=== PATIENT | female | born 1935 | race Caucasian/White ===

== ENCOUNTER → 2018-04-14 12:34 | Outpatient (CLI) | payer MEDICARE, OTHER, SELFPAY | PROVIDERS: PCP Internal Medicine; Visit Provider Internal Medicine | DX: M89.9 Disorder of bone, unspecified (principal); K21.9 Gastro-esophageal reflux disease without esophagitis | CPT/HCPCS: 77080 ==

== ENCOUNTER → 2018-09-11 11:00 | Outpatient (CLI) | payer MEDICARE, OTHER, SELFPAY ==
[2018-09-11 13:16] LABS: Free T3, Triiodothyronine Free 2.88 pg/mL (2.77-5.27); Free T4, Direct Thyroxine 0.94 ng/dL (0.78-2.19)
[2018-09-11 13:30] LABS: Thyroid Stimulating Hormone 0.31 uIU/mL (0.47-4.68)
[2018-09-11 15:57] LABS: Vitamin D 25 Hydroxy (D3) 49.3 ng/mL (30.0-100.0)
== END ==
PROVIDERS: PCP Internal Medicine; Visit Provider Internal Medicine Endocrinology, Diabetes & Metabolism
DX: E03.8 Other specified hypothyroidism (principal); E55.9 Vitamin D deficiency, unspecified
CPT/HCPCS: 36415; 82306; 84439; 84443; 84481

== ENCOUNTER → 2019-03-13 15:16 | Outpatient (CLI) | payer MEDICARE, OTHER, SELFPAY ==
[2019-03-13 19:23] LABS: Free T3, Triiodothyronine Free 3.75 pg/mL (2.77-5.27); Free T4, Direct Thyroxine 1.08 ng/dL (0.78-2.19)
[2019-03-13 19:37] LABS: Thyroid Stimulating Hormone 1.13 uIU/mL (0.47-4.68)
== END ==
PROVIDERS: Family Provider Internal Medicine; PCP Internal Medicine; Visit Provider Internal Medicine Endocrinology, Diabetes & Metabolism
DX: E03.8 Other specified hypothyroidism (principal)
CPT/HCPCS: 36415; 84439; 84443; 84481

== ENCOUNTER → 2019-03-15 08:24 | Outpatient (CLI) | payer MEDICARE, OTHER, SELFPAY ==
--- NOTE | 2019-03-15 | DI.MG.S_ITS ---
BILATERAL DIGITAL SCREENING MAMMOGRAM 3D/2D WITH CAD: 03/15/2019 CLINICAL: Routine screening. Family history of breast cancer. Comparison is made to exams dated: 01/30/2018 mammogram - [facility], 12/06/2013 mammogram - [facility], 12/06/2012 mammogram, and 12/02/2011 mammogram - [facility]. The tissue of both breasts is heterogeneously dense. This may lower the sensitivity of mammography. Current study was also evaluated with a Computer Aided Detection (CAD) system. No significant masses, calcifications, or other findings are seen in either breast. There has been no significant interval change. IMPRESSION: NEGATIVE There is no mammographic evidence of malignancy. A 1 year screening mammogram is recommended. This exam was interpreted at Station ID: [id number]. NOTE: For mammograms, a report in lay terms will be sent to the patient. Approximately 15% of breast malignancies will not be visualized mammographically. In the management of a palpable breast mass, a negative mammogram must not discourage biopsy of a clinically suspicious lesion. Electronically Signed By: Gerardo whitney/poncho:03/15/2019 12:42:54 letter sent: Normal Exam ACR BI-RADS Category 1: Negative [id number]
== END ==
PROVIDERS: PCP Internal Medicine; Visit Provider Internal Medicine
DX: Z12.31 Encounter for screening mammogram for malignant neoplasm of breast (principal); Z80.3 Family history of malignant neoplasm of breast
CPT/HCPCS: 77063; 77067

== ENCOUNTER → 2019-05-03 12:30 | Outpatient (CLI) | payer MEDICARE, OTHER, SELFPAY ==
[2019-05-03 13:52] LABS: Free T3, Triiodothyronine Free 2.36 pg/mL (2.77-5.27); Free T4, Direct Thyroxine 0.76 ng/dL (0.78-2.19)
[2019-05-03 14:05] LABS: Thyroid Stimulating Hormone 2.44 uIU/mL (0.47-4.68)
== END ==
PROVIDERS: Family Provider Internal Medicine; PCP Internal Medicine; Visit Provider Internal Medicine Endocrinology, Diabetes & Metabolism
DX: E03.8 Other specified hypothyroidism (principal)
CPT/HCPCS: 36415; 84439; 84443; 84481

== ENCOUNTER → 2019-08-02 16:04 | Outpatient (CLI) | payer MEDICARE, OTHER, SELFPAY ==
--- NOTE | 2019-08-02 | DI.US.S_ITS ---
PROCEDURE: US PERIPH VENOUS LOW EXTREM RT INDICATIONS: LEG PAIN TECHNIQUE: Real-time imaging, as well as color and pulse Doppler interrogation, were performed of the lower extremity deep veins from the inguinal ligament to the popliteal fossa. COMPARISON: None. FINDINGS: The common femoral, femoral and popliteal veins are normally compressible, and free of intraluminal thrombus. Color and pulse Doppler demonstrate normal phasic intraluminal flow. There is normal augmentation response to distal compression maneuver. Edema within the ankle. IMPRESSION: No deep venous thrombosis identified within the right lower extremity. Dictated by: Mendel PARRISH Interpreted: Magaly Raphael MD on 08/02/2019 at 17:27 Approved by: Brett Naqvi M.D. on 08/07/2019 at 10:00
== END ==
PROVIDERS: PCP Internal Medicine; Visit Provider Internal Medicine
DX: M79.604 Pain in right leg (principal); M79.89 Other specified soft tissue disorders
CPT/HCPCS: 93971

== ENCOUNTER → 2019-09-13 14:28 | Outpatient (CLI) | payer MEDICARE, OTHER, SELFPAY ==
[2019-09-13 16:01] LABS: Free T3, Triiodothyronine Free 4.41 pg/mL (2.77-5.27); Free T4, Direct Thyroxine 1.01 ng/dL (0.78-2.19)
[2019-09-13 16:15] LABS: Thyroid Stimulating Hormone 1.55 uIU/mL (0.47-4.68)
== END ==
PROVIDERS: PCP Internal Medicine; Visit Provider Internal Medicine Endocrinology, Diabetes & Metabolism
DX: E03.8 Other specified hypothyroidism (principal)
CPT/HCPCS: 36415; 84439; 84443; 84481

== ENCOUNTER → 2019-12-21 13:48 | Outpatient (CLI) | payer MEDICARE, OTHER, SELFPAY ==
--- NOTE | 2019-12-21 | DI.RAD.S_ITS ---
PROCEDURE: XR HIP W PEL IF DONE LT 2V INDICATIONS: left hip pain TECHNIQUE: AP pelvis with lateral view(s) of the left hip(s). COMPARISON: [facility] [place], KRISTYN, XR PELVIS WITH BILATERAL LATERAL HIPS, 05/26/2018, 14:58. [facility], KRISTYN, XR LUMBAR SPINE 2-3V, 12/21/2019, 14:07. [facility], CR, HIP 2V RIGHT, 08/21/2008, 9:43. [facility], CR, HIP 2V RIGHT, 08/01/2008, 17:14. FINDINGS: Bones: No fractures or dislocations. Prior plate fixation of a fracture involving the left hip, lower intertrochanteric area, appears present and stable over time. 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 No new trauma is found. There is a moderate degree of degenerative hip joint osteoarthritis on the left, and the adjacent sacroiliac joints and sacrum appear free of trauma or significant degeneration. Pelvic ring appears intact. No suspicious bony lesions. Soft tissues: The visualized bowel gas pattern is normal. No suspicious soft tissue calcifications. IMPRESSION: Postsurgical changes in each hip, normal alignment. 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 Dictated by: Brett Naqvi M.D. on 12/21/2019 at 16:55 Approved by: Brett Naqvi M.D. on 12/21/2019 at 16:57
--- NOTE | 2019-12-21 | DI.RAD.S_ITS ---
PROCEDURE: XR LUMBAR SPINE 2-3V INDICATIONS: low back pain TECHNIQUE: 3 views of the lumbar spine were acquired. COMPARISON: None. FINDINGS: Bones: 5 [id number] vertebrae are present. There is normal bony alignment. No vertebral body compression fractures. No suspicious bony lesions. There is a moderate degree of degenerative disc disease over the upper and middle thirds of the lumbosacral spine but the degree of degenerative disc height reduction has not extended as severely into the L4-5 and L5 S1 levels. However, facet osteoarthritis is near severe from L3 inferiorly and most pronounced at L5-S1, right greater than left, to the degree that significant spinal and foraminal stenosis over those levels would be expected. Soft tissues: Overlying bowel gas pattern is normal. No suspicious soft tissue calcifications. IMPRESSION: The degenerative disc disease is relatively mild compared to the facet osteoarthritis over the lower half of the LS spine were significant spinal and foraminal stenosis and nerve root impingement would be expected. Dictated by: Brett Naqvi M.D. on 12/21/2019 at 16:53 Approved by: Brett Naqvi M.D. on 12/21/2019 at 16:55
== END ==
PROVIDERS: PCP Internal Medicine; Visit Provider Internal Medicine
DX: M54.5 Low back pain (principal); M25.552 Pain in left hip; M16.12 Unilateral primary osteoarthritis, left hip; M47.816 Spondylosis without myelopathy or radiculopathy, lumbar region; M47.817 Spondylosis without myelopathy or radiculopathy, lumbosacral region; M51.36 Other intervertebral disc degeneration, lumbar region; Z96.641 Presence of right artificial hip joint
CPT/HCPCS: 72100; 73502

== ENCOUNTER → 2020-05-01 15:05 | Outpatient (CLI) | payer MEDICARE, OTHER, SELFPAY ==
[2020-05-01 15:56] LABS: Aspartate Aminotransferase 33 IU/L (14-36); BUN Creatinine Ratio 34.1 (6-22); Blood Urea Nitrogen 31 mg/dL (7-17); Calcium 9.7 mg/dL (8.4-10.2); Carbon Dioxide 24 mmol/L (22-32); Chloride 108 mmol/L (98-107); Cholesterol 236 mg/dL (140-199); Glucose 96 mg/dL (80-110); HDL Cholesterol 74 mg/dL (40-60); HEMOLYSIS < 15 (0-50); LDL Cholesterol Calculated 133 mg/dL (<100); Potassium 4.6 mmol/L (3.4-5.1); Sodium 139 mmol/L (137-145); Triglycerides 145 mg/dL (35-150)
[2020-05-01 16:17] LABS: Free T3, Triiodothyronine Free 4.15 pg/mL (2.77-5.27); Free T4, Direct Thyroxine 0.76 ng/dL (0.78-2.19)
[2020-05-01 16:30] LABS: Thyroid Stimulating Hormone 0.53 uIU/mL (0.47-4.68)
[2020-05-02 09:36] LABS: SARS CoV19 IgG Negative (Negative)
== END ==
PROVIDERS: PCP Internal Medicine; Referring Provider Internal Medicine; Visit Provider Internal Medicine
DX: Z03.818 Encounter for observation for suspected exposure to other biological agents ruled out (principal); E03.8 Other specified hypothyroidism; E78.2 Mixed hyperlipidemia
CPT/HCPCS: 36415; 80048; 80061; 84439; 84443; 84450; 84481; 86769

== ENCOUNTER → 2020-06-04 10:49 | Outpatient (CLI) | payer MEDICARE, OTHER, SELFPAY ==
--- NOTE | 2020-06-04 | DI.MG.S_ITS ---
BILATERAL DIGITAL SCREENING MAMMOGRAM 3D/2D WITH CAD: 06/04/2020 CLINICAL: Routine screening. Family history of breast cancer. Comparison is made to exams dated: 03/15/2019 mammogram, 01/30/2018 mammogram - [facility], and 12/06/2013 mammogram - [facility]. The tissue of both breasts is heterogeneously dense. This may lower the sensitivity of mammography. Current study was also evaluated with a Computer Aided Detection (CAD) system. No significant masses, calcifications, or other findings are seen in either breast. There has been no significant interval change. IMPRESSION: NEGATIVE There is no mammographic evidence of malignancy. A 1 year screening mammogram is recommended. This exam was interpreted at Station ID: [id number]. NOTE: For mammograms, a report in lay terms will be sent to the patient. Approximately 15% of breast malignancies will not be visualized mammographically. In the management of a palpable breast mass, a negative mammogram must not discourage biopsy of a clinically suspicious lesion. Electronically Signed By: Valerie armendariz/poncho:06/04/2020 16:16:38 letter sent: Normal Exam ACR BI-RADS Category 1: Negative [id number]
== END ==
PROVIDERS: PCP Internal Medicine; Referring Provider Internal Medicine; Visit Provider Internal Medicine
DX: Z12.31 Encounter for screening mammogram for malignant neoplasm of breast (principal); Z80.3 Family history of malignant neoplasm of breast
CPT/HCPCS: 77063; 77067

== ENCOUNTER → 2020-06-19 18:36 | Outpatient (ROUT) | payer MEDICARE, OTHER, SELFPAY ==
[2020-06-19 19:02] LABS: BUN Creatinine Ratio 22.7 (6-22); Blood Urea Nitrogen 20 mg/dL (7-17); Calcium 9.6 mg/dL (8.4-10.2); Carbon Dioxide 28 mmol/L (22-32); Chloride 102 mmol/L (98-107); Estimated Glomerular Filt Rate > 60.0 mL/min (>60); Glucose 90 mg/dL (80-110); HEMOLYSIS < 15 (0-50); Potassium 4.4 mmol/L (3.4-5.1); Sodium 135 mmol/L (137-145)
== END ==
PROVIDERS: PCP Internal Medicine; Visit Provider Internal Medicine
DX: K59.00 Constipation, unspecified (principal)
CPT/HCPCS: 80048

== ENCOUNTER → 2020-08-19 18:47 | Outpatient (ROUT) | payer MEDICARE, OTHER, SELFPAY ==
[2020-08-19 19:25] LABS: BUN Creatinine Ratio 21.4 (6-22); Blood Urea Nitrogen 18 mg/dL (7-17); Calcium 9.3 mg/dL (8.4-10.2); Carbon Dioxide 30 mmol/L (22-32); Chloride 105 mmol/L (98-107); Estimated Glomerular Filt Rate > 60.0 mL/min (>60); Glucose 124 mg/dL (80-110); HEMOLYSIS < 15 (0-50); Potassium 4.1 mmol/L (3.4-5.1); Sodium 139 mmol/L (137-145)
[2020-08-19 19:26] LABS: Hematocrit 41.2 % (36-46); Hemoglobin 13.9 g/dL (12.0-16.0); Mean Corpuscular HGB Conc 33.7 % (30-36); Mean Corpuscular Hemoglobin 30.3 PG (26-34); Mean Corpuscular Volume 89.9 fL (80-100); Platelet Count 288 X10^3/uL (150-400); Red Blood Cell Count 4.59 X10^6/uL (4.0-5.2); Red Cell Distribution Width 15.6 % (11.6-14.8); White Blood Cell Count 6.3 X10^3/uL (4.5-11.0)
[2020-08-19 19:40] LABS: Neutrophils Absolute Manual 4221 /uL (3000-5900); Total Cells Counted 100
[2020-08-19 19:41] LABS: Anisocytosis 1+
== END ==
PROVIDERS: PCP Internal Medicine; Visit Provider Internal Medicine
DX: E78.2 Mixed hyperlipidemia (principal); E03.9 Hypothyroidism, unspecified
CPT/HCPCS: 80048; 85025

== ENCOUNTER → 2020-09-02 09:14 | Outpatient (CLI) | payer MEDICARE, OTHER, SELFPAY ==
--- NOTE | 2020-09-02 | DI.US.S_ITS ---
PROCEDURE: US CAROTID DOPPLER BI INDICATIONS: Occlusion and stenosis of bilateral carotid arteri TECHNIQUE: Color and pulse Doppler interrogation was performed of both carotid systems, with image documentation and velocity measurements. COMPARISON: [facility], , CAROTID ARTERY DOPPLER BIL, 10/03/2017, 12:48. FINDINGS: Stenosis calculations are based on SRU (Society of Radiologists in Ultrasound) criteria. The flow velocities and the arterial waveforms are normal within both carotid arterial systems. Atherosclerotic plaque is seen on both sides. The estimated degree of internal carotid artery stenosis is less than 50%. Antegrade flow is confirmed within both vertebral arteries. IMPRESSION: No hemodynamically significant stenosis is seen. Atherosclerotic plaque is noted bilaterally. Dictated by: Tigre Shaikh M.D. on 09/02/2020 at 10:30 Approved by: Tigre Shaikh M.D. on 09/02/2020 at 10:33
== END ==
PROVIDERS: PCP Internal Medicine; Referring Provider Internal Medicine; Visit Provider Internal Medicine
DX: I65.23 Occlusion and stenosis of bilateral carotid arteries (principal)
CPT/HCPCS: 93880

== ENCOUNTER → 2020-09-22 14:03 | Outpatient (CLI) | payer MEDICARE, OTHER, SELFPAY ==
[2020-09-22 16:03] LABS: Thyroid Stimulating Hormone 2.14 uIU/mL (0.47-4.68)
== END ==
PROVIDERS: PCP Internal Medicine; Referring Provider Internal Medicine Endocrinology, Diabetes & Metabolism; Visit Provider Internal Medicine Endocrinology, Diabetes & Metabolism
DX: E03.8 Other specified hypothyroidism (principal)
CPT/HCPCS: 36415; 84439; 84443; 84481

== ENCOUNTER → 2020-11-22 14:00 | Outpatient (CLI) | payer MEDICARE, OTHER, SELFPAY ==
[2020-11-22 16:01] LABS: COVID19 -Nasal RAPID Negative (Negative)
== END ==
PROVIDERS: PCP Internal Medicine; Visit Provider Physician Assistant
DX: R05 Cough (principal); R06.02 Shortness of breath; Z20.822 Contact with and (suspected) exposure to COVID-19
CPT/HCPCS: 87635

== ENCOUNTER → 2020-11-27 13:51 | Outpatient (CLI) | payer MEDICARE, OTHER, SELFPAY ==
[2020-11-27 15:15] LABS: Free T3, Triiodothyronine Free 3.11 pg/mL (2.77-5.27)
[2020-11-27 15:28] LABS: Thyroid Stimulating Hormone 1.35 uIU/mL (0.47-4.68)
== END ==
PROVIDERS: PCP Internal Medicine; Referring Provider Internal Medicine Endocrinology, Diabetes & Metabolism; Visit Provider Internal Medicine Endocrinology, Diabetes & Metabolism
DX: E03.8 Other specified hypothyroidism (principal)
CPT/HCPCS: 36415; 84439; 84443; 84481

== ENCOUNTER → 2020-12-16 11:33 | Outpatient (CLI) | payer MEDICARE, OTHER, SELFPAY ==
--- NOTE | 2020-12-16 | DI.RAD.S_ITS ---
PROCEDURE: XR CHEST 2V INDICATIONS: SIMPLE CHRONIC BRONCHITIS TECHNIQUE: 2 views of the chest were acquired. COMPARISON: [facility], CHEST 2 VIEW, 12/11/2015, 16:49. [facility], CHEST 1 VIEW, 10/03/2017, 11:10. FINDINGS: Surgical changes and devices: None. Lungs and pleura: Lungs are clear. No pleural effusions or pneumothorax. Mediastinum: Mediastinal contours are normal. Heart size is normal. Bones and chest wall: No suspicious bony abnormalities. Soft tissues appear unremarkable. IMPRESSION: No acute cardiopulmonary disease. Dictated by: Eddie Cleary M.D. on 12/16/2020 at 12:12 Approved by: Eddie Cleary M.D. on 12/16/2020 at 12:13
== END ==
PROVIDERS: PCP Internal Medicine; Referring Provider Internal Medicine; Visit Provider Internal Medicine
DX: J41.0 Simple chronic bronchitis (principal)
CPT/HCPCS: 71046

== ENCOUNTER → 2021-01-22 13:29 | Outpatient (CLI) | payer MEDICARE, OTHER, SELFPAY ==
[2021-01-22 14:02] LABS: Add Manual Diff / Slide Review NO; Basophils Absolute Auto 0 /uL (0-100); Basophils Percent Auto 0.4 % (0-2); Eosinophils Absolute Auto 0 /uL (0-450); Eosinophils Percent Auto 0.1 % (2-4); Hemoglobin 13.4 g/dL (12.0-16.0); Lymphocytes Absolute Auto 2400 /uL (1100-4500); Lymphocytes Percent Auto 29.6 % (25-40); Mean Corpuscular HGB Conc 32.6 % (30-36); Mean Corpuscular Hemoglobin 29.6 PG (26-34); Mean Corpuscular Volume 90.9 fL (80-100); Monocytes Absolute Auto 400 /uL (0-900); Monocytes Percent Auto 5.6 % (3-14); Neutrophils Absolute Auto 5100 /uL (1500-7000); Neutrophils Percent Auto 64.3 % (50-75); Platelet Count 254 X10^3/uL (150-400); Red Blood Cell Count 4.51 X10^6/uL (4.0-5.2); Red Cell Distribution Width 14.3 % (11.6-14.8)
[2021-01-22 14:36] LABS: Alanine Aminotransferase 48 IU/L (<35); Albumin 4.4 g/dL (3.5-5.0); Albumin Globulin Ratio 1.8 (1.0-2.8); Alkaline Phosphatase 50 U/L (38-126); Aspartate Aminotransferase 46 IU/L (14-36); BUN Creatinine Ratio 21.7 (6-22); Bilirubin Total 0.4 mg/dL (0.2-1.3); Blood Urea Nitrogen 23 mg/dL (7-17); Calcium 9.2 mg/dL (8.4-10.2); Carbon Dioxide 26 mmol/L (22-32); Chloride 101 mmol/L (98-107); Estimated Glomerular Filt Rate 49.5 mL/min (>60); Globulin 2.4 g/dL (1.7-4.1); Glucose 111 mg/dL (80-110); HEMOLYSIS < 15 (0-50); Magnesium 2.1 mg/dL (1.6-2.3); Potassium 4.5 mmol/L (3.4-5.1); Sodium 135 mmol/L (137-145); Total Protein 6.8 g/dL (6.3-8.2)
[2021-01-22 14:49] LABS: Free T4, Direct Thyroxine 1.15 ng/dL (0.78-2.19)
[2021-01-22 15:03] LABS: Thyroid Stimulating Hormone 2.39 uIU/mL (0.47-4.68)
[2021-01-22 15:46] LABS: Vitamin D 25 Hydroxy (D3) 48.7 ng/mL (30.0-100.0)
== END ==
PROVIDERS: PCP Internal Medicine; Referring Provider Internal Medicine Endocrinology, Diabetes & Metabolism; Visit Provider Internal Medicine Endocrinology, Diabetes & Metabolism
DX: R53.83 Other fatigue (principal); E03.8 Other specified hypothyroidism; E83.42 Hypomagnesemia
CPT/HCPCS: 36415; 80053; 82306; 83735; 84439; 84443; 84481; 85025

== ENCOUNTER 2021-02-04 15:43 | Observation (INO) | payer MEDICARE, OTHER, SELFPAY ==
[2021-02-04] VITALS (12 sets, daily range): BP systolic 105–158; BP diastolic 66–106; PULSE 56–112; RESP 18–31; TEMP 35.9–36.8; O2SAT 95–100; BMI 25.8
--- NOTE | 2021-02-04 15:52 | DI.RAD.S_ITS ---
PROCEDURE: XR CHEST 1V INDICATIONS: Chest pain TECHNIQUE: One view of the chest was acquired. COMPARISON: [facility], CR, XR CHEST 2V, 12/16/2020, 11:44. FINDINGS: Surgical changes and devices: None. Scattered subsegmental atelectasis and/or scarring. No focal consolidation. No pleural effusions or pneumothorax. Mediastinum: Mediastinal contours appear normal. Heart size is normal. Bones and chest wall: Discogenic changes and lateral curvature of the spine. IMPRESSION: No acute disease. Dictated by: Theo Joyce M.D. on 02/04/2021 at 16:43 Approved by: Theo Joyce M.D. on 02/04/2021 at 16:44
[2021-02-04 16:07] LABS: Add Manual Diff / Slide Review NO; Basophils Absolute Auto 100 /uL (0-100); Basophils Percent Auto 1.1 % (0-2); Eosinophils Absolute Auto 0 /uL (0-450); Hematocrit 41.3 % (36-46); Hemoglobin 13.7 g/dL (12.0-16.0); Lymphocytes Absolute Auto 2900 /uL (1100-4500); Lymphocytes Percent Auto 32.3 % (25-40); Mean Corpuscular HGB Conc 33.2 % (30-36); Mean Corpuscular Hemoglobin 29.9 PG (26-34); Monocytes Absolute Auto 600 /uL (0-900); Monocytes Percent Auto 6.3 % (3-14); Neutrophils Absolute Auto 5300 /uL (1500-7000); Neutrophils Percent Auto 60.3 % (50-75); Platelet Count 280 X10^3/uL (150-400); Red Blood Cell Count 4.59 X10^6/uL (4.0-5.2); Red Cell Distribution Width 14.7 % (11.6-14.8); White Blood Cell Count 8.9 X10^3/uL (4.5-11.0)
[2021-02-04 16:14] LABS: INR 1.3 (0.9-1.3); Prothrombin Time 14.1 SECONDS (10.1-12.7)
[2021-02-04 16:17] LABS: PTT Partial Thromboplastin Tim 35 SECONDS (26.4-36.2)
--- NOTE | 2021-02-04 16:19 | ED_ITS ---
HPI - General Adult General Chief complaint: Shortness of Breath/Dyspnea Stated complaint: AFIB,Tachy,SOB Time Seen by Provider: 02/04/21 15:49 Source: patient Mode of arrival: Ambulatory Limitations: no limitations History of Present Illness HPI narrative: 85-year-old female with a history of hypothyroidism and chronic constipation and reflux disease here for evaluation of shortness of breath on exertion and some chest discomfort. She states that over the past couple months she has progressively worsening shortness of breath especially with exertion. Also having lower extremity swelling. She states that at night she can even get up out of bed to go use the restroom without having shortness of breath. Ap proximately 5 days ago she was seen in her primary doctor's office for evaluation of this. States she had a chest x-ray which she told is unremarkable. She had an EKG performed which she states she was told she was in atrial fibrillation. She was discharged home on anticoagulation and diltiazem. She has been on this medication since Tuesday. States that since that time she feels like she has been worsening specifically with chest discomfort and also shortness of breath. She generally does not feel very well. Related Data Home Medications Medication Instructions Recorded Confirmed levothyroxine [Synthroid] 75 mcg PO #0 04/02/10 09/08/19 liothyronine [Cytomel] 10 mcg PO QDAY #0 05/27/11 09/08/19 estradiol [Estrace] 0.01 % VAGINAL #0 04/08/13 09/08/19 levothyroxine [Synthroid] 0.5 tab PO QWEEKSU #0 10/03/17 09/08/19 magnesium hydroxide [Milk Of 30 ml PO QDAY #0 10/03/17 09/08/19 Magnesia Concentrated] omeprazole 20 mg PO QDAYP PRN #0 10/03/17 09/08/19 tramadol 50 mg PO Q8HP PRN #60 10/03/17 09/08/19 Previous Rx's Medication Instructions Recorded meclizine 25 mg PO TIDP PRN #20 tab 10/03/17 benzonatate 100 mg capsule 100 mg PO BID PRN #30 cap 06/14/20 Allergies Allergy/AdvReac Type Severity Reaction Status Date / Time ciprofloxacin [CIPROFLOXACIN] Allergy Severe Rash Verified 02/04/21 17:00 sulfamethoxazole Allergy Unknown RASH Verified 02/04/21 17:00 [From SEPTRA] trimethoprim [From SEPTRA] Allergy Unknown RASH Verified 02/04/21 17:00 metronidazole [From FLAGYL] AdvReac Unknown REALLY Verified 02/04/21 17:00 HARSH ON STOMACH Review of Systems Constitutional Constitutional: Denies fever(s) Cardiovascular Cardiovascular: Reports chest pain, Denies irregular heart rhythm and Reports dyspnea on exertion Respiratory Respiratory: Reports cough and Reports dyspnea on exertion Gastrointestinal Gastrointestinal: Denies abdominal pain, Denies change in bowel habits, Reports constipation, Denies nausea and Denies vomiting Musculoskeletal Musculoskeletal: Denies arthralgias and Denies myalgias Integumentary/Breasts Skin/Breast: Denies rash Neurologic Neurologic: Denies behavioral changes Psychiatric Psychiatric: Denies behavioral changes Hematologic/Lymphatic Hematologic/Lymphatic: Denies easy bleeding and Denies easy bruising On Anticoagulants: Yes Allergic/Immunologic Allergic/Immunologic: Denies urticaria Patient History Medical History Pneumonia Social History household members: spouse and children Smoking Status: Former smoker alcohol intake: never Smoking Status: Former smoker alcohol intake frequency: 0-2 drinks per day Substance Use Type: does not use Exam Initial Vital Signs Initial Vital Signs: Vital Signs Pulse Rate 95 H 02/04/21 15:57 Respiratory Rate 27 H 02/04/21 15:57 Pulse Oximetry 99 02/04/21 15:57 Const General: cooperative and comfortable Limitations: mental status not altered HENMT Head: normal to inspection and normocephalic Resp Effort & Inspection: not labored and tachypneic Auscultation: clear to auscultation bilaterally Cardio Rate: regular rate Rhythm: abnormal rhythm GI Inspection: non-distended Palpation: soft, No firm and No tender Skin Lesions: no lesions Rashes: no rashes Neuro General: patient alert and patient awake Cognition: normal cognition Speech: speech normal Extrem General: normal to inspection and capillary refill normal Psych Appearance: grossly normal and well kempt Course Orders Ordered: ED Orders 02/04/21 15:52 XR chest 1V Stat 02/04/21 15:53 EKG-12 Lead Stat 02/04/21 15:55 Complete Blood Count AUTO DIFF Stat Comprehensive Metabolic Panel Stat Lipase Stat NT-proBNP (BNP-Adult 18+) Stat Partial Thromboplastin Time Stat Prothrombin Time INR Stat Thyroid Stimulating Hormone Stat Troponin & CK Cardiac Panel Stat 02/04/21 16:30 COVID19 -Nasal swab/Pre-Proc Stat Discontinued Medications Metoprolol Succinate (Metoprolol Er 25 Mg Tablet) 25 mg PO NOW ONE Stop: 02/04/21 16:48 Last Admin: 02/04/21 17:06 Dose: 25 mg Documented by: CHELSEY Vital Signs Vital signs: Vital Signs - 8 hr 02/04/21 15:57 02/04/21 15:59 02/04/21 16:00 Temperature 98.3 F Pulse Rate 95 H 112 H 103 H Respiratory Rate 27 H 18 27 H Blood Pressure 142/77 H 142/77 H Pulse Oximetry 99 98 98 02/04/21 16:35 02/04/21 17:00 Temperature Pulse Rate 96 H 89 Respiratory Rate 28 H 31 H Blood Pressure 158/75 H Pulse Oximetry 99 100 Medical Decision Making Lab Data Lab results reviewed: Yes I reviewed the patient's lab results. Result diagrams: 02/04/21 15:55 02/04/21 15:55 Labs: Lab Results 02/04/21 02/04/21 02/04/21 Range/Units 15:55 15:55 15:55 WBC 8.9 (4.5-11.0) X10^3/uL RBC 4.59 (4.0-5.2) X10^6/uL Hgb 13.7 (12.0-16.0) g/dL Hct 41.3 (36-46) % MCV 90.0 (80-100) fL MCH 29.9 (26-34) PG MCHC 33.2 (30-36) % RDW 14.7 (11.6-14.8) % Plt Count 280 (150-400) X10^3/uL Neut % (Auto) 60.3 (50-75) % Lymph % (Auto) 32.3 (25-40) % [place] % (Auto) 6.3 (3-14) % Eos % (Auto) 0.0 L (2-4) % Baso % (Auto) 1.1 (0-2) % Neut # (Auto) 5300 (1037-9781) /uL Lymph # (Auto) 2900 (6260-4557) /uL [place] # (Auto) 600 (0-900) /uL Eos # (Auto) 0 (0-450) /uL Baso # (Auto) 100 (0-100) /uL PT 14.1 H (10.1-12.7) SECONDS INR 1.3 (0.9-1.3) APTT 35 (26.4-36.2) SECONDS Sodium 136 L (137-145) mmol/L Potassium 4.2 (3.4-5.1) mmol/L Chloride 101 (98-107) mmol/L Carbon Dioxide 25 (22-32) mmol/L BUN 17 (7-17) mg/dL Creatinine 0.86 (0.52-1.04) mg/dL Estimated GFR > 60.0 (>60) mL/min BUN/Creatinine Ratio 19.8 (6-22) Glucose 149 H (80-110) mg/dL Calcium 9.3 (8.4-10.2) mg/dL Total Bilirubin 0.3 (0.2-1.3) mg/dL AST 37 H (14-36) IU/L ALT 36 H (<35) IU/L Alkaline Phosphatase 48 (38-126) U/L Total Creatine Kinase 32 (30-135) U/L CK-MB (CK-2) TNP CK-MB (CK-2) Rel Index TNP Troponin I < 0.012 (0.01-0.034) ng/mL NT-Pro-B Natriuret Pep 1410 H (<450) pg/mL Total Protein 7.2 (6.3-8.2) g/dL Albumin 4.5 (3.5-5.0) g/dL Globulin 2.7 (1.7-4.1) g/dL Albumin/Globulin Ratio 1.7 (1.0-2.8) Lipase 181 (23-300) U/L SARS-CoV-2 (PCR) (Negative) 02/04/21 Range/Units 16:30 WBC (4.5-11.0) X10^3/uL RBC (4.0-5.2) X10^6/uL Hgb (12.0-16.0) g/dL Hct (36-46) % MCV (80-100) fL MCH (26-34) PG MCHC (30-36) % RDW (11.6-14.8) % Plt Count (150-400) X10^3/uL Neut % (Auto) (50-75) % Lymph % (Auto) (25-40) % [place] % (Auto) (3-14) % Eos % (Auto) (2-4) % Baso % (Auto) (0-2) % Neut # (Auto) (3576-1010) /uL Lymph # (Auto) (3104-0086) /uL [place] # (Auto) (0-900) /uL Eos # (Auto) (0-450) /uL Baso # (Auto) (0-100) /uL PT (10.1-12.7) SECONDS INR (0.9-1.3) APTT (26.4-36.2) SECONDS Sodium (137-145) mmol/L Potassium (3.4-5.1) mmol/L Chloride (98-107) mmol/L Carbon Dioxide (22-32) mmol/L BUN (7-17) mg/dL Creatinine (0.52-1.04) mg/dL Estimated GFR (>60) mL/min BUN/Creatinine Ratio (6-22) Glucose (80-110) mg/dL Calcium (8.4-10.2) mg/dL Total Bilirubin (0.2-1.3) mg/dL AST (14-36) IU/L ALT (<35) IU/L Alkaline Phosphatase (38-126) U/L Total Creatine Kinase (30-135) U/L CK-MB (CK-2) CK-MB (CK-2) Rel Index Troponin I (0.01-0.034) ng/mL NT-Pro-B Natriuret Pep (<450) pg/mL Total Protein (6.3-8.2) g/dL Albumin (3.5-5.0) g/dL Globulin (1.7-4.1) g/dL Albumin/Globulin Ratio (1.0-2.8) Lipase (23-300) U/L SARS-CoV-2 (PCR) Negative (Negative) Imaging Data Chest x-ray: Radiologist's Impression: [address] [id number] ReportSigned Patient: Joceline Ace CMR#: [id number]: 7Acct:[id number]/Sex: 85 / FDate of Service: 02/04/21Loc: EDAccession Number: [id number] Procedure: XR chest 1V Ordering Provider: Raul Orellana D.O. PROCEDURE: XR CHEST 1V INDICATIONS: Chest pain TECHNIQUE: One view of the chest was acquired. COMPARISON: [facility], , XR CHEST 2V, 12/16/2020, 11:44. FINDINGS: Surgical changes and devices: None. Scattered subsegmental atelectasis and/or scarring. No focal consolidation. No pleural effusions or pneumothorax. Mediastinum: Mediastinal contours appear normal. Heart size is normal. Bones and chest wall: Discogenic changes and lateral curvature of the spine. IMPRESSION: No acute disease. Dictated by: Theo Joyce M.D. on 02/04/2021 at 16:43 Approved by: Theo Joyce M.D. on 02/04/2021 at 16:44 ECG Data Attestation: I personally reviewed and interpreted this ECG as follows: Prior ECG tracings: not available for review Interpretation: Atrial flutter Ventricular rate 86 One PVC Normal axis Nonspecific ST T wave changes MDM Narrative Medical decision making narrative: Patient was significantly dyspneic on exertion however this did improve with resting in the bed. She was not hypotensive. Heart rate ranged anywhere from the 70s to 120s however she was mostly in the 100-110 range. Her troponin was negative and this was greater than 6 hours after the onset of her symptoms this morning. Her BNP was slightly elevated however I do have a higher suspicion that her symptoms related to the AFib. She has only been on anticoagulation for the past couple days. Considered cardioverting her here in the emergency department for the dyspnea on exertion however did not feel that she was in extremis and I felt that the risks of potential stroke or higher than the benefits for emergent cardioversion. I did discuss the case with Dr. Cueva on-call for Cardiology. We did discuss whether the patient not be transferred for a MARTITA and cardioversion verses admitting at this facility. He recommended switching her from diltiazem to metoprolol. He recommended a echocardiogram prior to any MARTITA and cardioversion. I then discussed the case with Dr. Bryson with Internal Medicine who recommended the extended-release metoprolol. She was given that here in the emergency department. Will admit for further evaluation and treatment. Discussed this with the patient and she expressed understanding and agreement. Discharge Plan Departure Patient Disposition: Home Clinical Impression: Atrial flutter, Dyspnea on exertion
[2021-02-04 16:20] LABS: Alanine Aminotransferase 36 IU/L (<35); Albumin 4.5 g/dL (3.5-5.0); Albumin Globulin Ratio 1.7 (1.0-2.8); Alkaline Phosphatase 48 U/L (38-126); Aspartate Aminotransferase 37 IU/L (14-36); BUN Creatinine Ratio 19.8 (6-22); Bilirubin Total 0.3 mg/dL (0.2-1.3); Blood Urea Nitrogen 17 mg/dL (7-17); Calcium 9.3 mg/dL (8.4-10.2); Carbon Dioxide 25 mmol/L (22-32); Chloride 101 mmol/L (98-107); Creatine Kinase 32 U/L (30-135); Estimated Glomerular Filt Rate > 60.0 mL/min (>60); Globulin 2.7 g/dL (1.7-4.1); Glucose 149 mg/dL (80-110); HEMOLYSIS 33 (0-50); Lipase 181 U/L (23-300); Potassium 4.2 mmol/L (3.4-5.1); Sodium 136 mmol/L (137-145); Total Protein 7.2 g/dL (6.3-8.2)
[2021-02-04 16:32] LABS: NT-proBNP (BNP-Adult 18+) 1410 pg/mL (<450); Troponin I < 0.012 ng/mL (0.01-0.034)
[2021-02-04] MEDS: METOPROLOL ER 25 MG TABLET PO (17:06)
[2021-02-04 17:30] LABS: COVID19 -Nasal RAPID Negative (Negative)
--- NOTE | 2021-02-04 17:39 | DI.ECHO.S_ITS ---
[facility] +---------+ : : [address] : : : : [id number] : : : : Phone: [phone]+ Echocardiogram Report + + :Name: PRETTY VILLARREAL Study Date: 02/05/2021 Height: 67 in : :[facility] ReadingLocation: Weight: 165 lb: : Gender: Female BSA: 1.9 m2 : :: 1935 Age: 85 yrs BP: 93/52 mmHg: :Reason For Study: ATRIAL FIBRILLATION : :Ordering Physician: NIKI, : :AKILA PELLETIER Performed By: Emilee Padilla : :Referring: AKILA PRINCE : + + Interpretation Summary The ejection fraction is estimated to be 30-35%. Severe inferior and inferolateral hypokinesis in the setting of moderate global hypokinesis. There is mild to moderate mitral regurgitation. There is mild tricuspid regurgitation. The right ventricular systolic pressure is estimated to be at least 30 mmHg based on an estimated right atrial pressure of 8 mm Hg. Left ventricular function has significantly worsened compared to the previous exam. Procedure: A two-dimensional transthoracic echocardiogram with color flow and Doppler was performed. The study quality was technically adequate. Comparison is made with the echocardiogram of 06/29/2013. The patient was in atrial fibrillation with heart rates between 60-85 bpm during the exam. Left Ventricle: The left ventricle is normal in size. Left ventricular wall thickness is mildly increased. The ejection fraction is estimated to be 30- 35%. Left ventricular function has significantly worsened compared to the previous exam. Severe inferior and inferolateral hypokinesis in the setting of moderate global hypokinesis. Diastolic function could not be accurately assessed due to atrial fibrillation. Right Ventricle: The right ventricle is normal size. Right ventricular systolic function is at the lower limits of normal. Atria: The left atrium is severely dilated. The right atrium is moderate to severely dilated. There is no Doppler evidence for an interatrial shunt. Mitral Valve: The mitral valve is normal in structure and function. There is mild mitral annular calcification. There is mild to moderate mitral regurgitation. Aortic Valve: The aortic valve is trileaflet. The aortic valve opens well. There is no aortic valve stenosis. No aortic regurgitation is present. Tricuspid Valve: The tricuspid valve is normal in structure and function. There is mild tricuspid regurgitation. The right ventricular systolic pressure is estimated to be at least 30 mmHg based on an estimated right atrial pressure of 8 mm Hg. Pulmonic Valve: The pulmonic valve leaflets are thin and pliable; valve motion is normal. There is trace pulmonic regurgitation. Great Vessels: The aortic root is normal size. The ascending aorta is mildly enlarged. The IVC is of normal diameter and collapses less than 50% with a sniff. This suggests a right atrial pressure of 8 mm Hg. Pericardium/ Pleura There is no pericardial effusion. There is no pleural effusion. MMode/2D Measurements & Calculations LVIDd: 5.2 cm LVOT diam: 2.1 cm LVIDs: 4.0 cm Ao root diam: 3.0 cm FS: 22.5 % asc Aorta Diam: 3.8 cm EPSS: 1.4 cm Ao Arch Diam (Prox Trans): 3.4 cm IVSd: 1.2 cm LVPWd: 0.96 cm LV méndez. diameter/BSA (cm/m^2): 2.8 LV sys. diameter/BSA (cm/m^2): 2.2 LA A2 area: 29.7 cm2 RA long axis: 5.8 cm LA A4 area: 26.2 cm2 RA area: 24.6 cm2 LA length (vol): 6.2 cm RA vol: 88.4 ml LA vol: 106.2 ml RA : 47.5 ml/m2 LA vol index: 57.0 ml/m2 IVC diam: 2.0 cm RVD1 (basal): 3.1 cm TAPSE: 1.6 cm Doppler Measurements & Calculations Ao V2 max: 114.7 cm/sec LVOT Max Rakesh: 52.6 cm/sec Ao V2 mean: 79.7 cm/sec LV V1 max P.1 mmHg Ao max P.3 mmHg LV V1 VTI: 9.3 cm Ao mean P.9 mmHg OMI(I,D): 1.4 cm2 Ao V2 VTI: 22.4 cm OMI(V,D): 1.5 cm2 sev ratio: 0.42 OMI indexed to BSA (cm^2/m^2): 0.75 MV E max rakesh: 101.5 cm/sec TR max rakesh: 232.2 cm/sec MV A max rakesh: 1.8 cm/sec TR max P.6 mmHg MV E/A: 55.7 PA V2 max: 46.1 cm/sec Med Peak E' Rakesh: 5.3 cm/sec PA V2 mean: 31.3 cm/sec E/E' med: 19.2 PA mean P.46 mmHg Lat Peak E' Rakesh: 5.5 cm/sec PA pr(Accel): 43.0 mmHg E/E' lat: 18.6 E/e' average: 18.9 MV dec time: 0.20 sec SV(LVOT): 31.3 ml Reading Physician:12:23 PM
[2021-02-04 18:05] LABS: Thyroid Stimulating Hormone 2.31 uIU/mL (0.47-4.68)
--- NOTE | 2021-02-04 18:10 | P.HP_ITS ---
History of Present Illness History of Present Illness Date Patient Seen: 02/04/21 Time Patient Seen: 18:10 Chief complaint: AFIB,Tachy,SOB Narrative: Joceline Ace is an 85-year-old female with a past medical history of hypothyroidism and constipation who presented with worsening dyspnea on exertion for the past 2 months. Patient states that she saw her primary care provider last week for continued dyspnea on exertion and shortness of breath. Approximately 9 days ago she saw her PCP who started her on a course of prednisone, which minimally helped with her symptoms. She then saw him now about 5 days ago, on Tuesday, with continued symptoms during her steroid taper. She was noted to be in atrial fibrillation with a rate of she says up to 180. Her PCP started her on diltiazem and apixaban. Over the weekend she had no gross improvement in her symptoms and actually had worsening of her lower extremity edema so she came to the emergency room for further evaluation today. She cannot walk more than a few steps at a time today, compared to a few months ago where she had no dyspnea or restriction. She further developed some mild left sided chest pressure radiating into her left arm and neck over the weekend. This is happened over the last couple of days, she denies any nausea, vomiting, diaphoresis during the episodes. It did not seem to be related to exertion. In the emergency room, the patient was again noted to be in atrial fibrillation with rapid ventricular response with a heart rate in the 110s. EKG showed atrial flutter with a rate of 86. The emergency room provider spoke with Cardiology who recommended formal echocardiogram and switching from diltiazem to metoprolol. She was given a dose of oral metoprolol in the emergency room and admitted for atrial fibrillation with rapid ventricular response. Patient History Medical History Atrial fibrillation Hypothyroidism Pneumonia Surgical History H/O: hysterectomy History of hip surgery Family & Social History Social History: household members spouse,children Prior Living Arrangements House Safety & Behavioral: Feels Safe in Current Yes Environment Been Physically Hurt or No Threatened By a Person Suicidal Ideation Description None Suicide Plan Description No Plan Tobacco & Substance use: Tobacco type cigarettes Smoking Status Former smoker , 20 pack years quit many years ago alcohol intake never alcohol intake frequency 0-2 drinks per day Substance Use Type other Meds Home Medications and Allergies Home Medications Medication Instructions Recorded Confirmed Type levothyroxine [Synthroid] 68 mcg PO DAILY #0 04/02/10 02/04/21 History liothyronine [Cytomel] 5 mcg PO QDAY #0 05/27/11 02/04/21 History estradiol [Estrace] 0.01 % VAGINAL 3XW #0 04/08/13 02/04/21 History apixaban [Eliquis] 5 mg PO BID 02/04/21 02/04/21 History diltiazem HCl 180 mg PO DAILY 02/04/21 02/04/21 History econazole 1 applic TOPICAL DAILY 02/04/21 02/04/21 History linaclotide [Linzess] 290 mcg PO DAILY 02/04/21 02/04/21 History polyethylene glycol 3350 [Miralax] 17 g PO BID 02/04/21 02/04/21 History sennosides [senna] 2 mg PO BID 02/04/21 02/04/21 History Allergies Allergy/AdvReac Type Severity Reaction Status Date / Time ciprofloxacin [CIPROFLOXACIN] Allergy Severe Rash Verified 02/04/21 17:00 sulfamethoxazole Allergy Unknown RASH Verified 02/04/21 17:00 [From SEPTRA] trimethoprim [From SEPTRA] Allergy Unknown RASH Verified 02/04/21 17:00 metronidazole [From FLAGYL] AdvReac Unknown REALLY Verified 02/04/21 17:00 HARSH ON STOMACH Review of Systems Review of Systems Narrative: All other systems reviewed with the patient and are negative unless otherwise stated. Exam Vital Signs (past 8 hours): - 02/04/21 15:57 02/04/21 15:59 02/04/21 16:00 Temperature 98.3 F Pulse Rate 95 H 112 H 103 H Respiratory Rate 27 H 18 27 H Blood Pressure 142/77 H 142/77 H Pulse Oximetry 99 98 98 02/04/21 16:35 02/04/21 17:00 02/04/21 17:01 Temperature Pulse Rate 96 H 89 83 Respiratory Rate 28 H 31 H 29 H Blood Pressure 158/75 H 128/69 Pulse Oximetry 99 100 99 02/04/21 17:06 02/04/21 17:34 Temperature 97.6 F Pulse Rate 87 82 Respiratory Rate 19 Blood Pressure 128/69 143/106 H Pulse Oximetry Oxygen Delivery Method Room Air Narrative Exam Narrative: GENERAL APPEARANCE: Well developed, well nourished, elderly female in no acute distress. SKIN: Inspection of the skin reveals no rashes, ulcerations or petechiae. HEENT: Normocephalic atraumatic, extraocular muscles are intact, oropharynx is clear and mucous membranes are moist, neck is supple without adenopathy NECK: Supple and symmetric. There was no thyroid enlargement, and no tenderness. No JVD. CHEST: Normal AP diameter and normal contour without any kyphoscoliosis. LUNGS: Mild bibasilar rhonchi, right greater than left, no wheezing. CARDIOVASCULAR: Mildly tachycardic, irregularly irregular rhythm without murmurs, rubs, or gallops Peripheral pulses were 2+ and symmetric. ABDOMEN: Soft and nontender with normal bowel sounds. No ascites was noted. MUSCULOSKELETAL: There was no tenderness or effusions noted. Muscle strength and tone were normal. EXTREMITIES: No cyanosis, clubbing. Bilateral LE 2+ pitting edema. NEUROLOGIC: Alert and oriented x 3. Normal affect. Strength is +5/5 in the Upper Extremities and Lower Extremities Bilaterally. Sensation to touch was normal. Objective ECG Impression: Atrial flutter with variable AV block with premature ventricular or aberrantly conducted complexes Nonspecific T wave abnormality (TWI in III only) Imaging Chest x-ray: My impression: Lungs are clear, no cardiomegaly, no acute disease. Radiologist's impression: PROCEDURE: XR CHEST 1V INDICATIONS: Chest pain TECHNIQUE: One view of the chest was acquired. COMPARISON: [facility], , XR CHEST 2V, 12/16/2020, 11:44. FINDINGS: Surgical changes and devices: None. Scattered subsegmental atelectasis and/or scarring. No focal consolidation. No pleural effusions or pneumothorax. Mediastinum: Mediastinal contours appear normal. Heart size is normal. Bones and chest wall: Discogenic changes and lateral curvature of the spine. IMPRESSION: No acute disease. Labs Result Diagrams: 02/04/21 15:55 02/04/21 15:55 Labs: Laboratory Results - last 24 hr 02/04/21 02/04/21 02/04/21 15:55 15:55 15:55 WBC 8.9 RBC 4.59 Hgb 13.7 Hct 41.3 MCV 90.0 MCH 29.9 MCHC 33.2 RDW 14.7 Plt Count 280 Neut % (Auto) 60.3 Lymph % (Auto) 32.3 Mcculloch % (Auto) 6.3 Eos % (Auto) 0.0 L Baso % (Auto) 1.1 Neut # (Auto) 5300 Lymph # (Auto) 2900 Mcculloch # (Auto) 600 Eos # (Auto) 0 Baso # (Auto) 100 PT 14.1 H INR 1.3 APTT 35 Sodium 136 L Potassium 4.2 Chloride 101 Carbon Dioxide 25 BUN 17 Creatinine 0.86 Estimated GFR > 60.0 BUN/Creatinine Ratio 19.8 Glucose 149 H Calcium 9.3 Total Bilirubin 0.3 AST 37 H ALT 36 H Alkaline Phosphatase 48 Total Creatine Kinase 32 CK-MB (CK-2) TNP CK-MB (CK-2) Rel Index TNP Troponin I < 0.012 NT-Pro-B Natriuret Pep 1410 H Total Protein 7.2 Albumin 4.5 Globulin 2.7 Albumin/Globulin Ratio 1.7 Lipase 181 SARS-CoV-2 (PCR) 02/04/21 16:30 WBC RBC Hgb Hct MCV MCH MCHC RDW Plt Count Neut % (Auto) Lymph % (Auto) Mcculloch % (Auto) Eos % (Auto) Baso % (Auto) Neut # (Auto) Lymph # (Auto) Mcculloch # (Auto) Eos # (Auto) Baso # (Auto) PT INR APTT Sodium Potassium Chloride Carbon Dioxide BUN Creatinine Estimated GFR BUN/Creatinine Ratio Glucose Calcium Total Bilirubin AST ALT Alkaline Phosphatase Total Creatine Kinase CK-MB (CK-2) CK-MB (CK-2) Rel Index Troponin I NT-Pro-B Natriuret Pep Total Protein Albumin Globulin Albumin/Globulin Ratio Lipase SARS-CoV-2 (PCR) Negative Assessment & Plan Assessment & Plan narrative: Joceline Ace is an 85-year-old female with a past medical history of hypothyroidism and constipation who presented with worsening dyspnea on exertion for the past 2 months. Admitted with atrial fibrillation / flutter with RVR. 1. atrial fibrillation and flutter with rapid ventricular response, unknown type, recently diagnosed 5 days ago. - patient diagnosed 5 days prior to admission by primary care provider and was started on diltiazem and apixaban as an outpatient. With these medications her symptoms did not improve and actually worsened slightly. - suspect probable tachyarrhythmia induced heart failure, or symptomatic atrial fibrillation with rapid ventricular response. Will diurese and try to attempt rate control with oral metoprolol to see if this helps with her symptoms. Consider stress testing if no improvement as an inpatient or if improved can be deferred to outpatient. - continue IV lasix 40 mg BID - continue metoprolol 25 mg BID - telemetry - echocardiogram ordered. - check A1c, TSH as noted below, and Lipid panel. - CHADSVASC of 3, started as an outpatient on apixaban, will continue. 2. hypothyroidism, chronic - TSH controlled on ER labs at 2.31. Continue home medications. 3. suspected acute heart failure in setting of - TTE pending as noted above. ProBNP 1410 on admission. Will diurese with 40 mg IV BID. 4. chronic constipation - continue home medications. Code: full, surrogate decision maker is the patient's DVT: on apixaban Dispo: Admitted under observation status. COVID-19 COVID-19 status: Negative Scores CHADS-VASc Congestive heart failure: no Hypertension: no Age 75 years or older: yes Diabetes mellitus: no Stroke, TIA, or TE: no Vascular disease: no Age 65 to 74 years: no Sex category (female): Female CHADS-VASc Score: 3 Quality VTE Deep Vein Thrombosis/Pulmonary Embolism Present on Admission: No MIPS - Admit Advanced Care Plan / Current Medications Measures: #47 ? Advanced Care Plan Clinician documentation instruction: document at admission. [x] I confirmed that the patient's Advance Care Plan is present, code status is documented, or surrogate decision maker is listed in the patient?s medical record. [SATISFIES MIPS PERFORMANCE] If Yes, Stop Here [] The patient?s Advance Care plan is not present because: (select) [MIPS PERFORMANCE EXCEPTION/EXCLUSION] [] I confirmed today that the patient does not wish or was not able to name a surrogate decision maker or provide an Advance Care Plan. [] Hospice care is currently being provided or has been provided this calendar year [] I did NOT confirm today the presence of an Advance Care Plan or surrogate decision maker documented within the patient's medical record. [DOES NOT SATISFY MIPS PERFORMANCE] #130 - Documentation of Current Medications in the Medical Record Clinician documentation instruction: use macro the first time you see a patient. [x] I have utilized all available immediate resources to obtain, update, or review the patient?s current medications. [SATISFIES MIPS PERFORMANCE] If Yes, Stop Here [] The patient is not eligible for medication reconciliation; the patient is in an emergent medical situation where delaying treatment would jeopardize the patient?s health. [MIPS PERFORMANCE EXCEPTION/EXCLUSION] [] I did NOT confirm, update or review the patient's current list of medications today. [DOES NOT SATISFY MIPS PERFORMANCE] MIPS - CL Central Venous Catheter Placement Measure: #76 ? Prevention of Central Venous Catheter (CVC) ? Related Bloodstream Infection Clinician documentation instruction: use macro every time you place a central line. [] All elements of Maximal Sterile Barrier Technique, including hand hygiene, skin prep, and sterile ultrasound technique (if used) were followed. [SATISFIES MIPS PERFORMANCE] If Yes, Stop Here [] If ?No?, the medical reason all elements were NOT used for medical reason [] (ex. emergent condition). [] Maximal Sterile Barrier Technique was not followed, no reason provided [DOES NOT SATISFY MIPS PERFORMANCE] MIPS - DC Heart Failure Measures: #5 - Heart Failure (HF): Angiotensin-Converting Enzyme (JUDD) Inhibitor or Angiotensin Receptor Meenakshi (ARB) Therapy for Left Galdino tricular Systolic Dysfunction (LVSD) and #8 - Heart Failure (HF): Beta-Meenakshi Therapy for Left Ventricular Systolic Dysfunction (LVSD) Clinician documentation instruction: use macro at every CHF discharge. [] The patient has current or prior documentation of left ventricular ejection fraction (LVEF) less than 40%, or moderate or severely depressed left ventricular systolic function. Answer both: [SATISFIES MIPS PERFORMANCE] [] The patient was prescribed or already taking an Angiotensin-Converting Enzyme (JUDD) Inhibitor, or Angiotensin Receptor Meenakshi (ARB). [] The patient was prescribed or already taking a beta-meenakshi. If Yes to Both, Stop Here [] Patient not prescribed/taking: [MIPS PERFORMANCE EXCEPTION/EXCLUSION] [] JUDD or ARB for medical/patient/system reason(s) including [] (ex. allergy, intolerance, contraindication) [] Beta-meenakshi for medical/patient/system reason(s) including [] (ex. allergy, intolerance, contraindication) [] Patient not prescribed/taking: [DOES NOT SATISFY MIPS PERFORMANCE] [] JUDD or ARB, no reason given [] Beta-meenakshi, no reason given
[2021-02-04] MEDS: FUROSEMIDE 40 MG/4 ML VIAL IV (18:41)
[2021-02-04] MEDS: SENNOSIDES 8.6 MG TABLET 17.2 MG PO (21:44)
[2021-02-04] MEDS: polyethylene glycoL 3350 17 GM POWD.PACK PO (21:45)
[2021-02-04] MEDS: DOCUSATE 100 MG CAPSULE PO (21:45)
--- NOTE | 2021-02-04 22:25 | PC.NURSE ---
Pt arrived at 1720 from ED. Alert/oriented Slight SOB w/excretion HL intact/patent. Tele showing a-afib per ICU staff. Received lasix IV and has had 1400cc clear yellow urine out Call light w/in reach, pt calls appropriately for needs,. Continue w/plan of care,
--- NOTE | 2021-02-05 00:34 | PC.NURSE ---
Addendum entered by Elida Ernst R.N. 02/05/21 05:12: [employer] reports 10 beat run of v-tach at rate of 150 bpm Original Note: 2326: patient is alert and oriented. Breath sounds CTA with RA sat of 95%. States she is still feeling slightly SOB but much improved from admission. HR irregular; telemetry reading was aflutter SVR rate of 56 with occasional pauses. Denies nausea. BT present and abdomen is soft; reports history of constipation but states she had a BM yesterday. Denies dysuria but reports urinary urgency. Is able to turn herself in bed. Provided SBA when out of bed for safety but is steady on feet and denies weakness. Soles of bilateral feet are red and chapped with cracks on bilateral heels; has bandaid on left heel and Allevyn applied to right heel for comfort. Fall risk score is moderate and bed alarm is activated.
[2021-02-05 04:59] VITALS: BP 93/52; PULSE 59; RESP 16; TEMP 36.2; O2SAT 94
[2021-02-05 05:35] LABS: Add Manual Diff / Slide Review NO; Basophils Absolute Auto 0 /uL (0-100); Basophils Percent Auto 0.8 % (0-2); Eosinophils Absolute Auto 0 /uL (0-450); Hematocrit 38.1 % (36-46); Hemoglobin 12.5 g/dL (12.0-16.0); Lymphocytes Absolute Auto 2600 /uL (1100-4500); Mean Corpuscular HGB Conc 32.7 % (30-36); Mean Corpuscular Hemoglobin 29.7 PG (26-34); Mean Corpuscular Volume 90.8 fL (80-100); Monocytes Absolute Auto 600 /uL (0-900); Monocytes Percent Auto 9.8 % (3-14); Neutrophils Absolute Auto 2900 /uL (1500-7000); Neutrophils Percent Auto 47.4 % (50-75); Platelet Count 225 X10^3/uL (150-400); Red Blood Cell Count 4.19 X10^6/uL (4.0-5.2); Red Cell Distribution Width 14.6 % (11.6-14.8); White Blood Cell Count 6.2 X10^3/uL (4.5-11.0)
[2021-02-05 05:47] LABS: Blood Urea Nitrogen 12 mg/dL (7-17); Calcium 8.5 mg/dL (8.4-10.2); Carbon Dioxide 29 mmol/L (22-32); Chloride 101 mmol/L (98-107); Cholesterol 148 mg/dL (140-199); Estimated Glomerular Filt Rate > 60.0 mL/min (>60); Glucose 87 mg/dL (80-110); HDL Cholesterol 56 mg/dL (40-60); HEMOLYSIS < 15 (0-50); LDL Cholesterol Calculated 85 mg/dL (<100); Magnesium 1.8 mg/dL (1.6-2.3); Potassium 3.6 mmol/L (3.4-5.1); Sodium 134 mmol/L (137-145); Triglycerides 36 mg/dL (35-150)
[2021-02-05 08:00] VITALS: BP 88/67; PULSE 68; RESP 17; TEMP 36.8; O2SAT 95
[2021-02-05 08:32] VITALS: BP 113/60; PULSE 60
[2021-02-05] MEDS: SENNOSIDES 8.6 MG TABLET 17.2 MG PO (09:14)
[2021-02-05] MEDS: polyethylene glycoL 3350 17 GM POWD.PACK PO (09:14)
[2021-02-05] MEDS: DOCUSATE 100 MG CAPSULE PO (09:14)
[2021-02-05] MEDS: APIXABAN 5 MG TABLET PO (09:15)
[2021-02-05] MEDS: SODIUM CHLORIDE 0.9% FLUSH 10 ML IV (09:15)
[2021-02-05] MEDS: LINACLOTIDE 290 MCG 290 EACH PO (09:15)
[2021-02-05] MEDS: LEVOTHYROXINE 75 MCG TABLET 68 MCG PO (09:16)
[2021-02-05] MEDS: LIOTHYRONINE 5 MCG TABLET PO (09:16)
[2021-02-05] MEDS: FUROSEMIDE 20 MG TABLET PO (09:23)
[2021-02-05] MEDS: ACETAMINOPHEN 325 MG TABLET 650 MG PO (09:23)
--- NOTE | 2021-02-05 10:32 | CM.IDA ---
Initial DCP Assessment Note Patient is an 85 yo female, resident of [place]. Patient presents in afib and scheduled for echo and stress test today; expected to DC home later today. PCP: Thompson Vicente Payer: [employer] Met w/patient this morning to introduce role. Patient is indp and active at baseline, she and spouse care for their grand dtr, whom they have custody of. Patient requests a referral to [facility]; discussed w/ Dr Bryson, this referral will need to come from PCP Dr Vicente. Will plan to update patient w. this information. Patient expects to return home later this afternoon w/no needs from this [employer]. Will plan to follow in case any DC needs or concerns arise. KATHIE Martin Discharge Planning/Care Management CM Discharge Assessment Start: 02/05/21 10:30 Freq: Status: Active Protocol: Document 02/05/21 10:30 ALICJA (Rec: 02/05/21 10:32 ALICJA [id number]) Discharge Planning Assessment Assigned Drum Sander KATHIE Hinds DPOA/Assigned Designee Name Andrew Ace, spouse Contact Information [phone], Advance Directives? No History Provided By Patient Prior Living Arrangements House Household Members spouse,children Independent with ADL's Yes Is patient alert and oriented? Yes Barriers to Discharge No Discharge Plan Home Transportation Arrangement Family Whiteboard Updated in Patient Room with Yes name and ext. # of Drum Sander
[2021-02-05 12:00] VITALS: BP 111/68; PULSE 66; RESP 17; TEMP 36.8; O2SAT 96
--- NOTE | 2021-02-05 13:58 | P.DS_ITS ---
History of Present Illness History of Present Illness Date Patient Seen: 02/05/21 Time Patient Seen: 13:58 Chief complaint: AFIB,Tachy,SOB Narrative: Joceline Ace is an 85-year-old female with a past medical history of hypothyroidism and constipation who presented with worsening dyspnea on exertion for the past 2 months. Patient states that she saw her primary care provider last week for continued dyspnea on exertion and shortness of breath. Approximately 9 days ago she saw her PCP who started her on a course of prednisone, which minimally helped with her symptoms. She then saw him now about 5 days ago, on Tuesday, with continued symptoms during her steroid taper. She was noted to be in atrial fibrillation with a rate of she says up to 180. Her PCP started her on diltiazem and apixaban. Over the weekend she had no gross improvement in her symptoms and actually had worsening of her lower extremity edema so she came to the emergency room for further evaluation today. She cannot walk more than a few steps at a time today, compared to a few months ago where she had no dyspnea or restriction. She further developed some mild left sided chest pressure radiating into her left arm and neck over the weekend. This is happened over the last couple of days, she denies any nausea, vomiting, diaphoresis during the episodes. It did not seem to be related to exertion. In the emergency room, the patient was again noted to be in atrial fibrillation with rapid ventricular response with a heart rate in the 110s. EKG showed atrial flutter with a rate of 86. The emergency room provider spoke with Cardiology who recommended formal echocardiogram and switching from diltiazem to metoprolol. She was given a dose of oral metoprolol in the emergency room and admitted for atrial fibrillation with rapid ventricular response. Discharge Providers Provider Date of admission: 02/04/21 17:00 Discharge Date: 02/05/21 Primary care physician: Thompson Vicente MD Consults: 02/05/21 02:59 Consult to Pharmacy Routine Comment: Need confirmation of Linzess dose? Discharge provider: Eagle Bryson DO Summary Hospital Course Discharge Diagnosis: Please see hospital course by problem list noted below. Hospital Course: Joceline Ace is an 85-year-old female with a past medical history of hypothyroidism and constipation who presented with worsening dyspnea on exertion for the past 2 months. Admitted with atrial fibrillation / flutter with RVR. Her symptoms and rate control improved with metoprolol and furosemide. 1. atrial fibrillation and flutter with rapid ventricular response, unknown type, recently diagnosed 5 days ago. - patient diagnosed 5 days prior to admission by primary care provider and was started on diltiazem and apixaban as an outpatient. With these medications her symptoms did not improve and actually worsened slightly. 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 Her symptoms improved quickly with diuresis and rate control with metoprolol. Diltiazem held given reduced ejection fraction. - continued IV lasix 40 mg BID during admission. Discharged on oral lasix 20 mg daily to maintain euvolemia. - continued metoprolol 25 mg daily with adequate rate control. - telemetry revealed atrial fibrillation and flutter, predominantly controlled rate in the 60s-70s on 25 mg of oral metoprolol daily. - echocardiogram revealed an EF of 30-35%, no significant valvular disease, but did show focal wall abnormalities. Recommend outpatient follow up with cardiolo gy referral for consideration of stress testing. Patient had improved symptoms with diuresis and rate control, negative troponins, and no significant evidence of ischemia on EKG. - A1c 5%, LDL 85, and TSH 2.31 - CHADSVASC of 3, started as an outpatient on apixaban, which was continued. 2. acute systolic heart failure, improved, present on admission - as noted above, TTE revealed EF of 30-35%. Suspect tachyarrythmia induced. Given improved symptoms with rate control and diuresis recommend consideration of stress testing for wall motion abnormalities as an outpatient. - unable to initiate judd-i or arb therapy as an inpatient due to borderline low BP. Intitate as able as an outpatient. - probnp 1410 on admission. 3. hypothyroidism, chronic - TSH controlled on ER labs at 2.31. Continued home medications. 4. chronic constipation - continued home medications. Exam Vital Signs (past 8 hours): - 02/05/21 08:00 02/05/21 08:32 02/05/21 12:00 Temperature 98.2 F 98.2 F Pulse Rate 68 60 66 Respiratory Rate 17 17 Blood Pressure 88/67 L 113/60 111/68 Pulse Oximetry 95 96 Oxygen Delivery Method Room Air Oxygen Flow Rate 0 Narrative Exam Narrative: GENERAL APPEARANCE: Well developed, well nourished, elderly female in no acute distress. SKIN: Inspection of the skin reveals no rashes, ulcerations or petechiae. HEENT: Normocephalic atraumatic, extraocular muscles are intact, oropharynx is clear and mucous membranes are moist, neck is supple without adenopathy NECK: Supple and symmetric. There was no thyroid enlargement, and no tenderness. No JVD. CHEST: Normal AP diameter and normal contour without any kyphoscoliosis. LUNGS: Mild bibasilar rhonchi, right greater than left, no wheezing. CARDIOVASCULAR: Mildly tachycardic, irregularly irregular rhythm without murmurs, rubs, or gallops Peripheral pulses were 2+ and symmetric. ABDOMEN: Soft and nontender with normal bowel sounds. No ascites was noted. MUSCULOSKELETAL: There was no tenderness or effusions noted. Muscle strength and tone were normal. EXTREMITIES: No cyanosis, clubbing. Bilateral LE 2+ pitting edema. NEUROLOGIC: Alert and oriented x 3. Normal affect. Strength is +5/5 in the Upper Extremities and Lower Extremities Bilaterally. Sensation to touch was normal. Objective Labs Result Diagrams: 02/05/21 05:15 02/05/21 05:15 Labs: Laboratory Results - last 24 hr 02/04/21 02/04/21 02/04/21 15:55 15:55 15:55 WBC 8.9 RBC 4.59 Hgb 13.7 Hct 41.3 MCV 90.0 MCH 29.9 MCHC 33.2 RDW 14.7 Plt Count 280 Neut % (Auto) 60.3 Lymph % (Auto) 32.3 [place] % (Auto) 6.3 Eos % (Auto) 0.0 L Baso % (Auto) 1.1 Neut # (Auto) 5300 Lymph # (Auto) 2900 [place] # (Auto) 600 Eos # (Auto) 0 Baso # (Auto) 100 PT 14.1 H INR 1.3 APTT 35 Sodium 136 L Potassium 4.2 Chloride 101 Carbon Dioxide 25 BUN 17 Creatinine 0.86 Estimated GFR > 60.0 BUN/Creatinine Ratio 19.8 Glucose 149 H Hemoglobin A1c Calcium 9.3 Magnesium Total Bilirubin 0.3 AST 37 H ALT 36 H Alkaline Phosphatase 48 Total Creatine Kinase 32 CK-MB (CK-2) TNP CK-MB (CK-2) Rel Index TNP Troponin I < 0.012 NT-Pro-B Natriuret Pep 1410 H Total Protein 7.2 Albumin 4.5 Globulin 2.7 Albumin/Globulin Ratio 1.7 Triglycerides Cholesterol LDL Cholesterol, Calc HDL Cholesterol Lipase 181 TSH SARS-CoV-2 (PCR) 02/04/21 02/04/21 02/05/21 15:55 16:30 05:15 WBC 6.2 RBC 4.19 Hgb 12.5 Hct 38.1 MCV 90.8 MCH 29.7 MCHC 32.7 RDW 14.6 Plt Count 225 Neut % (Auto) 47.4 L Lymph % (Auto) 42.0 H [place] % (Auto) 9.8 Eos % (Auto) 0.0 L Baso % (Auto) 0.8 Neut # (Auto) 2900 Lymph # (Auto) 2600 [place] # (Auto) 600 Eos # (Auto) 0 Baso # (Auto) 0 PT INR APTT Sodium Potassium Chloride Carbon Dioxide BUN Creatinine Estimated GFR BUN/Creatinine Ratio Glucose Hemoglobin A1c Calcium Magnesium Total Bilirubin AST ALT Alkaline Phosphatase Total Creatine Kinase CK-MB (CK-2) CK-MB (CK-2) Rel Index Troponin I NT-Pro-B Natriuret Pep Total Protein Albumin Globulin Albumin/Globulin Ratio Triglycerides Cholesterol LDL Cholesterol, Calc HDL Cholesterol Lipase TSH 2.31 SARS-CoV-2 (PCR) Negative 02/05/21 02/05/21 05:15 05:15 WBC RBC Hgb Hct MCV MCH MCHC RDW Plt Count Neut % (Auto) Lymph % (Auto) [place] % (Auto) Eos % (Auto) Baso % (Auto) Neut # (Auto) Lymph # (Auto) [place] # (Auto) Eos # (Auto) Baso # (Auto) PT INR APTT Sodium 134 L Potassium 3.6 Chloride 101 Carbon Dioxide 29 BUN 12 Creatinine 0.86 Estimated GFR > 60.0 BUN/Creatinine Ratio 14.0 Glucose 87 Hemoglobin A1c 5.0 Calcium 8.5 Magnesium 1.8 Total Bilirubin AST ALT Alkaline Phosphatase Total Creatine Kinase CK-MB (CK-2) CK-MB (CK-2) Rel Index Troponin I NT-Pro-B Natriuret Pep Total Protein Albumin Globulin Albumin/Globulin Ratio Triglycerides 36 Cholesterol 148 LDL Cholesterol, Calc 85 HDL Cholesterol 56 Lipase TSH SARS-CoV-2 (PCR) [facility] Medical History Atrial fibrillation Hypothyroidism Pneumonia Surgical History H/O: hysterectomy History of hip surgery Social History household members: spouse and children Smoking Status: Former smoker alcohol intake: never Discharge Plan Discharge Plan Patient Disposition: Home Provider Discharge Comment: You were admitted to the hospital with atrial fibrillation. Your echocardiogram showed a decrease in its ability to pump adequately, also called heart failure. This is likely related to your atrial fibrillation. Your symptoms improved with changing around some of the medications to slow your heart down. This may improve over time with medications. I recommend you follow up with your PCP next week as previously scheduled for referral to a solar technician, they may want to perform a stress test based on some of the findings in your echocardiogram, or repeat this study in a few months. Discharge orders & Medications Prescriptions: New furosemide 20 mg Tablet 20 mg PO DAILY 30 Days Qty: 30 RF: 0 metoprolol succinate 25 mg Tablet Extended Release 24 Hr 25 mg PO DAILY 30 Days Qty: 30 RF: 0 Continued levothyroxine [Synthroid] 75 MCG tablet 68 mcg PO DAILY Qty: 0 RF: 0 liothyronine [Cytomel] 5 MCG tablet 5 mcg PO QDAY Qty: 0 RF: 0 estradiol [Estrace] 0.01 % cream 0.01 % Vaginal 3XW Qty: 0 RF: 0 econazole 1 % Cream 1 applic TOPICAL DAILY RF: 0 Linzess 290 mcg Capsule 290 mcg PO DAILY RF: 0 Eliquis 5 mg Tablet 5 mg PO BID RF: 0 polyethylene glycol 3350 [Miralax] 17 gram/dose Powder 17 g PO BID RF: 0 sennosides [senna] 8.6 mg Tablet 17.2 mg PO BID RF: 0 Discontinued diltiazem HCl 180 mg Capsule,Extended Release 24 Hr 180 mg PO DAILY RF: 0 Follow up/Referrals: Thompson Vicente MD [Primary Care Provider] - Visit Report/Discharge Packet Instructions: DI for Heart Failure, DI for Atrial Fibrillation, Furosemide, Metoprolol Discharge Data Primary Care Provider: Thompson Vicente V Attending Provider: Eagle Bryson VTE Deep Vein Thrombosis/Pulmonary Embolism Present on Admission: No MIPS - Admit Advanced Care Plan / Current Medications Measures: #47 ? Advanced Care Plan Clinician documentation instruction: document at admission. [] I confirmed that the patient's Advance Care Plan is present, code status is documented, or surrogate decision maker is listed in the patient?s medical record. [SATISFIES MIPS PERFORMANCE] If Yes, Stop Here [] The patient?s Advance Care plan is not present because: (select) [MIPS PERFORMANCE EXCEPTION/EXCLUSION] [] I confirmed today that the patient does not wish or was not able to name a surrogate decision maker or provide an Advance Care Plan. [] Hospice care is currently being provided or has been provided this calendar year [] I did NOT confirm today the presence of an Advance Care Plan or surrogate decision maker documented within the patient's medical record. [DOES NOT SATISFY MIPS PERFORMANCE] #130 - Documentation of Current Medications in the Medical Record Clinician documentation instruction: use macro the first time you see a patient. [] I have utilized all available immediate resources to obtain, update, or review the patient?s current medications. [SATISFIES MIPS PERFORMANCE] If Yes, Stop Here [] The patient is not eligible for medication reconciliation; the patient is in an emergent medical situation where delaying treatment would jeopardize the patient?s health. [MIPS PERFORMANCE EXCEPTION/EXCLUSION] [] I did NOT confirm, update or review the patient's current list of medications today. [DOES NOT SATISFY MIPS PERFORMANCE] MIPS - CL Central Venous Catheter Placement Measure: #76 ? Prevention of Central Venous Catheter (CVC) ? Related Bloodstream Infection Clinician documentation instruction: use macro every time you place a central line. [] All elements of Maximal Sterile Barrier Technique, including hand hygiene, skin prep, and sterile ultrasound technique (if used) were followed. [SATISFIES MIPS PERFORMANCE] If Yes, Stop Here [] If ?No?, the medical reason all elements were NOT used for medical reason [] (ex. emergent condition). [] Maximal Sterile Barrier Technique was not followed, no reason provided [DOES NOT SATISFY MIPS PERFORMANCE] MIPS - DC Heart Failure Measures: #5 - Heart Failure (HF): Angiotensin-Converting Enzyme (JUDD) Inhibitor or Angiotensin Receptor Meenakshi (ARB) Therapy for Left Ventricular Systolic Dysfunction (LVSD) and #8 - Heart Failure (HF): Beta-Meenakshi Therapy for Left Ventricular Systolic Dysfunction (LVSD) Clinician documentation instruction: use macro at every CHF discharge. [] The patient has current or prior documentation of left ventricular ejection fraction (LVEF) less than 40%, or moderate or severely depressed left ventric ular systolic function. Answer both: [SATISFIES MIPS PERFORMANCE] [] The patient was prescribed or already taking an Angiotensin-Converting Enzyme (JUDD) Inhibitor, or Angiotensin Receptor Meenakshi (ARB). [] The patient was prescribed or already taking a beta-meenakshi. If Yes to Both, Stop Here [] Patient not prescribed/taking: [MIPS PERFORMANCE EXCEPTION/EXCLUSION] [] JUDD or ARB for medical/patient/system reason(s) including [] (ex. allergy, intolerance, contraindication) [] Beta-meenakshi for medical/patient/system reason(s) including [] (ex. allergy, intolerance, contraindication) [] Patient not prescribed/taking: [DOES NOT SATISFY MIPS PERFORMANCE] [] JUDD or ARB, no reason given [] Beta-meenakshi, no reason given
--- NOTE | 2021-02-05 15:41 | PC.NURSE ---
Discharge instructions, medications, and home handouts reviewed with patient and her . She states understanding and has no further questions or concerns at this time. Patient has follow up appointment scheduled with Dr. Vicente next week. Patient will coal picker prescriptions and take as directed. IV dc'd intact. Patient escorted out via wheelchair with all belongings by NATIONAL SALES MANAGER to dc to home with her . Patient will speak with Dr. Vicente about cardiology referral, cardiac rehab referall/evaluation, and possible stress test or repeat ECHO. Instructed to call her PCP with questions or concerns, or to seek emergent care for return/worsening of symptoms.
== END 2021-02-05 15:44 | disposition home or self-care (01) ==
LOC: ED 16:53 → AC 17:01
PROVIDERS: Admitting Provider Internal Medicine; Emergency Provider Emergency Medicine; PCP Internal Medicine; Referring Provider Emergency Medicine; Visit Provider Internal Medicine
DX: I50.21 Acute systolic (congestive) heart failure (principal); E03.9 Hypothyroidism, unspecified; K21.9 Gastro-esophageal reflux disease without esophagitis; K59.00 Constipation, unspecified; I48.91 Unspecified atrial fibrillation; Z79.01 Long term (current) use of anticoagulants; Z20.822 Contact with and (suspected) exposure to COVID-19
CPT/HCPCS: 36415; 71045; 80048; 80053; 80061; 82550; 83036; 83690; 83735; 83880; 84443; 84484; 85025; 85610; 85730; 87635; 93005; 93010; 93306; 99284; C9803; G0378; J1940

== ENCOUNTER → 2021-02-19 14:44 | Outpatient (ROUT) | payer MEDICARE, OTHER, SELFPAY ==
[2021-02-19 15:12] LABS: BUN Creatinine Ratio 26.4 (6-22); Blood Urea Nitrogen 28 mg/dL (7-17); Calcium 9.1 mg/dL (8.4-10.2); Carbon Dioxide 25 mmol/L (22-32); Chloride 105 mmol/L (98-107); Estimated Glomerular Filt Rate 49.5 mL/min (>60); Glucose 64 mg/dL (80-110); HEMOLYSIS 32 (0-50); Potassium 4.3 mmol/L (3.4-5.1); Sodium 139 mmol/L (137-145)
== END ==
PROVIDERS: Visit Provider Internal Medicine
DX: I50.22 Chronic systolic (congestive) heart failure (principal)
CPT/HCPCS: 80048

== ENCOUNTER → 2021-03-26 14:27 | Outpatient (ROUT) | payer MEDICARE, OTHER, SELFPAY ==
[2021-02-04 17:15] VITALS: BMI 25.8
[2021-03-26 14:41] LABS: Add Manual Diff / Slide Review NO; Basophils Absolute Auto 100 /uL (0-100); Basophils Percent Auto 0.7 % (0-2); Eosinophils Absolute Auto 0 /uL (0-450); Hematocrit 42.2 % (36-46); Hemoglobin 13.9 g/dL (12.0-16.0); Lymphocytes Absolute Auto 3100 /uL (1100-4500); Lymphocytes Percent Auto 41.7 % (25-40); Mean Corpuscular Hemoglobin 29.6 PG (26-34); Mean Corpuscular Volume 89.7 fL (80-100); Monocytes Absolute Auto 500 /uL (0-900); Monocytes Percent Auto 6.3 % (3-14); Neutrophils Absolute Auto 3900 /uL (1500-7000); Neutrophils Percent Auto 51.3 % (50-75); Platelet Count 249 X10^3/uL (150-400); White Blood Cell Count 7.5 X10^3/uL (4.5-11.0)
[2021-03-26 15:09] LABS: Alanine Aminotransferase 22 IU/L (<35); Albumin 4.4 g/dL (3.5-5.0); Albumin Globulin Ratio 1.6 (1.0-2.8); Alkaline Phosphatase 44 U/L (38-126); Aspartate Aminotransferase 35 IU/L (14-36); BUN Creatinine Ratio 25.7 (6-22); Bilirubin Total 0.5 mg/dL (0.2-1.3); Blood Urea Nitrogen 26 mg/dL (7-17); Calcium 9.9 mg/dL (8.4-10.2); Carbon Dioxide 31 mmol/L (22-32); Chloride 102 mmol/L (98-107); Estimated Glomerular Filt Rate 52.2 mL/min (>60); Globulin 2.7 g/dL (1.7-4.1); Glucose 81 mg/dL (80-110); HEMOLYSIS < 15 (0-50); Potassium 4.4 mmol/L (3.4-5.1); Sodium 141 mmol/L (137-145); Total Protein 7.1 g/dL (6.3-8.2)
[2021-03-26 15:21] LABS: NT-proBNP (BNP-Adult 18+) 1660 pg/mL (<450)
[2021-03-26 15:32] LABS: TSH w/ Reflex to FT4 2.93 uIU/mL (0.47-4.68)
== END ==
PROVIDERS: PCP Internal Medicine; Visit Provider Internal Medicine
DX: I48.20 Chronic atrial fibrillation, unspecified (principal); E03.9 Hypothyroidism, unspecified; I50.22 Chronic systolic (congestive) heart failure
CPT/HCPCS: 80053; 83880; 84443; 85025

== ENCOUNTER 2021-04-22 11:08 | Emergency (ER) | payer MEDICARE, OTHER, SELFPAY ==
[2021-02-04 17:15] VITALS: BMI 25.8
[2021-04-22 11:15] VITALS: BP 119/89; PULSE 81; RESP 15; TEMP 37.2; O2SAT 99; BMI 24.9
--- NOTE | 2021-04-22 11:18 | DI.RAD.S_ITS ---
PROCEDURE: XR CHEST 1V INDICATIONS: chest pain TECHNIQUE: One view of the chest was acquired. COMPARISON: [facility], CR, XR CHEST 1V, 02/04/2021, 16:23. FINDINGS: Surgical changes and devices: None. Lungs and pleura: Lungs are clear. No pleural effusions or pneumothorax. Mediastinum: Mediastinal contours appear normal. Heart size is mildly enlarged. Bones and chest wall: No suspicious bony lesions. Overlying soft tissues appear unremarkable. IMPRESSION: No acute pulmonary process. Dictated by: Ivon Portillo M.D. on 04/22/2021 at 11:48 Approved by: Ivon Portillo M.D. on 04/22/2021 at 11:49
[2021-04-22 11:54] LABS: Add Manual Diff / Slide Review NO; Basophils Absolute Auto 100 /uL (0-100); Basophils Percent Auto 0.8 % (0-2); Eosinophils Absolute Auto 0 /uL (0-450); Hematocrit 41.5 % (36-46); Hemoglobin 13.3 g/dL (12.0-16.0); Lymphocytes Absolute Auto 2600 /uL (1100-4500); Lymphocytes Percent Auto 40.9 % (25-40); Mean Corpuscular Volume 90.6 fL (80-100); Monocytes Absolute Auto 400 /uL (0-900); Monocytes Percent Auto 6.9 % (3-14); Neutrophils Absolute Auto 3200 /uL (1500-7000); Neutrophils Percent Auto 51.4 % (50-75); Platelet Count 249 X10^3/uL (150-400); Red Blood Cell Count 4.58 X10^6/uL (4.0-5.2); Red Cell Distribution Width 16.2 % (11.6-14.8); White Blood Cell Count 6.3 X10^3/uL (4.5-11.0)
[2021-04-22 12:01] LABS: INR 1.3 (0.9-1.3); Prothrombin Time 14.6 SECONDS (10.1-12.7)
[2021-04-22 12:04] LABS: PTT Partial Thromboplastin Tim 36 SECONDS (26.4-36.2)
[2021-04-22 12:08] LABS: Alanine Aminotransferase 21 IU/L (<35); Albumin 4.3 g/dL (3.5-5.0); Albumin Globulin Ratio 1.4 (1.0-2.8); Alkaline Phosphatase 38 U/L (38-126); Aspartate Aminotransferase 33 IU/L (14-36); BUN Creatinine Ratio 22.8 (6-22); Bilirubin Total 0.7 mg/dL (0.2-1.3); Blood Urea Nitrogen 23 mg/dL (7-17); Calcium 9.8 mg/dL (8.4-10.2); Carbon Dioxide 28 mmol/L (22-32); Chloride 100 mmol/L (98-107); Creatine Kinase 48 U/L (30-135); Estimated Glomerular Filt Rate 52.2 mL/min (>60); Glucose 86 mg/dL (80-110); HEMOLYSIS < 15 (0-50); Lipase 186 U/L (23-300); Potassium 4.3 mmol/L (3.4-5.1); Sodium 137 mmol/L (137-145); Total Protein 7.3 g/dL (6.3-8.2)
[2021-04-22 12:18] LABS: Troponin I < 0.012 ng/mL (0.01-0.034)
--- NOTE | 2021-04-22 12:37 | ED.CHESTPAIN ---
HPI - Chest Pain General Chief Complaint: Chest Pain Stated Complaint: heart symptoms/shortness of breath Time Seen by Provider: 04/22/21 12:14 Source: patient Mode of arrival: Ambulatory Limitations: no limitations History of Present Illness HPI narrative: Patient is an 86-year-old female. Has persistent AFib. Is on Eliquis. Is also on Synthroid. Is here for evaluation of symptoms that of occurred over the past 24 hours. She states that there been episodes were she feels like that her heart is beating fast. She has also had some chest discomfort during these times as well and also shortness of breath. Has not passed out. Symptoms do not seem to be associated with anything else. She is currently not having any symptoms. Related Data Home Medications Medication Instructions Recorded Confirmed levothyroxine [Synthroid] 68 mcg PO DAILY #0 04/02/10 02/04/21 liothyronine [Cytomel] 5 mcg PO QDAY #0 05/27/11 02/04/21 estradiol [Estrace] 0.01 % VAGINAL 3XW #0 04/08/13 02/04/21 Eliquis 5 mg PO BID 02/04/21 02/04/21 Linzess 290 mcg PO DAILY 02/04/21 02/04/21 econazole 1 applic TOPICAL DAILY 02/04/21 02/04/21 polyethylene glycol 3350 [Miralax] 17 g PO BID 02/04/21 02/04/21 sennosides [senna] 17.2 mg PO BID 02/04/21 02/04/21 Allergies Allergy/AdvReac Type Severity Reaction Status Date / Time ciprofloxacin [CIPROFLOXACIN] Allergy Severe Rash Verified 04/22/21 11:19 sulfamethoxazole Allergy Unknown RASH Verified 04/22/21 11:19 [From SEPTRA] trimethoprim [From SEPTRA] Allergy Unknown RASH Verified 04/22/21 11:19 metronidazole [From FLAGYL] AdvReac Unknown REALLY Verified 04/22/21 11:19 HARSH ON STOMACH Review of Systems Constitutional Constitutional: Reports system reviewed and no additional complaints, except as documented Cardiovascular Cardiovascular: Reports chest pain, Reports rapid heart rate and Reports irregular heart rhythm Respiratory Comments: Shortness of breath when heart is beating fast Gastrointestinal Gastrointestinal: Reports system reviewed and no additional complaints, except as documented Musculoskeletal Musculoskeletal: Reports system reviewed and no additional complaints, except as documented Integumentary/Breasts Skin/Breast: Reports system reviewed and no additional complaints, except as documented Neurologic Neurologic: Reports system reviewed and no additional complaints, except as documented Hematologic/Lymphatic On Anticoagulants: Yes Allergic/Immunologic Allergic/Immunologic: Reports system reviewed and no additional complaints, except as documented Patient History Medical History Atrial fibrillation Hypothyroidism Pneumonia Surgical History H/O: hysterectomy History of hip surgery Social History household members: spouse and children Smoking Status: Former smoker alcohol intake: never Smoking Status: Former smoker alcohol intake frequency: holidays/special occasions only Substance Use Type: does not use Exam Initial Vital Signs Initial Vital Signs: Vital Signs Temperature 98.9 F 04/22/21 11:15 Pulse Rate 81 04/22/21 11:15 Respiratory Rate 15 04/22/21 11:15 Blood Pressure 119/89 04/22/21 11:15 Pulse Oximetry 99 04/22/21 11:15 Const General: cooperative Limitations: mental status not altered HENTX Head: normal to inspection and normocephalic Resp Effort & Inspection: normal respiratory effort Auscultation: clear to auscultation bilaterally Cardio Rate: regular rate Rhythm: abnormal rhythm Skin Lesions: no lesions Rashes: no rashes Neuro General: patient alert and patient awake Cognition: normal cognition Speech: speech normal Extrem General: capillary refill normal Psych Appearance: grossly normal and well kempt Scores GCS [place] coma scale eye opening: Spontaneous Madhu coma scale verbal response: Orientated Madhu coma scale motor response: Obey commands [place] coma scale total score: 15 Course Orders Ordered: ED Orders 04/22/21 11:18 XR chest 1V Stat EKG-12 Lead Stat 04/22/21 11:36 Complete Blood Count AUTO DIFF Stat Comprehensive Metabolic Panel Stat Lipase Stat Partial Thromboplastin Time Stat Prothrombin Time INR Stat Troponin & CK Cardiac Panel Stat Vital Signs Vital signs: Vital Signs - 8 hr 04/22/21 11:15 Temperature 98.9 F Pulse Rate 81 Respiratory Rate 15 Blood Pressure 119/89 Pulse Oximetry 99 MDM - Chest Pain Lab Data Attestation: I reviewed the patient's lab results. Result diagrams: 04/22/21 11:36 04/22/21 11:36 Labs: Lab Results 04/22/21 04/22/21 04/22/21 Range/Units 11:36 11:36 11:36 WBC 6.3 (4.5-11.0) X10^3/uL RBC 4.58 (4.0-5.2) X10^6/uL Hgb 13.3 (12.0-16.0) g/dL Hct 41.5 (36-46) % MCV 90.6 (80-100) fL MCH 29.0 (26-34) PG MCHC 32.0 (30-36) % RDW 16.2 H (11.6-14.8) % Plt Count 249 (150-400) X10^3/uL Neut % (Auto) 51.4 (50-75) % Lymph % (Auto) 40.9 H (25-40) % [place] % (Auto) 6.9 (3-14) % Eos % (Auto) 0.0 L (2-4) % Baso % (Auto) 0.8 (0-2) % Neut # (Auto) 3200 (8284-7108) /uL Lymph # (Auto) 2600 (1917-7322) /uL [place] # (Auto) 400 (0-900) /uL Eos # (Auto) 0 (0-450) /uL Baso # (Auto) 100 (0-100) /uL PT 14.6 H (10.1-12.7) SECONDS INR 1.3 (0.9-1.3) APTT 36 (26.4-36.2) SECONDS Sodium 137 (137-145) mmol/L Potassium 4.3 (3.4-5.1) mmol/L Chloride 100 (98-107) mmol/L Carbon Dioxide 28 (22-32) mmol/L BUN 23 H (7-17) mg/dL Creatinine 1.01 (0.52-1.04) mg/dL Estimated GFR 52.2 L (>60) mL/min BUN/Creatinine Ratio 22.8 H (6-22) Glucose 86 (80-110) mg/dL Calcium 9.8 (8.4-10.2) mg/dL Total Bilirubin 0.7 (0.2-1.3) mg/dL AST 33 (14-36) IU/L ALT 21 (<35) IU/L Alkaline Phosphatase 38 (38-126) U/L Total Creatine Kinase 48 (30-135) U/L CK-MB (CK-2) TNP CK-MB (CK-2) Rel Index TNP Troponin I < 0.012 (0.01-0.034) ng/mL Total Protein 7.3 (6.3-8.2) g/dL Albumin 4.3 (3.5-5.0) g/dL Globulin 3.0 (1.7-4.1) g/dL Albumin/Globulin Ratio 1.4 (1.0-2.8) Lipase 186 (23-300) U/L 04/22/21 Range/Units 13:42 WBC (4.5-11.0) X10^3/uL RBC (4.0-5.2) X10^6/uL Hgb (12.0-16.0) g/dL Hct (36-46) % MCV (80-100) fL MCH (26-34) PG MCHC (30-36) % RDW (11.6-14.8) % Plt Count (150-400) X10^3/uL Neut % (Auto) (50-75) % Lymph % (Auto) (25-40) % [place] % (Auto) (3-14) % Eos % (Auto) (2-4) % Baso % (Auto) (0-2) % Neut # (Auto) (4309-1250) /uL Lymph # (Auto) (9560-8007) /uL [place] # (Auto) (0-900) /uL Eos # (Auto) (0-450) /uL Baso # (Auto) (0-100) /uL PT (10.1-12.7) SECONDS INR (0.9-1.3) APTT (26.4-36.2) SECONDS Sodium (137-145) mmol/L Potassium (3.4-5.1) mmol/L Chloride (98-107) mmol/L Carbon Dioxide (22-32) mmol/L BUN (7-17) mg/dL Creatinine (0.52-1.04) mg/dL Estimated GFR (>60) mL/min BUN/Creatinine Ratio (6-22) Glucose (80-110) mg/dL Calcium (8.4-10.2) mg/dL Total Bilirubin (0.2-1.3) mg/dL AST (14-36) IU/L ALT (<35) IU/L Alkaline Phosphatase (38-126) U/L Total Creatine Kinase 44 (30-135) U/L CK-MB (CK-2) TNP CK-MB (CK-2) Rel Index TNP Troponin I < 0.012 (0.01-0.034) ng/mL Total Protein (6.3-8.2) g/dL Albumin (3.5-5.0) g/dL Globulin (1.7-4.1) g/dL Albumin/Globulin Ratio (1.0-2.8) Lipase (23-300) U/L Imaging Data Chest x-ray: Radiologist's Impression: [address] [id number] ReportSigned Patient: Joceline Ace CMR#: [id number]: 7Acct:[id number]/Sex: 86 / FDate of Service: 04/22/21Loc: EDAccession Number: [id number] Procedure: XR chest 1V Ordering Provider: Raul Orellana D.O. PROCEDURE: XR CHEST 1V INDICATIONS: chest pain TECHNIQUE: One view of the chest was acquired. [facility], 16:23. FINDINGS: Surgical changes and devices: None. Lungs and pleura: Lungs are clear. No pleural effusions or pneumothorax. Mediastinum: Mediastinal contours appear normal. Heart size is mildly enlarged. Bones and chest wall: No suspicious bony lesions. Overlying soft tissues appear unremarkable. IMPRESSION: No acute pulmonary process. Dictated by: Ivon Portillo M.D. on 04/22/2021 at 11:48 Approved by: Ivon Portillo M.D. on 04/22/2021 at 11:49 ECG Data Attestation: I personally reviewed and interpreted this ECG as follows: Prior ECG tracings: not available for review Interpretation: Atrial fibrillation Ventricular rate of 76 Normal QRS Normal QTC Nonspecific ST T wave changes MDM Narrative Medical decision making narrative: Patient was in atrial fibrillation on her EKG however was rate controlled. She has had 2- troponins. Chest x-ray is unremarkable. I do have some suspicion that she potentially may be having episodes of rapid ventricular response to her atrial fibrillation that her self limiting. Informed the patient that she should talk with her primary doctor/dental technology advisor to discuss further workup to include a potential Holter monitor. She was given return precautions. She expressed understanding agreement. Discharge Plan Departure Patient Disposition: Home Clinical Impression: Heart palpitations, Atrial fibrillation Instructions: DI for Arrhythmias Activity Restrictions/Additional Instructions: Your workup here in the emergency department is very reassuring. I do recommend that you continue all of your medications as directed. I do recommend that you contact your dental technology advisor to discuss the indications for a Holter monitor as you may be having episodes of a fast atrial fibrillation. Return to the emergency department for any new or worsening symptoms Prescriptions: No Action levothyroxine [Synthroid] 75 MCG tablet 68 mcg PO DAILY Qty: 0 RF: 0 liothyronine [Cytomel] 5 MCG tablet 5 mcg PO QDAY Qty: 0 RF: 0 estradiol [Estrace] 0.01 % cream 0.01 % Vaginal 3XW Qty: 0 RF: 0 econazole 1 % Cream 1 applic TOPICAL DAILY RF: 0 Linzess 290 mcg Capsule 290 mcg PO DAILY RF: 0 Eliquis 5 mg Tablet 5 mg PO BID RF: 0 polyethylene glycol 3350 [Miralax] 17 gram/dose Powder 17 g PO BID RF: 0 sennosides [senna] 8.6 mg Tablet 17.2 mg PO BID RF: 0 Referrals: Thompson Vicente MD [Primary Care Provider] -
[2021-04-22 13:04] VITALS: BP 122/86
[2021-04-22 13:05] VITALS: PULSE 89; RESP 37
--- NOTE | 2021-04-22 13:24 | PC.NURSE ---
Reports history of chest pressure, dizziness, nausea, shortness of breath with A fib diagnosis. States this time was just a little different. Denies chest pain/pressure at this time.
[2021-04-22 13:30] VITALS: BP 125/61; PULSE 89; RESP 20
[2021-04-22 14:00] VITALS: BP 120/89; PULSE 85; RESP 20
[2021-04-22 14:02] LABS: Creatine Kinase 44 U/L (30-135)
[2021-04-22 14:15] LABS: Troponin I < 0.012 ng/mL (0.01-0.034)
== END 2021-04-22 14:36 | disposition home or self-care (01) ==
PROVIDERS: Emergency Provider Emergency Medicine; PCP Internal Medicine
DX: R00.2 Palpitations (principal); I48.91 Unspecified atrial fibrillation; Z79.01 Long term (current) use of anticoagulants
CPT/HCPCS: 36415; 71045; 80053; 82550; 83690; 84484; 85025; 85610; 85730; 93005; 99283; 99284

== ENCOUNTER → 2021-06-11 10:51 | Outpatient (CLI) | payer MEDICARE, OTHER, SELFPAY ==
[2021-02-04 17:15] VITALS: BMI 25.8
--- NOTE | 2021-06-11 10:53 | DI.MG.S_ITS ---
BILATERAL DIGITAL SCREENING MAMMOGRAM 3D/2D WITH CAD: 06/11/2021 CLINICAL: Routine screening. Family history of breast cancer. Comparison is made to exams dated: 06/04/2020 mammogram, 03/15/2019 mammogram, and 01/30/2018 mammogram - [facility]. The tissue of both breasts is heterogeneously dense. This may lower the sensitivity of mammography. Current study was also evaluated with a Computer Aided Detection (CAD) system. No significant masses, calcifications, or other findings are seen in either breast. There has been no significant interval change. IMPRESSION: NEGATIVE There is no mammographic evidence of malignancy. A 1 year screening mammogram is recommended. This exam was interpreted at Station ID: [id number]. NOTE: For mammograms, a report in lay terms will be sent to the patient. Approximately 15% of breast malignancies will not be visualized mammographically. In the management of a palpable breast mass, a negative mammogram must not discourage biopsy of a clinically suspicious lesion. Electronically Signed By: Valerie armendariz/poncho:06/11/2021 11:56:39 letter sent: Normal Exam ACR BI-RADS Category 1: Negative [id number]
== END ==
PROVIDERS: PCP Internal Medicine; Referring Provider Internal Medicine; Visit Provider Internal Medicine
DX: Z12.31 Encounter for screening mammogram for malignant neoplasm of breast (principal); Z80.3 Family history of malignant neoplasm of breast
CPT/HCPCS: 77063; 77067

== ENCOUNTER 2021-06-26 14:07 | Emergency (ER) | payer MEDICARE, OTHER, SELFPAY ==
[2021-02-04 17:15] VITALS: BMI 25.8
[2021-06-26 14:13] VITALS: BP 148/66; PULSE 52; RESP 20; TEMP 36.6; O2SAT 98
--- NOTE | 2021-06-26 14:13 | DI.RAD.S_ITS ---
PROCEDURE: XR CHEST 1V INDICATIONS: chest pain TECHNIQUE: One view of the chest was acquired. COMPARISON: [facility], CR, XR CHEST 2V, 12/16/2020, 11:44. [facility], CR, XR CHEST 1V, 02/04/2021, 16:23. [facility], CR, XR CHEST 1V, 04/22/2021, 11:31. FINDINGS: Surgical changes and devices: None. Lungs and pleura: Mild interstitial prominence bilaterally. No focal consolidation. No pleural effusions or pneumothorax. Mediastinum: Mediastinal contours appear normal. Heart size is normal. Bones and chest wall: No suspicious bony lesions. Overlying soft tissues appear unremarkable. IMPRESSION: No acute cardiopulmonary disease. Dictated by: Eddie Cleary M.D. on 06/26/2021 at 15:44 Approved by: Eddie Cleary M.D. on 06/26/2021 at 15:47
--- NOTE | 2021-06-26 15:13 | ED.CHESTPAIN ---
HPI - Chest Pain General Chief Complaint: Chest Pain Stated Complaint: Cardio Version Tues, Dizzy, Light Headed,SOB Time Seen by Provider: 06/26/21 14:20 Source: patient Mode of arrival: Ambulatory History of Present Illness HPI narrative: 86-year-old female former smoker with known chronic AFib, hypothyroid on Eliquis presents feeling dizzy, lightheaded and short of breath. She was seen and evaluated by Cardiology at [facility] on June 23 and had a cardioversion which converted her from AFib to a sinus rhythm. She has become fatigued and felt generally warm down in the aftermath. Just prior to the cardioversion she had increased her sotalol to 80 mg twice a day and then on Tuesday contacted the cardiology office and was told she could decrease it back to 40 mg twice per day. Prior to the cardioversion her resting heart rate was in the 90s and she has dropped from the 60s to 50s and nausea in the upper 40s. She has no fever chills. She denies any nausea, vomiting or diarrhea. She is having no pain Related Data Home Medications Medication Instructions Recorded Confirmed levothyroxine 75 mcg tablet 68 mcg PO DAILY #0 04/02/10 02/04/21 (Synthroid) liothyronine 5 mcg tablet (Cytomel) 5 mcg PO QDAY #0 05/27/11 02/04/21 estradiol (Estrace) 0.01 % VAGINAL 3XW #0 04/08/13 02/04/21 apixaban 5 mg tablet (Eliquis) 5 mg PO BID 02/04/21 02/04/21 econazole 1 % topical cream 1 applic TOPICAL DAILY 02/04/21 02/04/21 linaclotide 290 mcg capsule 290 mcg PO DAILY 02/04/21 02/04/21 (Linzess) polyethylene glycol 3350 17 17 g PO BID 02/04/21 02/04/21 gram/dose oral powder (Miralax) sennosides 8.6 mg tablet (senna) 17.2 mg PO BID 02/04/21 02/04/21 Allergies Allergy/AdvReac Type Severity Reaction Status Date / Time ciprofloxacin [CIPROFLOXACIN] Allergy Severe Rash Verified 04/22/21 11:19 sulfamethoxazole Allergy Unknown RASH Verified 04/22/21 11:19 [From ] trimethoprim [From SEPTRA] Allergy Unknown RASH Verified 04/22/21 11:19 metronidazole [From FLAGYL] AdvReac Unknown REALLY Verified 04/22/21 11:19 HARSH ON STOMACH Review of Systems Review of Systems Narrative: GENERAL: See HPI HEENT: Denies sinus pain, ear pain, sore throat, difficulty swallowing, dizziness. RESPIRATORY: Denies dyspnea, cough, wheezing, hemoptysis, sputum. CARDIOVASCULAR: See HPI GASTROINTESTINAL: see HPI : Denies dysuria, frequency, incontinence, hematuria, urinary retention. MUSCULOSKELETAL: denies weakness, joint pain, or bony pain SKIN: Denies rash, skin lesions, or other NEUROLOGIC: Denies weakness, headache, numbness, change in speech, confusion, seizures, incoordination. PSYCHIATRIC: No concerning psychosocial issues. 12 point review of systems is negative except for those stated above Patient History Medical History Atrial fibrillation Hypothyroidism Pneumonia Surgical History H/O: hysterectomy History of hip surgery Social History household members: spouse and children Smoking Status: Former smoker alcohol intake: never Smoking Status: Former smoker alcohol intake frequency: holidays/special occasions only Substance Use Type: does not use Exam Narrative Exam Narrative: GENERAL: 86 year old patient appears stated age. Well-developed patient, in mild distress. Sitting up reading a book HEAD: Atraumatic. Normocephalic. EYES: Pupils equal round and reactive. Extraocular motions intact. No scleral icterus. No injection or drainage. ENT: Nose without bleeding, purulent drainage. Throat without erythema, tonsillar hypertrophy or exudate. Airway patent. NECK: Trachea midline. Non tender CARDIOVASCULAR: Regular rate and rhythm without murmurs, gallops, or rubs. RESPIRATORY: Clear to auscultation. Breath sounds equal bilaterally. No wheezes, rales, or rhonchi. GASTROINTESTINAL: Abdomen soft, non-tender, nondistended. EXTREMITIES: No edema or joint tenderness. BACK: Nontender without deformity or crepitance. No flank tenderness. NEURO: AOx3. SKIN: No rash or erythema of visible areas Initial Vital Signs Initial Vital Signs: Vital Signs Temperature 97.8 F 06/26/21 14:13 Pulse Rate 52 L 08/06/21 14:13 Respiratory Rate 20 06/26/21 14:13 Blood Pressure 148/66 H 06/26/21 14:13 Pulse Oximetry 98 06/26/21 14:13 Course Orders Ordered: ED Orders 06/26/21 14:13 XR chest 1V Stat 06/26/21 14:22 EKG-12 Lead Stat 06/26/21 15:05 Complete Blood Count AUTO DIFF Stat Comprehensive Metabolic Panel Stat Lipase Stat Troponin & CK Cardiac Panel Stat Consultations Consultation #1: discussed with Dr. Allison. Recommends stop the Sotalol, but will likely revert to Atrial Fib. His office will reach out to her on Tuesday to arrange for a closer follow-up than her currently scheduled August 06 visit Vital Signs Vital signs: Vital Signs - 8 hr 06/26/21 14:13 06/26/21 16:08 Temperature 97.8 F Pulse Rate 52 L 46 L Respiratory Rate 20 27 H Blood Pressure 148/66 H 124/61 Pulse Oximetry 98 99 MDM - Chest Pain Lab Data Result diagrams: 06/26/21 15:05 06/26/21 15:05 Labs: Lab Results 06/26/21 06/26/21 Range/Units 15:05 15:05 WBC 6.8 (4.5-11.0) X10^3/uL RBC 4.16 (4.0-5.2) X10^6/uL Hgb 12.7 (12.0-16.0) g/dL Hct 38.3 (36-46) % MCV 92.1 (80-100) fL MCH 30.4 (26-34) PG MCHC 33.0 (30-36) % RDW 14.9 H (11.6-14.8) % Plt Count 223 (150-400) X10^3/uL Neut % (Auto) 57.8 (50-75) % Lymph % (Auto) 34.2 (25-40) % [place] % (Auto) 6.9 (3-14) % Eos % (Auto) 0.2 L (2-4) % Baso % (Auto) 0.9 (0-2) % Neut # (Auto) 3900 (6975-8938) /uL Lymph # (Auto) 2300 (4241-6720) /uL [place] # (Auto) 500 (0-900) /uL Eos # (Auto) 0 (0-450) /uL Baso # (Auto) 100 (0-100) /uL Sodium 139 (137-145) mmol/L Potassium 3.9 (3.4-5.1) mmol/L Chloride 102 (98-107) mmol/L Carbon Dioxide 32 (22-32) mmol/L BUN 25 H (7-17) mg/dL Creatinine 1.07 H (0.52-1.04) mg/dL Estimated GFR 48.9 L (>60) mL/min BUN/Creatinine Ratio 23.4 H (6-22) Glucose 109 (80-110) mg/dL Calcium 9.5 (8.4-10.2) mg/dL Total Bilirubin 0.5 (0.2-1.3) mg/dL AST 33 (14-36) IU/L ALT 23 (<35) IU/L Alkaline Phosphatase 40 (38-126) U/L Total Creatine Kinase 36 (30-135) U/L CK-MB (CK-2) TNP CK-MB (CK-2) Rel Index TNP Troponin I < 0.012 (0.01-0.034) ng/mL Total Protein 6.9 (6.3-8.2) g/dL Albumin 4.1 (3.5-5.0) g/dL Globulin 2.8 (1.7-4.1) g/dL Albumin/Globulin Ratio 1.5 (1.0-2.8) Lipase 204 (23-300) U/L Urine Dip Bedside Urine Glucose Negative Bedside Urine Bilirubin - Negative Bedside Urine Ketone - Negative Urine Specific [place] 1.015 Bedside Urine Occult Blood - Negative Bedside Urine pH 6.5 Bedside Urine Protein - Negative Bedside Urine Urobilinogen - Negative Bedside Urine Nitrite - Negative Bedside Urine Leukocytes - Negative Esterase Discharge Plan Departure Patient Disposition: Home Clinical Impression: Bradycardia Instructions: DI for Bradycardia Activity Restrictions/Additional Instructions: *You have been diagnosed with [multiple symptoms relating to slow heart rate likely related to your medications.] *What to do: * per my discussion with Dr. Allison, please stop the sotalol, his office will reach out to you early next week to schedule follow-up unity. *Return to Emergency Department if you should have any new, worsening or concerning symptoms, such as [fever greater than 101 F, shaking chills, worsening pain, persistent vomiting or other bothersome symptoms] Prescriptions: No Action levothyroxine [Synthroid] 75 MCG tablet 68 mcg PO DAILY Qty: 0 RF: 0 liothyronine [Cytomel] 5 MCG tablet 5 mcg PO QDAY Qty: 0 RF: 0 estradiol [Estrace] 0.01 % cream 0.01 % Vaginal 3XW Qty: 0 RF: 0 econazole 1 % Cream 1 applic TOPICAL DAILY RF: 0 Linzess 290 mcg Capsule 290 mcg PO DAILY RF: 0 Eliquis 5 mg Tablet 5 mg PO BID RF: 0 polyethylene glycol 3350 [Miralax] 17 gram/dose Powder 17 g PO BID RF: 0 sennosides [senna] 8.6 mg Tablet 17.2 mg PO BID RF: 0 Referrals: Alan Allison MD [Physician] - Thompson Vicente MD [Primary Care Provider] -
[2021-06-26 15:18] LABS: Add Manual Diff / Slide Review NO; Basophils Absolute Auto 100 /uL (0-100); Basophils Percent Auto 0.9 % (0-2); Eosinophils Absolute Auto 0 /uL (0-450); Eosinophils Percent Auto 0.2 % (2-4); Hematocrit 38.3 % (36-46); Hemoglobin 12.7 g/dL (12.0-16.0); Lymphocytes Absolute Auto 2300 /uL (1100-4500); Lymphocytes Percent Auto 34.2 % (25-40); Mean Corpuscular Hemoglobin 30.4 PG (26-34); Mean Corpuscular Volume 92.1 fL (80-100); Monocytes Absolute Auto 500 /uL (0-900); Monocytes Percent Auto 6.9 % (3-14); Neutrophils Absolute Auto 3900 /uL (1500-7000); Neutrophils Percent Auto 57.8 % (50-75); Platelet Count 223 X10^3/uL (150-400); Red Blood Cell Count 4.16 X10^6/uL (4.0-5.2); Red Cell Distribution Width 14.9 % (11.6-14.8); White Blood Cell Count 6.8 X10^3/uL (4.5-11.0)
[2021-06-26 15:33] LABS: Alanine Aminotransferase 23 IU/L (<35); Albumin 4.1 g/dL (3.5-5.0); Albumin Globulin Ratio 1.5 (1.0-2.8); Alkaline Phosphatase 40 U/L (38-126); Aspartate Aminotransferase 33 IU/L (14-36); BUN Creatinine Ratio 23.4 (6-22); Bilirubin Total 0.5 mg/dL (0.2-1.3); Blood Urea Nitrogen 25 mg/dL (7-17); Calcium 9.5 mg/dL (8.4-10.2); Carbon Dioxide 32 mmol/L (22-32); Chloride 102 mmol/L (98-107); Creatine Kinase 36 U/L (30-135); Estimated Glomerular Filt Rate 48.9 mL/min (>60); Globulin 2.8 g/dL (1.7-4.1); Glucose 109 mg/dL (80-110); HEMOLYSIS < 15 (0-50); Lipase 204 U/L (23-300); Potassium 3.9 mmol/L (3.4-5.1); Sodium 139 mmol/L (137-145); Total Protein 6.9 g/dL (6.3-8.2)
[2021-06-26 15:41] LABS: Troponin I < 0.012 ng/mL (0.01-0.034)
[2021-06-26 16:08] VITALS: BP 124/61; PULSE 46; RESP 27; O2SAT 99
== END 2021-06-26 16:50 | disposition home or self-care (01) ==
PROVIDERS: Emergency Provider Emergency Medicine; PCP Internal Medicine
DX: R00.1 Bradycardia, unspecified (principal); R07.9 Chest pain, unspecified; R42 Dizziness and giddiness
CPT/HCPCS: 36415; 71045; 80053; 81003; 82550; 83690; 84484; 85025; 93005; 99283; 99284

== ENCOUNTER 2021-07-03 15:45 | Emergency (ER) | payer MEDICARE, OTHER, SELFPAY ==
[2021-02-04 17:15] VITALS: BMI 25.8
[2021-07-03 15:51] VITALS: BP 131/62; PULSE 85; RESP 14; TEMP 36.3; O2SAT 96; BMI 25.8
--- NOTE | 2021-07-03 16:15 | DI.US.S_ITS ---
PROCEDURE: US PERIPH VENOUS LOW EXTREM RT INDICATIONS: PAIN BEHIND KNEE, CARDIOVERTED LAST WEEK TECHNIQUE: Real-time imaging, as well as color and pulse Doppler interrogation, were performed of the lower extremity deep veins from the inguinal ligament to the popliteal fossa. COMPARISON: None. FINDINGS: The common femoral, femoral and popliteal veins are normally compressible, and free of intraluminal thrombus. Color and pulse Doppler demonstrate normal phasic intraluminal flow. There is normal augmentation response to distal compression maneuver. IMPRESSION: No sonographic evidence of DVT. Dictated by: Parker Ramirez M.D. on 07/03/2021 at 17:20 Approved by: Parker Ramirez M.D. on 07/03/2021 at 17:20
--- NOTE | 2021-07-03 18:16 | ED.EXTPRO ---
HPI - Extremity Problem General Chief complaint: Extremity Problem,Nontraumatic Stated complaint: Cardiac Symptoms, Pain Behind Rt Knee Time Seen by Provider: 07/03/21 18:16 Source: patient Mode of arrival: Ambulatory Limitations: no limitations History of Present Illness HPI Narrative: 86-year-old Female with a known chronic atrial fibrillation on Eliquis and sotalol, cardioverted by Dr. Allison on June 23 seen and evaluated in our emergency department on June 26 for dizziness and lightheadedness found to be bradycardic at which point her sotalol was decreased to 20 mg. Today she states that last night she was feeling some palpitations. She thinks maybe she overdid it was quite hot yesterday there is also a lot of smoke in the air. Her she was playing with grandchildren running up the stairs to the [employer] and by nighttime she just and feel quite right. She also noted some swelling in both of her legs and she had some pain behind her right knee. She denies any injury to the knee. She is having some shortness of breath but overall feels significantly better than she did previously when she was in atrial fibrillation. She denies any cough or orthopnea. Related Data Home Medications Medication Instructions Recorded Confirmed levothyroxine 75 mcg tablet 68 mcg PO DAILY #0 04/02/10 02/04/21 (Synthroid) liothyronine 5 mcg tablet (Cytomel) 5 mcg PO QDAY #0 05/27/11 02/04/21 estradiol (Estrace) 0.01 % VAGINAL 3XW #0 04/08/13 02/04/21 apixaban 5 mg tablet (Eliquis) 5 mg PO BID 02/04/21 02/04/21 econazole 1 % topical cream 1 applic TOPICAL DAILY 02/04/21 02/04/21 linaclotide 290 mcg capsule 290 mcg PO DAILY 02/04/21 02/04/21 (Linzess) polyethylene glycol 3350 17 17 g PO BID 02/04/21 02/04/21 gram/dose oral powder (Miralax) sennosides 8.6 mg tablet (senna) 17.2 mg PO BID 02/04/21 02/04/21 Allergies Allergy/AdvReac Type Severity Reaction Status Date / Time ciprofloxacin [CIPROFLOXACIN] Allergy Severe Rash Verified 07/03/21 15:51 sulfamethoxazole Allergy Unknown RASH Verified 07/03/21 15:51 [From SEPTRA] trimethoprim [From SEPTRA] Allergy Unknown RASH Verified 07/03/21 15:51 metronidazole [From FLAGYL] AdvReac Unknown REALLY Verified 07/03/21 15:51 HARSH ON STOMACH Review of Systems Review of Systems Narrative: GENERAL: Denies chills, fatigue, malaise, fever, sweats, travel HEENT: Denies sinus pain, ear pain, sore throat, difficulty swallowing, neck pain RESPIRATORY: Denies dyspnea, cough, wheezing, hemoptysis, sputum. CARDIOVASCULAR: See HPI GASTROINTESTINAL: Denies nausea, vomiting, abdominal pain, diarrhea, constipation, melena. : Denies dysuria, frequency, incontinence, hematuria, urinary retention, flank pain. MUSCULOSKELETAL: See HPI SKIN: No rash, no erythema, no pruritus NEUROLOGIC: Denies weakness, dizziness, headache, numbness, change in speech, confusion PSYCHIATRIC: No concerning psychosocial issues. 12 point review of systems is negative except for those stated above and HPI Patient History Medical History Atrial fibrillation Hypothyroidism Pneumonia Surgical History H/O: hysterectomy History of hip surgery Social History household members: spouse and children Smoking Status: Former smoker alcohol intake: never Smoking Status: Former smoker alcohol intake frequency: holidays/special occasions only Substance Use Type: does not use Exam Initial Vital Signs Initial Vital Signs: Vital Signs Temperature 97.4 F L 07/03/21 15:51 Pulse Rate 85 07/03/21 15:51 Respiratory Rate 14 07/03/21 15:51 Blood Pressure 131/62 07/03/21 15:51 Pulse Oximetry 96 07/03/21 15:51 GENERAL: Alert well-appearing 86-year-old female and in no acute] distress. HEENT: Head atraumatic,EOMI, pupils reactive, face symmetric, [moist] mucous membranes CARDIOVASCULAR: Regular rate and rhythm without murmurs, rubs or gallops. RESPIRATORY: Breath sounds equal bilaterally, no wheezes rales or rhonchi. ABDOMEN: Soft, nontender. Normoactive bowel sounds all 4 quadrants. No guarding or rebound. EXTREMITIES: Normal range of motion, no clubbing. No appreciable pitting edema. Neurovascularly intact. Right knee is stable no swelling no erythema. NEUROLOGICAL: Alert and oriented x4.Normal gait and speech. SKIN: Warm, dry, no laceration, no petechiae, no rashes or lesions. Course Orders Ordered: ED Orders 07/03/21 15:57 EKG-12 Lead Routine 07/03/21 16:15 US periph venous low extrem rt Stat Vital Signs Vital signs: Vital Signs - 8 hr 07/03/21 15:51 Temperature 97.4 F L Pulse Rate 85 Respiratory Rate 14 Blood Pressure 131/62 Pulse Oximetry 96 MDM - Extremity (Nontraumatic) ECG Data Interpretation: Normal sinus rhythm rate [address] no [address] changes improved from previous EKG [facility] Narrative Medical decision making narrative: At this time patient feels significantly better. Move no overt signs of congestive heart failure no significant pitting edema a DVT study is negative and she is taking Eliquis. She may have had a run of atrial fibrillation last night but now is in sinus rhythm she is in close contact with her therapy administrative assistant and has an appointment with her PCP next week. At this time I see no need for further blood work or testing. She feels significantly better. EKG was done at 3:57 p.m. she is hooked up back to the monitor what she is finally brought back and she remains in sinus rhythm with a rate in the 50s. Discharge Plan Departure Patient Disposition: Home Clinical Impression: Heart palpitations Instructions: Arrhythmias Activity Restrictions/Additional Instructions: *You have been diagnosed with palpitations *What to do: At this time I think her palpitations are combination of possible atrial fibrillation, heat smoke over doing. Be sure in this heat to stay cool as possible drink plenty of water and do not exercise in the heat. You are in sinus rhythm at this time. No blood clot noted in her leg. *Continue to take medications as directed *Follow up with your primary care provider in 2-3 days *Return to ER if you should have palpitations chest pain worsening shortness of [or] any new, worsening or concerning symptoms Prescriptions: No Action levothyroxine [Synthroid] 75 MCG tablet 68 mcg PO DAILY Qty: 0 RF: 0 liothyronine [Cytomel] 5 MCG tablet 5 mcg PO QDAY Qty: 0 RF: 0 estradiol [Estrace] 0.01 % cream 0.01 % Vaginal 3XW Qty: 0 RF: 0 econazole 1 % Cream 1 applic TOPICAL DAILY RF: 0 Linzess 290 mcg Capsule 290 mcg PO DAILY RF: 0 Eliquis 5 mg Tablet 5 mg PO BID RF: 0 polyethylene glycol 3350 [Miralax] 17 gram/dose Powder 17 g PO BID RF: 0 sennosides [senna] 8.6 mg Tablet 17.2 mg PO BID RF: 0 Referrals: Alan Allison MD [Physician] - Thompson Vicente MD [Primary Care Provider] -
[2021-07-03 18:33] VITALS: BP 161/78; PULSE 55; RESP 16; TEMP 36.3; O2SAT 96
== END 2021-07-03 18:48 | disposition home or self-care (01) ==
PROVIDERS: Emergency Provider Emergency Medicine; PCP Internal Medicine
DX: R00.2 Palpitations (principal); Z79.01 Long term (current) use of anticoagulants
CPT/HCPCS: 93005; 93971; 99283; 99284

== ENCOUNTER → 2021-09-08 14:22 | Outpatient (CLI) | payer MEDICARE, OTHER, SELFPAY ==
[2021-02-04 17:15] VITALS: BMI 25.8
[2021-09-08 15:16] LABS: Free T3, Triiodothyronine Free 3.88 pg/mL (2.77-5.27); Free T4, Direct Thyroxine 1.24 ng/dL (0.78-2.19)
[2021-09-08 15:30] LABS: Thyroid Stimulating Hormone 2.55 uIU/mL (0.47-4.68)
== END ==
PROVIDERS: PCP Internal Medicine; Referring Provider Internal Medicine Endocrinology, Diabetes & Metabolism; Visit Provider Internal Medicine Endocrinology, Diabetes & Metabolism
DX: E03.8 Other specified hypothyroidism (principal)
CPT/HCPCS: 36415; 84439; 84443; 84481

== ENCOUNTER → 2021-10-28 14:42 | Outpatient (CLI) | payer MEDICARE, OTHER, SELFPAY ==
[2021-02-04 17:15] VITALS: BMI 25.8
--- NOTE | 2021-10-28 14:46 | DI.ECHO.S_ITS ---
[facility]---------+ [facility] +---------+ : : [address] : : : : [id number] : : : : Phone: [phone]+ Echocardiogram Report + + :Name: PRETTY VILLARREAL Study Date: 10/28/2021 Height: 67 in : :[facility] ReadingLocation: Weight: 168 lb : : Gender: Female BSA: 1.9 m2 : :: 1935 Age: 86 yrs BP: 114/76 mmHg: :Reason For Study: Atrial fibrillation - paroxysmal : : Performed By: Benoit Bell : :Referring: CARYN LUIS : + + Interpretation Summary The left ventricle is normal in size and wall thickness. The ejection fraction is estimated to be 55-60%. Left ventricular systolic function has significantly improved compared to the previous exam. Previous LVEF 30 to 35%. In this study, rhythm is sinus. Previously rhythm was atrial fibrillation. The right ventricle is normal in size and function. No significant valvular pathology seen. The ascending aorta is mildly enlarged. 4.0 cm diameter. Previously 3.8 cm. The aortic arch is mildly enlarged. Mild atherosclerotic plaque(s) in the aortic arch. Procedure: A two-dimensional transthoracic echocardiogram with color flow and Doppler was performed. The study quality was technically adequate. Comparison is made with the echocardiogram of 02/05/2021. The patient was in normal sinus rhythm during the exam. Left Ventricle: The left ventricle is normal in size and wall thickness. There is no thrombus. A false chord is noted (normal variant). The ejection fraction is estimated to be 55-60%. Left ventricular systolic function has significantly improved compared to the previous exam. There are no focal wall motion abnormalities. Diastolic parameters suggest a relaxation abnormality of the left ventricle, consistent with probable normal filling pressures. Right Ventricle: The right ventricle is normal in size and function. Atria: The left atrium is mildly dilated. Both atria have significantly decreased in size since the prior echo exam. The right atrium is mildly dilated. There is no Doppler evidence for an interatrial shunt. Mitral Valve: There is mild mitral annular calcification. There is trace mitral regurgitation. Compared to the prior echo study, there has been a decrease in the severity of mitral regurgitation. Aortic Valve: The aortic valve is trileaflet. The aortic valve opens well. There is no aortic valve stenosis. No aortic regurgitation is present. Tricuspid Valve: The tricuspid valve is normal. There is trace tricuspid regurgitation. Right ventricular systolic pressure is estimated to be 23 mmHg plus the clinically estimated CVP which cannot be estimated on this exam. Compared to the prior echo exam, there has been a decrease in TR severity. Pulmonic Valve: The pulmonic valve leaflets are thin and pliable; valve motion is normal. There is a trace or physiologic amount of pulmonic regurgitation. Great Vessels: The aortic root is normal size. The ascending aorta is mildly enlarged. The aortic arch is mildly enlarged. Mild atherosclerotic plaque(s) in the aortic arch. The inferior vena cava was not well visualized. Pericardium/ Pleura There is no pericardial effusion. There is an anterior echo-free space consistent with a fat pad. There is no pleural effusion. MMode/2D Measurements & Calculations LVIDd: 4.8 cm LVOT diam: 2.0 cm LVIDs: 3.7 cm Ao root diam: 3.0 cm FS: 22.2 % asc Aorta Diam: 4.0 cm IVSd: 0.71 cm Ao Arch Diam (Prox Trans): 3.7 cm LVPWd: 0.64 cm LV méndez. diameter/BSA (cm/m^2): 2.6 LV sys. diameter/BSA (cm/m^2): 2.0 LA A2 area: 22.9 cm2 RA long axis: 5.8 cm LA A4 area: 18.8 cm2 RA area: 19.9 cm2 LA length (vol): 5.3 cm RA vol: 58.1 ml LA vol: 69.2 ml RA : 31.0 ml/m2 LA vol index: 36.9 ml/m2 IVC diam: 2.1 cm TAPSE: 2.3 cm Doppler Measurements & Calculations Ao V2 max: 138.1 cm/sec LVOT Max Rakesh: 80.1 cm/sec Ao V2 mean: 101.2 cm/sec LV V1 max P.6 mmHg Ao max P.6 mmHg LV V1 VTI: 19.4 cm Ao mean P.3 mmHg OMI(I,D): 1.8 cm2 Ao V2 VTI: 34.6 cm OMI(V,D): 1.8 cm2 sev ratio: 0.56 OMI indexed to BSA (cm^2/m^2): 0.94 MV E max rakesh: 66.5 cm/sec TR max rakesh: 238.8 cm/sec MV A max rakesh: 101.9 cm/sec TR max P.8 mmHg MV E/A: 0.65 PA V2 max: 81.9 cm/sec Med Peak E' Rakesh: 5.2 cm/sec PA V2 mean: 56.5 cm/sec E/E' med: 12.8 PA mean P.4 mmHg Lat Peak E' Rakesh: 5.1 cm/sec PA pr(Accel): 8.8 mmHg E/E' lat: 13.0 E/e' average: 12.9 MV dec time: 0.22 sec SV(LVOT): 61.3 ml Reading Physician:04:33 PM
== END ==
PROVIDERS: PCP Internal Medicine; Referring Provider Internal Medicine Cardiovascular Disease; Visit Provider Internal Medicine Cardiovascular Disease
DX: I48.0 Paroxysmal atrial fibrillation (principal); I70.0 Atherosclerosis of aorta; I77.89 Other specified disorders of arteries and arterioles
CPT/HCPCS: 93306

== ENCOUNTER 2021-10-29 10:51 | Emergency (ER) | payer MEDICARE, OTHER, SELFPAY ==
[2021-02-04 17:15] VITALS: BMI 25.8
[2021-10-29] VITALS (9 sets, daily range): BP systolic 98–133; BP diastolic 56–81; PULSE 58–134; RESP 18–35; TEMP 36.4; O2SAT 84–98; BMI 25.8
--- NOTE | 2021-10-29 11:04 | DI.RAD.S_ITS ---
PROCEDURE: XR CHEST 1V INDICATIONS: chest pain TECHNIQUE: One view of the chest was acquired. COMPARISON: [facility], CR, XR CHEST 1V, 06/26/2021, 14:38. FINDINGS: Surgical changes and devices: None. Lungs and pleura: Lungs are clear. No pleural effusions or pneumothorax. Mediastinum: Mildly tortuous thoracic aorta is seen. Heart size is mildly enlarged. Bones and chest wall: No suspicious bony lesions. Overlying soft tissues appear unremarkable. IMPRESSION: No acute cardiopulmonary pathology. Dictated by: Raul Conner M.D. on 10/29/2021 at 11:18 Approved by: Raul Conner M.D. on 10/29/2021 at 11:18
--- NOTE | 2021-10-29 11:20 | PC.NURSE ---
Unique woke around 10om last night with rapid heart rate, rate bouncing all over the place. [place] restless all night, home glendy showed Afib. Patient had cardioversion approx 4 months ago. Reports new onset of cold, congestion, sore throat. Vaccinated. Patient had echo yesterday. Recently started on statin.
[2021-10-29 11:42] LABS: COVID19 -Nasal RAPID Negative (Negative)
[2021-10-29 11:42] LABS: Magnesium 2.3 mg/dL (1.6-2.3)
[2021-10-29 11:52] LABS: NT-proBNP (BNP-Adult 18+) 2100 pg/mL (<450)
[2021-10-29 12:14] LABS: Thyroid Stimulating Hormone 1.74 uIU/mL (0.47-4.68)
--- NOTE | 2021-10-29 12:16 | ED_ITS ---
HPI - Arrhythmia/Palpitations General Chief Complaint: Arrhythmia/Palpitations Stated Complaint: Cardiac issues- Afib Time Seen by Provider: 10/29/21 11:10 Source: patient Mode of arrival: Ambulatory Limitations: no limitations History of Present Illness HPI narrative: This is an 86-year-old female comes emergency department with complaint of irregularly and tachycardic heart rate starting last night patient states she has a history of atrial fibrillation she is anticoagulated on Eliquis. Patient sees Dr. Allison. She has already been in contact with them they are ready setting her up for cardioversion next week. He recommended increasing her sotalol from 20 mg twice daily to 40 mg twice daily. Patient states she felt a little dizzy, she has not had any syncope. She had a little bit of chest discomfort earlier. No shortness of breath. No diaphoresis. No nausea or vomiting. No new swelling in her extremities and no other new GI or urinary symptoms. She has not had any new medications changes recently. She does state she not been drinking as much water recently. Related Data Home Medications Medication Instructions Recorded Confirmed levothyroxine 75 mcg tablet 68 mcg PO DAILY #0 04/02/10 02/04/21 (Synthroid) liothyronine 5 mcg tablet (Cytomel) 5 mcg PO QDAY #0 05/27/11 02/04/21 estradiol (Estrace) 0.01 % VAGINAL 3XW #0 04/08/13 02/04/21 apixaban 5 mg tablet (Eliquis) 5 mg PO BID 02/04/21 02/04/21 econazole 1 % topical cream 1 applic TOPICAL DAILY 02/04/21 02/04/21 linaclotide 290 mcg capsule 290 mcg PO DAILY 02/04/21 02/04/21 (Linzess) polyethylene glycol 3350 17 17 g PO BID 02/04/21 02/04/21 gram/dose oral powder (Miralax) sennosides 8.6 mg tablet (senna) 17.2 mg PO BID 02/04/21 02/04/21 Previous Rx's Medication Instructions Recorded Oral Appliance #1 ea 07/28/21 Allergies Allergy/AdvReac Type Severity Reaction Status Date / Time ciprofloxacin [CIPROFLOXACIN] Allergy Severe Rash Verified 07/03/21 15:51 sulfamethoxazole Allergy Unknown RASH Verified 07/03/21 15:51 [From SEPTRA] trimethoprim [From SEPTRA] Allergy Unknown RASH Verified 07/03/21 15:51 metronidazole [From FLAGYL] AdvReac Unknown REALLY Verified 07/03/21 15:51 HARSH ON STOMACH Review of Systems Review of Systems ROS Unobtainable: All systems reviewed & are unremarkable except as noted in HPI and below Patient History Medical History Atrial fibrillation Hypothyroidism Pneumonia Surgical History H/O: hysterectomy History of hip surgery Social History household members: spouse and children Smoking Status: Former smoker alcohol intake: never Smoking Status: Former smoker alcohol intake frequency: holidays/special occasions only Substance Use Type: does not use Exam Narrative Exam Narrative: GENERAL: Alert and oriented x three, elderly female in no acute distress. HEENT: Head normocephalic, atraumatic, EOMI, pupils reactive, face symmetric, moist mucous membranes NECK: Supple, full range of motion CARDIOVASCULAR: Bradycardic Regular rate and rhythm without murmurs, rubs or gallops. No JVD. RESPIRATORY: Breath sounds equal bilaterally, no wheezes rales or rhonchi. ABDOMEN: Soft, nontender. Normoactive bowel sounds all 4 quadrants. No guarding or rebound, rigidity, no mass : No CVA tenderness EXTREMITIES: Normal range of motion, no edema. Neurovascularly intact NEUROLOGICAL: Cranial nerves II through XII grossly intact. Moving all extremities SKIN: Warm, dry, no petechiae, no rashes or lesions. Initial Vital Signs Initial Vital Signs: Vital Signs Temperature 97.6 F 10/29/21 11:05 Pulse Rate 134 H 10/29/21 11:05 Respiratory Rate 18 10/29/21 11:05 Blood Pressure 117/67 10/29/21 11:05 Pulse Oximetry 98 10/29/21 11:05 Course Orders Ordered: ED Orders 10/29/21 11:04 XR chest 1V Stat EKG-12 Lead Stat 10/29/21 11:20 COVID19 -Nasal swab/Pre-Proc Stat 10/29/21 11:25 Complete Blood Count AUTO DIFF Stat Comprehensive Metabolic Panel Stat Lipase Stat Troponin & CK Cardiac Panel Stat 10/29/21 11:30 BNP [NT-proBNP (BNP-Adult 18+)] Stat MAG [Magnesium] Stat TSH [Thyroid Stimulating Hormone] Stat 10/29/21 13:00 Troponin I Stat Discontinued Medications Sotalol HCl (Sotalol 80 Mg Tablet) 20 mg PO NOW ONE Stop: 10/29/21 12:59 Last Admin: 10/29/21 13:23 Dose: 20 mg Documented by: STACI Consultations Consultation #1: Dr. Allison. Patient appears have cardioverted on telemetry were waiting for her EKG but her initial troponin is indeterminate and priors are negative on previous visits, BNP is elevated. He has recommended increase her sotalol to 40 mg twice daily and we discussed she gait an additional 20 mg here in the department she had already had 20 mg this morning. This was just prior to her cardioversion. They are going to follow her in the next week. They will betzaida nue to monitoring and cardiovert her if needed. If troponin continues to be stable or decreases she may return home. Plan to recontact if it is elevating. We did also review her echo from yesterday which shows improvement of her EF from prior, and slight enlargement of her aorta from last from 3.8-4 cm. Vital Signs Vital signs: Vital Signs - 8 hr 10/29/21 13:12 10/29/21 13:16 10/29/21 13:33 Pulse Rate 113 H 104 H 60 Respiratory Rate 27 H 25 H 35 H Blood Pressure 133/81 Pulse Oximetry 88 L 98 84 L 10/29/21 13:46 10/29/21 14:00 10/29/21 14:30 Pulse Rate 58 L 65 59 L Respiratory Rate 25 H 19 23 Blood Pressure 127/61 110/68 Pulse Oximetry 98 98 97 10/29/21 14:48 10/29/21 14:49 Pulse Rate 62 61 Respiratory Rate 33 H 32 H Blood Pressure 98/56 L 109/70 Pulse Oximetry 97 MDM - Arrhythmia/Palpitations Lab Data Result diagrams: 10/29/21 11:25 10/29/21 11:25 Labs: Lab Results 10/29/21 10/29/21 10/29/21 Range/Units 11:20 11:25 11:25 WBC 9.0 (4.5-11.0) X10^3/uL RBC 4.75 (4.0-5.2) X10^6/uL Hgb 14.5 (12.0-16.0) g/dL Hct 43.6 (36-46) % MCV 91.9 (80-100) fL MCH 30.5 (26-34) PG MCHC 33.2 (30-36) % RDW 14.7 (11.6-14.8) % Plt Count 294 (150-400) X10^3/uL Neut % (Auto) 63.1 (50-75) % Lymph % (Auto) 28.3 (25-40) % Jerome % (Auto) 7.3 (3-14) % Eos % (Auto) 0.1 L (2-4) % Baso % (Auto) 1.2 (0-2) % Neut # (Auto) 5700 (0503-2349) /uL Lymph # (Auto) 2600 (5139-2265) /uL Jerome # (Auto) 700 (0-900) /uL Eos # (Auto) 0 (0-450) /uL Baso # (Auto) 100 (0-100) /uL Sodium 140 (137-145) mmol/L Potassium 4.1 (3.4-5.1) mmol/L Chloride 101 (98-107) mmol/L Carbon Dioxide 27 (22-32) mmol/L BUN 22 H (7-17) mg/dL Creatinine 1.00 (0.52-1.04) mg/dL Estimated GFR 52.8 L (>60) mL/min BUN/Creatinine Ratio 22.0 (6-22) Glucose 94 (80-110) mg/dL Calcium 9.8 (8.4-10.2) mg/dL Magnesium (1.6-2.3) mg/dL Total Bilirubin 0.8 (0.2-1.3) mg/dL AST 34 (14-36) IU/L ALT 18 (<35) IU/L Alkaline Phosphatase 49 (38-126) U/L Total Creatine Kinase 51 (30-135) U/L CK-MB (CK-2) TNP CK-MB (CK-2) Rel Index TNP Troponin I 0.036 H (0.01-0.034) ng/mL NT-Pro-B Natriuret Pep (<450) pg/mL Total Protein 7.8 (6.3-8.2) g/dL Albumin 4.6 (3.5-5.0) g/dL Globulin 3.2 (1.7-4.1) g/dL Albumin/Globulin Ratio 1.4 (1.0-2.8) Lipase 153 (23-300) U/L TSH (0.47-4.68) uIU/mL SARS-CoV-2 (PCR) Negative (Negative) 10/29/21 10/29/21 10/29/21 Range/Units 11:30 11:30 13:00 WBC (4.5-11.0) X10^3/uL RBC (4.0-5.2) X10^6/uL Hgb (12.0-16.0) g/dL Hct (36-46) % MCV (80-100) fL MCH (26-34) PG MCHC (30-36) % RDW (11.6-14.8) % Plt Count (150-400) X10^3/uL Neut % (Auto) (50-75) % Lymph % (Auto) (25-40) % Jerome % (Auto) (3-14) % Eos % (Auto) (2-4) % Baso % (Auto) (0-2) % Neut # (Auto) (2466-9522) /uL Lymph # (Auto) (3292-6431) /uL Jerome # (Auto) (0-900) /uL Eos # (Auto) (0-450) /uL Baso # (Auto) (0-100) /uL Sodium (137-145) mmol/L Potassium (3.4-5.1) mmol/L Chloride (98-107) mmol/L Carbon Dioxide (22-32) mmol/L BUN (7-17) mg/dL Creatinine (0.52-1.04) mg/dL Estimated GFR (>60) mL/min BUN/Creatinine Ratio (6-22) Glucose (80-110) mg/dL Calcium (8.4-10.2) mg/dL Magnesium 2.3 (1.6-2.3) mg/dL Total Bilirubin (0.2-1.3) mg/dL AST (14-36) IU/L ALT (<35) IU/L Alkaline Phosphatase (38-126) U/L Total Creatine Kinase (30-135) U/L CK-MB (CK-2) CK-MB (CK-2) Rel Index Troponin I 0.033 (0.01-0.034) ng/mL NT-Pro-B Natriuret Pep 2100 H (<450) pg/mL Total Protein (6.3-8.2) g/dL Albumin (3.5-5.0) g/dL Globulin (1.7-4.1) g/dL Albumin/Globulin Ratio (1.0-2.8) Lipase (23-300) U/L TSH 1.74 (0.47-4.68) uIU/mL SARS-CoV-2 (PCR) (Negative) Imaging Data Chest x-ray: Radiologist's Impresson: Close Chest X-Ray (Signed) Raul Conner - 10/29/21 Echocardiogram Ultrasound (Signed) Marcello Caputo - 10/28/21 Vascular Ultrasound (Signed) Parker Ramirez - 07/03/21 Chest X-Ray (Signed) Wendy Cleary - 06/26/21 Mammogram Screening (Signed) Valerie Lewis - 06/11/21 Chest X-Ray (Signed) Ivon Portillo - 04/22/21 Echocardiogram Ultrasound (Signed) Colby Laguna - 02/04/21 Telemetry Strips 02/04/21 Chest X-Ray (Signed) Theo Joyce - 02/04/21 Chest X-Ray (Signed) Wendy Cleary - 12/16/20 Carotid Doppler Study (Signed) Tigre Shaikh - 09/02/20 Mammogram Screening (Signed) Valerie Lewis - 06/04/20 Lumbar Spine X-Ray (Signed) Brett Naqvi - 12/21/19 Hip X-Ray (Signed) Brett Naqvi - 12/21/19 Vascular Ultrasound (Signed) Brett Naqvi - 08/02/19 Mammogram Screening (Signed) Gerardo Mcdowell - 03/15/19 Radiology - Historical 10/03/17 Radiology - Historical 10/03/17 Radiology - Historical 10/03/17 Radiology - Historical 07/24/17 Launch?[address] [address] XRay Report Signed Patient: Joceline Ace MR#: [id number] : 1935 Acct:[id number] Age/Sex: 86 / F Date of Service: 10/29/21 Loc: ED Accession Number: [id number] ?? Procedure: XR chest 1V Ordering Provider: Orin Pollard D.O. PROCEDURE:? XR CHEST 1V ? INDICATIONS:? chest pain ? TECHNIQUE:? One view of the chest was acquired.? ? COMPARISON:? [facility], CR, XR CHEST 1V, 06/26/2021, 14:38. ? FINDINGS:? ? Surgical changes and devices:? None.? ? Lungs and pleura:? Lungs are clear.? No pleural effusions or pneumothorax.? ? Mediastinum:? Mildly tortuous thoracic aorta is seen.? Heart size is mildly enlarged.? ? Bones and chest wall:? No suspicious bony lesions.? Overlying soft tissues appear unremarkable.? ? IMPRESSION:? No acute cardiopulmonary pathology. ? ? Dictated by: Raul Conner M.D. on 10/29/2021 at 11:18 ? ? Approved by: Raul Conner M.D. on 10/29/2021 at 11:18 ECG Data Attestation: I personally reviewed and interpreted this ECG as follows: Interpretation: EKG 1. AFib with RVR rate of 121 QRS 86 and QTC of 403. No acute ST elevation depression noted. Nonspecific changes present. EKG 2-a sinus bradycardia sinus arrhythmia. Rate of 54, P are 178, QRS 88 QTC 424. Patient appears have a P with every QRS and vice versa. No acute ST changes. MDM Narrative Medical decision making narrative: This is an 86-year-old female who appears to be in AFib RVR upon arrival. 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 Here in the department she has an indeterminate trop onin and this was discussed with her [employer]person [employer]. He recommends repeating a 2 hour troponin as she appears to have cardioverted here in the department after her oral sotolal dose. If trending downwards which patient can discharge home with follow-up with Cardiology. Her chest x-ray shows no major changes. She does not any ST changes and is in sinus bradycardia on repeat EKG. Discharge Plan Departure Patient Disposition: Home Clinical Impression: Atrial fibrillation with rapid ventricular response Instructions: DI for Atrial Fibrillation Activity Restrictions/Additional Instructions: Follow-up with Dr. Allison. You do appear to have cardioverted to a sinus bradycardia today. As discussed with Dr. Allison increase your sotalol to 40 mg twice daily. Take your next dose this evening. You may continue your other home medications as prescribed. Please return for new or worsening chest pain, shortness of breath, lightheadedness or passing out, swelling of your extremities, recurrent palpitations or fast heartbeat particularly persistent or other new or concerning symptoms. Prescriptions: No Action levothyroxine [Synthroid] 75 MCG tablet 68 mcg PO DAILY Qty: 0 0RF liothyronine [Cytomel] 5 MCG tablet 5 mcg PO QDAY Qty: 0 0RF estradiol [Estrace] 0.01 % cream 0.01 % Vaginal 3XW Qty: 0 0RF (DME) Oral Appliance See Rx Instructions .Route .MEDSUPPLY Qty: 1 0RF Rx Instructions: patient with AHI of 10.4 econazole 1 % Cream 1 applic TOPICAL DAILY 0RF Linzess 290 mcg Capsule 290 mcg PO DAILY 0RF Eliquis 5 mg Tablet 5 mg PO BID 0RF polyethylene glycol 3350 [Miralax] 17 gram/dose Powder 17 g PO BID 0RF sennosides [senna] 8.6 mg Tablet 17.2 mg PO BID 0RF Referrals: Thompson Vicente MD [Primary Care Provider] -
[2021-10-29 13:12] LABS: Add Manual Diff / Slide Review NO; Basophils Absolute Auto 100 /uL (0-100); Basophils Percent Auto 1.2 % (0-2); Eosinophils Absolute Auto 0 /uL (0-450); Eosinophils Percent Auto 0.1 % (2-4); Hematocrit 43.6 % (36-46); Hemoglobin 14.5 g/dL (12.0-16.0); Lymphocytes Absolute Auto 2600 /uL (1100-4500); Lymphocytes Percent Auto 28.3 % (25-40); Mean Corpuscular HGB Conc 33.2 % (30-36); Mean Corpuscular Hemoglobin 30.5 PG (26-34); Mean Corpuscular Volume 91.9 fL (80-100); Monocytes Absolute Auto 700 /uL (0-900); Monocytes Percent Auto 7.3 % (3-14); Neutrophils Absolute Auto 5700 /uL (1500-7000); Neutrophils Percent Auto 63.1 % (50-75); Platelet Count 294 X10^3/uL (150-400); Red Blood Cell Count 4.75 X10^6/uL (4.0-5.2); Red Cell Distribution Width 14.7 % (11.6-14.8)
[2021-10-29 13:16] LABS: Alanine Aminotransferase 18 IU/L (<35); Albumin 4.6 g/dL (3.5-5.0); Albumin Globulin Ratio 1.4 (1.0-2.8); Alkaline Phosphatase 49 U/L (38-126); Aspartate Aminotransferase 34 IU/L (14-36); Bilirubin Total 0.8 mg/dL (0.2-1.3); Blood Urea Nitrogen 22 mg/dL (7-17); Calcium 9.8 mg/dL (8.4-10.2); Carbon Dioxide 27 mmol/L (22-32); Chloride 101 mmol/L (98-107); Creatine Kinase 51 U/L (30-135); Estimated Glomerular Filt Rate 52.8 mL/min (>60); Globulin 3.2 g/dL (1.7-4.1); Glucose 94 mg/dL (80-110); HEMOLYSIS 18 (0-50); Lipase 153 U/L (23-300); Potassium 4.1 mmol/L (3.4-5.1); Sodium 140 mmol/L (137-145); Total Protein 7.8 g/dL (6.3-8.2)
[2021-10-29] MEDS: SOTALOL 80 MG TABLET 20 MG PO (13:23)
[2021-10-29 13:28] LABS: Troponin I 0.036 ng/mL (0.01-0.034)
[2021-10-29 14:23] LABS: Troponin I 0.033 ng/mL (0.01-0.034)
== END 2021-10-29 14:54 | disposition home or self-care (01) ==
PROVIDERS: Emergency Provider Emergency Medicine; PCP Internal Medicine
DX: I48.91 Unspecified atrial fibrillation (principal); Z20.822 Contact with and (suspected) exposure to COVID-19
CPT/HCPCS: 36415; 71045; 80053; 82550; 83690; 83735; 83880; 84443; 84484; 85025; 87635; 93005; 93010; 99284; C9803

== ENCOUNTER 2022-01-11 15:09 | Emergency (ER) | payer MEDICARE, OTHER, SELFPAY ==
[2021-02-04 17:15] VITALS: BMI 25.8
[2022-01-11] VITALS (15 sets, daily range): BP systolic 104–121; BP diastolic 52–67; PULSE 50–110; RESP 14–29; TEMP 36.1; O2SAT 95–100
--- NOTE | 2022-01-11 15:40 | DI.RAD.S_ITS ---
PROCEDURE: XR CHEST 1V INDICATIONS: chest pain TECHNIQUE: One view of the chest was acquired. COMPARISON: [facility], CR, XR CHEST 1V, 10/29/2021, 11:04. FINDINGS: Surgical changes and devices: None. Lungs and pleura: Lungs are clear. No pleural effusions or pneumothorax. Mediastinum: Mediastinal contours appear normal. Heart size is normal. Bones and chest wall: No suspicious bony lesions. Overlying soft tissues appear unremarkable. IMPRESSION: No acute cardiopulmonary disease process. Dictated by: Bety Alcantara MD, PhD on 01/11/2022 at 16:06 Approved by: Bety Alcantara MD, PhD on 01/11/2022 at 16:07
[2022-01-11 15:57] LABS: Add Manual Diff / Slide Review NO; Basophils Absolute Auto 0 /uL (0-100); Basophils Percent Auto 0.6 % (0-2); Eosinophils Absolute Auto 0 /uL (0-450); Eosinophils Percent Auto 0.2 % (2-4); Hematocrit 40.8 % (36-46); Hemoglobin 13.6 g/dL (12.0-16.0); Lymphocytes Absolute Auto 2400 /uL (1100-4500); Lymphocytes Percent Auto 38.6 % (25-40); Mean Corpuscular HGB Conc 33.3 % (30-36); Mean Corpuscular Hemoglobin 30.9 PG (26-34); Monocytes Absolute Auto 500 /uL (0-900); Monocytes Percent Auto 7.7 % (3-14); Neutrophils Absolute Auto 3300 /uL (1500-7000); Neutrophils Percent Auto 52.9 % (50-75); Platelet Count 268 X10^3/uL (150-400); Red Blood Cell Count 4.39 X10^6/uL (4.0-5.2); Red Cell Distribution Width 14.5 % (11.6-14.8); White Blood Cell Count 6.2 X10^3/uL (4.5-11.0)
[2022-01-11 16:05] LABS: Alanine Aminotransferase 18 IU/L (<35); Albumin 4.5 g/dL (3.5-5.0); Albumin Globulin Ratio 1.5 (1.0-2.8); Alkaline Phosphatase 47 U/L (38-126); Aspartate Aminotransferase 42 IU/L (14-36); BUN Creatinine Ratio 17.6 (6-22); Bilirubin Total 0.3 mg/dL (0.2-1.3); Blood Urea Nitrogen 27 mg/dL (7-17); Calcium 9.4 mg/dL (8.4-10.2); Carbon Dioxide 30 mmol/L (22-32); Chloride 107 mmol/L (98-107); Creatine Kinase 31 U/L (30-135); Estimated Glomerular Filt Rate 32.3 mL/min (>60); Glucose 122 mg/dL (80-110); HEMOLYSIS 24 (0-50); Lipase 210 U/L (23-300); Magnesium 2.2 mg/dL (1.6-2.3); Sodium 140 mmol/L (137-145); Total Protein 7.5 g/dL (6.3-8.2)
[2022-01-11 16:17] LABS: Troponin I < 0.012 ng/mL (0.01-0.034)
[2022-01-11 16:24] LABS: COVID19 -Nasal RAPID Negative (Negative)
--- NOTE | 2022-01-11 16:29 | ED_ITS ---
HPI - Arrhythmia/Palpitations General Chief Complaint: Arrhythmia/Palpitations Stated Complaint: sent by cardio,afib Time Seen by Provider: 01/11/22 15:44 Source: patient Mode of arrival: Ambulatory Limitations: no limitations History of Present Illness HPI narrative: 86-year-old female. Known history of paroxysmal atrial fibrillation. Is on Eliquis. Has been taking her Eliquis 2 times a day for longer than 1 month. She states she has never missed a dose of this medication. She is also on sotalol. Last week she states she felt like she went into AFib. This is approximately 5 days ago. She tended to contact her army helicopter pilot but was unable to get a hold of him until just recently. She was advised to come to the emergency department for cardioversion. She has had 1 prior cardioversion in the past. She states she is having some chest pressure and some shortness of breath but this feels very consistent with her prior history of AFib. Related Data Home Medications Medication Instructions Recorded Confirmed levothyroxine 75 mcg tablet 68 mcg PO DAILY #0 04/02/10 02/04/21 (Synthroid) liothyronine 5 mcg tablet (Cytomel) 5 mcg PO QDAY #0 05/27/11 02/04/21 estradiol (Estrace) 0.01 % VAGINAL 3XW #0 04/08/13 02/04/21 apixaban 5 mg tablet (Eliquis) 5 mg PO BID 02/04/21 02/04/21 econazole 1 % topical cream 1 applic TOPICAL DAILY 02/04/21 02/04/21 linaclotide 290 mcg capsule 290 mcg PO DAILY 02/04/21 02/04/21 (Linzess) polyethylene glycol 3350 17 17 g PO BID 02/04/21 02/04/21 gram/dose oral powder (Miralax) sennosides 8.6 mg tablet (senna) 17.2 mg PO BID 02/04/21 02/04/21 Previous Rx's Medication Instructions Recorded Oral Appliance #1 ea 07/28/21 Allergies Allergy/AdvReac Type Severity Reaction Status Date / Time ciprofloxacin [CIPROFLOXACIN] Allergy Severe Rash Verified 01/11/22 16:57 sulfamethoxazole Allergy Unknown RASH Verified 01/11/22 16:57 [From JULRA] trimethoprim [From SEPTRA] Allergy Unknown RASH Verified 01/11/22 16:57 metronidazole [From FLAGYL] AdvReac Unknown REALLY Verified 01/11/22 16:57 HARSH ON STOMACH Review of Systems Constitutional Constitutional: Denies fever(s) and Denies headache(s) Eyes Eyes: Reports system reviewed and no additional complaints, except as documented ENT Ears, Nose, Mouth, and Throat: Denies headache(s) Cardiovascular Cardiovascular: Reports chest pain, Reports rapid heart rate, Reports irregular heart rhythm and Reports dyspnea Respiratory Respiratory: Denies cough and Reports dyspnea Gastrointestinal Gastrointestinal: Reports system reviewed and no additional complaints, except as documented Musculoskeletal Musculoskeletal: Reports system reviewed and no additional complaints, except as documented Integumentary/Breasts Skin/Breast: Reports system reviewed and no additional complaints, except as documented Neurologic Neurologic: Denies headache(s) Hematologic/Lymphatic On Anticoagulants: Yes Allergic/Immunologic Allergic/Immunologic: Reports system reviewed and no additional complaints, except as documented Patient History Medical History Atrial fibrillation Hypothyroidism Pneumonia Surgical History H/O: hysterectomy History of hip surgery Social History household members: spouse and children Smoking Status: Former smoker alcohol intake: never Smoking Status: Former smoker alcohol intake frequency: holidays/special occasions only Substance Use Type: does not use Exam Initial Vital Signs Initial Vital Signs: Vital Signs Temperature 97.0 F L 01/11/22 15:19 Pulse Rate 110 H 01/11/22 15:19 Respiratory Rate 20 01/11/22 15:19 Blood Pressure 114/63 01/11/22 15:19 Pulse Oximetry 99 01/11/22 15:19 Const General: cooperative, healthy appearing and comfortable [facility] Head: normal to inspection and normocephalic Eyes General: appearance normal, both eyes and all related structures Resp Effort & Inspection: normal respiratory effort Auscultation: clear to auscultation bilaterally Cardio Rate: tachycardic Rhythm: abnormal rhythm GI Inspection: normal to inspection Skin General: no rashes or lesions noted Neuro General: patient alert, patient awake, patient oriented x3 and moves all extremities Extrem General: normal to inspection, capillary refill normal and No edema Psych Appearance: grossly normal and well kempt Procedures Cardioversion Consent Signed: Yes Indication: AFib with RVR Stability: Stable Number of attempts (shocks): 1 Joules used: 120 Cardiac rhythm post-cardioversion: Sinus rhythm Procedural Sedation Consent signed: Yes Time out performed: Yes Indication: cardioversion Presedation Evaluation: See note ASA Class: II Mallampati Airway Classification: Class II Preparation: school bus monitor applied, pulse oximeter, capnometry used, supplemental O2 applied and IV secured Fentanyl: IV Fentanyl dose (mcg): 25 IV Propofol dose (mg): 50 Intraservice time/total sedation time (min): 15 ED Sedation Level: Moderate (Concious) Patient Tolerated Procedure: Well and No complications Scores GCS Madhu coma scale eye opening: Spontaneous Madhu coma scale verbal response: Orientated Madhu coma scale motor response: Obey commands [place] coma scale total score: 15 Course Orders Ordered: ED Orders 01/11/22 15:23 EKG-12 Lead Routine 01/11/22 15:27 COVID19 -Nasal swab/Pre-Proc Stat Complete Blood Count AUTO DIFF Stat Comprehensive Metabolic Panel Stat Lipase Stat Magnesium Stat Troponin & CK Cardiac Panel Stat 01/11/22 15:40 XR chest 1V Stat 01/11/22 16:35 RT Consult Eval and Treat Now 01/11/22 17:15 EKG-12 Lead Stat Discontinued Medications Fentanyl (Fentanyl 100 Mcg/2 Ml Inj) 25 mcg IV NOW ONE Stop: 01/11/22 16:35 Last Admin: 01/11/22 16:58 Dose: 25 mcg Documented by: GHAZAL Propofol (Propofol 200 Mg/20 Ml Vial) 100 mg IV NOW ONE Stop: 01/11/22 16:35 Last Admin: 01/11/22 17:09 Dose: 50 mg Documented by: GHAZAL Vital Signs Vital signs: Vital Signs - 8 hr 01/11/22 15:19 01/11/22 16:00 01/11/22 16:30 Temperature 97.0 F L Pulse Rate 110 H 84 86 Respiratory Rate 20 23 29 H Blood Pressure 114/63 Pulse Oximetry 99 98 96 01/11/22 16:32 01/11/22 17:00 01/11/22 17:04 Temperature Pulse Rate 74 76 81 Respiratory Rate 20 24 14 Blood Pressure 113/56 L 119/67 121/61 Pulse Oximetry 100 100 100 01/11/22 17:07 01/11/22 17:08 01/11/22 17:12 Temperature Pulse Rate 53 L 55 L 52 L Respiratory Rate 24 26 H 25 H Blood Pressure 119/54 L 109/55 L 104/52 L Pulse Oximetry 95 98 99 01/11/22 17:16 01/11/22 17:21 01/11/22 17:30 Temperature Pulse Rate 51 L 50 L Respiratory Rate 27 H 25 H Blood Pressure 111/56 L 106/58 L Pulse Oximetry 98 99 99 01/11/22 17:45 01/11/22 18:00 01/11/22 18:15 Temperature Pulse Rate 53 L 55 L 53 L Respiratory Rate 22 21 Blood Pressure 105/52 L Pulse Oximetry 100 99 100 MDM - Arrhythmia/Palpitations Medical Records Attestation: I reviewed the patient's medical records. Lab Data Attestation: I reviewed the patient's lab results. Result diagrams: 01/11/22 15:27 01/11/22 15:27 Labs: Lab Results 01/11/22 01/11/22 01/11/22 Range/Units 15:27 15:27 15:27 WBC 6.2 (4.5-11.0) X10^3/uL RBC 4.39 (4.0-5.2) X10^6/uL Hgb 13.6 (12.0-16.0) g/dL Hct 40.8 (36-46) % MCV 93.0 (80-100) fL MCH 30.9 (26-34) PG MCHC 33.3 (30-36) % RDW 14.5 (11.6-14.8) % Plt Count 268 (150-400) X10^3/uL Neut % (Auto) 52.9 (50-75) % Lymph % (Auto) 38.6 (25-40) % [place] % (Auto) 7.7 (3-14) % Eos % (Auto) 0.2 L (2-4) % Baso % (Auto) 0.6 (0-2) % Neut # (Auto) 3300 (5979-9413) /uL Lymph # (Auto) 2400 (5765-1244) /uL [place] # (Auto) 500 (0-900) /uL Eos # (Auto) 0 (0-450) /uL Baso # (Auto) 0 (0-100) /uL Sodium 140 (137-145) mmol/L Potassium 4.0 (3.4-5.1) mmol/L Chloride 107 (98-107) mmol/L Carbon Dioxide 30 (22-32) mmol/L BUN 27 H (7-17) mg/dL Creatinine 1.53 H (0.52-1.04) mg/dL Estimated GFR 32.3 L (>60) mL/min BUN/Creatinine Ratio 17.6 (6-22) Glucose 122 H (80-110) mg/dL Calcium 9.4 (8.4-10.2) mg/dL Magnesium 2.2 (1.6-2.3) mg/dL Total Bilirubin 0.3 (0.2-1.3) mg/dL AST 42 H (14-36) IU/L ALT 18 (<35) IU/L Alkaline Phosphatase 47 (38-126) U/L Total Creatine Kinase 31 (30-135) U/L CK-MB (CK-2) TNP CK-MB (CK-2) Rel Index TNP Troponin I < 0.012 (0.01-0.034) ng/mL Total Protein 7.5 (6.3-8.2) g/dL Albumin 4.5 (3.5-5.0) g/dL Globulin 3.0 (1.7-4.1) g/dL Albumin/Globulin Ratio 1.5 (1.0-2.8) Lipase 210 (23-300) U/L SARS-CoV-2 (PCR) Negative (Negative) Imaging Data Chest x-ray: Radiologist's Impresson: [address] [address] XRay Report Signed Patient: Joceline Ace MR#: [id number] : 1935 Acct:[id number] Age/Sex: 86 / F Date of Service: 01/11/22 Loc: ED Accession Number: [id number] ?? Procedure: XR chest 1V Ordering Provider: Raul Orellana D.O. PROCEDURE:? XR CHEST 1V ? INDICATIONS:? chest pain ? TECHNIQUE:? One view of the chest was acquired.? ? COMPARISON:? [facility], CR, XR CHEST 1V, 10/29/2021, 11:04. ? FINDINGS:? ? Surgical changes and devices:? None.? ? Lungs and pleura:? Lungs are clear.? No pleural effusions or pneumothorax.? ? Mediastinum:? Mediastinal contours appear normal.? Heart size is normal.? ? Bones and chest wall:? No suspicious bony lesions.? Overlying soft tissues appear unremarkable.? ? IMPRESSION:? No acute cardiopulmonary disease process. ? ? Dictated by: Bety Alcantara MD, PhD on 01/11/2022 at 16:06 ? ? Approved by: Bety Alcantara MD, PhD on 01/11/2022 at 16:07? ECG Data Attestation: I personally reviewed and interpreted this ECG as follows: Prior ECG tracings: available for review Interpretation: AFib Ventricular rate 91 Normal axis Normal QRS Normal QTC Nonspecific ST T wave changes Post cardioversion EKG Sinus bradycardia Ventricular rate of 53 Normal axis Normal QRS Nonspecific ST T wave changes MDM Narrative Medical decision making narrative: Patient is in AFib with a heart rate that ranges between 80 and 110. She states this is normally where she is when she is in AFib. Her heart rate is normally in the 50s to 60s. She has been taking her Eliquis every day. She is a candidate for cardioversion. We did discuss risks and benefits for this. She opted for the cardioversion. She was sedated and cardioverted with 1 attempt without issue. She does not remember the event. She was sinus rhythm afterwards. She will continue to take all of her medications as directed. She was given return precautions. She expressed understanding and agreement. Discharge Plan Departure Patient Disposition: Home Clinical Impression: Atrial fibrillation status post cardioversion Instructions: DI for Cardioversion, DI for Atrial Fibrillation Activity Restrictions/Additional Instructions: Continue to take all of your medications as directed. Contact your army helicopter pilot for a follow-up. Return to the emergency department for any new or worsening s ymptoms. Prescriptions: No Action levothyroxine [Synthroid] 75 MCG tablet 68 mcg PO DAILY Qty: 0 0RF liothyronine [Cytomel] 5 MCG tablet 5 mcg PO QDAY Qty: 0 0RF estradiol [Estrace] 0.01 % cream 0.01 % Vaginal 3XW Qty: 0 0RF (DME) Oral Appliance See Rx Instructions .Route .MEDSUPPLY Qty: 1 0RF Rx Instructions: patient with AHI of 10.4 econazole 1 % Cream 1 applic TOPICAL DAILY 0RF Linzess 290 mcg Capsule 290 mcg PO DAILY 0RF Eliquis 5 mg Tablet 5 mg PO BID 0RF polyethylene glycol 3350 [Miralax] 17 gram/dose Powder 17 g PO BID 0RF sennosides [senna] 8.6 mg Tablet 17.2 mg PO BID 0RF Referrals: Thompson Vicente MD [Primary Care Provider] -
[2022-01-11] MEDS: fentaNYL 100 MCG/2 ML INJ 25 MCG IV (16:58)
[2022-01-11] MEDS: propofoL 200 MG/20 ML VIAL 100 MG IV (17:09)
== END 2022-01-11 18:28 | disposition home or self-care (01) ==
PROVIDERS: Emergency Provider Emergency Medicine; PCP Internal Medicine; Referring Provider Internal Medicine Cardiovascular Disease
DX: I48.91 Unspecified atrial fibrillation (principal); Z79.01 Long term (current) use of anticoagulants; Z87.891 Personal history of nicotine dependence; Z20.822 Contact with and (suspected) exposure to COVID-19
CPT/HCPCS: 36415; 71045; 80053; 82550; 83690; 83735; 84484; 85025; 87635; 92960; 93005; 96374; 99284; 99285; C9803; J2704; J3010

== ENCOUNTER 2022-02-26 13:33 | Emergency (ER) | payer MEDICARE, OTHER, SELFPAY ==
[2021-02-04 17:15] VITALS: BMI 25.8
[2022-02-26] VITALS (10 sets, daily range): BP systolic 110–131; BP diastolic 64–83; PULSE 79–94; RESP 20–25; TEMP 36.1; O2SAT 95–99; BMI 26.2
--- NOTE | 2022-02-26 13:42 | DI.RAD.S_ITS ---
PROCEDURE: XR CHEST 1V INDICATIONS: chest pain TECHNIQUE: One view of the chest was acquired. COMPARISON: [facility], CR, XR CHEST 1V, 01/11/2022, 15:43. FINDINGS: Surgical changes and devices: None. Lungs and pleura: Lungs are clear. No pleural effusions or pneumothorax. Mediastinum: Mediastinal contours appear normal. Heart size is normal. Bones and chest wall: No suspicious bony lesions. Overlying soft tissues appear unremarkable. IMPRESSION: No acute process. Dictated by: Nilton Richards M.D. on 02/26/2022 at 14:24 Approved by: Nilton Richards M.D. on 02/26/2022 at 14:24
[2022-02-26 14:08] LABS: Add Manual Diff / Slide Review NO; Basophils Absolute Auto 100 /uL (0-100); Basophils Percent Auto 0.6 % (0-2); Eosinophils Absolute Auto 0 /uL (0-450); Eosinophils Percent Auto 0.1 % (2-4); Hematocrit 41.9 % (36-46); Hemoglobin 14.3 g/dL (12.0-16.0); Lymphocytes Absolute Auto 3600 /uL (1100-4500); Lymphocytes Percent Auto 38.5 % (25-40); Mean Corpuscular HGB Conc 34.1 % (30-36); Mean Corpuscular Hemoglobin 31.2 PG (26-34); Mean Corpuscular Volume 91.6 fL (80-100); Monocytes Absolute Auto 1000 /uL (0-900); Monocytes Percent Auto 10.4 % (3-14); Neutrophils Absolute Auto 4800 /uL (1500-7000); Neutrophils Percent Auto 50.4 % (50-75); Platelet Count 281 X10^3/uL (150-400); Red Blood Cell Count 4.58 X10^6/uL (4.0-5.2); White Blood Cell Count 9.4 X10^3/uL (4.5-11.0)
[2022-02-26 14:21] LABS: COVID19 -Nasal RAPID Negative (Negative)
[2022-02-26 14:30] LABS: Alanine Aminotransferase 22 IU/L (<35); Albumin 4.2 g/dL (3.5-5.0); Albumin Globulin Ratio 1.5 (1.0-2.8); Alkaline Phosphatase 42 U/L (38-126); Aspartate Aminotransferase 31 IU/L (14-36); BUN Creatinine Ratio 25.3 (6-22); Bilirubin Total 0.4 mg/dL (0.2-1.3); Blood Urea Nitrogen 25 mg/dL (7-17); Calcium 9.3 mg/dL (8.4-10.2); Carbon Dioxide 30 mmol/L (22-32); Chloride 103 mmol/L (98-107); Creatine Kinase 27 U/L (30-135); Estimated Glomerular Filt Rate 53.4 mL/min (>60); Globulin 2.8 g/dL (1.7-4.1); Glucose 82 mg/dL (80-110); HEMOLYSIS 18 (0-50); Lipase 172 U/L (23-300); Magnesium 2.5 mg/dL (1.6-2.3); Potassium 3.9 mmol/L (3.4-5.1); Sodium 140 mmol/L (137-145)
[2022-02-26 14:41] LABS: Troponin I < 0.012 ng/mL (0.01-0.034)
--- NOTE | 2022-02-26 15:09 | ED.ARRPALP ---
HPI - Arrhythmia/Palpitations General Chief Complaint: Arrhythmia/Palpitations Stated Complaint: Afib, sent by hospitality recruiter Time Seen by Provider: 02/26/22 14:05 Source: patient Mode of arrival: Family Vehicle History of Present Illness HPI narrative: Patient is a 86-year-old female with history of atrial fibrillation on Eliquis and sotalol presenting today with palpitations and shortness of breath. She states she she has increasing shortness of breath as well. She says her palpitations started last night while in bed her heart rate went up to 120 according to her walk. She called cardiology office today recommended she would ED for evaluation. Her sotalol has been between 20 and 40 mg twice a day. She is also currently on prednisone being treated for bronchitis. He says he has had cough and shortness of breath for a week. However her shortness of breath today she says is worse. He is not hypoxic. She denies fever or chills. Patient's sotalol has been adjusted over the past year from 20 mg to 40 mg she went to the doctor hand is last week on February 19 on those discharge paperwork it actually says that she needs to be taking 80 mg twice a day but she says she has not been she has only been taking 40 mg twice a day. Related Data Home Medications Medication Instructions Recorded Confirmed liothyronine 5 mcg tablet (Cytomel) 10 mcg PO QDAY #0 05/27/11 02/26/22 estradiol (Estrace) 0.01 % VAGINAL 3XW #0 04/08/13 02/26/22 apixaban 5 mg tablet (Eliquis) 5 mg PO BID 02/04/21 02/26/22 econazole 1 % topical cream 1 applic TOPICAL DAILY 02/04/21 02/26/22 polyethylene glycol 3350 17 17 g PO BID 02/04/21 02/26/22 gram/dose oral powder (Miralax) acyclovir 5 % topical cream 1 applic TOPICAL QID PRN 02/26/22 02/26/22 furosemide 20 mg tablet 10 mg PO DAILY 02/26/22 02/26/22 levothyroxine 137 mcg tablet 68.5 mcg PO DAILY 02/26/22 02/26/22 linaclotide 72 mcg capsule 72 mcg PO DAILY 02/26/22 02/26/22 (Linzess) rosuvastatin 10 mg tablet 10 mg PO DAILY 02/26/22 02/26/22 sotalol 80 mg tablet 80 mg PO BID 02/26/22 02/26/22 Previous Rx's Medication Instructions Recorded Oral Appliance #1 ea 07/28/21 Allergies Allergy/AdvReac Type Severity Reaction Status Date / Time ciprofloxacin [CIPROFLOXACIN] Allergy Severe Rash Verified 02/26/22 13:41 sulfamethoxazole Allergy Unknown RASH Verified 02/26/22 13:41 [From SEPTRA] trimethoprim [From SEPTRA] Allergy Unknown RASH Verified 02/26/22 13:41 metronidazole [From FLAGYL] AdvReac Unknown REALLY Verified 02/26/22 13:41 HARSH ON STOMACH Review of Systems Review of Systems Narrative: GENERAL: Denies chills, fatigue, malaise, fever, sweats, travel HEENT: Denies sinus pain, ear pain, sore throat, difficulty swallowing, neck pain RESPIRATORY: See HPI CARDIOVASCULAR: See HPI GASTROINTESTINAL: Denies nausea, vomiting, abdominal pain, diarrhea, constipation, melena. : Denies dysuria, frequency, incontinence, hematuria, urinary retention, flank pain. MUSCULOSKELETAL: Denies weakness, joint pain, or bony pain SKIN: No rash, no erythema, no pruritus NEUROLOGIC: Denies weakness, dizziness, headache, numbness, change in speech, confusion PSYCHIATRIC: No concerning psychosocial issues. 12 point review of systems is negative except for those stated above and HPI Patient History Medical History Atrial fibrillation Hypothyroidism Pneumonia Surgical History H/O: hysterectomy History of hip surgery Social History household members: spouse and children Smoking Status: Former smoker alcohol intake: never Smoking Status: Former smoker tobacco type: cigarettes alcohol intake frequency: holidays/special occasions only Substance Use Type: does not use Exam Initial Vital Signs Initial Vital Signs: Vital Signs Temperature 97.0 F L 02/26/22 13:37 Pulse Rate 89 02/26/22 13:37 Respiratory Rate 20 02/26/22 13:37 Blood Pressure 125/82 02/26/22 13:37 Pulse Oximetry 98 02/26/22 13:37 GENERAL: Alert well-appearing 86-year-old femaleand in no acute distress. HEENT: Head atraumatic,EOMI, pupils reactive, face symmetric, moist mucous membranes CARDIOVASCULAR: Irregularly irregular. RESPIRATORY: Breath sounds equal bilaterally, no wheezes rales or rhonchi. ABDOMEN: Soft, nontender. Normoactive bowel sounds all 4 quadrants. No guarding or rebound. EXTREMITIES: Normal range of motion, no clubbing or edema. Neurovascularly intact NEUROLOGICAL: Alert and oriented x4.Normal gait and speech. SKIN: Warm, dry, no laceration, no petechiae, no rashes or lesions. Course Orders Ordered: ED Orders 02/26/22 13:42 XR chest 1V Stat EKG-12 Lead Stat 02/26/22 13:55 COVID19 -Nasal RAPID/Pre-Proc Stat Complete Blood Count AUTO DIFF Stat Comprehensive Metabolic Panel Stat Lipase Stat Magnesium Stat Troponin & CK Cardiac Panel Stat Vital Signs Vital signs: Vital Signs - 8 hr 02/26/22 13:37 02/26/22 14:03 02/26/22 14:05 Temperature 97.0 F L Pulse Rate 89 88 93 H Respiratory Rate 20 22 22 Blood Pressure 125/82 120/64 Pulse Oximetry 98 95 96 02/26/22 14:30 02/26/22 15:00 02/26/22 15:39 Temperature Pulse Rate 83 88 87 Respiratory Rate 23 22 Blood Pressure 110/67 116/79 Pulse Oximetry 96 95 97 02/26/22 15:41 02/26/22 16:00 02/26/22 16:30 Temperature Pulse Rate 82 79 94 H Respiratory Rate 23 24 25 H Blood Pressure 124/72 131/74 122/83 Pulse Oximetry 99 97 97 02/26/22 16:55 Temperature Pulse Rate 84 Respiratory Rate Blood Pressure Pulse Oximetry 97 MDM - Arrhythmia/Palpitations Lab Data Result diagrams: 02/26/22 13:55 02/26/22 13:55 Labs: Lab Results 02/26/22 02/26/22 02/26/22 Range/Units 13:55 13:55 13:55 WBC 9.4 (4.5-11.0) X10^3/uL RBC 4.58 (4.0-5.2) X10^6/uL Hgb 14.3 (12.0-16.0) g/dL Hct 41.9 (36-46) % MCV 91.6 (80-100) fL MCH 31.2 (26-34) PG MCHC 34.1 (30-36) % RDW 14.0 (11.6-14.8) % Plt Count 281 (150-400) X10^3/uL Neut % (Auto) 50.4 (50-75) % Lymph % (Auto) 38.5 (25-40) % [place] % (Auto) 10.4 (3-14) % Eos % (Auto) 0.1 L (2-4) % Baso % (Auto) 0.6 (0-2) % Neut # (Auto) 4800 (7136-4152) /uL Lymph # (Auto) 3600 (0179-4054) /uL [place] # (Auto) 1000 H (0-900) /uL Eos # (Auto) 0 (0-450) /uL Baso # (Auto) 100 (0-100) /uL Sodium 140 (137-145) mmol/L Potassium 3.9 (3.4-5.1) mmol/L Chloride 103 (98-107) mmol/L Carbon Dioxide 30 (22-32) mmol/L BUN 25 H (7-17) mg/dL Creatinine 0.99 (0.52-1.04) mg/dL Estimated GFR 53.4 L (>60) mL/min BUN/Creatinine Ratio 25.3 H (6-22) Glucose 82 (80-110) mg/dL Calcium 9.3 (8.4-10.2) mg/dL Magnesium 2.5 H (1.6-2.3) mg/dL Total Bilirubin 0.4 (0.2-1.3) mg/dL AST 31 (14-36) IU/L ALT 22 (<35) IU/L Alkaline Phosphatase 42 (38-126) U/L Total Creatine Kinase 27 L (30-135) U/L CK-MB (CK-2) TNP CK-MB (CK-2) Rel Index TNP Troponin I < 0.012 (0.01-0.034) ng/mL Total Protein 7.0 (6.3-8.2) g/dL Albumin 4.2 (3.5-5.0) g/dL Globulin 2.8 (1.7-4.1) g/dL Albumin/Globulin Ratio 1.5 (1.0-2.8) Lipase 172 (23-300) U/L SARS-CoV-2 (PCR) Negative (Negative) Imaging Data Chest x-ray: Radiologist's Impresson: PROCEDURE:? XR CHEST 1V ? INDICATIONS:? chest pain ? TECHNIQUE:? One view of the chest was acquired.? ? COMPARISON:? [facility], CR, XR CHEST 1V, 01/11/2022, 15:43. ? FINDINGS:? ? Surgical changes and devices:? None.? ? Lungs and pleura:? Lungs are clear.? No pleural effusions or pneumothorax.? ? Mediastinum:? Mediastinal contours appear normal.? Heart size is normal.? ? Bones and chest wall:? No suspicious bony lesions.? Overlying soft tissues appear unremarkable.? ? IMPRESSION:? No acute process. ? ? Dictated by: Nilton Richards M.D. on 02/26/2022 at 14:24 ? ? Approved by: Nilton Richards M.D. on 02/26/2022 at 14:2 ECG Data Interpretation: Atrial fibrillation rate [address] changes. Previous EKGs do show sinus rhythm but she has paroxysmal AFib. MDM Narrative Medical decision making narrative: Patient has paroxysmal atrial fibrillation she is on Eliquis her rate is controlled. At this time I see no need for cardioversion. She is currently being treated for bronchitis which may also be contributing to some of her shortness of breath. At this time I recommend that she take 80 mg of sotalol as recommended by her hospitality recruiter. May help her palpitations. She is not in any significant distress. She is anticoagulated on Xarelto she is not hypoxic unlikely to be any sort of pulmonary embolism. Discharge Plan Departure Patient Disposition: Home Clinical Impression: Atrial fibrillation Instructions: DI for Atrial Fibrillation Activity Restrictions/Additional Instructions: *You have been diagnosed with atrial fibrillation *What to do: At this time her palpitations are likely from not taking medication as previously prescribed. Please take sotalol 80 mg twice a day. *Continue to take medications as directed Sotalol 80 mg twice a day *Follow up with your primary care provider in 2-3 days or call [phone] Follow-up with your hospitality recruiter *Return to ER if you should have increasing palpitation shortness of breath passing out or any new, worsening or concerning symptoms Prescriptions: No Action liothyronine [Cytomel] 5 MCG tablet 10 mcg PO QDAY Qty: 0 0RF estradiol [Estrace] 0.01 % cream 0.01 % Vaginal 3XW Qty: 0 0RF (DME) Oral Appliance See Rx Instructions .Route .MEDSUPPLY Qty: 1 0RF Rx Instructions: patient with AHI of 10.4 econazole 1 % Cream 1 applic TOPICAL DAILY 0RF Eliquis 5 mg Tablet 5 mg PO BID 0RF polyethylene glycol 3350 [Miralax] 17 gram/dose Powder 17 g PO BID 0RF levothyroxine 137 mcg tablet 68.5 mcg PO DAILY 0RF Label Comments: TAKE ONE-HALF TABLET BY MOUTH DAILY Rx Instructions: TAKE ONE-HALF TABLET BY MOUTH DAILY sotalol 80 mg tablet 80 mg PO BID 0RF Rx Instructions: take 80 mg daily twice daily furosemide 20 mg tablet 10 mg PO DAILY 0RF Label Comments: take 1 to 2 tablets by mouth once daily as directed Rx Instructions: take 1/2 to 1 to 2 tabs by mouth once daily as needed acyclovir 5 % cream 1 applic TOPICAL QID PRN (Reason: Rash) 0RF Label Comments: APPLY ONE-HALF GRAM TO AFFECTED AREA FOUR TIMES A DAY NEEDED Rx Instructions: as needed APPLY ONE-HALF GRAM TO AFFECTED AREA FOUR TIMES A DAY NEEDED rosuvastatin 10 mg tablet 10 mg PO DAILY 0RF Label Comments: take 1 tablet by mouth once daily Linzess 72 mcg capsule 72 mcg PO DAILY 0RF Label Comments: TAKE ONE CAPSULE BY MOUTH DAILY Referrals: Thompson Vicente MD [Primary Care Provider] -
== END 2022-02-26 17:07 | disposition home or self-care (01) ==
PROVIDERS: Emergency Provider Emergency Medicine; PCP Internal Medicine
DX: I48.0 Paroxysmal atrial fibrillation (principal); Z79.01 Long term (current) use of anticoagulants; Z87.891 Personal history of nicotine dependence; Z79.899 Other long term (current) drug therapy; Z20.822 Contact with and (suspected) exposure to COVID-19
CPT/HCPCS: 36415; 71045; 80053; 82550; 83690; 83735; 84484; 85025; 87635; 93005; 93010; 99283; 99284; C9803

== ENCOUNTER → 2022-03-02 11:52 | Outpatient (CLI) | payer MEDICARE, OTHER, SELFPAY ==
[2021-02-04 17:15] VITALS: BMI 25.8
[2022-03-02 13:53] LABS: Alanine Aminotransferase 21 IU/L (<35); Albumin 4.3 g/dL (3.5-5.0); Albumin Globulin Ratio 1.9 (1.0-2.8); Alkaline Phosphatase 46 U/L (38-126); Aspartate Aminotransferase 27 IU/L (14-36); BUN Creatinine Ratio 22.1 (6-22); Bilirubin Total 0.4 mg/dL (0.2-1.3); Blood Urea Nitrogen 23 mg/dL (7-17); Calcium 9.2 mg/dL (8.4-10.2); Carbon Dioxide 31 mmol/L (22-32); Chloride 102 mmol/L (98-107); Estimated Glomerular Filt Rate 52.7 mL/min (>60); Globulin 2.3 g/dL (1.7-4.1); Glucose 78 mg/dL (80-110); HEMOLYSIS < 15 (0-50); Potassium 4.7 mmol/L (3.4-5.1); Sodium 138 mmol/L (137-145); Total Protein 6.6 g/dL (6.3-8.2)
[2022-03-02 14:06] LABS: Free T3, Triiodothyronine Free 3.96 pg/mL (2.77-5.27); Free T4, Direct Thyroxine 1.35 ng/dL (0.78-2.19)
[2022-03-02 14:20] LABS: Thyroid Stimulating Hormone 3.67 uIU/mL (0.47-4.68)
== END ==
PROVIDERS: PCP Internal Medicine; Referring Provider Internal Medicine Endocrinology, Diabetes & Metabolism; Visit Provider Internal Medicine Endocrinology, Diabetes & Metabolism
DX: E03.8 Other specified hypothyroidism (principal)
CPT/HCPCS: 36415; 80053; 84439; 84443; 84481

== ENCOUNTER → 2022-04-30 09:53 | Outpatient (CLI) | payer MEDICARE, OTHER, SELFPAY ==
[2021-02-04 17:15] VITALS: BMI 25.8
[2022-04-27 13:33] VITALS: BMI 25.8
[2022-04-30 10:56] LABS: COVID19 -Nasal RAPID Negative (Negative)
== END ==
PROVIDERS: PCP Internal Medicine; Referring Provider Internal Medicine; Visit Provider Internal Medicine
DX: Z20.822 Contact with and (suspected) exposure to COVID-19 (principal)
CPT/HCPCS: 87635; C9803

== ENCOUNTER → 2022-04-30 09:57 | Outpatient (CLI) | payer MEDICARE, OTHER, SELFPAY ==
[2021-02-04 17:15] VITALS: BMI 25.8
[2022-04-27 13:33] VITALS: BMI 25.8
--- NOTE | 2022-05-05 09:18 | PM.PFT.1 ---
Pulmonary Function Test Referral & Results Date Patient Seen: 04/30/22 Requesting provider: Thompson Vicente Results: The spirometry demonstrates an FVC of 1.69 L which is 64% of predicted. The FEV1 was measured at 1.23 L which is 63% of predicted. The FEV1/FVC ratio was 73 which is 99% of predicted. Bronchodilator was not administered as patient declined albuterol Lung volumes show an SVC of 2.0 L which is 72% of predicted. The diffusing capacity was measured at 17.85 which is 66% of predicted. No hemoglobin value was provided, so no correction for potential anemia could be made, if appropriate. The maximum voluntary ventilation was reduced Interpretation: This study demonstrates possibly mild obstructive lung disease based on reduction FEV1 although FEV1 / FVC ratio is preserved. Shape a flow volume loop does support the possible presence of obstructive lung disease however. Bronchodilator was not administered so no ability to determine benefit or effect from bronchodilator Lung volumes are minimally reduced suggesting the presence of restrictive lung disease as well which may explain the abnormality of the FEV1 above There is also [id number] reduction diffusing capacity suggesting [id number] disease at the capillary alveolar level Clinical correlation suggested
== END ==
PROVIDERS: PCP Internal Medicine; Referring Provider Internal Medicine; Visit Provider Internal Medicine
DX: J40 Bronchitis, not specified as acute or chronic (principal); Z87.891 Personal history of nicotine dependence; Z20.822 Contact with and (suspected) exposure to COVID-19; J98.8 Other specified respiratory disorders
CPT/HCPCS: 87635; 94010; 94726; 94729; C9803

== ENCOUNTER → 2022-05-03 16:25 | Outpatient (CLI) | payer MEDICARE, OTHER, SELFPAY ==
[2022-04-27 13:33] VITALS: BMI 25.8
[2022-05-03 17:18] LABS: Add Manual Diff / Slide Review NO; Basophils Absolute Auto 0 /uL (0-100); Basophils Percent Auto 0.4 % (0-2); Eosinophils Absolute Auto 0 /uL (0-450); Eosinophils Percent Auto 0.2 % (2-4); Hematocrit 37.5 % (36-46); Hemoglobin 12.8 g/dL (12.0-16.0); Lymphocytes Absolute Auto 3000 /uL (1100-4500); Lymphocytes Percent Auto 45.6 % (25-40); Mean Corpuscular HGB Conc 34.1 % (30-36); Mean Corpuscular Hemoglobin 30.8 PG (26-34); Mean Corpuscular Volume 90.5 fL (80-100); Monocytes Absolute Auto 500 /uL (0-900); Monocytes Percent Auto 7.7 % (3-14); Neutrophils Absolute Auto 3100 /uL (1500-7000); Neutrophils Percent Auto 46.1 % (50-75); Platelet Count 237 X10^3/uL (150-400); Red Blood Cell Count 4.15 X10^6/uL (4.0-5.2); Red Cell Distribution Width 14.5 % (11.6-14.8); White Blood Cell Count 6.6 X10^3/uL (4.5-11.0)
== END ==
PROVIDERS: PCP Internal Medicine; Referring Provider Internal Medicine Cardiovascular Disease; Visit Provider Internal Medicine Cardiovascular Disease
DX: I48.91 Unspecified atrial fibrillation (principal)
CPT/HCPCS: 36415; 85025

== ENCOUNTER → 2022-07-01 15:24 | Outpatient (CLI) | payer MEDICARE, OTHER, SELFPAY ==
[2022-04-27 13:33] VITALS: BMI 25.8
[2022-07-01 19:44] LABS: Alanine Aminotransferase 19 IU/L (<35); Albumin 4.3 g/dL (3.5-5.0); Albumin Globulin Ratio 1.6 (1.0-2.8); Alkaline Phosphatase 51 U/L (38-126); Aspartate Aminotransferase 35 IU/L (14-36); BUN Creatinine Ratio 23.7 (6-22); Bilirubin Total 0.2 mg/dL (0.2-1.3); Blood Urea Nitrogen 22 mg/dL (7-17); Carbon Dioxide 29 mmol/L (22-32); Chloride 101 mmol/L (98-107); Cholesterol 182 mg/dL (140-199); Estimated Glomerular Filt Rate > 60 mL/min (>60); Globulin 2.7 g/dL (1.7-4.1); Glucose 91 mg/dL (80-110); HDL Cholesterol 68 mg/dL (40-60); HEMOLYSIS < 15 (0-50); LDL Cholesterol Calculated 82 mg/dL (<100); Potassium 4.1 mmol/L (3.4-5.1); Sodium 135 mmol/L (137-145); Triglycerides 160 mg/dL (35-150)
== END ==
PROVIDERS: PCP Internal Medicine; Referring Provider Internal Medicine; Visit Provider Internal Medicine
DX: E78.2 Mixed hyperlipidemia (principal); I48.0 Paroxysmal atrial fibrillation
CPT/HCPCS: 36415; 80053; 80061

== ENCOUNTER → 2022-07-07 10:16 | Outpatient (CLI) | payer MEDICARE, OTHER, SELFPAY ==
[2022-04-27 13:33] VITALS: BMI 25.8
== END ==
PROVIDERS: PCP Internal Medicine; Referring Provider Internal Medicine; Visit Provider Internal Medicine
DX: Z13.820 Encounter for screening for osteoporosis; Z78.0 Asymptomatic menopausal state; K92.9 Disease of digestive system, unspecified; J44.9 Chronic obstructive pulmonary disease, unspecified; Z92.23 Personal history of estrogen therapy; Z87.311 Personal history of (healed) other pathological fracture; Z90.710 Acquired absence of both cervix and uterus
CPT/HCPCS: 77080; 77081

== ENCOUNTER → 2022-07-15 12:32 | Outpatient (CLI) | payer MEDICARE, OTHER, SELFPAY ==
[2021-02-04 17:15] VITALS: BMI 25.8
[2022-04-27 13:33] VITALS: BMI 25.8
--- NOTE | 2022-07-15 12:34 | DI.MG.S_ITS ---
BILATERAL DIGITAL SCREENING MAMMOGRAM 3D/2D WITH CAD: 07/15/2022 CLINICAL: Routine screening. Family history of breast cancer. Comparison is made to exams dated: 06/11/2021 mammogram, 06/04/2020 mammogram, and 03/15/2019 mammogram - [facility]. Both breasts are heterogeneously dense, which may obscure small masses (category c / 51-75% glandular tissue). Current study was also evaluated with a Computer Aided Detection (CAD) system. There is a focal asymmetry with grouped calcifications in the right breast at 8 o'clock middle depth. No other significant masses, calcifications, or other findings are seen in either breast. IMPRESSION: INCOMPLETE: NEEDS ADDITIONAL IMAGING EVALUATION The focal asymmetry in the right breast is indeterminate. Spot magnification views as well as additional views with possible ultrasound are recommended. This exam was interpreted at Station ID: [id number]. NOTE: For mammograms, a report in lay terms will be sent to the patient. Approximately 15% of breast malignancies will not be visualized mammographically. In the management of a palpable breast mass, a negative mammogram must not discourage biopsy of a clinically suspicious lesion. Electronically Signed By: Magaly munoz/:07/15/2022 13:31:07 letter sent: Additional Imaging Needed ACR BI-RADS Category 0: Incomplete 3340F
== END ==
PROVIDERS: PCP Internal Medicine; Referring Provider Internal Medicine; Visit Provider Internal Medicine
DX: Z12.31 Encounter for screening mammogram for malignant neoplasm of breast (principal); Z80.3 Family history of malignant neoplasm of breast
CPT/HCPCS: 77063; 77067

== ENCOUNTER → 2022-07-28 13:24 | Outpatient (CLI) | payer MEDICARE, OTHER, SELFPAY ==
[2022-04-27 13:33] VITALS: BMI 25.8
--- NOTE | 2022-07-28 | DI.MG.S_ITS ---
UNILATERAL RIGHT DIGITAL DIAGNOSTIC MAMMOGRAM 3D/2D WITH ADDITIONAL VIEWS: 07/28/2022 CLINICAL: Additional evaluation requested from prior study. Comparison is made to exams dated: 07/15/2022 mammogram, 06/11/2021 mammogram, 06/04/2020 mammogram, 03/15/2019 mammogram, and 01/30/2018 mammogram - [facility]. The right breast is heterogeneously dense, which may obscure small masses (category c / 51-75% glandular tissue). There are grouped and linear fine calcifications in the right breast at 8 o'clock middle depth. These are more prominent. No other significant masses or calcifications are seen in the breast. IMPRESSION: INCOMPLETE: NEEDS ADDITIONAL IMAGING EVALUATION The grouped and linear fine calcifications in the right breast are indeterminate. A targeted ultrasound is recommended and will immediately follow. This exam was interpreted at Station ID: [id number]. NOTE: For mammograms, a report in lay terms will be sent to the patient. Approximately 15% of breast malignancies will not be visualized mammographically. In the management of a palpable breast mass, a negative mammogram must not discourage biopsy of a clinically suspicious lesion. Electronically Signed By: Konstantin Lopez M.D. slc/:07/28/2022 15:21:40 ACR BI-RADS Category 0: Incomplete 3340F
--- NOTE | 2022-07-28 13:26 | DI.US.S_ITS ---
LIMITED ULTRASOUND OF RIGHT BREAST: 07/28/2022 CLINICAL: Patient returns today to evaluate a focal asymmetry in the right breast. Comparison is made to exams dated: 07/28/2022 mammogram, 07/15/2022 mammogram, 06/11/2021 mammogram, 06/04/2020 mammogram, 03/15/2019 mammogram, and 01/30/2018 mammogram - [facility]. Color flow and real-time ultrasound of the right breast 8-9 o'clock region were performed. Andrade scale images of the real-time examination were reviewed. There is a dilated duct in the right breast at 8 o'clock middle depth. This dilated duct displays internal echoes. This correlates with mammography findings. Color flow imaging demonstrates that there is no vascularity present. IMPRESSION: SUSPICIOUS OF MALIGNANCY The grouped and linear fine calcifications in the right breast seen on mammogram are at a low suspicion for malignancy. Corresponding duct with debris on ultrasound. A stereotactic biopsy is recommended. Exam findings were discussed with the patient by Dr. Lopez. This exam was interpreted at Station ID: [id number]. Electronically Signed By: Konstantin Lopez M.D. slc/:07/28/2022 15:25:40 letter sent: Biopsy Required Ultrasound BI-RADS: 4a Low suspicion for malignancy
== END ==
PROVIDERS: PCP Internal Medicine; Referring Provider Internal Medicine; Visit Provider Internal Medicine
DX: R92.8 Other abnormal and inconclusive findings on diagnostic imaging of breast (principal); R92.1 Mammographic calcification found on diagnostic imaging of breast
CPT/HCPCS: 76642; 77065; G0279

== ENCOUNTER → 2022-09-01 15:14 | Outpatient (CLI) | payer MEDICARE, OTHER, SELFPAY ==
[2022-04-27 13:33] VITALS: BMI 25.8
[2022-09-01 17:17] LABS: Free T3, Triiodothyronine Free 3.29 pg/mL (2.77-5.27); Free T4, Direct Thyroxine 1.36 ng/dL (0.78-2.19)
[2022-09-01 17:30] LABS: Thyroid Stimulating Hormone 1.12 uIU/mL (0.47-4.68)
== END ==
PROVIDERS: PCP Internal Medicine; Referring Provider Internal Medicine Endocrinology, Diabetes & Metabolism; Visit Provider Internal Medicine Endocrinology, Diabetes & Metabolism
DX: E03.8 Other specified hypothyroidism (principal)
CPT/HCPCS: 36415; 84439; 84443; 84481

== ENCOUNTER 2022-11-12 12:22 | Emergency (ER) | payer MEDICARE, OTHER, SELFPAY ==
[2022-10-13 13:44] VITALS: BMI 25.8
[2022-11-12] VITALS (12 sets, daily range): BP systolic 144–176; BP diastolic 67–87; PULSE 62–69; RESP 15; TEMP 36.3; O2SAT 98–100; BMI 26.1
--- NOTE | 2022-11-12 12:58 | DI.RAD.S_ITS ---
PROCEDURE: XR CHEST 1V INDICATIONS: chest pain TECHNIQUE: One view of the chest was acquired. COMPARISON: [facility], CR, XR CHEST 1V, 02/26/2022, 14:02. [facility], CR, XR CHEST 1V, 01/11/2022, 15:43. [facility], CR, XR CHEST 2 VIEWS, 06/09/2022, 16:20. FINDINGS: Surgical changes and devices: Left chest wall pulse generator with dual-chamber electrode leads in place. Lungs and pleura: No consolidation. No pleural effusions. Mediastinum: Mediastinal contours appear normal. Heart size is normal. Bones and chest wall: No suspicious bony lesions. Overlying soft tissues appear unremarkable. IMPRESSION: No acute radiographic abnormality. Left chest wall pulse generator with dual-chamber electrode leads in similar position compared to prior. Dictated by: Homero Burris M.D. on 11/12/2022 at 12:27 Approved by: Homero Burris M.D. on 11/12/2022 at 12:28
[2022-11-12 13:36] LABS: Add Manual Diff / Slide Review NO; Basophils Absolute Auto 0 /uL (0-100); Basophils Percent Auto 0.6 % (0-2); Eosinophils Absolute Auto 0 /uL (0-450); Eosinophils Percent Auto 0.2 % (2-4); Hematocrit 40.2 % (36-46); Hemoglobin 13.1 g/dL (12.0-16.0); Lymphocytes Absolute Auto 1800 /uL (1100-4500); Lymphocytes Percent Auto 26.4 % (25-40); Mean Corpuscular HGB Conc 32.6 % (30-36); Mean Corpuscular Hemoglobin 30.2 PG (26-34); Mean Corpuscular Volume 92.6 fL (80-100); Monocytes Absolute Auto 700 /uL (0-900); Monocytes Percent Auto 10.4 % (3-14); Neutrophils Absolute Auto 4400 /uL (1500-7000); Neutrophils Percent Auto 62.4 % (50-75); Platelet Count 237 X10^3/uL (150-400); Red Blood Cell Count 4.34 X10^6/uL (4.0-5.2); Red Cell Distribution Width 14.9 % (11.6-14.8)
[2022-11-12] MEDS: ASPIRIN 81 MG CHEW TAB 324 MG PO (13:42)
[2022-11-12 13:45] LABS: INR 1.4 (0.9-1.3); Prothrombin Time 16.6 SECONDS (10.1-12.7)
[2022-11-12 13:48] LABS: Alanine Aminotransferase 29 IU/L (<35); Albumin 4.3 g/dL (3.5-5.0); Albumin Globulin Ratio 1.3 (1.0-2.8); Alkaline Phosphatase 63 U/L (38-126); Aspartate Aminotransferase 35 IU/L (14-36); BUN Creatinine Ratio 27.8 (6-22); Bilirubin Total 0.4 mg/dL (0.2-1.3); Blood Urea Nitrogen 25 mg/dL (7-17); Calcium 9.1 mg/dL (8.4-10.2); Carbon Dioxide 28 mmol/L (22-32); Chloride 102 mmol/L (98-107); Creatine Kinase 52 U/L (30-135); Estimated Glomerular Filt Rate > 60 mL/min (>60); Globulin 3.2 g/dL (1.7-4.1); Glucose 84 mg/dL (80-110); HEMOLYSIS < 15 (0-50); Lipase 270 U/L (23-300); Magnesium 2.1 mg/dL (1.6-2.3); PTT Partial Thromboplastin Tim 35 SECONDS (26-36); Potassium 3.8 mmol/L (3.4-5.1); Sodium 139 mmol/L (137-145); Total Protein 7.5 g/dL (6.3-8.2)
[2022-11-12 13:54] LABS: Appearance Urine UA CLEAR; Bilirubin Urine UA NEGATIVE (NEGATIVE); Color Urine UA YELLOW; Glucose Urine UA NEGATIVE (Negative); Ketones Urine UA TRACE (NEGATIVE); Leukocyte Esterase Urine UA NEGATIVE (NEGATIVE); Nitrite Urine UA NEGATIVE (Negative); Occult Blood Urine UA NEGATIVE (Negative); Protein Urine UA NEGATIVE (Negative); Urobilinogen Urine UA 0.2 E.U./dL (0.2)
[2022-11-12 13:56] LABS: pH Urine UA 5.5 (4.5-8.0)
[2022-11-12 13:58] LABS: COVID19 -Nasal RAPID Negative (Negative)
[2022-11-12 13:59] LABS: Troponin I < 0.012 ng/mL (0.01-0.034)
[2022-11-12 14:00] LABS: Bacteria Urine None Seen; Culture Indicated Urine Cult Not Indicated; RBC Urine None Seen (0-5/HPF); Squamous Epithelial Cell Urine None Seen (0-5/HPF); WBC Urine None Seen (0-5/HPF)
[2022-11-12 16:34] LABS: Troponin I < 0.012 ng/mL (0.01-0.034)
--- NOTE | 2022-11-12 16:35 | ED_ITS ---
HPI - Chest Pain General Chief Complaint: Chest Pain Stated Complaint: Diverticulosis(?) pain in pacemakerx/t-1/dizzy/sic Time Seen by Provider: 11/12/22 16:35 Source: patient Mode of arrival: Ambulatory Limitations: no limitations History of Present Illness HPI narrative: This is a 87-year-old female who comes with several complaints. Patient states she has had chest pain over the site of her pacemaker radiating up towards her neck, it started last night it has been persistent without any resolution. She states nothing makes it better, nothing makes worse. She has not take any medication for today she took some Tylenol last night. She is did not go away but she is able to sleep. She has not noticed warmth, erythema or skin changes. Patient had any swelling in her extremities. No fevers or chills. No nausea or vomiting. No other diarrhea constipation. She also notes that she is had left lower quadrant pain similar to when she used to have diverticulitis she had diverticulitis to such an extent that they talked about colectomy but she had significant dietary changes and did not have problems for many years. She states feels the same it has been slowly gradually worsening over the past 3 weeks without resolution as she suspect she is diverticulitis. She denies urinary symptoms no dysuria urgency or frequency. She also has some left hip pain. She also feels generally dizzy but states this has been going on for years it is slightly worse than normal but no syncope. She states she is ambulating without issue. Patient notes she is on sotalol 80 mg b.i.d., Eliquis, levothyroxine, statin, Lasix. No known drug allergies. She is had left femoral hip repair with an osteotomy, right hip repair, wrist surgery, hysterectomy and oophorectomy and tonsillectomy as well as pacemaker and had cardioversion x4 before her pacemaker was placed. No tobacco, alcohol or illicit. Related Data Home Medications Medication Instructions Recorded Confirmed liothyronine 5 mcg tablet (Cytomel) 10 mcg PO QDAY ##0 05/27/11 10/08/22 econazole 1 % topical cream 1 applic topical DAILY 02/04/21 10/08/22 polyethylene glycol 3350 17 17 g PO BID 02/04/21 10/08/22 gram/dose oral powder (Miralax) acyclovir 5 % topical cream 1 applic topical QID PRN Rash 02/26/22 10/08/22 levothyroxine 137 mcg tablet 68.5 mcg PO DAILY 02/26/22 10/08/22 sotalol 80 mg tablet 80 mg PO BID 02/26/22 10/08/22 ascorbic acid (vitamin C) 1,000 mg 1,000 mg PO DAILY 07/01/22 10/08/22 tablet calcium carbonate 500 mg calcium 500 mg PO DAILY 07/01/22 10/08/22 (1,250 mg) tablet cholecalciferol (vitamin D3) 25 25 mcg PO DAILY 07/01/22 10/08/22 mcg (1,000 unit) capsule magnesium oxide 400 mg PO DAILY 07/01/22 10/08/22 Previous Rx's Medication Instructions Recorded Oral Appliance #1 ea 07/28/21 albuterol sulfate 90 mcg/actuation 2 puff inhalation Q6H PRN 04/23/22 aerosol inhaler shortness of breath or wheezing #8.5 grams inhalational spacing device #1 ea 04/30/22 (Flexichamber spacer) apixaban 5 mg tablet (Eliquis) 5 mg PO BID #180 tabs 07/01/22 fluticasone propionate 220 2 puff inhalation BID #36 grams 07/01/22 mcg/actuation HFA aerosol inhaler furosemide 20 mg tablet 10 mg PO DAILY #90 tabs 07/01/22 linaclotide 72 mcg capsule 72 mcg PO DAILY #90 caps 07/01/22 (Linzess) potassium chloride 10 mEq 10 meq PO DAILY #90 caps 07/01/22 capsule,extended release rosuvastatin 10 mg tablet 10 mg PO DAILY #90 tabs 07/01/22 estradiol 0.01% (0.1 mg/gram) 1 g vaginal 3XW #42.5 grams 09/15/22 vaginal cream albuterol sulfate 2.5 mg/3 mL 2.5 mg (3 mL) inhalation QID #90 mL 09/16/22 (0.083 %) solution for nebulization amoxicillin 875 mg-potassium 1 tab PO BID #20 tabs 11/12/22 clavulanate 125 mg tablet Allergies Allergy/AdvReac Type Severity Reaction Status Date / Time ciprofloxacin [CIPROFLOXACIN] Allergy Severe Rash Verified 11/12/22 12:54 sulfamethoxazole Allergy Unknown RASH Verified 11/12/22 12:54 [From SEPTRA] trimethoprim [From SEPTRA] Allergy Unknown RASH Verified 11/12/22 12:54 metronidazole [From FLAGYL] AdvReac Unknown REALLY Verified 11/12/22 12:54 HARSH ON STOMACH Review of Systems Review of Systems ROS Unobtainable: All systems reviewed & are unremarkable except as noted in HPI and below Patient History Medical History Abnormal mammogram Acquired hypothyroidism Atrial fibrillation (~2020) BPPV (benign paroxysmal positional vertigo) Chicken pox Chronic anticoagulation Colon polyps Constipation by delayed colonic transit COPD (chronic obstructive pulmonary disease) Diastolic CHF Diverticular disease Do not resuscitate Hearing loss Herpes Measles Menopausal syndrome Mixed hyperlipidemia Mumps Obstructive sleep apnea syndrome Paroxysmal atrial fibrillation Pneumonia Shortness of breath Stage 3a chronic kidney disease (CKD) Tachy-cheryl syndrome Vision disorder Surgical History Anesthesia H/O: hysterectomy (~1984) History of femoral derotational osteotomy (~1983) History of hip surgery (~2007) History of right hip replacement (~2007) History of tonsillectomy and adenoidectomy (~1949) S/P cardiac pacemaker procedure Family History Father History of heart disease Mother Hypertension Alcoholism Sister Cancer Grandmother Cancer Grandmother Cancer Social History household members: spouse and children Smoking Status: Former smoker alcohol intake: never Smoking Status: Former smoker tobacco type: cigarettes alcohol intake frequency: holidays/special occasions only Substance Use Type: does not use Exam Narrative Exam Narrative: GENERAL: Alert and oriented x three, well-nourished female in no acute distress. Patient is eating hamburger when I walk into the room. HEENT: Head normocephalic, atraumatic, EOMI, pupils reactive, face symmetric, moist mucous membranes NECK: Supple, full range of motion, negative for carotid bruits, no erythema, no swelling no lymphadenopathy. CARDIOVASCULAR: Regular rate and rhythm without murmurs, rubs or gallops. Able to palpate pacemaker, no warmth, swelling, no induration or skin changes. Nontender to touch. RESPIRATORY: Breath sounds equal bilaterally, no wheezes rales or rhonchi. No tachypnea accessory muscle use. ABDOMEN: Soft, tenderness left lower quadrant. Nondistended. Normoactive bowel sounds all 4 quadrants. No guarding or rebound, rigidity, no mass : No CVA tenderness EXTREMITIES: Normal range of motion, no clubbing or edema. Neurovascularly intact NEUROLOGICAL: Cranial nerves II through XII grossly intact. Moving all extremities SKIN: Warm, dry, no petechiae, no rashes or lesions. Initial Vital Signs Initial Vital Signs: Vital Signs Temperature 97.3 F L 11/12/22 12:54 Pulse Rate 65 11/12/22 12:54 Respiratory Rate 15 11/12/22 12:54 Blood Pressure 144/67 H 11/12/22 12:54 Pulse Oximetry 98 11/12/22 12:54 Oxygen Delivery Method 11/12/22 12:54 Course Orders Ordered: Discontinued Medications Aspirin (Aspirin 81 Mg Chew Tab) 324 mg PO NOW ONE Stop: 11/12/22 12:59 Last Admin: 11/12/22 13:42 Dose: 324 mg Documented By: ESTRELLITA Vital Signs Vital signs: Vital Signs - 8 hr 11/12/22 12:54 11/12/22 13:28 11/12/22 13:30 Temperature 97.3 F L Pulse Rate 65 62 Respiratory Rate 15 Blood Pressure 144/67 H Pulse Oximetry 98 99 99 Oxygen Delivery Method Room Air 11/12/22 13:33 11/12/22 13:33 11/12/22 14:00 Temperature Pulse Rate 69 65 Respiratory Rate Blood Pressure 152/70 H Pulse Oximetry 98 100 Oxygen Delivery Method 11/12/22 14:01 11/12/22 14:01 11/12/22 15:10 Temperature Pulse Rate 65 Respiratory Rate Blood Pressure 157/70 H 153/80 H Pulse Oximetry 99 Oxygen Delivery Method 11/12/22 15:10 11/12/22 15:30 11/12/22 16:00 Temperature Pulse Rate 65 65 65 Respiratory Rate Blood Pressure Pulse Oximetry 99 100 99 Oxygen Delivery Method 11/12/22 16:01 11/12/22 16:01 11/12/22 16:27 Temperature Pulse Rate 65 66 Respiratory Rate Blood Pressure 176/82 H Pulse Oximetry 99 100 Oxygen Delivery Method 11/12/22 16:31 Temperature Pulse Rate Respiratory Rate Blood Pressure 175/87 H Pulse Oximetry Oxygen Delivery Method MDM - Chest Pain Lab Data Result diagrams: 11/12/22 13:22 11/12/22 13: Labs: Lab Results 11/12/22 11/12/22 11/12/22 Range/Units 13: 13: 13:22 WBC 7.0 (4.5-11.0) X10^3/uL RBC 4.34 (4.0-5.2) X10^6/uL Hgb 13.1 (12.0-16.0) g/dL Hct 40.2 (36-46) % MCV 92.6 (80-100) fL MCH 30.2 (26-34) PG MCHC 32.6 (30-36) % RDW 14.9 H (11.6-14.8) % Plt Count 237 (150-400) X10^3/uL Neut % (Auto) 62.4 (50-75) % Lymph % (Auto) 26.4 (25-40) % Todd % (Auto) 10.4 (3-14) % Eos % (Auto) 0.2 L (2-4) % Baso % (Auto) 0.6 (0-2) % Neut # (Auto) 4400 (8638-6952) /uL Lymph # (Auto) 1800 (7302-6537) /uL Todd # (Auto) 700 (0-900) /uL Eos # (Auto) 0 (0-450) /uL Baso # (Auto) 0 (0-100) /uL PT 16.6 H (10.1-12.7) SECONDS INR 1.4 H (0.9-1.3) APTT 35 (26-36) SECONDS Sodium 139 (137-145) mmol/L Potassium 3.8 (3.4-5.1) mmol/L Chloride 102 (98-107) mmol/L Carbon Dioxide 28 (22-32) mmol/L BUN 25 H (7-17) mg/dL Creatinine 0.90 (0.52-1.04) mg/dL Estimated GFR > 60 (>60) mL/min BUN/Creatinine Ratio 27.8 H (6-22) Glucose 84 (80-110) mg/dL Calcium 9.1 (8.4-10.2) mg/dL Magnesium 2.1 (1.6-2.3) mg/dL Total Bilirubin 0.4 (0.2-1.3) mg/dL AST 35 (14-36) IU/L ALT 29 (<35) IU/L Alkaline Phosphatase 63 (38-126) U/L Total Creatine Kinase 52 (30-135) U/L CK-MB (CK-2) TNP CK-MB (CK-2) Rel Index TNP Troponin I < 0.012 (0.01-0.034) ng/mL Total Protein 7.5 (6.3-8.2) g/dL Albumin 4.3 (3.5-5.0) g/dL Globulin 3.2 (1.7-4.1) g/dL Albumin/Globulin Ratio 1.3 (1.0-2.8) Lipase 270 (23-300) U/L Urine Color Urine Appearance Urine pH (4.5-8.0) Ur Specific [place] (1.000-1.035) Urine Protein (Negative) Urine Glucose (UA) (Negative) g/dL Urine Ketones (NEGATIVE) Urine Occult Blood (Negative) Urine Nitrate (Negative) Urine Bilirubin (NEGATIVE) Urine Urobilinogen (0.2) E.U./dL Ur Leukocyte Esterase (NEGATIVE) Urine RBC (0-5/HPF) Urine WBC (0-5/HPF) Ur Squamous Epith Cells (0-5/HPF) Urine Bacteria (None) Ur Culture Indicated? SARS-CoV-2 (PCR) (Negative) 11/12/22 11/12/22 11/12/22 Range/Units 13:25 13:41 16:05 WBC (4.5-11.0) X10^3/uL RBC (4.0-5.2) X10^6/uL Hgb (12.0-16.0) g/dL Hct (36-46) % MCV (80-100) fL MCH (26-34) PG MCHC (30-36) % RDW (11.6-14.8) % Plt Count (150-400) X10^3/uL Neut % (Auto) (50-75) % Lymph % (Auto) (25-40) % Todd % (Auto) (3-14) % Eos % (Auto) (2-4) % Baso % (Auto) (0-2) % Neut # (Auto) (8726-6264) /uL Lymph # (Auto) (3279-4132) /uL Todd # (Auto) (0-900) /uL Eos # (Auto) (0-450) /uL Baso # (Auto) (0-100) /uL PT (10.1-12.7) SECONDS INR (0.9-1.3) APTT (26-36) SECONDS Sodium (137-145) mmol/L Potassium (3.4-5.1) mmol/L Chloride (98-107) mmol/L Carbon Dioxide (22-32) mmol/L BUN (7-17) mg/dL Creatinine (0.52-1.04) mg/dL Estimated GFR (>60) mL/min BUN/Creatinine Ratio (6-22) Glucose (80-110) mg/dL Calcium (8.4-10.2) mg/dL Magnesium (1.6-2.3) mg/dL Total Bilirubin (0.2-1.3) mg/dL AST (14-36) IU/L ALT (<35) IU/L Alkaline Phosphatase (38-126) U/L Total Creatine Kinase (30-135) U/L CK-MB (CK-2) CK-MB (CK-2) Rel Index Troponin I < 0.012 (0.01-0.034) ng/mL Total Protein (6.3-8.2) g/dL Albumin (3.5-5.0) g/dL Globulin (1.7-4.1) g/dL Albumin/Globulin Ratio (1.0-2.8) Lipase (23-300) U/L Urine Color Yellow Urine Appearance Clear Urine pH 5.5 (4.5-8.0) Ur Specific [place] 1.020 (1.000-1.035) Urine Protein Negative (Negative) Urine Glucose (UA) Negative (Negative) g/dL Urine Ketones Trace H (NEGATIVE) Urine Occult Blood Negative (Negative) Urine Nitrate Negative (Negative) Urine Bilirubin Negative (NEGATIVE) Urine Urobilinogen 0.2 (0.2) E.U./dL Ur Leukocyte Esterase Negative (NEGATIVE) Urine RBC None seen (0-5/HPF) Urine WBC None seen (0-5/HPF) Ur Squamous Epith Cells None seen (0-5/HPF) Urine Bacteria None seen (None) Ur Culture Indicated? Cult not indicated SARS-CoV-2 (PCR) Negative (Negative) Imaging Data Chest x-ray: Radiologist's Impression: [address] [address] XRay Report Signed Patient: Joceline Ace MR#: [id number] : 1935 Acct:[id number] Age/Sex: 87 / F Date of Service: 11/12/22 Loc: ED Accession Number: [id number] ?? Procedure: XR chest 1V Ordering Provider: Orin Pollard D.O. PROCEDURE:? XR CHEST 1V ? INDICATIONS:? chest pain ? TECHNIQUE:? One view of the chest was acquired.? ? COMPARISON:? [facility], CR, XR CHEST 1V, 02/26/2022, 14:02.? [facility], CR, XR CHEST 1V, 01/11/2022, 15:43.? [facility], CR, XR CHEST 2 VIEWS, 06/09/2022, 16:20. ? FINDINGS:? ? Surgical changes and devices:? Left chest wall pulse generator with dual-chamber electrode leads in place. ? Lungs and pleura:? No consolidation.? No pleural effusions. ? Mediastinum:? Mediastinal contours appear normal.? Heart size is normal.? ? Bones and chest wall:? No suspicious bony lesions.? Overlying soft tissues appear unremarkable.? ? IMPRESSION:? No acute radiographic abnormality.? Left chest wall pulse generator with dual-chamber electrode leads in similar position compared to prior. ? ? Dictated by: Homero Burris M.D. on 11/12/2022 at 12:27 ? ? Approved by: Homero Burris M.D. on 11/12/2022 at 12:28?? ECG Data Attestation: I personally reviewed and interpreted this ECG as follows: Prior ECG tracings: available for review Interpretation: Atrial paced rhythm rate of 65 ID 252 QRS 90 QTC 468, nonspecific ST change left axis deviation. Patient has from 02/26/2022 which shows AFib but no other ST changes. EKG 2 shows atrial paced rhythm rate of 65 ID 268 QRS 88 QTC 472. No acute ST changes appreciated. MDM Narrative Medical decision making narrative: This is an 87 old female comes in with complaint over her left pacemaker radiating up towards her neck her cardiac is overall negative negative CBC no leukocytosis, INR is 1.4 which is not unexpected since she is on Eliquis, CMP is negative BUN is 25 troponins negative x2 with negative lipase, trace ketones, negative COVID negative chest x-ray for structural changes. Patient also notes some left lower quadrant tenderness consistent with her prior diverticulitis, she is comfortable starting antibiotics without any imaging she does not have any peritoneal signs I feel this is very appropriate 3 localized left lower quadrant. She is not having any urinary symptoms currently. Prescription for Augmentin sent for her to start this evening. Patient's dizziness is longstanding and not acutely changed discussed need for workup and all questions answered. Discharge Plan Departure Patient Disposition: Home Clinical Impression: Atypical chest pain, Diverticulitis Instructions: DI for Diverticulitis, DI for Atypical Chest Pain Activity Restrictions/Additional Instructions: Please follow-up with Dr. Vicente Your cardiac workup today is overall reassuring but if you are having new or worsening symptoms you need to be re-evaluated. You do have a prescription for Augmentin, take 1 tablet twice daily sent to [facility] in [place]. Please return for fevers, worsening abdominal, chest or back pain, persistent vo miting, new swelling in your extremities, black or bloody stools, passing out or other new or concerning changes. Prescriptions: New amoxicillin-pot clavulanate 875-125 mg tablet 1 tab PO BID Qty: 20 0RF No Action liothyronine [Cytomel] 5 MCG tablet 10 mcg PO QDAY Qty: 0 (DME) Oral Appliance See Rx Instructions .Route .MEDSUPPLY Qty: 1 0RF Rx Instructions: patient with AHI of 10.4 (DME) Flexichamber Spacer See Rx Instructions .Route Qty: 1 2RF Rx Instructions: As directed estradiol 0.01 % (0.1 mg/gram) cream 1 g vaginal 3XW Qty: 42.5 4RF albuterol sulfate 2.5 mg /3 mL (0.083 %) solution for nebulization 2.5 mg inhalation QID Qty: 90 3RF cholecalciferol (vitamin D3) 25 mcg (1,000 unit) capsule 25 mcg PO DAILY magnesium oxide 400 mg magnesium tablet 400 mg PO DAILY calcium carbonate 500 mg calcium (1,250 mg) tablet 500 mg PO DAILY ascorbic acid (vitamin C) 1,000 mg tablet 1,000 mg PO DAILY fluticasone propionate 220 mcg/actuation HFA aerosol inhaler 2 puff inhalation BID Qty: 36 3RF Eliquis 5 mg tablet 5 mg PO BID Qty: 180 3RF furosemide 20 mg tablet 10 mg PO DAILY Qty: 90 3RF Rx Instructions: take 1/2 to 1 to 2 tabs by mouth once daily as needed Linzess 72 mcg capsule 72 mcg PO DAILY Qty: 90 3RF potassium chloride 10 mEq capsule, extended release 10 meq PO DAILY Qty: 90 3RF rosuvastatin 10 mg tablet 10 mg PO DAILY Qty: 90 3RF albuterol sulfate 90 mcg/actuation HFA aerosol inhaler 2 puff inhalation Q6H PRN (Reason: shortness of breath or wheezing) Qty: 8.5 5RF econazole 1 % Cream 1 applic TOPICAL DAILY polyethylene glycol 3350 [Miralax] 17 gram/dose Powder 17 g PO BID levothyroxine 137 mcg tablet 68.5 mcg PO DAILY Label Comments: TAKE ONE-HALF TABLET BY MOUTH DAILY Rx Instructions: TAKE ONE-HALF TABLET BY MOUTH DAILY sotalol 80 mg tablet 80 mg PO BID Rx Instructions: take 80 mg daily twice daily acyclovir 5 % cream 1 applic TOPICAL QID PRN (Reason: Rash) Label Comments: APPLY ONE-HALF GRAM TO AFFECTED AREA FOUR TIMES A DAY NEEDED Rx Instructions: as needed APPLY ONE-HALF GRAM TO AFFECTED AREA FOUR TIMES A DAY NEEDED Referrals: Thompson Vicente MD [Primary Care Provider] - Visit Report Forms: Patient Portal/API
== END 2022-11-12 17:11 | disposition home or self-care (01) ==
PROVIDERS: Emergency Provider Emergency Medicine; PCP Internal Medicine
DX: K57.92 Diverticulitis of intestine, part unspecified, without perforation or abscess without bleeding (principal); R07.89 Other chest pain; Z95.0 Presence of cardiac pacemaker; Z20.822 Contact with and (suspected) exposure to COVID-19; Z79.899 Other long term (current) drug therapy
CPT/HCPCS: 36415; 71045; 80053; 81001; 82550; 83690; 83735; 84484; 85025; 85610; 85730; 87635; 93005; 99284; C9803

== ENCOUNTER 2022-11-17 10:15 | Outpatient (RCR) | payer MEDICARE, OTHER, SELFPAY ==
[2022-04-27 13:33] VITALS: BMI 25.8
== END 2022-11-17 12:15 ==
LOC: PUL 10:15
PROVIDERS: PCP Internal Medicine; Referring Provider Internal Medicine; Visit Provider Internal Medicine
DX: R06.02 Shortness of breath (principal); J44.9 Chronic obstructive pulmonary disease, unspecified
CPT/HCPCS: 94625

== ENCOUNTER → 2023-01-11 13:55 | Outpatient (CLI) | payer MEDICARE, OTHER, SELFPAY ==
[2022-10-13 13:44] VITALS: BMI 25.8
[2023-01-11 16:30] LABS: Free T3, Triiodothyronine Free 3.13 pg/mL (2.77-5.27); Free T4, Direct Thyroxine 1.17 ng/dL (0.78-2.19)
[2023-01-11 16:43] LABS: Thyroid Stimulating Hormone 1.13 uIU/mL (0.47-4.68)
== END ==
PROVIDERS: Family Provider Internal Medicine; PCP Internal Medicine; Referring Provider Internal Medicine Endocrinology, Diabetes & Metabolism; Visit Provider Internal Medicine Endocrinology, Diabetes & Metabolism
DX: E03.8 Other specified hypothyroidism (principal)
CPT/HCPCS: 36415; 84439; 84443; 84481

== ENCOUNTER 2023-01-17 07:30 | Outpatient (RCR) | payer MEDICARE, OTHER, SELFPAY ==
[2022-10-13 13:44] VITALS: BMI 25.8
--- NOTE | 2023-01-11 15:35 | PT.OIE ---
Current Diagnoses Benign paroxysmal vertigo, unspecified ear (01/11/23) Past Medical History (Last Reviewed 12/30/22 @ 07:24 by Thompson Vicente MD) Abnormal mammogram Acquired hypothyroidism Atrial fibrillation (~2020) BPPV (benign paroxysmal positional vertigo) Chicken pox Chronic anticoagulation Colon polyps Constipation by delayed colonic transit COPD (chronic obstructive pulmonary disease) Diastolic CHF Diverticular disease Do not resuscitate Hearing loss Herpes Measles Menopausal syndrome Mixed hyperlipidemia Mumps Obstructive sleep apnea syndrome Paroxysmal atrial fibrillation Pneumonia Shortness of breath Stage 3a chronic kidney disease (CKD) Tachy-cheryl syndrome Vision disorder Past Surgical History (Last Reviewed 12/30/22 @ 07:24 by Thompson Vicente MD) Anesthesia H/O: hysterectomy (~1984) History of femoral derotational osteotomy (~1983) History of hip surgery (~2007) History of right hip replacement (~2007) History of tonsillectomy and adenoidectomy (~1949) S/P cardiac pacemaker procedure Visit Care Team Role Provider Type Thompson Vicente MD Attending Provider Physician Family Provider Primary Care Provider Referring Provider Specialty: Internal Medicine Address: [address] [place] [address] Email: [email or web address] Physical Therapy Initial Evaluation PT-OP-A Visit Information Start: 01/06/23 15:08 Freq: Status: Active Protocol: Document 01/11/23 13:02 AMB (Rec: 01/11/23 13:52 AMB [id number]) Out-Patient Physical Therapy Visit Information Visit Information Visit Type Initial Evaluation Visit Start Time 13:00 Visit Stop Time 13:45 Total Visit Minutes 45 Visit Number 1 PT-OP-B Current Condition Start: 01/06/23 15:08 Freq: Status: Active Protocol: Document 01/11/23 13:02 AMB (Rec: 01/11/23 13:52 AMB [id number]) Current Condition History of Current Condition History of Current Condition Pt reports she does not turn over in bed. Doesn't really know when it started. Lying down on the ground makes her feel dizzy. Just standing up makes her dizzy, lasts about 15 seconds. Pretty bad when getting up. Reports high blood pressure lately. Does report a fib and pacemaker history. Has been doing exercise with pulmonary rehab. Does report limited ROM with neck- degenerative disc disease. Prior Treatments and Tests Carotid doppler for 2019 did show plaque but no significant stenosis. PT-OP-C Subjective Start: 01/06/23 15:08 Freq: Status: Active Protocol: Document 01/11/23 13:00 AMB (Rec: 01/11/23 15:54 AMB [id number]) Patient Questionnaires Dizziness Handicap Inventory DHI Score 64 DHI Functional Impairment 60 to 79% Impaired (Score 60- 79) PT-OP-O Vestibular Start: 01/06/23 15:08 Freq: Status: Active Protocol: Document 01/11/23 13:02 AMB (Rec: 01/11/23 13:52 AMB [id number]) Vestibular Assessment Visual Testing Smooth Pursuits Horizontal WFL Smooth Pursuits Vertical WFL Saccades Horizontal WFL Saccades Vertical WFL Thrust Head Negative Positional Testing Tania-Hallpike Positive Right PT-OP-T Assessment and Plan Start: 01/06/23 15:08 Freq: Status: Active Protocol: Document 01/11/23 13:00 AMB (Rec: 01/14/23 15:35 AMB [id number]) Physical Therapy Assessment Rehab Potential Rehabilitation Potential Good Evaluation Complexity Number of Personal Factors/Comorbidities 1-2 Number of Body Systems Impaired 1-2 Clinical Presentation at Evaluation Stable Impairments Impairments Balance,Vestibular Goals One Short Term Goal (STG) Joceline will not have nystagmus or dizziness with DixHallpike. STG Duration 2 weeks Vocational Aide Goal (LTG) Joceline will perform all bed mobility without dizziness. LTG Duration 4 weeks Assessment Summary Assessment Pt presented to physical therapy with nystagmus with R DixHallpike, consistent with R posterior canalithiasis BPPV. Tolerated Adair maneuver x 2 , with no visible nystagmus and very little dizziness with second repetition. Educated in post maneuver precautions. Pt to return to recheck for dizziness/nystagmus for full treatment of her BPPV. Physical Therapy Plan Frequency and Duration Frequency of Treatment 2x/Week Duration of treatment (weeks) 4 Plan of Care Start Date 01/11/23 Plan of Care End Date 02/08/23 Therapeutic Interventions Therapeutic Interventions Canalithic Repositioning,Home Exercise Program,Manual Therapy,Neuromuscular Re- education,Therapeutic Activities,Therapeutic Exercises,Vestibular Rehabilitation Next Visit Focus/Plan Next Note Type Treatment Note Next Visit Plan Recheck R Tania Hallpike
--- NOTE | 2023-01-11 15:36 | PT.OPPOC ---
Physical, Occupational & Speech Therapy At [facility] Current Diagnoses Benign paroxysmal vertigo, unspecified ear (01/11/23) Visit Care Team Role Provider Type Thompson iVcente MD Attending Provider Physician Family Provider Primary Care Provider Referring Provider Specialty: Internal Medicine Address: [address] [place] [address], [facility] Email: [email or web address] Plan Of Care PT-OP-T Assessment and Plan Start: 01/06/23 15:08 Freq: Status: Active Protocol: Document 01/11/23 13:00 AMB (Rec: 01/14/23 15:35 AMB [id number]) Physical Therapy Assessment Rehab Potential Rehabilitation Potential Good Evaluation Complexity Number of Personal Factors/Comorbidities 1-2 Number of Body Systems Impaired 1-2 Clinical Presentation at Evaluation Stable Impairments Impairments Balance,Vestibular Goals One Short Term Goal (STG) Joceline will not have nystagmus or dizziness with DixHallpike. STG Duration 2 weeks Inspector Clip On Sunglasses Goal (LTG) Joceline will perform all bed mobility without dizziness. LTG Duration 4 weeks Assessment Summary Assessment Pt presented to physical therapy with nystagmus with R DixHallpike, consistent with R posterior canalithiasis BPPV. Tolerated Adair maneuver x 2 , with no visible nystagmus and very little dizziness with second repetition. Educated in post maneuver precautions. Pt to return to recheck for dizziness/nystagmus for full treatment of her BPPV. Physical Therapy Plan Frequency and Duration Frequency of Treatment 2x/Week Duration of treatment (weeks) 4 Plan of Care Start Date 01/11/23 Plan of Care End Date 02/08/23 Therapeutic Interventions Therapeutic Interventions Canalithic Repositioning,Home Exercise Program,Manual Therapy,Neuromuscular Re- education,Therapeutic Activities,Therapeutic Exercises,Vestibular Rehabilitation Next Visit Focus/Plan Next Note Type Treatment Note Next Visit Plan Recheck R Imperial Hallpike Plan of Care Dates Plan of Care Start Date 01/11/23 Plan of Care End Date 02/08/23 Electronically Signed by: Umm Crespo, PT 01/14/23 8228 If you are in agreement with this Plan of Care, please return a signed and dated copy. I have reviewed this Plan of Care and certify that the skilled therapy services above are required to meet the patient?s needs. Physician Signature Date Printed Name and Credentials Clinical Instructor Signature Printed Name and Credentials
--- NOTE | 2023-01-17 08:14 | PT.OTN ---
Current Diagnoses Benign paroxysmal vertigo, unspecified ear (01/17/23) Physical Therapy Treatment Note PT-OP-A Visit Information Start: 01/06/23 15:08 Freq: Status: Active Protocol: Document 01/17/23 07:32 AMB (Rec: 01/17/23 08:14 AMB [id number]) Out-Patient Physical Therapy Visit Information Visit Information Visit Type Treatment Note Visit Start Time 07:30 Visit Stop Time 08:00 Total Visit Minutes 45 Visit Number 2 PT-OP-B Current Condition Start: 01/06/23 15:08 Freq: Status: Active Protocol: Document 01/11/23 13:02 AMB (Rec: 01/11/23 13:52 AMB [id number]) Current Condition History of Current Condition History of Current Condition Pt reports she does not turn over in bed. Doesn't really know when it started. Lying down on the ground makes her feel dizzy. Just standing up makes her dizzy, lasts about 15 seconds. Pretty bad when getting up. Reports high blood pressure lately. Does report a fib and pacemaker history. Has been doing exercise with pulmonary rehab. Does report limited ROM with neck- degenerative disc disease. Prior Treatments and Tests Carotid doppler for 2019 did show plaque but no significant stenosis. PT-OP-C Subjective Start: 01/06/23 15:08 Freq: Status: Active Protocol: Document 01/17/23 07:32 AMB (Rec: 01/17/23 08:14 AMB [id number]) OP-PT Subjective Patient Comments Patient Comments Pt reports feeling significantly better but still has some residual PT-OP-O Vestibular Start: 01/06/23 15:08 Freq: Status: Active Protocol: Document 01/11/23 13:02 AMB (Rec: 01/11/23 13:52 AMB [id number]) Vestibular Assessment Visual Testing Smooth Pursuits Horizontal WFL Smooth Pursuits Vertical WFL Saccades Horizontal WFL Saccades Vertical WFL Thrust Head Negative Positional Testing [place]-Hallpike Positive Right PT-OP-Q Treatments Start: 01/06/23 15:08 Freq: Status: Active Protocol: Document 01/17/23 07:32 AMB (Rec: 01/17/23 08:14 AMB [id number]) Neuro Re-Education Treatment Other Activities R Adair Details 1 Comments good tolerance PT-OP-T Assessment and Plan Start: 01/06/23 15:08 Freq: Status: Active Protocol: Document 01/17/23 07:32 AMB (Rec: 01/17/23 08:14 AMB [id number]) Physical Therapy Assessment Goals One Short Term Goal (STG) Joceline will not have nystagmus or dizziness with DixHallpike. STG Duration 2 weeks Pest Locator Goal (LTG) Joceline will perform all bed mobility without dizziness. LTG Duration 4 weeks Assessment Summary Assessment No visible nystagmus in room light with R Tania Hallpike. Pt with mild dizziness subjectively so did perform Adair. No dizziness/nystagmus wtih left. Physical Therapy Plan Frequency and Duration Frequency of Treatment 2x/Week Duration of treatment (weeks) 4 Plan of Care Start Date 01/11/23 Plan of Care End Date 02/08/23 Therapeutic Interventions Therapeutic Interventions Canalithic Repositioning,Home Exercise Program,Manual Therapy,Neuromuscular Re- education,Therapeutic Activities,Therapeutic Exercises,Vestibular Rehabilitation Next Visit Focus/Plan Next Note Type Treatment Note Next Visit Plan Recheck R Buffalo Hallpike
--- NOTE | 2023-04-15 08:27 | PT.OPDS ---
Current Diagnoses Benign paroxysmal vertigo, unspecified ear (01/17/23) Visit Care Team Role Provider Type Thompson Vicente MD Attending Provider Physician Family Provider Primary Care Provider Referring Provider Specialty: Internal Medicine Address: [address] [place] [address], [facility] Email: [email or web address] Number Visit Number 2 Discharge Summary PT-OP-B Current Condition Start: 01/06/23 15:08 Freq: Status: Active Protocol: Document 01/11/23 13:02 AMB (Rec: 01/11/23 13:52 AMB [id number]) Current Condition History of Current Condition History of Current Condition Pt reports she does not turn over in bed. Doesn't really know when it started. Lying down on the ground makes her feel dizzy. Just standing up makes her dizzy, lasts about 15 seconds. Pretty bad when getting up. Reports high blood pressure lately. Does report a fib and pacemaker history. Has been doing exercise with pulmonary rehab. Does report limited ROM with neck- degenerative disc disease. Prior Treatments and Tests Carotid doppler for 2019 did show plaque but no significant stenosis. PT-OP-C Subjective Start: 01/06/23 15:08 Freq: Status: Active Protocol: Document 01/17/23 07:32 AMB (Rec: 01/17/23 08:14 AMB [id number]) OP-PT Subjective Patient Comments Patient Comments Pt reports feeling significantly better but still has some residual PT-OP-O Vestibular Start: 01/06/23 15:08 Freq: Status: Active Protocol: Document 01/11/23 13:02 AMB (Rec: 01/11/23 13:52 AMB [id number]) Vestibular Assessment Visual Testing Smooth Pursuits Horizontal WFL Smooth Pursuits Vertical WFL Saccades Horizontal WFL Saccades Vertical WFL Thrust Head Negative Positional Testing [place]-Hallpike Positive Right PT-OP-T Assessment and Plan Start: 01/06/23 15:08 Freq: Status: Active Protocol: Document 04/15/23 08:27 AMB (Rec: 04/15/23 08:27 AMB [id number]) Physical Therapy Assessment Assessment Summary Assessment Pt has not been seen in months and is therefore discharged, her plan of care is .
== END 2023-04-19 14:41 | disposition home or self-care (01) ==
LOC: PHYS 07:30
PROVIDERS: Family Provider Internal Medicine; PCP Internal Medicine; Referring Provider Internal Medicine; Visit Provider Internal Medicine
DX: H81.11 Benign paroxysmal vertigo, right ear
CPT/HCPCS: 97112; 97161

== ENCOUNTER → 2023-01-17 09:02 | Outpatient (CLI) | payer MEDICARE, OTHER, SELFPAY ==
[2022-10-13 13:44] VITALS: BMI 25.8
[2023-01-17 13:07] LABS: Influenza A - CEPHEID Flu A NEGATIVE (NEGATIVE); Influenza B - CEPHEID Flu B NEGATIVE (NEGATIVE); Respiratory Syncytial Virus Negative (Negative)
[2023-01-17 13:16] LABS: COVID-19 CEPHEID 4-PLEX PCR Negative (Negative)
== END ==
PROVIDERS: Family Provider Internal Medicine; PCP Internal Medicine; Visit Provider Physician Assistant
DX: R09.81 Nasal congestion (principal); R05.1 Acute cough; Z20.828 Contact with and (suspected) exposure to other viral communicable diseases
CPT/HCPCS: 0241U

== ENCOUNTER 2023-02-17 23:40 | Emergency (ER) | payer MEDICARE, OTHER, SELFPAY ==
[2022-10-13 13:44] VITALS: BMI 25.8
[2023-02-17 23:45] VITALS: BP 167/78; PULSE 66; RESP 18; TEMP 36.1; O2SAT 97; BMI 25.8
--- NOTE | 2023-02-17 23:56 | DI.RAD.S_ITS ---
PROCEDURE: XR CHEST 1V INDICATIONS: cough with sore chest TECHNIQUE: One view of the chest was acquired. COMPARISON: [facility], , XR CHEST 1V, 11/12/2022, 13:05. FINDINGS: Surgical changes and devices: Left chest wall pacemaker and dual leads are redemonstrated. Lungs and pleura: The right apex is partially obscured by patient's neck soft tissues. No definite pneumothorax or pleural effusions. Visualized lungs are clear. Mediastinum: Mediastinal contours appear unchanged. Heart size is normal. Bones and chest wall: No suspicious bony lesions. Overlying soft tissues appear unremarkable. IMPRESSION: 1. No definite acute cardiopulmonary disease. Dictated by: Shan Thakkar M.D. on 02/18/2023 at 0:39 Approved by: Shan Thakkar M.D. on 02/18/2023 at 0:40
--- NOTE | 2023-02-18 00:24 | ED.GENADULT ---
HPI - General Adult General Chief complaint: Upper Respiratory Symptoms Stated complaint: COUGH, SORE CHEST Time Seen by Provider: 02/17/23 23:56 Source: patient Mode of arrival: Ambulatory History of Present Illness HPI narrative: Patient is an 87-year-old female. Does have a history of COPD. Does have albuterol another nebulizers at home. States she is used those several times today. She is here for a couple days of congestion and coughing and wheezing. It is not productive cough. No fevers. She states the coughing is causing her to have somewhat of a sore chest. No sinus congestion. No sore throat. Related Data Home Medications Medication Instructions Recorded Confirmed liothyronine 5 mcg tablet (Cytomel) 10 mcg PO QDAY ##0 05/27/11 01/17/23 econazole 1 % topical cream 1 applic topical DAILY 02/04/21 01/17/23 polyethylene glycol 3350 17 17 g PO BID 02/04/21 01/17/23 gram/dose oral powder (Miralax) acyclovir 5 % topical cream 1 applic topical QID PRN Rash 02/26/22 01/17/23 levothyroxine 137 mcg tablet 68.5 mcg PO DAILY 02/26/22 01/17/23 sotalol 80 mg tablet 80 mg PO BID 02/26/22 01/17/23 ascorbic acid (vitamin C) 1,000 mg 1,000 mg PO DAILY 07/01/22 01/17/23 tablet calcium carbonate 500 mg calcium 500 mg PO DAILY 07/01/22 01/17/23 (1,250 mg) tablet cholecalciferol (vitamin D3) 25 25 mcg PO DAILY 07/01/22 01/17/23 mcg (1,000 unit) capsule magnesium oxide 400 mg PO DAILY 07/01/22 01/17/23 Previous Rx's Medication Instructions Recorded Oral Appliance #1 ea 07/28/21 albuterol sulfate 90 mcg/actuation 2 puff inhalation Q6H PRN 04/23/22 aerosol inhaler shortness of breath or wheezing #8.5 grams inhalational spacing device #1 ea 04/30/22 (Flexichamber spacer) apixaban 5 mg tablet (Eliquis) 5 mg PO BID #180 tabs 07/01/22 fluticasone propionate 220 2 puff inhalation BID #36 grams 07/01/22 mcg/actuation HFA aerosol inhaler furosemide 20 mg tablet 10 mg PO DAILY #90 tabs 07/01/22 linaclotide 72 mcg capsule 72 mcg PO DAILY #90 caps 07/01/22 (Linzess) rosuvastatin 10 mg tablet 10 mg PO DAILY #90 tabs 07/01/22 estradiol 0.01% (0.1 mg/gram) 1 g vaginal 3XW #42.5 grams 09/15/22 vaginal cream albuterol sulfate 2.5 mg/3 mL See Rx Instructions .Route 01/10/23 (0.083 %) solution for nebulization .COMPLEX #90 mL potassium chloride 10 mEq 20 meq PO DAILY #180 caps 02/08/23 capsule,extended release azithromycin 250 mg tablet 250 mg PO DAILY 4 days #4 tabs 02/18/23 prednisone 20 mg tablet 20 mg PO DAILY #6 tabs 02/18/23 Allergies Allergy/AdvReac Type Severity Reaction Status Date / Time ciprofloxacin [CIPROFLOXACIN] Allergy Severe Rash Verified 01/17/23 08:53 sulfamethoxazole Allergy Unknown RASH Verified 01/17/23 08:53 [From SEPTRA] trimethoprim [From SEPTRA] Allergy Unknown RASH Verified 01/17/23 08:53 metronidazole [From FLAGYL] AdvReac Unknown REALLY Verified 01/17/23 08:53 HARSH ON STOMACH Review of Systems Constitutional Constitutional: Reports system reviewed and no additional complaints, except as documented ENT Ears, Nose, Mouth, and Throat: Reports system reviewed and no additional complaints, except as documented Respiratory Respiratory: Reports system reviewed and no additional complaints, except as documented Integumentary/Breasts Skin/Breast: Reports system reviewed and no additional complaints, except as documented Neurologic Neurologic: Reports system reviewed and no additional complaints, except as documented Patient History Medical History Abnormal mammogram Acquired hypothyroidism Atrial fibrillation (~2020) BPPV (benign paroxysmal positional vertigo) Chicken pox Chronic anticoagulation Colon polyps Constipation by delayed colonic transit COPD (chronic obstructive pulmonary disease) Diastolic CHF Diverticular disease Do not resuscitate Hearing loss Herpes Measles Menopausal syndrome Mixed hyperlipidemia Mumps Obstructive sleep apnea syndrome Paroxysmal atrial fibrillation Pneumonia Shortness of breath Stage 3a chronic kidney disease (CKD) Tachy-cheryl syndrome Vision disorder Surgical History Anesthesia H/O: hysterectomy (~1984) History of femoral derotational osteotomy (~1983) History of hip surgery (~2007) History of right hip replacement (~2007) History of tonsillectomy and adenoidectomy (~1949) S/P cardiac pacemaker procedure Family History Father History of heart disease Mother Hypertension Alcoholism Sister Cancer Grandmother Cancer Grandmother Cancer Social History household members: spouse and children Smoking Status: Former smoker alcohol intake: never Smoking Status: Former smoker tobacco type: cigarettes alcohol intake frequency: holidays/special occasions only Substance Use Type: does not use Exam Initial Vital Signs Initial Vital Signs: Vital Signs Temperature 96.9 F L 02/17/23 23:45 Pulse Rate 66 02/17/23 23:45 Respiratory Rate 18 02/17/23 23:45 Blood Pressure 167/78 H 02/17/23 23:45 Pulse Oximetry 97 02/17/23 23:45 Oxygen Delivery Method Room Air 02/17/23 23:45 HENMT Head: normal to inspection and normocephalic Resp Effort & Inspection: not labored and not tachypneic Auscultation: diminished lung sounds, rhonchi and wheezes Skin General: no rashes or lesions noted Neuro General: patient alert, patient awake and moves all extremities Extrem General: normal to inspection Course Orders Ordered: ED Orders 02/17/23 23:56 XR chest 1V Stat Discontinued Medications Albuterol/Ipratropium (Albuterol/Ipratropium 3 Ml Ampul) 3 ml INH NOW ONE Stop: 02/18/23 00:38 Last Admin: 02/18/23 00:57 Dose: 3 ml Documented By: STAN Azithromycin (Azithromycin 250 Mg Tablet) 500 mg PO NOW ONE Stop: 02/18/23 01:25 Last Admin: 02/18/23 01:38 Dose: 500 mg Documented By: AP Cyclobenzaprine HCl (Cyclobenzaprine 10 Mg Prepack) 1 bottle MISC SEEINSTR ONE Stop: 02/18/23 00:25 Last Admin: 02/18/23 01:08 Dose: Not Given Documented By: RB Prednisone (Prednisone 20 Mg Tablet) 20 mg PO NOW ONE Stop: 02/18/23 00:38 Last Admin: 02/18/23 01:16 Dose: 20 mg Documented By: MUNDO Vital Signs Vital signs: Vital Signs - 8 hr 02/17/23 23:45 02/18/23 00:57 Temperature 96.9 F L Pulse Rate 66 78 Respiratory Rate 18 18 Blood Pressure 167/78 H Pulse Oximetry 97 97 Oxygen Delivery Method Room Air Room Air Oxygen Flow Rate 0 Fraction of Inspired Oxygen 21 Medical Decision Making Imaging Data Chest x-ray: Radiologist's Impression: PROCEDURE:? XR CHEST 1V ? INDICATIONS:? cough with sore chest ? TECHNIQUE:? One view of the chest was acquired.? ? COMPARISON:? [facility], [facility], XR CHEST 1V, 11/12/2022, 13:05. ? FINDINGS:? ? Surgical changes and devices:? Left chest wall pacemaker and dual leads are redemonstrated.? ? Lungs and pleura:? The right apex is partially obscured by patient's neck soft tissues.? No definite pneumothorax or pleural effusions.? Visualized lungs are clear. ? Mediastinum:? Mediastinal contours appear unchanged.? Heart size is normal.? ? Bones and chest wall:? No suspicious bony lesions.? Overlying soft tissues appear unremarkable.? ? IMPRESSION:? ? 1. No definite acute cardiopulmonary disease. [facility] Narrative Medical decision making narrative: Patient is well-appearing. She does have very coarse breath sounds bilaterally with wheezing and also a very raspy wet cough. Chest x-ray does not show any signs of pneumonia. She does feel somewhat better after nebulizer here in the ER. She was given a dose of steroids. Given her age, how she presents, cough, history of COPD treating with antibiotics for COPD exacerbation is not unreasonable. She was given a 1st dose here in the ER and will sent home with a prescription for the remainder of the course. She was given return precautions and follow-up instructions. She expressed understanding and agreement with plan. Discharge Plan Departure Patient Disposition: Home Clinical Impression: Bronchitis, COPD exacerbation Instructions: DI for Bronchiolitis Activity Restrictions/Additional Instructions: Take the medications at home like we discussed. They were sent to [facility] per your request. I also recommend that you continue with the nebulizers. Contact your primary doctor for a follow-up. Return to the emergency department for new symptoms. Prescriptions: New azithromycin 250 mg tablet 250 mg PO DAILY 4 Days Qty: 4 0RF Rx Instructions: start on day 2 of therapy prednisone 20 mg tablet 20 mg PO DAILY Qty: 6 0RF No Action liothyronine [Cytomel] 5 MCG tablet 10 mcg PO QDAY Qty: 0 (DME) Oral Appliance See Rx Instructions .Route .MEDSUPPLY Qty: 1 0RF Rx Instructions: patient with AHI of 10.4 (DME) Flexichamber Spacer See Rx Instructions .Route Qty: 1 2RF Rx Instructions: As directed estradiol 0.01 % (0.1 mg/gram) cream 1 g vaginal 3XW Qty: 42.5 4RF albuterol sulfate 2.5 mg /3 mL (0.083 %) solution for nebulization See Rx Instructions .ROUTE .COMPLEX Qty: 90 3RF Dose Instruction: 1 VIAL VIA NEBULIZER FOUR TIMES DAILY Rx Instructions: 1 VIAL VIA NEBULIZER FOUR TIMES DAILY potassium chloride 10 mEq capsule, extended release 20 meq PO DAILY Qty: 180 3RF cholecalciferol (vitamin D3) 25 mcg (1,000 unit) capsule 25 mcg PO DAILY magnesium oxide 400 mg magnesium tablet 400 mg PO DAILY calcium carbonate 500 mg calcium (1,250 mg) tablet 500 mg PO DAILY ascorbic acid (vitamin C) 1,000 mg tablet 1,000 mg PO DAILY fluticasone propionate 220 mcg/actuation HFA aerosol inhaler 2 puff inhalation BID Qty: 36 3RF Eliquis 5 mg tablet 5 mg PO BID Qty: 180 3RF furosemide 20 mg tablet 10 mg PO DAILY Qty: 90 3RF Rx Instructions: take 1/2 to 1 to 2 tabs by mouth once daily as needed Linzess 72 mcg capsule 72 mcg PO DAILY Qty: 90 3RF rosuvastatin 10 mg tablet 10 mg PO DAILY Qty: 90 3RF albuterol sulfate 90 mcg/actuation HFA aerosol inhaler 2 puff inhalation Q6H PRN (Reason: shortness of breath or wheezing) Qty: 8.5 5RF econazole 1 % Cream 1 applic TOPICAL DAILY polyethylene glycol 3350 [Miralax] 17 gram/dose Powder 17 g PO BID levothyroxine 137 mcg tablet 68.5 mcg PO DAILY Patient Comments: TAKE ONE-HALF TABLET BY MOUTH DAILY Rx Instructions: TAKE ONE-HALF TABLET BY MOUTH DAILY sotalol 80 mg tablet 80 mg PO BID Rx Instructions: take 80 mg daily twice daily acyclovir 5 % cream 1 applic TOPICAL QID PRN (Reason: Rash) Patient Comments: APPLY ONE-HALF GRAM TO AFFECTED AREA FOUR TIMES A DAY NEEDED Rx Instructions: as needed APPLY ONE-HALF GRAM TO AFFECTED AREA FOUR TIMES A DAY NEEDED Referrals: Thompson Vicente MD [Primary Care Provider] - Stand Alone Forms: Patient Portal/API
[2023-02-18 00:57] VITALS: PULSE 78; RESP 18; O2SAT 97
[2023-02-18] MEDS: ALBUTEROL/IPRATROPIUM 3 ML AMPUL INH (00:57)
[2023-02-18] MEDS: predniSONE 20 MG TABLET PO (01:16)
[2023-02-18] MEDS: AZITHROMYCIN 250 MG TABLET 500 MG PO (01:38)
[2023-02-18 01:47] VITALS: BP 160/80; PULSE 64; RESP 18; O2SAT 97
== END 2023-02-18 01:48 | disposition home or self-care (01) ==
PROVIDERS: Emergency Provider Emergency Medicine; Family Provider Internal Medicine; PCP Internal Medicine
DX: J40 Bronchitis, not specified as acute or chronic (principal); J44.1 Chronic obstructive pulmonary disease with (acute) exacerbation
CPT/HCPCS: 71045; 94640; 99283

== ENCOUNTER 2023-02-28 20:33 | Emergency (ER) | payer MEDICARE, OTHER, SELFPAY ==
[2022-10-13 13:44] VITALS: BMI 25.8
[2023-02-28] VITALS (9 sets, daily range): BP systolic 161–203; BP diastolic 76–94; PULSE 64–70; RESP 19–27; TEMP 36.6; O2SAT 87–98
--- NOTE | 2023-02-28 20:51 | ED.GENADULT ---
HPI - General Adult General Chief complaint: Shortness of Breath/Dyspnea Stated complaint: Pain to lt. side/trouble breathing Time Seen by Provider: 02/28/23 20:51 Source: patient Mode of arrival: Ambulatory Limitations: no limitations History of Present Illness HPI narrative: Patient is an 87-year-old female is on anticoagulation. States it baseline she does have issues with problems breathing. She is not on oxygen at home. States that this evening she felt somewhat more short of breath. She got out of the shower and noticed some fairly significant bruising in her left lower abdomen along her lower abdomen in her groin area. Also took her blood pressure at home and she was hypertensive. She denies any trauma to her abdomen. She does have left lower quadrant pain. She states that she thinks that maybe she has diverticulitis she is had this in the past. She denies any fevers. No urinary symptoms. No change in bowel habits. She has been taking all of her medications as directed. Related Data Home Medications Medication Instructions Recorded Confirmed liothyronine 5 mcg tablet (Cytomel) 10 mcg PO QDAY ##0 05/27/11 01/17/23 econazole 1 % topical cream 1 applic topical DAILY 02/04/21 01/17/23 polyethylene glycol 3350 17 17 g PO BID 02/04/21 01/17/23 gram/dose oral powder (Miralax) acyclovir 5 % topical cream 1 applic topical QID PRN Rash 02/26/22 01/17/23 levothyroxine 137 mcg tablet 68.5 mcg PO DAILY 02/26/22 01/17/23 sotalol 80 mg tablet 80 mg PO BID 02/26/22 01/17/23 ascorbic acid (vitamin C) 1,000 mg 1,000 mg PO DAILY 07/01/22 01/17/23 tablet calcium carbonate 500 mg calcium 500 mg PO DAILY 07/01/22 01/17/23 (1,250 mg) tablet cholecalciferol (vitamin D3) 25 25 mcg PO DAILY 07/01/22 01/17/23 mcg (1,000 unit) capsule magnesium oxide 400 mg PO DAILY 07/01/22 01/17/23 Previous Rx's Medication Instructions Recorded Oral Appliance #1 ea 07/28/21 albuterol sulfate 90 mcg/actuation 2 puff inhalation Q6H PRN 04/23/22 aerosol inhaler shortness of breath or wheezing #8.5 grams inhalational spacing device #1 ea 04/30/22 (Flexichamber spacer) apixaban 5 mg tablet (Eliquis) 5 mg PO BID #180 tabs 07/01/22 fluticasone propionate 220 2 puff inhalation BID #36 grams 07/01/22 mcg/actuation HFA aerosol inhaler furosemide 20 mg tablet 10 mg PO DAILY #90 tabs 07/01/22 linaclotide 72 mcg capsule 72 mcg PO DAILY #90 caps 07/01/22 (Linzess) rosuvastatin 10 mg tablet 10 mg PO DAILY #90 tabs 07/01/22 estradiol 0.01% (0.1 mg/gram) 1 g vaginal 3XW #42.5 grams 09/15/22 vaginal cream albuterol sulfate 2.5 mg/3 mL See Rx Instructions .Route 01/10/23 (0.083 %) solution for nebulization .COMPLEX #90 mL potassium chloride 10 mEq 20 meq PO DAILY #180 caps 02/08/23 capsule,extended release prednisone 20 mg tablet 20 mg PO DAILY #6 tabs 02/18/23 benzonatate 100 mg capsule 100 mg PO BID-TID PRN cough #20 03/01/23 caps Allergies Allergy/AdvReac Type Severity Reaction Status Date / Time ciprofloxacin [CIPROFLOXACIN] Allergy Severe Rash Verified 01/17/23 08:53 sulfamethoxazole Allergy Unknown RASH Verified 01/17/23 08:53 [From SEPTRA] trimethoprim [From SEPTRA] Allergy Unknown RASH Verified 01/17/23 08:53 metronidazole [From FLAGYL] AdvReac Unknown REALLY Verified 01/17/23 08:53 HARSH ON STOMACH Review of Systems Constitutional Constitutional: Reports system reviewed and no additional complaints, except as documented Cardiovascular Cardiovascular: Reports system reviewed and no additional complaints, except as documented Respiratory Respiratory: Reports system reviewed and no additional complaints, except as documented Gastrointestinal Gastrointestinal: Reports system reviewed and no additional complaints, except as documented Genitourinary Genitourinary: Reports system reviewed and no additional complaints, except as documented Integumentary/Breasts Skin/Breast: Reports system reviewed and no additional complaints, except as documented Neurologic Neurologic: Reports system reviewed and no additional complaints, except as documented Hematologic/Lymphatic On Anticoagulants: Yes Patient History Medical History Abnormal mammogram Acquired hypothyroidism Atrial fibrillation (~2020) BPPV (benign paroxysmal positional vertigo) Chicken pox Chronic anticoagulation Colon polyps Constipation by delayed colonic transit COPD (chronic obstructive pulmonary disease) Diastolic CHF Diverticular disease Do not resuscitate Hearing loss Herpes Measles Menopausal syndrome Mixed hyperlipidemia Mumps Obstructive sleep apnea syndrome Paroxysmal atrial fibrillation Pneumonia Shortness of breath Stage 3a chronic kidney disease (CKD) Tachy-cheryl syndrome Vision disorder Surgical History Anesthesia H/O: hysterectomy (~1984) History of femoral derotational osteotomy (~1983) History of hip surgery (~2007) History of right hip replacement (~2007) History of tonsillectomy and adenoidectomy (~1949) S/P cardiac pacemaker procedure Family History Father History of heart disease Mother Hypertension Alcoholism Sister Cancer Grandmother Cancer Grandmother Cancer Social History household members: spouse and children Smoking Status: Former smoker alcohol intake: never Smoking Status: Former smoker tobacco type: cigarettes alcohol intake frequency: holidays/special occasions only Substance Use Type: does not use Exam Initial Vital Signs Initial Vital Signs: Vital Signs Temperature 97.8 F 02/28/23 20:35 Pulse Rate 70 02/28/23 20:35 Respiratory Rate 27 H 02/28/23 20:35 Blood Pressure 203/94 H 02/28/23 20:35 Pulse Oximetry 87 L 02/28/23 20:35 Oxygen Delivery Method Room Air 02/28/23 20:35 Const General: cooperative, comfortable and No ill appearing [facility] Head: normal to inspection and normocephalic Resp Effort & Inspection: not labored and tachypneic Auscultation: clear to auscultation bilaterally Cardio Rate: regular rate Rhythm: regular rhythm GI Inspection: non-distended Palpation: soft and tender (Lower abdomen) Skin Other: Patient has very extensive bruising on her lower abdomen/pannus that does extend down into her groin area. His bilateral. She also has some petechiae on her upper extremities. Neuro General: patient alert and patient awake Extrem General: normal to inspection and capillary refill normal Course Orders Ordered: ED Orders 02/28/23 20:55 RT Consult Eval and Treat NOW 02/28/23 21:00 Complete Blood Count AUTO DIFF Stat Comprehensive Metabolic Panel Stat Lipase Stat PTT Partial Thromboplastin Jose Stat Prothrombin Time INR Stat Troponin & CK Cardiac Panel Stat Type and Screen Stat 02/28/23 22:29 Urine Culture Stat Urine Microscopic Stat 02/28/23 23:01 Hemoglobin and Hematocrit Stat 03/01/23 00:55 Hemoglobin and Hematocrit Stat 03/01/23 03:20 Hemoglobin and Hematocrit Stat Discontinued Medications Albuterol (Albuterol 2.5 Mg/3 Ml Neb (Adult)) 2.5 mg INH NOW ONE Stop: 02/28/23 21:00 Last Admin: 02/28/23 21:00 Dose: 2.5 mg Documented By: STAN Benzonatate (Benzonatate 100 Mg Capsule) 100 mg PO NOW ONE Stop: 02/28/23 23:05 Last Admin: 02/28/23 23:42 Dose: 100 mg Documented By: CATHERINE Vital Signs Vital signs: Vital Signs - 8 hr 02/28/23 22:00 02/28/23 22:06 02/28/23 22:06 Pulse Rate 65 65 Respiratory Rate Blood Pressure 161/76 H Pulse Oximetry 95 94 Oxygen Delivery Method Nasal Cannula Oxygen Flow Rate 2 02/28/23 22:30 02/28/23 23:00 02/28/23 23:30 Pulse Rate 64 64 64 Respiratory Rate 21 23 19 Blood Pressure Pulse Oximetry 98 97 98 Oxygen Delivery Method Oxygen Flow Rate 03/01/23 00:00 03/01/23 00:30 03/01/23 01:00 Pulse Rate 64 64 64 Respiratory Rate 17 19 21 Blood Pressure Pulse Oximetry 98 98 98 Oxygen Delivery Method Oxygen Flow Rate 03/01/23 01:30 03/01/23 02:00 03/01/23 02:30 Pulse Rate 64 64 64 Respiratory Rate 19 18 18 Blood Pressure Pulse Oximetry 97 97 97 Oxygen Delivery Method Room Air Oxygen Flow Rate 03/01/23 03:00 03/01/23 03:30 03/01/23 04:00 Pulse Rate 64 64 64 Respiratory Rate 19 20 20 Blood Pressure Pulse Oximetry 98 98 92 Oxygen Delivery Method Oxygen Flow Rate 03/01/23 04:07 03/01/23 04:07 Pulse Rate 64 Respiratory Rate 23 Blood Pressure 162/79 H Pulse Oximetry Oxygen Delivery Method Oxygen Flow Rate Medical Decision Making Lab Data Lab results reviewed: Yes I reviewed the patient's lab results. 03/01/23 03:20 02/28/23 21:00 Labs: Lab Results 02/28/23 02/28/23 02/28/23 Range/Units 21:00 21:00 21:00 WBC 10.1 (4.5-11.0) X10^3/uL RBC 3.97 L (4.0-5.2) X10^6/uL Hgb 12.2 (12.0-16.0) g/dL Hct 36.8 (36-46) % MCV 91.2 (80-100) fL MCH 30.8 (26-34) PG MCHC 34.1 (30-36) % RDW 14.1 (11.6-14.8) % Plt Count 293 (150-400) X10^3/uL Neut % (Auto) 72.6 (50-75) % Lymph % (Auto) 17.7 L (25-40) % [place] % (Auto) 8.1 (3-14) % Eos % (Auto) 0.1 L (2-4) % Baso % (Auto) 1.5 (0-2) % Neut # (Auto) 7400 H (9311-0951) /uL Lymph # (Auto) 1800 (6054-1988) /uL [place] # (Auto) 800 (0-900) /uL Eos # (Auto) 0 (0-450) /uL Baso # (Auto) 100 (0-100) /uL PT 14.7 H (10.1-12.7) SECONDS INR 1.3 (0.9-1.3) APTT 33 (26-36) SECONDS Sodium 136 L (137-145) mmol/L Potassium 4.4 (3.4-5.1) mmol/L Chloride 102 (98-107) mmol/L Carbon Dioxide 26 (22-32) mmol/L BUN 22 H (7-17) mg/dL Creatinine 1.29 H (0.52-1.04) mg/dL Estimated GFR 41 L (>60) mL/min BUN/Creatinine Ratio 17.1 (6-22) Glucose 94 (80-110) mg/dL Calcium 8.5 (8.4-10.2) mg/dL Total Bilirubin 0.7 (0.2-1.3) mg/dL AST 38 H (14-36) IU/L ALT 29 (<35) IU/L Alkaline Phosphatase 57 (38-126) U/L Total Creatine Kinase 118 (30-135) U/L CK-MB (CK-2) 0.76 (<2.37) ng/mL CK-MB (CK-2) Rel Index 0.6 L (1.5-5.0) % Troponin I < 0.012 (0.01-0.034) ng/mL Total Protein 7.3 (6.3-8.2) g/dL Albumin 4.1 (3.5-5.0) g/dL Globulin 3.2 (1.7-4.1) g/dL Albumin/Globulin Ratio 1.3 (1.0-2.8) Lipase 239 (23-300) U/L Urine RBC (0-5/HPF) Urine WBC (0-5/HPF) Urine Bacteria (None) Ur Culture Indicated? Blood Type Antibody Screen 02/28/23 02/28/23 02/28/23 Range/Units 21:00 22:29 23:01 WBC (4.5-11.0) X10^3/uL RBC (4.0-5.2) X10^6/uL Hgb 11.7 L (12.0-16.0) g/dL Hct 34.8 L (36-46) % MCV (80-100) fL MCH (26-34) PG MCHC (30-36) % RDW (11.6-14.8) % Plt Count (150-400) X10^3/uL Neut % (Auto) (50-75) % Lymph % (Auto) (25-40) % [place] % (Auto) (3-14) % Eos % (Auto) (2-4) % Baso % (Auto) (0-2) % Neut # (Auto) (1238-1907) /uL Lymph # (Auto) (0941-2195) /uL [place] # (Auto) (0-900) /uL Eos # (Auto) (0-450) /uL Baso # (Auto) (0-100) /uL PT (10.1-12.7) SECONDS INR (0.9-1.3) APTT (26-36) SECONDS Sodium (137-145) mmol/L Potassium (3.4-5.1) mmol/L Chloride (98-107) mmol/L Carbon Dioxide (22-32) mmol/L BUN (7-17) mg/dL Creatinine (0.52-1.04) mg/dL Estimated GFR (>60) mL/min BUN/Creatinine Ratio (6-22) Glucose (80-110) mg/dL Calcium (8.4-10.2) mg/dL Total Bilirubin (0.2-1.3) mg/dL AST (14-36) IU/L ALT (<35) IU/L Alkaline Phosphatase (38-126) U/L Total Creatine Kinase (30-135) U/L CK-MB (CK-2) (<2.37) ng/mL CK-MB (CK-2) Rel Index (1.5-5.0) % Troponin I (0.01-0.034) ng/mL Total Protein (6.3-8.2) g/dL Albumin (3.5-5.0) g/dL Globulin (1.7-4.1) g/dL Albumin/Globulin Ratio (1.0-2.8) Lipase (23-300) U/L Urine RBC None seen (0-5/HPF) Urine WBC None seen (0-5/HPF) Urine Bacteria None seen (None) Ur Culture Indicated? Cult not indicated Blood Type A Positive Antibody Screen Negative 03/01/23 03/01/23 Range/Units 00:55 03:20 WBC (4.5-11.0) X10^3/uL RBC (4.0-5.2) X10^6/uL Hgb 11.1 L 11.4 L (12.0-16.0) g/dL Hct 32.9 L 34.0 L (36-46) % MCV (80-100) fL MCH (26-34) PG MCHC (30-36) % RDW (11.6-14.8) % Plt Count (150-400) X10^3/uL Neut % (Auto) (50-75) % Lymph % (Auto) (25-40) % [place] % (Auto) (3-14) % Eos % (Auto) (2-4) % Baso % (Auto) (0-2) % Neut # (Auto) (9790-9899) /uL Lymph # (Auto) (4031-5315) /uL [place] # (Auto) (0-900) /uL Eos # (Auto) (0-450) /uL Baso # (Auto) (0-100) /uL PT (10.1-12.7) SECONDS INR (0.9-1.3) APTT (26-36) SECONDS Sodium (137-145) mmol/L Potassium (3.4-5.1) mmol/L Chloride (98-107) mmol/L Carbon Dioxide (22-32) mmol/L BUN (7-17) mg/dL Creatinine (0.52-1.04) mg/dL Estimated GFR (>60) mL/min BUN/Creatinine Ratio (6-22) Glucose (80-110) mg/dL Calcium (8.4-10.2) mg/dL Total Bilirubin (0.2-1.3) mg/dL AST (14-36) IU/L ALT (<35) IU/L Alkaline Phosphatase (38-126) U/L Total Creatine Kinase (30-135) U/L CK-MB (CK-2) (<2.37) ng/mL CK-MB (CK-2) Rel Index (1.5-5.0) % Troponin I (0.01-0.034) ng/mL Total Protein (6.3-8.2) g/dL Albumin (3.5-5.0) g/dL Globulin (1.7-4.1) g/dL Albumin/Globulin Ratio (1.0-2.8) Lipase (23-300) U/L Urine RBC (0-5/HPF) Urine WBC (0-5/HPF) Urine Bacteria (None) Ur Culture Indicated? Blood Type Antibody Screen Urine Dip Bedside Urine Glucose Negative Bedside Urine Bilirubin - Negative Bedside Urine Ketone +/- 5 Urine Specific [place] 1.010 Bedside Urine Occult Blood +/- Bedside Urine pH 5.0 Bedside Urine Protein - Negative Bedside Urine Urobilinogen - Negative Bedside Urine Nitrite - Negative Bedside Urine Leukocytes - Negative Esterase Point of care testing: Urine Dip Bedside Urine Glucose Negative Bedside Urine Bilirubin - Negative Bedside Urine Ketone +/- 5 Urine Specific [place] 1.010 Bedside Urine Occult Blood +/- Bedside Urine pH 5.0 Bedside Urine Protein - Negative Bedside Urine Urobilinogen - Negative Bedside Urine Nitrite - Negative Bedside Urine Leukocytes - Negative Esterase Imaging Data CT scan - abdomen/pelvis: Radiologist's Impression: PROCEDURE:? CT ABDOMEN PELVIS W CON ? INDICATIONS:? Left lower quadrant abdominal pain with abdominal wall bruis ? TECHNIQUE:? After the administration of oral and IV contrast, axial sections were acquired from the lung bases to the pubic symphysis.? Coronal and sagittal reformats were performed.? For radiation dose reduction, the following was used:? automated exposure control, adjustment of mA and/or kV according to patient size. ? COMPARISON:? [facility], CT, ABDOMEN/PELVIS WITH CONTRAST, 07/24/2017, 1:57. ? FINDINGS:? Image quality:? Excellent.? ? Lung bases:? Right basilar opacity which has the appearance of atelectasis.? ? Heart:? Pacemaker leads. ? ? ABDOMEN: Liver:? No focal lesion.? ? Gallbladder:? Unremarkable.? ? Biliary ducts:? Unremarkable.? ? Pancreas:? Unremarkable.? ? Spleen:? No perisplenic fluid.? ? Adrenal Glands:? Unremarkable.? ? Kidneys and Ureters:? No hydronephrosis.? No perinephric fluid. ? ? Stomach and Bowel:? Stomach, small bowel loops, and colon are unremarkable.? Diverticulosis.? Peritoneum:? No abnormal intraperitoneal fluid.? No free air.? ? Ventral Wall: ? No hernia.? Left flank intramuscular hematoma measuring 5.3 x 4.5 x 2.7 cm.? Estimated volume of 33 cc. Abdominal Nodes:? No retroperitoneal or mesenteric adenopathy by size criteria.? Vessels:? Aorta and inferior vena cava are normal in size.? ? PELVIS:? Beam hardening artifact. Pelvic Organs:? Uterus is absent.? ? Bladder:? Unremarkable. Pelvic Nodes: No enlarged lymph nodes.? Miscellaneous: No inguinal hernias are seen. ? ? ? Bones:? Right hip arthroplasty.? Left hip ORIF.? No hardware fracture demonstrated.? No fracture.? DDD. ? ? IMPRESSION:? 1. Left flank intramuscular hematoma measuring 5.3 cm and approximately 33 cc. ? 2. No free fluid in the abdomen or pelvis.? No fracture. Chest x-ray: Radiologist's Impression: PROCEDURE:? XR CHEST 1V ? INDICATIONS:? Short of breath ? TECHNIQUE:? One view of the chest was acquired.? ? COMPARISON:? [facility], CT, CT ABDOMEN PELVIS W CON, 02/28/2023, 21:36.? [facility], CR, XR CHEST 1V, 02/17/2023, 23:53.? [facility], CR, XR CHEST 1V, 11/12/2022, 13:05. ? FINDINGS:? ? Surgical changes and devices:? Left pacemaker with right atrial and right ventricular leads. ? Lungs and pleura:? Lungs are clear.? No pleural effusions or pneumothorax.? ? Mediastinum:? Mediastinal contours appear normal.? Heart size is normal.? ? Bones and chest wall:? No suspicious bony lesions.? Overlying soft tissues appear unremarkable.? ? IMPRESSION:? No acute cardiopulmonary abnormality identified. ECG Data Attestation: I personally reviewed and interpreted this ECG as follows: Interpretation: Atrially paced Ventricular rate is 65 Left axis deviation Nonspecific ST T wave changes MDM Narrative Medical decision making narrative: Patient is maintaining her oxygen saturations off oxygen. She states that she feels like the Tessalon Perles has helped her cough. She is very extensive bruising along her lower abdomen. The CT scan does not show any intra-abdominal pathology. She does have a subcutaneous/intramuscular hematoma in this area. Unsure the etiology this. She was kept for several hours for observation with serial hemoglobin and hematocrit with stabilization of these. There was no indication for surgical consultation. No indication for blood transfusion. Is no indication for antibiotics. We did discuss the bruising her lower abdomen and what to expect over the next several days/weeks. I suspect it will be quite a long time before this resolves. She was given strict return precautions. She expressed understanding and agreement. Discharge Plan Departure Patient Disposition: Home Clinical Impression: Hematoma of abdominal wall, Cough Instructions: DI for Hematoma (Bruise) Activity Restrictions/Additional Instructions: I do recommend that you continue to take all of your medications as directed. I would not be surprised if the bruising around your abdomen spreads and potentially get somewhat worse over the next couple days. This will take several days or week or longer for it to resolve. Contact your primary doctor for follow-up. Return to the emergency department for any new or worsening symptoms. Prescriptions: New benzonatate 100 mg capsule 100 mg PO BID-TID PRN (Reason: cough) Qty: 20 0RF No Action liothyronine [Cytomel] 5 MCG tablet 10 mcg PO QDAY Qty: 0 (DME) Oral Appliance See Rx Instructions .Route .MEDSUPPLY Qty: 1 0RF Rx Instructions: patient with AHI of 10.4 (DME) Flexichamber Spacer See Rx Instructions .Route Qty: 1 2RF Rx Instructions: As directed estradiol 0.01 % (0.1 mg/gram) cream 1 g vaginal 3XW Qty: 42.5 4RF albuterol sulfate 2.5 mg /3 mL (0.083 %) solution for nebulization See Rx Instructions .ROUTE .COMPLEX Qty: 90 3RF Dose Instruction: 1 VIAL VIA NEBULIZER FOUR TIMES DAILY Rx Instructions: 1 VIAL VIA NEBULIZER FOUR TIMES DAILY potassium chloride 10 mEq capsule, extended release 20 meq PO DAILY Qty: 180 3RF cholecalciferol (vitamin D3) 25 mcg (1,000 unit) capsule 25 mcg PO DAILY magnesium oxide 400 mg magnesium tablet 400 mg PO DAILY calcium carbonate 500 mg calcium (1,250 mg) tablet 500 mg PO DAILY ascorbic acid (vitamin C) 1,000 mg tablet 1,000 mg PO DAILY fluticasone propionate 220 mcg/actuation HFA aerosol inhaler 2 puff inhalation BID Qty: 36 3RF Eliquis 5 mg tablet 5 mg PO BID Qty: 180 3RF furosemide 20 mg tablet 10 mg PO DAILY Qty: 90 3RF Rx Instructions: take 1/2 to 1 to 2 tabs by mouth once daily as needed Linzess 72 mcg capsule 72 mcg PO DAILY Qty: 90 3RF rosuvastatin 10 mg tablet 10 mg PO DAILY Qty: 90 3RF albuterol sulfate 90 mcg/actuation HFA aerosol inhaler 2 puff inhalation Q6H PRN (Reason: shortness of breath or wheezing) Qty: 8.5 5RF econazole 1 % Cream 1 applic TOPICAL DAILY polyethylene glycol 3350 [Miralax] 17 gram/dose Powder 17 g PO BID levothyroxine 137 mcg tablet 68.5 mcg PO DAILY Patient Comments: TAKE ONE-HALF TABLET BY MOUTH DAILY Rx Instructions: TAKE ONE-HALF TABLET BY MOUTH DAILY sotalol 80 mg tablet 80 mg PO BID Rx Instructions: take 80 mg daily twice daily acyclovir 5 % cream 1 applic TOPICAL QID PRN (Reason: Rash) Patient Comments: APPLY ONE-HALF GRAM TO AFFECTED AREA FOUR TIMES A DAY NEEDED Rx Instructions: as needed APPLY ONE-HALF GRAM TO AFFECTED AREA FOUR TIMES A DAY NEEDED prednisone 20 mg tablet 20 mg PO DAILY Qty: 6 0RF Referrals: Thompson Vicente MD [Primary Care Provider] - Stand Alone Forms: Patient Portal/API
--- NOTE | 2023-02-28 20:52 | DI.CT.S_ITS ---
PROCEDURE: CT ABDOMEN PELVIS W CON INDICATIONS: Left lower quadrant abdominal pain with abdominal wall bruis TECHNIQUE: After the administration of oral and IV contrast, axial sections were acquired from the lung bases to the pubic symphysis. Coronal and sagittal reformats were performed. For radiation dose reduction, the following was used: automated exposure control, adjustment of mA and/or kV according to patient size. COMPARISON: [facility], CT, ABDOMEN/PELVIS WITH CONTRAST, 07/24/2017, 1:57. FINDINGS: Image quality: Excellent. Lung bases: Right basilar opacity which has the appearance of atelectasis. Heart: Pacemaker leads. ABDOMEN: Liver: No focal lesion. Gallbladder: Unremarkable. Biliary ducts: Unremarkable. Pancreas: Unremarkable. Spleen: No perisplenic fluid. Adrenal Glands: Unremarkable. Kidneys and Ureters: No hydronephrosis. No perinephric fluid. Stomach and Bowel: Stomach, small bowel loops, and colon are unremarkable. Diverticulosis. Peritoneum: No abnormal intraperitoneal fluid. No free air. Ventral Wall: No hernia. Left flank intramuscular hematoma measuring 5.3 x 4.5 x 2.7 cm. Estimated volume of 33 cc. Abdominal Nodes: No retroperitoneal or mesenteric adenopathy by size criteria. Vessels: Aorta and inferior vena cava are normal in size. PELVIS: Beam hardening artifact. Pelvic Organs: Uterus is absent. Bladder: Unremarkable. Pelvic Nodes: No enlarged lymph nodes. Miscellaneous: No inguinal hernias are seen. Bones: Right hip arthroplasty. Left hip ORIF. No hardware fracture demonstrated. No fracture. DDD. IMPRESSION: 1. Left flank intramuscular hematoma measuring 5.3 cm and approximately 33 cc. 2. No free fluid in the abdomen or pelvis. No fracture. Dictated by: Konstantin Lopez M.D. on 02/28/2023 at 22:34 Approved by: Konstantin Lopez M.D. on 02/28/2023 at 22:42
--- NOTE | 2023-02-28 20:53 | DI.RAD.S_ITS ---
PROCEDURE: XR CHEST 1V INDICATIONS: Short of breath TECHNIQUE: One view of the chest was acquired. COMPARISON: [facility], CT, CT ABDOMEN PELVIS W CON, 02/28/2023, 21:36. [facility], CR, XR CHEST 1V, 02/17/2023, 23:53. [facility], CR, XR CHEST 1V, 11/12/2022, 13:05. FINDINGS: Surgical changes and devices: Left pacemaker with right atrial and right ventricular leads. Lungs and pleura: Lungs are clear. No pleural effusions or pneumothorax. Mediastinum: Mediastinal contours appear normal. Heart size is normal. Bones and chest wall: No suspicious bony lesions. Overlying soft tissues appear unremarkable. IMPRESSION: No acute cardiopulmonary abnormality identified. Dictated by: Konstantin Lopez M.D. on 02/28/2023 at 22:18 Approved by: Konstantin Lopez M.D. on 02/28/2023 at 22:21
[2023-02-28] MEDS: ALBUTEROL 2.5 MG/3 ML NEB (ADULT) INH (21:00)
[2023-02-28 21:20] LABS: Add Manual Diff / Slide Review NO; Basophils Absolute Auto 100 /uL (0-100); Basophils Percent Auto 1.5 % (0-2); Eosinophils Absolute Auto 0 /uL (0-450); Eosinophils Percent Auto 0.1 % (2-4); Hemoglobin 12.2 g/dL (12.0-16.0); Lymphocytes Absolute Auto 1800 /uL (1100-4500); Lymphocytes Percent Auto 17.7 % (25-40); Mean Corpuscular HGB Conc 34.1 % (30-36); Mean Corpuscular Hemoglobin 30.8 PG (26-34); Monocytes Absolute Auto 800 /uL (0-900); Monocytes Percent Auto 8.1 % (3-14); Neutrophils Absolute Auto 7400 /uL (1500-7000); Neutrophils Percent Auto 72.6 % (50-75); Platelet Count 293 X10^3/uL (150-400); Red Blood Cell Count 3.97 X10^6/uL (4.0-5.2); Red Cell Distribution Width 14.1 % (11.6-14.8); White Blood Cell Count 10.1 X10^3/uL (4.5-11.0)
[2023-02-28 21:21] LABS: Hematocrit 36.8 % (36-46); Mean Corpuscular Volume 91.2 fL (80-100)
[2023-02-28 21:27] LABS: Alanine Aminotransferase 29 IU/L (<35); Albumin 4.1 g/dL (3.5-5.0); Albumin Globulin Ratio 1.3 (1.0-2.8); Alkaline Phosphatase 57 U/L (38-126); Aspartate Aminotransferase 38 IU/L (14-36); BUN Creatinine Ratio 17.1 (6-22); Bilirubin Total 0.7 mg/dL (0.2-1.3); Blood Urea Nitrogen 22 mg/dL (7-17); Calcium 8.5 mg/dL (8.4-10.2); Carbon Dioxide 26 mmol/L (22-32); Chloride 102 mmol/L (98-107); Creatine Kinase 118 U/L (30-135); Estimated Glomerular Filt Rate 41 mL/min (>60); Globulin 3.2 g/dL (1.7-4.1); Glucose 94 mg/dL (80-110); HEMOLYSIS 25 (0-50); Lipase 239 U/L (23-300); Potassium 4.4 mmol/L (3.4-5.1); Sodium 136 mmol/L (137-145); Total Protein 7.3 g/dL (6.3-8.2)
[2023-02-28 21:35] LABS: INR 1.3 (0.9-1.3); Prothrombin Time 14.7 SECONDS (10.1-12.7)
[2023-02-28 21:38] LABS: PTT Partial Thromboplastin Tim 33 SECONDS (26-36)
[2023-02-28 21:39] LABS: Troponin I < 0.012 ng/mL (0.01-0.034)
[2023-02-28 21:42] LABS: CKMB % Relative Index 0.6 % (1.5-5.0); Creatine Kinase MB 0.76 ng/mL (<2.37)
[2023-02-28 23:10] LABS: Hematocrit 34.8 % (36-46); Hemoglobin 11.7 g/dL (12.0-16.0)
[2023-02-28 23:29] LABS: Bacteria Urine None Seen; Culture Indicated Urine Cult Not Indicated; RBC Urine None Seen (0-5/HPF); WBC Urine None Seen (0-5/HPF)
[2023-02-28] MEDS: BENZONATATE 100 MG CAPSULE PO (23:42)
[2023-03-01] VITALS (10 sets, daily range): BP systolic 162; BP diastolic 79; PULSE 64; RESP 17–23; O2SAT 92–98
[2023-03-01 01:06] LABS: Hematocrit 32.9 % (36-46); Hemoglobin 11.1 g/dL (12.0-16.0)
[2023-03-01 03:28] LABS: Hemoglobin 11.4 g/dL (12.0-16.0)
== END 2023-03-01 04:14 | disposition home or self-care (01) ==
PROVIDERS: Emergency Provider Emergency Medicine; Family Provider Internal Medicine; PCP Internal Medicine
DX: S30.1XXA Contusion of abdominal wall, initial encounter (principal); R05.9 Cough, unspecified; I10 Essential (primary) hypertension; R10.32 Left lower quadrant pain
CPT/HCPCS: 36415; 71045; 74177; 80053; 81003; 81015; 82550; 82553; 83690; 84484; 85014; 85018; 85025; 85610; 85730; 86850; 86900; 86901; 87086; 93005; 94640; 99284; 99285; J7613; Q9967

== ENCOUNTER → 2023-03-01 10:33 | Outpatient (CLI) | payer MEDICARE, OTHER, SELFPAY ==
[2022-10-13 13:44] VITALS: BMI 25.8
--- NOTE | 2023-03-01 10:34 | DI.MG.S_ITS ---
UNILATERAL RIGHT DIGITAL DIAGNOSTIC MAMMOGRAM 3D/2D SHORT-TERM FOLLOW-UP: 03/01/2023 CLINICAL: Short term follow up of the right breast. Comparison is made to exams dated: 08/09/2022 stereotactic biopsy - [facility], 07/28/2022 mammogram, and 07/15/2022 mammogram - [facility]. The right breast is heterogeneously dense, which may obscure small masses (category c / 51-75% glandular tissue). There are grouped, linear fine punctate calcifications in the right breast superior lateral quadrant middle depth. These are stable in number and extent on magnification views. There is a new biopsy clip associated with the calcifications. No developing asymmetry. No other significant masses or calcifications are seen in the breast. IMPRESSION: BENIGN The calcifications in the right breast are biopsy-proven fibrocystic change and are benign. There is no mammographic evidence of malignancy. Return to annual mammogram screening schedule is recommended. Findings and recommendations were conveyed to the patient at time of exam. This exam was interpreted at Station ID: [id number]. NOTE: For mammograms, a report in lay terms will be sent to the patient. Approximately 15% of breast malignancies will not be visualized mammographically. In the management of a palpable breast mass, a negative mammogram must not discourage biopsy of a clinically suspicious lesion. Electronically Signed By: Valerie armendariz/:03/01/2023 11:14:23 letter sent: Normal Exam ACR BI-RADS Category 2: Benign Finding(s) [id number]
== END ==
PROVIDERS: Family Provider Internal Medicine; PCP Internal Medicine; Referring Provider Internal Medicine; Visit Provider Internal Medicine
DX: R92.8 Other abnormal and inconclusive findings on diagnostic imaging of breast (principal); R92.1 Mammographic calcification found on diagnostic imaging of breast
CPT/HCPCS: 77065; G0279

== ENCOUNTER 2023-04-02 22:54 | Emergency (ER) | payer MEDICARE, OTHER, SELFPAY ==
[2022-10-13 13:44] VITALS: BMI 25.8
[2023-04-02 23:01] VITALS: BP 156/69; PULSE 64; RESP 15; TEMP 36.2; O2SAT 97; BMI 26.6
--- NOTE | 2023-04-02 23:07 | DI.RAD.S_ITS ---
PROCEDURE: XR CHEST 1V INDICATIONS: chest pain TECHNIQUE: One view of the chest was acquired. COMPARISON: [facility], CR, XR CHEST 1V, 02/28/2023, 20:50. [facility], CR, XR CHEST 1V, 02/17/2023, 23:53. FINDINGS: Surgical changes and devices: Dual chamber cardiac pacemaking device and leads appear stable over time Lungs and pleura: Lungs are clear. No pleural effusions or pneumothorax. Mediastinum: Mediastinal contours appear normal. Heart size is normal. Bones and chest wall: No suspicious bony lesions. Overlying soft tissues appear unremarkable. IMPRESSION: Pacemaker in place, no jacket changer time, source of new chest pain is not seen. Dictated by: Brett Naqvi M.D. on 04/02/2023 at 23:58 Approved by: Brett Naqvi M.D. on 04/02/2023 at 23:59
[2023-04-02 23:45] VITALS: PULSE 64; RESP 26
[2023-04-02 23:46] VITALS: BP 122/58; PULSE 64; RESP 27; O2SAT 97
[2023-04-03] VITALS (7 sets, daily range): BP systolic 103–122; BP diastolic 54–61; PULSE 64–65; RESP 19–27; O2SAT 89–98
[2023-04-03] MEDS: ASPIRIN 81 MG CHEW TAB 324 MG PO (00:05)
[2023-04-03 00:14] LABS: Add Manual Diff / Slide Review NO; Basophils Absolute Auto 0 /uL (0-100); Basophils Percent Auto 0.6 % (0-2); Eosinophils Absolute Auto 0 /uL (0-450); Eosinophils Percent Auto 0.2 % (2-4); Hematocrit 36.9 % (36-46); Hemoglobin 12.5 g/dL (12.0-16.0); Lymphocytes Absolute Auto 2100 /uL (1100-4500); Lymphocytes Percent Auto 34.4 % (25-40); Mean Corpuscular HGB Conc 33.9 % (30-36); Mean Corpuscular Hemoglobin 31.1 PG (26-34); Mean Corpuscular Volume 91.7 fL (80-100); Monocytes Absolute Auto 500 /uL (0-900); Neutrophils Absolute Auto 3400 /uL (1500-7000); Neutrophils Percent Auto 55.8 % (50-75); Platelet Count 237 X10^3/uL (150-400); Red Blood Cell Count 4.03 X10^6/uL (4.0-5.2); Red Cell Distribution Width 15.2 % (11.6-14.8); White Blood Cell Count 6.1 X10^3/uL (4.5-11.0)
[2023-04-03 00:16] LABS: INR 1.3 (0.9-1.3); Prothrombin Time 15.4 SECONDS (10.1-12.7)
[2023-04-03 00:19] LABS: PTT Partial Thromboplastin Tim 36 SECONDS (26-36)
[2023-04-03 00:21] LABS: Alanine Aminotransferase 29 IU/L (<35); Albumin 4.1 g/dL (3.5-5.0); Albumin Globulin Ratio 1.5 (1.0-2.8); Alkaline Phosphatase 54 U/L (38-126); Aspartate Aminotransferase 32 IU/L (14-36); BUN Creatinine Ratio 22.7 (6-22); Bilirubin Total 0.2 mg/dL (0.2-1.3); Blood Urea Nitrogen 20 mg/dL (7-17); Calcium 8.9 mg/dL (8.4-10.2); Carbon Dioxide 30 mmol/L (22-32); Chloride 100 mmol/L (98-107); Creatine Kinase 61 U/L (30-135); Estimated Glomerular Filt Rate > 60 mL/min (>60); Globulin 2.8 g/dL (1.7-4.1); Glucose 110 mg/dL (80-110); HEMOLYSIS < 15 (0-50); Lipase 199 U/L (23-300); Magnesium 2.1 mg/dL (1.6-2.3); Potassium 3.8 mmol/L (3.4-5.1); Sodium 136 mmol/L (137-145); Total Protein 6.9 g/dL (6.3-8.2)
[2023-04-03 00:32] LABS: Troponin I < 0.012 ng/mL (0.01-0.034)
[2023-04-03 01:03] LABS: COVID19 -Nasal RAPID Negative (Negative)
--- NOTE | 2023-04-03 01:51 | ED_ITS ---
HPI - Arrhythmia/Palpitations General Chief Complaint: Arrhythmia/Palpitations Stated Complaint: Chest pain, high pulse rate Time Seen by Provider: 04/03/23 01:50 Source: family Mode of arrival: Ambulatory History of Present Illness HPI narrative: Patient is a 88-year-old female history of atrial fibrillation on Eliquis and sotalol presenting today with chest fluttering. She actually had an ablation 4 days ago. She says it has been working she is been doing well. She and her went to [employer] an [employer] for play when she felt some fluttering in her chest. She did feel little shortness of breath while her heart rate was elevated into the 120s. She feel quite right and came to get checked out. She started feeling better she is in normal sinus rhythm on the monitor. Having any more symptoms. She was previously feeling well without complaints. Related Data Home Medications Medication Instructions Recorded Confirmed liothyronine 5 mcg tablet (Cytomel) 10 mcg PO QDAY ##0 05/27/11 03/31/23 econazole 1 % topical cream 1 applic topical DAILY 02/04/21 03/31/23 polyethylene glycol 3350 17 17 g PO BID 02/04/21 03/31/23 gram/dose oral powder (Miralax) acyclovir 5 % topical cream 1 applic topical QID PRN Rash 02/26/22 03/31/23 levothyroxine 137 mcg tablet 68.5 mcg PO DAILY 02/26/22 03/31/23 sotalol 80 mg tablet 80 mg PO BID 02/26/22 03/31/23 ascorbic acid (vitamin C) 1,000 mg 1,000 mg PO DAILY 07/01/22 03/31/23 tablet calcium carbonate 500 mg calcium 500 mg PO DAILY 07/01/22 03/31/23 (1,250 mg) tablet cholecalciferol (vitamin D3) 25 25 mcg PO DAILY 07/01/22 03/31/23 mcg (1,000 unit) capsule magnesium oxide 400 mg PO DAILY 07/01/22 03/31/23 Previous Rx's Medication Instructions Recorded Oral Appliance #1 ea 07/28/21 albuterol sulfate 90 mcg/actuation 2 puff inhalation Q6H PRN 04/23/22 aerosol inhaler shortness of breath or wheezing #8.5 grams inhalational spacing device #1 ea 04/30/22 (Flexichamber spacer) apixaban 5 mg tablet (Eliquis) 5 mg PO BID #180 tabs 07/01/22 fluticasone propionate 220 2 puff inhalation BID #36 grams 07/01/22 mcg/actuation HFA aerosol inhaler linaclotide 72 mcg capsule 72 mcg PO DAILY #90 caps 07/01/22 (Linzess) rosuvastatin 10 mg tablet 10 mg PO DAILY #90 tabs 07/01/22 estradiol 0.01% (0.1 mg/gram) 1 g vaginal 3XW #42.5 grams 09/15/22 vaginal cream albuterol sulfate 2.5 mg/3 mL See Rx Instructions .Route 01/10/23 (0.083 %) solution for nebulization .COMPLEX #90 mL prednisone 20 mg tablet 20 mg PO DAILY #6 tabs 02/18/23 benzonatate 100 mg capsule 100 mg PO BID-TID PRN cough #20 03/03/23 caps furosemide 20 mg tablet 20 mg PO BID PRN weight gain #180 03/31/23 tabs potassium chloride 10 mEq 20 meq PO BID PRN furosemide use 03/31/23 capsule,extended release #360 caps Allergies Allergy/AdvReac Type Severity Reaction Status Date / Time ciprofloxacin [CIPROFLOXACIN] Allergy Severe Rash Verified 03/31/23 10:53 sulfamethoxazole Allergy Unknown RASH Verified 03/31/23 10:53 [From SEPTRA] trimethoprim [From SEPTRA] Allergy Unknown RASH Verified 03/31/23 10:53 metronidazole [From FLAGYL] AdvReac Unknown REALLY Verified 03/31/23 10:53 HARSH ON STOMACH Review of Systems Review of Systems ROS Unobtainable: All systems reviewed & are unremarkable except as noted in HPI and below Patient History Medical History Acquired hypothyroidism BPPV (benign paroxysmal positional vertigo) Chicken pox Chronic anticoagulation Colon polyps Constipation by delayed colonic transit COPD (chronic obstructive pulmonary disease) Diastolic CHF Diverticular disease Do not resuscitate Hearing loss Herpes Measles Menopausal syndrome Mixed hyperlipidemia Mumps Obstructive sleep apnea syndrome Paroxysmal atrial fibrillation Pneumonia Stage 3a chronic kidney disease (CKD) Tachy-cheryl syndrome Vision disorder Surgical History Anesthesia H/O: hysterectomy (~1984) History of femoral derotational osteotomy (~1983) History of hip surgery (~2007) History of right hip replacement (~2007) History of tonsillectomy and adenoidectomy (~1949) S/P cardiac pacemaker procedure Family History Father History of heart disease Mother Hypertension Alcoholism Sister Cancer Grandmother Cancer Grandmother Cancer Social History household members: spouse and children Smoking Status: Former smoker alcohol intake: never Smoking Status: Former smoker tobacco type: cigarettes alcohol intake frequency: holidays/special occasions only Substance Use Type: does not use Exam Initial Vital Signs Initial Vital Signs: Vital Signs Temperature 97.1 F L 04/02/23 23:01 Pulse Rate 64 04/02/23 23:01 Respiratory Rate 15 04/02/23 23:01 Blood Pressure 156/69 H 04/02/23 23:01 Pulse Oximetry 97 04/02/23 23:01 Oxygen Delivery Method Room Air 04/02/23 23:01 GENERAL: Alert 88-year-old female no acute distress and in no acute distress. HEENT: Head atraumatic,EOMI, pupils reactive, face symmetric, moist mucous membranes CARDIOVASCULAR: Regular rate and rhythm without murmurs, rubs or gallops. RESPIRATORY: Breath sounds equal bilaterally, no wheezes rales or rhonchi. ABDOMEN: Soft, nontender. Normoactive bowel sounds all 4 quadrants. No guarding or rebound. EXTREMITIES: Normal range of motion, no clubbing or edema. Neurovascularly intact NEUROLOGICAL: Alert and oriented x4. SKIN: Warm, dry, no laceration, no petechiae, no rashes or lesions. Course Orders Ordered: ED Orders 04/02/23 23:07 XR chest 1V Stat Complete Blood Count AUTO DIFF Stat Comprehensive Metabolic Panel Stat Lipase Stat Magnesium Stat PTT Partial Thromboplastin Jose Stat Prothrombin Time INR Stat Troponin & CK Cardiac Panel Stat EKG-12 Lead Stat 04/03/23 00:00 COVID19 -Nasal RAPID Stat Discontinued Medications Aspirin (Aspirin 81 Mg Chew Tab) 324 mg PO NOW ONE Stop: 04/02/23 23:08 Last Admin: 04/03/23 00:05 Dose: 324 mg Documented By: EVIN Vital Signs Vital signs: Vital Signs - 8 hr 04/02/23 23:01 04/02/23 23:45 04/02/23 23:46 Temperature 97.1 F L Pulse Rate 64 64 Respiratory Rate 15 26 H Blood Pressure 156/69 H 122/58 L Pulse Oximetry 97 Oxygen Delivery Method Room Air 04/02/23 23:46 04/03/23 00:00 04/03/23 00:01 Temperature Pulse Rate 64 64 Respiratory Rate 27 H 26 H Blood Pressure 108/60 Pulse Oximetry 97 98 Oxygen Delivery Method 04/03/23 00:01 04/03/23 00:30 04/03/23 00:30 Temperature Pulse Rate 64 64 Respiratory Rate 27 H 24 Blood Pressure 122/61 Pulse Oximetry 98 98 Oxygen Delivery Method 04/03/23 01:18 04/03/23 01:30 04/03/23 02:00 Temperature Pulse Rate 65 65 65 Respiratory Rate 19 24 Blood Pressure Pulse Oximetry 89 L 96 97 Oxygen Delivery Method 04/03/23 02:04 Temperature Pulse Rate Respiratory Rate Blood Pressure 103/54 L Pulse Oximetry Oxygen Delivery Method MDM - Arrhythmia/Palpitations Lab Data 04/03/23 00:00 04/03/23 00:00 Labs: Lab Results 04/03/23 04/03/23 04/03/23 Range/Units 00:00 00:00 00:00 WBC 6.1 (4.5-11.0) X10^3/uL RBC 4.03 (4.0-5.2) X10^6/uL Hgb 12.5 (12.0-16.0) g/dL Hct 36.9 (36-46) % MCV 91.7 (80-100) fL MCH 31.1 (26-34) PG MCHC 33.9 (30-36) % RDW 15.2 H (11.6-14.8) % Plt Count 237 (150-400) X10^3/uL Neut % (Auto) 55.8 (50-75) % Lymph % (Auto) 34.4 (25-40) % [place] % (Auto) 9.0 (3-14) % Eos % (Auto) 0.2 L (2-4) % Baso % (Auto) 0.6 (0-2) % Neut # (Auto) 3400 (9992-8515) /uL Lymph # (Auto) 2100 (9683-5442) /uL [place] # (Auto) 500 (0-900) /uL Eos # (Auto) 0 (0-450) /uL Baso # (Auto) 0 (0-100) /uL PT 15.4 H (10.1-12.7) SECONDS INR 1.3 (0.9-1.3) APTT 36 (26-36) SECONDS Sodium 136 L (137-145) mmol/L Potassium 3.8 (3.4-5.1) mmol/L Chloride 100 (98-107) mmol/L Carbon Dioxide 30 (22-32) mmol/L BUN 20 H (7-17) mg/dL Creatinine 0.88 (0.52-1.04) mg/dL Estimated GFR > 60 (>60) mL/min BUN/Creatinine Ratio 22.7 H (6-22) Glucose 110 (80-110) mg/dL Calcium 8.9 (8.4-10.2) mg/dL Magnesium 2.1 (1.6-2.3) mg/dL Total Bilirubin 0.2 (0.2-1.3) mg/dL AST 32 (14-36) IU/L ALT 29 (<35) IU/L Alkaline Phosphatase 54 (38-126) U/L Total Creatine Kinase 61 (30-135) U/L CK-MB (CK-2) TNP CK-MB (CK-2) Rel Index TNP Troponin I < 0.012 (0.01-0.034) ng/mL Total Protein 6.9 (6.3-8.2) g/dL Albumin 4.1 (3.5-5.0) g/dL Globulin 2.8 (1.7-4.1) g/dL Albumin/Globulin Ratio 1.5 (1.0-2.8) Lipase 199 (23-300) U/L SARS-CoV-2 (PCR) (Negative) 04/03/23 Range/Units 00:00 WBC (4.5-11.0) X10^3/uL RBC (4.0-5.2) X10^6/uL Hgb (12.0-16.0) g/dL Hct (36-46) % MCV (80-100) fL MCH (26-34) PG MCHC (30-36) % RDW (11.6-14.8) % Plt Count (150-400) X10^3/uL Neut % (Auto) (50-75) % Lymph % (Auto) (25-40) % [place] % (Auto) (3-14) % Eos % (Auto) (2-4) % Baso % (Auto) (0-2) % Neut # (Auto) (9264-4814) /uL Lymph # (Auto) (0685-1493) /uL [place] # (Auto) (0-900) /uL Eos # (Auto) (0-450) /uL Baso # (Auto) (0-100) /uL PT (10.1-12.7) SECONDS INR (0.9-1.3) APTT (26-36) SECONDS Sodium (137-145) mmol/L Potassium (3.4-5.1) mmol/L Chloride (98-107) mmol/L Carbon Dioxide (22-32) mmol/L BUN (7-17) mg/dL Creatinine (0.52-1.04) mg/dL Estimated GFR (>60) mL/min BUN/Creatinine Ratio (6-22) Glucose (80-110) mg/dL Calcium (8.4-10.2) mg/dL Magnesium (1.6-2.3) mg/dL Total Bilirubin (0.2-1.3) mg/dL AST (14-36) IU/L ALT (<35) IU/L Alkaline Phosphatase (38-126) U/L Total Creatine Kinase (30-135) U/L CK-MB (CK-2) CK-MB (CK-2) Rel Index Troponin I (0.01-0.034) ng/mL Total Protein (6.3-8.2) g/dL Albumin (3.5-5.0) g/dL Globulin (1.7-4.1) g/dL Albumin/Globulin Ratio (1.0-2.8) Lipase (23-300) U/L SARS-CoV-2 (PCR) Negative (Negative) Imaging Data Chest x-ray: Radiologist's Impresson: PROCEDURE:? XR CHEST 1V ? INDICATIONS:? chest pain ? TECHNIQUE:? One view of the chest was acquired.? ? COMPARISON:? [facility], CR, XR CHEST 1V, 02/28/2023, 20:50.? [facility], CR, XR CHEST 1V, 02/17/2023, 23:53. ? FINDINGS:? ? Surgical changes and devices:? Dual chamber cardiac pacemaking device and leads appear stable over time ? Lungs and pleura:? Lungs are clear.? No pleural effusions or pneumothorax.? ? Mediastinum:? Mediastinal contours appear normal.? Heart size is normal.? ? Bones and chest wall:? No suspicious bony lesions.? Overlying soft tissues appear unremarkable.? ? IMPRESSION:? 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 ? ? Dictated by: Brett Naqvi M.D. on 04/02/2023 at 23:58 ? ? ECG Data Interpretation: Sinus rhythm atrial paced rate 65 IA interval 256 QRS [address] changes MDM Narrative Medical decision making narrative: Patient 88-year-old female with recent ablation on Eliquis and sotalol for atrial fibrillation presents today with heart fluttering. She reports heart rate as high as 120 she is currently in sinus rhythm with PVCs. Blood work is overall reassuring x-ray does not show any abnormality. I did a bedside u ltrasound which does not show any pericardial effusion. She is pretty asymptomatic from PVCs they are not that frequent but are present. At this time no further workup she is feeling better. Blood work is reassuring without clinical significant abnormalities Discharge Plan Departure Patient Disposition: Home Clinical Impression: Asymptomatic PVCs Instructions: Premature Ventricular Beats Activity Restrictions/Additional Instructions: *You have been diagnosed with PVCs palpitations *What to do: At this time please follow-up with Cardiology. But workup in the emergency department is overall reassuring *Continue to take medications as directed *Follow up with your primary care provider in 2-3 days or call [phone] *Return to ER if you should have increasing palpitations racing heart chest pain and shortness of breath or fever or any new, worsening or concerning symptoms Prescriptions: No Action liothyronine [Cytomel] 5 MCG tablet 10 mcg PO QDAY Qty: 0 (DME) Oral Appliance See Rx Instructions .Route .MEDSUPPLY Qty: 1 0RF Rx Instructions: patient with AHI of 10.4 (DME) Flexichamber Spacer See Rx Instructions .Route Qty: 1 2RF Rx Instructions: As directed estradiol 0.01 % (0.1 mg/gram) cream 1 g vaginal 3XW Qty: 42.5 4RF albuterol sulfate 2.5 mg /3 mL (0.083 %) solution for nebulization See Rx Instructions .ROUTE .COMPLEX Qty: 90 3RF Dose Instruction: 1 VIAL VIA NEBULIZER FOUR TIMES DAILY Rx Instructions: 1 VIAL VIA NEBULIZER FOUR TIMES DAILY cholecalciferol (vitamin D3) 25 mcg (1,000 unit) capsule 25 mcg PO DAILY magnesium oxide 400 mg magnesium tablet 400 mg PO DAILY calcium carbonate 500 mg calcium (1,250 mg) tablet 500 mg PO DAILY ascorbic acid (vitamin C) 1,000 mg tablet 1,000 mg PO DAILY fluticasone propionate 220 mcg/actuation HFA aerosol inhaler 2 puff inhalation BID Qty: 36 3RF Eliquis 5 mg tablet 5 mg PO BID Qty: 180 3RF Linzess 72 mcg capsule 72 mcg PO DAILY Qty: 90 3RF rosuvastatin 10 mg tablet 10 mg PO DAILY Qty: 90 3RF furosemide 20 mg tablet 20 mg PO BID PRN (Reason: weight gain) Qty: 180 3RF potassium chloride 10 mEq capsule, extended release 20 meq PO BID PRN (Reason: furosemide use) Qty: 360 3RF albuterol sulfate 90 mcg/actuation HFA aerosol inhaler 2 puff inhalation Q6H PRN (Reason: shortness of breath or wheezing) Qty: 8.5 5RF benzonatate 100 mg capsule 100 mg PO BID-TID PRN (Reason: cough) Qty: 20 2RF econazole 1 % Cream 1 applic TOPICAL DAILY polyethylene glycol 3350 [Miralax] 17 gram/dose Powder 17 g PO BID levothyroxine 137 mcg tablet 68.5 mcg PO DAILY Patient Comments: TAKE ONE-HALF TABLET BY MOUTH DAILY Rx Instructions: TAKE ONE-HALF TABLET BY MOUTH DAILY sotalol 80 mg tablet 80 mg PO BID Rx Instructions: take 80 mg daily twice daily acyclovir 5 % cream 1 applic TOPICAL QID PRN (Reason: Rash) Patient Comments: APPLY ONE-HALF GRAM TO AFFECTED AREA FOUR TIMES A DAY NEEDED Rx Instructions: as needed APPLY ONE-HALF GRAM TO AFFECTED AREA FOUR TIMES A DAY NEEDED prednisone 20 mg tablet 20 mg PO DAILY Qty: 6 0RF Referrals: Alan Allison MD [Physician] - Thompson Vicente MD [Primary Care Provider] - Stand Alone Forms: Patient Portal/API
== END 2023-04-03 02:16 | disposition home or self-care (01) ==
PROVIDERS: Emergency Provider Emergency Medicine; Family Provider Internal Medicine; PCP Internal Medicine
DX: I49.3 Ventricular premature depolarization (principal); Z20.822 Contact with and (suspected) exposure to COVID-19
CPT/HCPCS: 36415; 71045; 80053; 82550; 83690; 83735; 84484; 85025; 85610; 85730; 87635; 93005; 99284; C9803

== ENCOUNTER → 2023-04-20 11:11 | Outpatient (CLI) | payer MEDICARE, OTHER, SELFPAY ==
[2022-10-13 13:44] VITALS: BMI 25.8
[2023-04-20 13:01] LABS: Free T3, Triiodothyronine Free 4.56 pg/mL (2.77-5.27); Free T4, Direct Thyroxine 1.19 ng/dL (0.78-2.19)
[2023-04-20 13:14] LABS: Thyroid Stimulating Hormone 1.22 uIU/mL (0.47-4.68)
== END ==
PROVIDERS: Family Provider Internal Medicine; PCP Internal Medicine; Referring Provider Internal Medicine Endocrinology, Diabetes & Metabolism; Visit Provider Internal Medicine Endocrinology, Diabetes & Metabolism
DX: E03.9 Hypothyroidism, unspecified (principal)
CPT/HCPCS: 36415; 84439; 84443; 84481

== ENCOUNTER → 2023-05-20 15:27 | Outpatient (CLI) | payer MEDICARE, OTHER, SELFPAY ==
[2022-10-13 13:44] VITALS: BMI 25.8
[2023-05-20 17:17] LABS: Thyroid Stimulating Hormone 3.36 uIU/mL (0.47-4.68)
== END ==
PROVIDERS: Family Provider Internal Medicine; PCP Internal Medicine; Referring Provider Internal Medicine Endocrinology, Diabetes & Metabolism; Visit Provider Internal Medicine Endocrinology, Diabetes & Metabolism
DX: E03.9 Hypothyroidism, unspecified (principal)
CPT/HCPCS: 36415; 84439; 84443

== ENCOUNTER → 2023-07-26 13:02 | Outpatient (CLI) | payer MEDICARE, OTHER, SELFPAY ==
[2022-10-13 13:44] VITALS: BMI 25.8
--- NOTE | 2023-07-26 | DI.MG.S_ITS ---
BILATERAL DIGITAL SCREENING MAMMOGRAM 3D/2D WITH CAD: 07/26/2023 CLINICAL: Routine screening. Family history of breast cancer. Comparison is made to exams dated: 03/01/2023 mammogram, 07/28/2022 mammogram, and 07/15/2022 mammogram - [facility]. Both breasts are heterogeneously dense, which may obscure small masses (category c / 51-75% glandular tissue). Current study was also evaluated with a Computer Aided Detection (CAD) system. No significant masses, calcifications, or other findings are seen in either breast. There has been no significant interval change. IMPRESSION: NEGATIVE There is no mammographic evidence of malignancy. A 1 year screening mammogram is recommended. This exam was interpreted at Station ID: [id number]. NOTE: For mammograms, a report in lay terms will be sent to the patient. Approximately 15% of breast malignancies will not be visualized mammographically. In the management of a palpable breast mass, a negative mammogram must not discourage biopsy of a clinically suspicious lesion. Electronically Signed By: Mumtaz baker/poncho:07/31/2023 14:27:42 letter sent: Normal Exam ACR BI-RADS Category 1: Negative [id number]
== END ==
PROVIDERS: Family Provider Internal Medicine; PCP Internal Medicine; Referring Provider Internal Medicine; Visit Provider Internal Medicine
DX: Z12.31 Encounter for screening mammogram for malignant neoplasm of breast (principal)
CPT/HCPCS: 77063; 77067

== ENCOUNTER → 2023-08-23 16:41 | Outpatient (CLI) | payer MEDICARE, OTHER, SELFPAY ==
[2022-10-13 13:44] VITALS: BMI 25.8
[2023-08-23 17:44] LABS: Mean Corpuscular HGB Conc 34.1 % (30-36); Mean Corpuscular Hemoglobin 30.2 PG (26-34); Mean Corpuscular Volume 88.7 fL (80-100); Platelet Count 251 X10^3/uL (150-400); Red Blood Cell Count 4.63 X10^6/uL (4.0-5.2); Red Cell Distribution Width 16.3 % (11.6-14.8); White Blood Cell Count 6.4 X10^3/uL (4.5-11.0)
[2023-08-23 17:56] LABS: Alanine Aminotransferase 38 IU/L (<35); Albumin 4.5 g/dL (3.5-5.0); Albumin Globulin Ratio 1.5 (1.0-2.8); Alkaline Phosphatase 60 U/L (38-126); Aspartate Aminotransferase 39 IU/L (14-36); BUN Creatinine Ratio 23.9 (6-22); Bilirubin Total 0.4 mg/dL (0.2-1.3); Blood Urea Nitrogen 27 mg/dL (7-17); Calcium 9.6 mg/dL (8.4-10.2); Carbon Dioxide 28 mmol/L (22-32); Chloride 102 mmol/L (98-107); Cholesterol 211 mg/dL (140-199); Estimated Glomerular Filt Rate 47 mL/min (>60); Glucose 106 mg/dL (80-110); HDL Cholesterol 74 mg/dL (40-60); HEMOLYSIS < 15 (0-50); LDL Cholesterol Calculated 115 mg/dL (<100); Potassium 4.2 mmol/L (3.4-5.1); Sodium 137 mmol/L (137-145); Total Protein 7.5 g/dL (6.3-8.2); Triglycerides 108 mg/dL (35-150)
== END ==
PROVIDERS: Family Provider Internal Medicine; PCP Internal Medicine; Referring Provider Internal Medicine; Visit Provider Internal Medicine
DX: E78.2 Mixed hyperlipidemia (principal); I48.0 Paroxysmal atrial fibrillation; N18.31 Chronic kidney disease, stage 3a
CPT/HCPCS: 36415; 80053; 80061; 85027

== ENCOUNTER 2023-09-10 13:01 | Emergency (ER) | payer MEDICARE, OTHER, SELFPAY ==
[2022-10-13 13:44] VITALS: BMI 25.8
[2023-09-10] VITALS (10 sets, daily range): BP systolic 93–169; BP diastolic 50–77; PULSE 71–86; RESP 16–28; TEMP 36.5; O2SAT 92–100; BMI 26.6
--- NOTE | 2023-09-10 13:31 | ED_ITS ---
HPI - Abdominal Pain General Chief Complaint: Abdominal Pain Stated Complaint: THINKS HAS DIVERTICULITIS Time Seen by Provider: 09/10/23 13:22 Source: patient Mode of arrival: Ambulatory History of Present Illness HPI narrative: Patient is a ethan 88-year-old female history of atrial fibrillation on Eliquis presenting today with left lower quadrant pain. She reports that it has been there for a couple of days but she thinks that the sugar in the kid better that she ate yesterday may have exacerbated her pain. It is nonradiating. It is in the exact same spot she had diverticulitis last time. She is not had any fever or chills. She denies any chest pain. But does admit to having increasing shortness of breath. She takes Lasix as needed sometimes she takes 2 pills sometimes it is 1, she reports that today she took 2. She denies any orthopnea but has not laid flat for a long time. She does have some dyspnea with exertion no cough or conversational dyspnea. Related Data Home Medications Medication Instructions Recorded Confirmed liothyronine 5 mcg tablet (Cytomel) 10 mcg PO QDAY ##0 05/27/11 08/23/23 polyethylene glycol 3350 17 17 g PO BID 02/04/21 08/23/23 gram/dose oral powder (Miralax) acyclovir 5 % topical cream 1 applic topical QID PRN Rash 02/26/22 08/23/23 levothyroxine 137 mcg tablet 68.5 mcg PO DAILY 02/26/22 08/23/23 ascorbic acid (vitamin C) 1,000 mg 1,000 mg PO DAILY 07/01/22 08/23/23 tablet calcium carbonate 500 mg calcium 500 mg PO DAILY 07/01/22 08/23/23 (1,250 mg) tablet cholecalciferol (vitamin D3) 25 25 mcg PO DAILY 07/01/22 08/23/23 mcg (1,000 unit) capsule magnesium oxide 400 mg PO DAILY 07/01/22 08/23/23 metoprolol succinate 25 mg 12.5 mg PO BID afib, tachycardia 07/07/23 08/23/23 tablet,extended release 24 hr Previous Rx's Medication Instructions Recorded Oral Appliance #1 ea 07/28/21 albuterol sulfate 90 mcg/actuation 2 puff inhalation Q6H PRN 06/03/22 aerosol inhaler shortness of breath or wheezing #8.5 grams inhalational spacing device #1 ea 04/30/22 (Flexichamber spacer) rosuvastatin 10 mg tablet 10 mg PO DAILY #90 tabs 07/01/22 furosemide 20 mg tablet 20 mg PO BID PRN weight gain #180 03/31/23 tabs potassium chloride 10 mEq 20 meq (2 x 10 mEq) PO BID PRN 03/31/23 capsule,extended release furosemide use #360 caps linaclotide 72 mcg capsule 144 mcg (2 x 72 mcg) PO DAILY #180 05/16/23 (Linzess) caps apixaban 5 mg tablet (Eliquis) 5 mg PO BID #180 tabs 06/20/23 fluticasone propionate 220 2 puff inhalation BID #36 grams 06/30/23 mcg/actuation HFA aerosol inhaler econazole 1 % topical cream 1 applic topical DAILY #85 grams 07/07/23 estradiol 0.01% (0.1 mg/gram) 2 g vaginal 3XW #85 grams 07/07/23 vaginal cream amoxicillin 875 mg-potassium 1 tab PO BID #20 tabs 07/12/23 clavulanate 125 mg tablet albuterol sulfate 2.5 mg/3 mL See Rx Instructions .Route 08/25/23 (0.083 %) solution for nebulization .COMPLEX #90 mL mupirocin 2 % topical ointment 1 applic topical 3XD #22 grams 09/09/23 Allergies Allergy/AdvReac Type Severity Reaction Status Date / Time ciprofloxacin [CIPROFLOXACIN] Allergy Severe Rash Verified 09/10/23 13:04 sulfamethoxazole Allergy Unknown RASH Verified 09/10/23 13:04 [From SEPTRA] trimethoprim [From SEPTRA] Allergy Unknown RASH Verified 09/10/23 13:04 amiodarone AdvReac Intermediate Nausea Verified 09/10/23 13:04 metronidazole [From FLAGYL] AdvReac Unknown REALLY Verified 09/10/23 13:04 HARSH ON STOMACH Review of Systems Review of Systems ROS Unobtainable: All systems reviewed & are unremarkable except as noted in HPI and below Patient History Medical History BPPV (benign paroxysmal positional vertigo) Vision disorder Mumps Measles Herpes Chicken pox Hearing loss Diverticular disease Colon polyps Do not resuscitate Tachy-cheryl syndrome COPD (chronic obstructive pulmonary disease) Stage 3a chronic kidney disease (CKD) Obstructive sleep apnea syndrome Chronic anticoagulation Menopausal syndrome Diastolic CHF Paroxysmal atrial fibrillation Acquired hypothyroidism Constipation by delayed colonic transit Mixed hyperlipidemia Pneumonia Surgical History S/P cardiac pacemaker procedure Anesthesia History of right hip replacement (~2007) History of femoral derotational osteotomy (~1983) History of tonsillectomy and adenoidectomy (~1949) H/O: hysterectomy (~1984) History of hip surgery (~2007) Family History Father History of heart disease Mother Hypertension Alcoholism Sister Cancer Grandmother Cancer Grandmother Cancer Social History household members: spouse and children Smoking Status: Former smoker alcohol intake: never Smoking Status: Former smoker tobacco type: cigarettes alcohol intake frequency: holidays/special occasions only Substance Use Type: does not use Exam Initial Vital Signs Initial Vital Signs: Vital Signs Temperature 97.7 F 09/10/23 13:04 Pulse Rate 86 09/10/23 13:04 Respiratory Rate 16 09/10/23 13:04 Blood Pressure 169/71 H 09/10/23 13:04 Pulse Oximetry 97 09/10/23 13:04 Oxygen Delivery Method Room Air 09/10/23 13:04 GENERAL: Alert pleasant 88-year-old female no acute distress HEENT: Head atraumatic,EOMI, pupils reactive, face symmetric, moist mucous membranes CARDIOVASCULAR: Irregular no murmurs RESPIRATORY: Breath sounds equal bilaterally, no wheezes rales or rhonchi. ABDOMEN: Soft, left lower quadrant tenderness no guarding no rebound EXTREMITIES: Normal range of motion, no clubbing or edema. Neurovascularly intact NEUROLOGICAL: Alert and oriented x4.Normal gait and speech. SKIN: Warm, dry, no laceration, no petechiae, no rashes or lesions. Course Orders Ordered: Discontinued Medications Ondansetron HCl (Ondansetron 4 Mg/2 Ml Inj) 4 mg IV NOW PRN PRN Reason: Nausea And Vomiting Ondansetron HCl (Ondansetron 4 Mg Odt) 4 mg PO NOW PRN PRN Reason: Nausea And Vomiting Vital Signs Vital signs: Vital Signs - 8 hr 09/10/23 13:04 09/10/23 13:35 09/10/23 13:45 Temperature 97.7 F Pulse Rate 86 80 76 Respiratory Rate 16 20 Blood Pressure 169/71 H Pulse Oximetry 97 98 Oxygen Delivery Method Room Air 09/10/23 13:46 09/10/23 13:46 09/10/23 13:54 Temperature Pulse Rate 75 76 Respiratory Rate 23 Blood Pressure 93/50 L Pulse Oximetry 98 99 Oxygen Delivery Method Room Air Room Air 09/10/23 13:54 09/10/23 14:14 09/10/23 14:15 Temperature Pulse Rate 79 72 Respiratory Rate 22 25 H Blood Pressure 114/56 L Pulse Oximetry 94 92 Oxygen Delivery Method 09/10/23 14:30 09/10/23 14:45 Temperature Pulse Rate 74 74 Respiratory Rate 28 H 28 H Blood Pressure Pulse Oximetry 96 99 Oxygen Delivery Method Room Air MDM - Abdominal Pain Lab Data 09/10/23 13:28 09/10/23 13:28 Labs: Lab Results 09/10/23 09/10/23 Range/Units 13:28 13:38 WBC 6.7 (4.5-11.0) X10^3/uL RBC 4.68 (4.0-5.2) X10^6/uL Hgb 14.1 (12.0-16.0) g/dL Hct 42.2 (36-46) % MCV 90.1 (80-100) fL MCH 30.1 (26-34) PG MCHC 33.4 (30-36) % RDW 16.2 H (11.6-14.8) % Plt Count 240 (150-400) X10^3/uL Neut % (Auto) 63.7 (50-75) % Lymph % (Auto) 28.7 (25-40) % [place] % (Auto) 6.9 (3-14) % Eos % (Auto) 0.0 L (2-4) % Baso % (Auto) 0.7 (0-2) % Neut # (Auto) 4300 (7257-8686) /uL Lymph # (Auto) 1900 (3625-8917) /uL [place] # (Auto) 500 (0-900) /uL Eos # (Auto) 0 (0-450) /uL Baso # (Auto) 0 (0-100) /uL PT 15.5 H (10.1-12.7) SECONDS INR 1.3 (0.9-1.3) Sodium 139 (137-145) mmol/L Potassium 3.7 (3.4-5.1) mmol/L Chloride 101 (98-107) mmol/L Carbon Dioxide 29 (22-32) mmol/L BUN 26 H (7-17) mg/dL Creatinine 1.08 H (0.52-1.04) mg/dL Estimated GFR 50 L (>60) mL/min BUN/Creatinine Ratio 24.1 H (6-22) Glucose 71 L (80-110) mg/dL Calcium 10.0 (8.4-10.2) mg/dL Total Bilirubin 0.6 (0.2-1.3) mg/dL AST 49 H (14-36) IU/L ALT 45 H (<35) IU/L Alkaline Phosphatase 49 (38-126) U/L Total Creatine Kinase 50 (30-135) U/L Troponin I < 0.012 (0.01-0.034) ng/mL NT-Pro-B Natriuret Pep 2280 H (<450) pg/mL Total Protein 7.7 (6.3-8.2) g/dL Albumin 4.6 (3.5-5.0) g/dL Globulin 3.1 (1.7-4.1) g/dL Albumin/Globulin Ratio 1.5 (1.0-2.8) Lipase 180 (23-300) U/L SARS-CoV-2 (PCR) Negative (Negative) Point of care testing: Urine Dip Bedside Urine Glucose Negative Bedside Urine Bilirubin - Negative Bedside Urine Ketone - Negative Urine Specific [place] 1.010 Bedside Urine Occult Blood - Negative Bedside Urine pH 6.0 Bedside Urine Protein - Negative Bedside Urine Urobilinogen - Negative Bedside Urine Nitrite - Negative Bedside Urine Leukocytes - Negative Esterase Imaging Data CT scan - abdomen/pelvis: Radiologist's Impression: PROCEDURE: CT ABDOMEN PELVIS W CON INDICATIONS: LLQ pain TECHNIQUE: After the administration of intravenous contrast, axial sections acquired from the lung bases to the pubic symphysis. Coronal and sagittal reformats were performed. For radiation dose reduction, the following was used: automated exposure control, adjustment of mA and/or kV according to patient size. COMPARISON: [facility], CT, CT ABDOMEN PELVIS W CON, 02/28/2023, 21:36. FINDINGS: Lower thorax: Heart size enlarged. Cardiac pacer wires present. Lung bases are clear. Liver: Normal in size and attenuation. No contour deformity present. Biliary system: Calcified stones noted in the lumen of the gallbladder. No pericholecystic inflammatory change. No intra or extrahepatic bile duct dilation. Gallbladder contracted. Pancreas: Unremarkable without mass or inflammation evident. Spleen: Normal in size and density. Adrenals: Normal morphology and density. Reproductive system: Unremarkable as visualized. Urinary system: Normal renal size and attenuation. Small simple renal cyst. No renal calculi, hydronephrosis, or solid mass present. Urinary bladder unremarkable. Gastrointestinal system: The bowel is unremarkable without evidence of bowel obstruction or inflammation. The stomach appears unremarkable. Multiple diverticula arise from the sigmoid colon without evidence of diverticulitis. Appendix: No findings to suggest acute appendicitis. Peritoneal spaces: No mesenteric or retroperitoneal adenopathy. No free air. No free fluid. Vasculature: The IVC, aorta and iliac vasculature are unremarkable. Abdominal wall: Abdominal wall intact without evidence of ventral or inguinal hernias. Musculoskeletal: Normal bone mineralization. Degenerative disc disease and arthropathy noted in lower lumbar spine. No acute fractures. Total right hip arthroplasty present. Left femoral neck compression screw sideplate. Advanced left hip osteoarthritis IMPRESSION: 1. Diverticulosis without CT evidence of acute diverticulitis. No abscess or obstruction. 2. Chronic degenerative findings as above Approved by: Hao Vizcarra M.D. on 09/10/2023 at 13:46 ECG Data Interpretation: Atrial fibrillation with frequent PVCs rate [address] changes MDM Narrative Medical decision making narrative: Patient is a ethan 88-year-old female history of atrial fibrillation congestive heart failure diverticulitis presenting today with left lower quadrant pain. She thinks it may be her diverticulitis. No change in bowel or bladder habits. Labs: Labs have been reviewed: No leukocytosis or anemia, kidney function is baseline electrolytes are stable. BNP minimally elevated 2200 which is about baseline she is a negative troponin. CT does not show diverticulitis but does show diverticulosis. No other abnormality. Pain is certainly not out of proportion no concern for mesenteric ischemia. She is no leukocytosis. She is not requiring anything for pain in the ED. At this time no need for antibiotics supportive care only. BNP is mildly elevated but she is not having hypoxia or obvious conversational dyspnea. It sounds as though she has a plan with her primary to take Lasix as needed. I recommend she continue doing so. Discharge Plan Departure Patient Disposition: Home Clinical Impression: Abdominal pain Instructions: DI for Abdominal Pain-Adult Activity Restrictions/Additional Instructions: *You have been diagnosed with abdominal pain *What to do: At this time CT does not show diverticulitis. No need for antibiotics. Please continue your Lasix as you see fit. COVID test is negative *Continue to take medications as directed *Follow up with your primary care provider in 2-3 days or call [phone] *Return to ER if you should have increasing abdominal pain increasing shortness of breath chest pain or any new, worsening or concerning symptoms Prescriptions: No Action liothyronine [Cytomel] 5 MCG tablet 10 mcg PO QDAY Qty: 0 (DME) Oral Appliance See Rx Instructions .Route .MEDSUPPLY Qty: 1 0RF Rx Instructions: patient with AHI of 10.4 (DME) Flexichamber Spacer See Rx Instructions .Route Qty: 1 2RF Rx Instructions: As directed Linzess 72 mcg capsule 144 mcg PO DAILY Qty: 180 3RF Eliquis 5 mg tablet 5 mg PO BID Qty: 180 3RF fluticasone propionate 220 mcg/actuation HFA aerosol inhaler 2 puff inhalation BID Qty: 36 3RF amoxicillin-pot clavulanate 875-125 mg tablet 1 tab PO BID Qty: 20 1RF albuterol sulfate 2.5 mg /3 mL (0.083 %) solution for nebulization See Rx Instructions .ROUTE .COMPLEX Qty: 90 3RF Dose Instruction: 1 VIAL VIA NEBULIZER FOUR TIMES DAILY Rx Instructions: 1 VIAL VIA NEBULIZER FOUR TIMES DAILY mupirocin 2 % ointment 1 applic topical 3XD Qty: 22 0RF cholecalciferol (vitamin D3) 25 mcg (1,000 unit) capsule 25 mcg PO DAILY magnesium oxide 400 mg magnesium tablet 400 mg PO DAILY calcium carbonate 500 mg calcium (1,250 mg) tablet 500 mg PO DAILY ascorbic acid (vitamin C) 1,000 mg tablet 1,000 mg PO DAILY rosuvastatin 10 mg tablet 10 mg PO DAILY Qty: 90 3RF furosemide 20 mg tablet 20 mg PO BID PRN (Reason: weight gain) Qty: 180 3RF potassium chloride 10 mEq capsule, extended release 20 meq PO BID PRN (Reason: furosemide use) Qty: 360 3RF metoprolol succinate 25 mg tablet extended release 24 hr 12.5 mg PO BID econazole 1 % cream 1 applic TOPICAL DAILY Qty: 85 1RF estradiol 0.01 % (0.1 mg/gram) cream 2 g vaginal 3XW Qty: 85 4RF albuterol sulfate 90 mcg/actuation HFA aerosol inhaler 2 puff inhalation Q6H PRN (Reason: shortness of breath or wheezing) Qty: 8.5 5RF polyethylene glycol 3350 [Miralax] 17 gram/dose Powder 17 g PO BID levothyroxine 137 mcg tablet 68.5 mcg PO DAILY Patient Comments: TAKE ONE-HALF TABLET BY MOUTH DAILY Rx Instructions: TAKE ONE-HALF TABLET BY MOUTH DAILY acyclovir 5 % cream 1 applic TOPICAL QID PRN (Reason: Rash) Patient Comments: APPLY ONE-HALF GRAM TO AFFECTED AREA FOUR TIMES A DAY NEEDED Rx Instructions: as needed APPLY ONE-HALF GRAM TO AFFECTED AREA FOUR TIMES A DAY NEEDED Referrals: Thompson Vicente MD [Primary Care Provider] - Stand Alone Forms: Patient Portal/API
[2023-09-10 13:36] LABS: Add Manual Diff / Slide Review NO; Basophils Absolute Auto 0 /uL (0-100); Basophils Percent Auto 0.7 % (0-2); Eosinophils Absolute Auto 0 /uL (0-450); Hematocrit 42.2 % (36-46); Hemoglobin 14.1 g/dL (12.0-16.0); Lymphocytes Absolute Auto 1900 /uL (1100-4500); Lymphocytes Percent Auto 28.7 % (25-40); Mean Corpuscular HGB Conc 33.4 % (30-36); Mean Corpuscular Hemoglobin 30.1 PG (26-34); Mean Corpuscular Volume 90.1 fL (80-100); Monocytes Absolute Auto 500 /uL (0-900); Monocytes Percent Auto 6.9 % (3-14); Neutrophils Absolute Auto 4300 /uL (1500-7000); Neutrophils Percent Auto 63.7 % (50-75); Platelet Count 240 X10^3/uL (150-400); Red Blood Cell Count 4.68 X10^6/uL (4.0-5.2); Red Cell Distribution Width 16.2 % (11.6-14.8); White Blood Cell Count 6.7 X10^3/uL (4.5-11.0)
[2023-09-10 13:45] LABS: INR 1.3 (0.9-1.3); Prothrombin Time 15.5 SECONDS (10.1-12.7)
[2023-09-10 13:51] LABS: Alanine Aminotransferase 45 IU/L (<35); Albumin 4.6 g/dL (3.5-5.0); Albumin Globulin Ratio 1.5 (1.0-2.8); Alkaline Phosphatase 49 U/L (38-126); Aspartate Aminotransferase 49 IU/L (14-36); BUN Creatinine Ratio 24.1 (6-22); Bilirubin Total 0.6 mg/dL (0.2-1.3); Blood Urea Nitrogen 26 mg/dL (7-17); Carbon Dioxide 29 mmol/L (22-32); Chloride 101 mmol/L (98-107); Creatine Kinase 50 U/L (30-135); Estimated Glomerular Filt Rate 50 mL/min (>60); Globulin 3.1 g/dL (1.7-4.1); Glucose 71 mg/dL (80-110); HEMOLYSIS 17 (0-50); Lipase 180 U/L (23-300); Potassium 3.7 mmol/L (3.4-5.1); Sodium 139 mmol/L (137-145); Total Protein 7.7 g/dL (6.3-8.2)
--- NOTE | 2023-09-10 13:53 | DI.CT.S_ITS ---
PROCEDURE: CT ABDOMEN PELVIS W CON INDICATIONS: LLQ pain TECHNIQUE: After the administration of intravenous contrast, axial sections acquired from the lung bases to the pubic symphysis. Coronal and sagittal reformats were performed. For radiation dose reduction, the following was used: automated exposure control, adjustment of mA and/or kV according to patient size. COMPARISON: [facility], CT, CT ABDOMEN PELVIS W CON, 02/28/2023, 21:36. FINDINGS: Lower thorax: Heart size enlarged. Cardiac pacer wires present. Lung bases are clear. Liver: Normal in size and attenuation. No contour deformity present. Biliary system: Calcified stones noted in the lumen of the gallbladder. No pericholecystic inflammatory change. No intra or extrahepatic bile duct dilation. Gallbladder contracted. Pancreas: Unremarkable without mass or inflammation evident. Spleen: Normal in size and density. Adrenals: Normal morphology and density. Reproductive system: Unremarkable as visualized. Urinary system: Normal renal size and attenuation. Small simple renal cyst. No renal calculi, hydronephrosis, or solid mass present. Urinary bladder unremarkable. Gastrointestinal system: The bowel is unremarkable without evidence of bowel obstruction or inflammation. The stomach appears unremarkable. Multiple diverticula arise from the sigmoid colon without evidence of diverticulitis. Appendix: No findings to suggest acute appendicitis. Peritoneal spaces: No mesenteric or retroperitoneal adenopathy. No free air. No free fluid. Vasculature: The IVC, aorta and iliac vasculature are unremarkable. Abdominal wall: Abdominal wall intact without evidence of ventral or inguinal hernias. Musculoskeletal: Normal bone mineralization. Degenerative disc disease and arthropathy noted in lower lumbar spine. No acute fractures. Total right hip arthroplasty present. Left femoral neck compression screw sideplate. Advanced left hip osteoarthritis IMPRESSION: 1. Diverticulosis without CT evidence of acute diverticulitis. No abscess or obstruction. 2. Chronic degenerative findings as above Approved by: Hao Vizcarra M.D. on 09/10/2023 at 13:46
[2023-09-10 14:03] LABS: NT-proBNP (BNP-Adult 18+) 2280 pg/mL (<450); Troponin I < 0.012 ng/mL (0.01-0.034)
[2023-09-10 14:04] LABS: COVID19 -Nasal RAPID Negative (Negative)
--- NOTE | 2023-09-10 14:57 | PC.NURSE ---
Pt says that she doesnt require pain medication or anti nausea medication currently. I informed her to let me know if that changes so I can communicate with the doctor. Pt had drank a plastic water bottle which was empty next to her. She states she is still thirsty and would like more water. Provider aware of patient's intake and waiting for imaging results before giving patient further PO fluids.
--- NOTE | 2023-09-10 15:02 | PC.NURSE ---
Patient informs nurse that she has a headache, feels SOB (she states feels SOB at baseline), and has had episodes of dizziness and nausea which is worsened by shaking her head.
== END 2023-09-10 15:27 | disposition home or self-care (01) ==
PROVIDERS: Emergency Provider Emergency Medicine; Family Provider Internal Medicine; PCP Internal Medicine
DX: R10.32 Left lower quadrant pain (principal); R06.02 Shortness of breath; Z79.01 Long term (current) use of anticoagulants; Z79.899 Other long term (current) drug therapy; Z20.822 Contact with and (suspected) exposure to COVID-19
CPT/HCPCS: 36415; 74177; 80053; 81003; 82550; 83690; 83880; 84484; 85025; 85610; 87635; 93005; 93010; 99283; 99284; C9803; Q9967

== ENCOUNTER → 2023-11-18 12:14 | Outpatient (CLI) | payer MEDICARE, OTHER, SELFPAY ==
[2022-10-13 13:44] VITALS: BMI 25.8
[2023-11-18 13:27] LABS: Free T3, Triiodothyronine Free 2.26 pg/mL (2.77-5.27); Free T4, Direct Thyroxine 1.22 ng/dL (0.78-2.19)
[2023-11-18 13:41] LABS: Thyroid Stimulating Hormone 2.06 uIU/mL (0.47-4.68)
== END ==
PROVIDERS: Family Provider Internal Medicine; PCP Internal Medicine; Referring Provider Internal Medicine Endocrinology, Diabetes & Metabolism; Visit Provider Internal Medicine Endocrinology, Diabetes & Metabolism
DX: E03.9 Hypothyroidism, unspecified (principal)
CPT/HCPCS: 36415; 84439; 84443; 84481

== ENCOUNTER → 2024-01-11 14:32 | Outpatient (CLI) | payer MEDICARE, OTHER, SELFPAY ==
[2022-10-13 13:44] VITALS: BMI 25.8
[2024-01-11 17:23] LABS: BUN Creatinine Ratio 21.1 (6-22); Blood Urea Nitrogen 26 mg/dL (7-17); Calcium 9.1 mg/dL (8.4-10.2); Carbon Dioxide 26 mmol/L (22-32); Chloride 98 mmol/L (98-107); Estimated Glomerular Filt Rate 43 mL/min (>60); Glucose 87 mg/dL (80-110); HEMOLYSIS < 15 (0-50); Potassium 4.3 mmol/L (3.4-5.1); Sodium 135 mmol/L (137-145)
== END ==
PROVIDERS: Family Provider Internal Medicine; PCP Internal Medicine; Referring Provider Internal Medicine Cardiovascular Disease; Visit Provider Internal Medicine Cardiovascular Disease
DX: I42.0 Dilated cardiomyopathy (principal)
CPT/HCPCS: 36415; 80048

== ENCOUNTER → 2024-01-24 13:15 | Outpatient (CLI) | payer MEDICARE, OTHER, SELFPAY ==
[2022-10-13 13:44] VITALS: BMI 25.8
[2024-01-24 13:49] LABS: Blood Urea Nitrogen 25 mg/dL (7-17); Calcium 9.5 mg/dL (8.4-10.2); Carbon Dioxide 28 mmol/L (22-32); Chloride 102 mmol/L (98-107); Estimated Glomerular Filt Rate 45 mL/min (>60); Glucose 70 mg/dL (80-110); HEMOLYSIS < 15 (0-50); Sodium 135 mmol/L (137-145)
== END ==
PROVIDERS: Family Provider Internal Medicine; PCP Internal Medicine; Referring Provider Internal Medicine Cardiovascular Disease; Visit Provider Internal Medicine Cardiovascular Disease
DX: I42.0 Dilated cardiomyopathy (principal)
CPT/HCPCS: 36415; 80048

== ENCOUNTER → 2024-02-09 08:03 | Outpatient (CLI) | payer MEDICARE, OTHER, SELFPAY ==
[2022-10-13 13:44] VITALS: BMI 25.8
--- NOTE | 2024-02-09 08:04 | DI.ECHO.S_ITS ---
[facility]---------[facility] +---------+ : : [address] [place] : : : : [id number] : : : : Phone: [phone]---------+ Echocardiogram Report + + :Name: PRETTY VILLARREAL Study Date: 02/09/2024 Height: 66 in : :[facility] ReadingLocation: Weight: 171 lb : : Gender: Female BSA: 1.9 m2 : :: 1935 Age: 88 yrs BP: 134/87 mmHg: :Reason For Study: DILATED CARDIOMYOPATHY : :Ordering Physician: TOBY, : :CARYN Performed By: Parker Stern : :Referring: CARYN LUIS : + + Interpretation Summary Limited Echo: 1) Normal left ventricular size with moderately to severely reduced systolic function (EF 30-35%). 2) The right ventricle is mildly dilated. Right ventricular systolic function is mildly reduced. There is a pacemaker lead in the right ventricle. 3) There is mild to moderate mitral regurgitation. 4) The right ventricular systolic pressure is estimated to be at least 37 mmHg based on an estimated right atrial pressure of 8 mm Hg. 5) Compared to the Echo done 11/25/2023, no significant change. Procedure: A two-dimensional transthoracic echocardiogram with color flow and Doppler was performed in limited views only. The study quality was technically adequate. Comparison is made with the echocardiogram of 11/25/2023. The patient was in normal sinus rhythm during the exam. The heart rate ranged between 70-80 bpm during the study. Left Ventricle: The left ventricle is normal in size. There is borderline concentric left ventricular hypertrophy. The ejection fraction is estimated to be 30-35%. There is moderate to severe global hypokinesis of the left ventricle. Right Ventricle: There is a pacemaker lead in the right ventricle. The right ventricle is mildly dilated. Right ventricular systolic function is mildly reduced. Atria: There is a catheter/pacemaker lead seen in the right atrium. Mitral Valve: The mitral valve is normal in structure and function. There is mild to moderate mitral regurgitation. Aortic Valve: The aortic valve is trileaflet. There is no aortic valve stenosis. No aortic regurgitation is present. Tricuspid Valve: The tricuspid valve is normal in structure and function. There is mild tricuspid regurgitation. The right ventricular systolic pressure is estimated to be at least 37 mmHg based on an estimated right atrial pressure of 8 mm Hg. Great Vessels: The IVC is dilated (diameter is greater than 2.1 cm) yet it collapses greater than 50% with a sniff. This suggests a right atrial pressure of 8 mm Hg. Pericardium/ Pleura There is no pericardial effusion. There is no pleural effusion. MMode/2D Measurements & Calculations LVIDd: 4.8 cm IVC diam: 2.4 cm LVIDs: 4.2 cm FS: 13.5 % IVSd: 1.1 cm LVPWd: 1.1 cm LV méndez. diameter/BSA (cm/m^2): 2.6 LV sys. diameter/BSA (cm/m^2): 2.2 Doppler Measurements & Calculations TR max moreno: 269.4 cm/sec TR max P.0 mmHg Reading Physician:03:42 PM
== END ==
PROVIDERS: Family Provider Internal Medicine; PCP Internal Medicine; Referring Provider Internal Medicine Cardiovascular Disease; Visit Provider Internal Medicine Cardiovascular Disease
DX: I08.1 Rheumatic disorders of both mitral and tricuspid valves (principal); I42.0 Dilated cardiomyopathy
CPT/HCPCS: 93307

== ENCOUNTER → 2024-02-14 11:33 | Outpatient (CLI) | payer MEDICARE, OTHER, SELFPAY ==
[2022-10-13 13:44] VITALS: BMI 25.8
[2024-02-14 12:40] LABS: BUN Creatinine Ratio 21.2 (6-22); Blood Urea Nitrogen 25 mg/dL (7-17); Calcium 9.5 mg/dL (8.4-10.2); Carbon Dioxide 30 mmol/L (22-32); Chloride 100 mmol/L (98-107); Estimated Glomerular Filt Rate 45 mL/min (>60); Glucose 108 mg/dL (80-110); HEMOLYSIS < 15 (0-50); Potassium 4.1 mmol/L (3.4-5.1); Sodium 135 mmol/L (137-145)
== END ==
PROVIDERS: Family Provider Internal Medicine; PCP Internal Medicine; Referring Provider Internal Medicine Cardiovascular Disease; Visit Provider Internal Medicine Cardiovascular Disease
DX: I48.0 Paroxysmal atrial fibrillation (principal)
CPT/HCPCS: 36415; 80048

== ENCOUNTER → 2024-03-07 16:54 | Outpatient (CLI) | payer MEDICARE, OTHER, SELFPAY ==
[2022-10-13 13:44] VITALS: BMI 25.8
[2024-03-07 17:56] LABS: BUN Creatinine Ratio 28.2 (6-22); Blood Urea Nitrogen 40 mg/dL (7-17); Calcium 9.8 mg/dL (8.4-10.2); Carbon Dioxide 30 mmol/L (22-32); Chloride 101 mmol/L (98-107); Estimated Glomerular Filt Rate 36 mL/min (>60); Glucose 137 mg/dL (80-110); HEMOLYSIS < 15 (0-50); Sodium 140 mmol/L (137-145)
[2024-03-07 18:13] LABS: Free T3, Triiodothyronine Free 3.77 pg/mL (2.77-5.27); Free T4, Direct Thyroxine 1.22 ng/dL (0.78-2.19)
[2024-03-07 18:26] LABS: Thyroid Stimulating Hormone 1.75 uIU/mL (0.47-4.68)
== END ==
PROVIDERS: Family Provider Internal Medicine; PCP Internal Medicine; Referring Provider Internal Medicine Endocrinology, Diabetes & Metabolism; Visit Provider Internal Medicine Endocrinology, Diabetes & Metabolism
DX: E03.9 Hypothyroidism, unspecified (principal); I50.22 Chronic systolic (congestive) heart failure
CPT/HCPCS: 36415; 80048; 84439; 84443; 84481

== ENCOUNTER → 2024-03-16 11:58 | Outpatient (CLI) | payer MEDICARE, OTHER, SELFPAY ==
[2022-10-13 13:44] VITALS: BMI 25.8
[2024-03-16 13:33] LABS: BUN Creatinine Ratio 30.1 (6-22); Blood Urea Nitrogen 46 mg/dL (7-17); Calcium 9.3 mg/dL (8.4-10.2); Carbon Dioxide 26 mmol/L (22-32); Chloride 102 mmol/L (98-107); Estimated Glomerular Filt Rate 33 mL/min (>60); Glucose 84 mg/dL (80-110); HEMOLYSIS < 15 (0-50); Potassium 4.1 mmol/L (3.4-5.1); Sodium 137 mmol/L (137-145)
[2024-03-16 14:00] LABS: TSH w/ Reflex to FT4 2.55 uIU/mL (0.47-4.68)
== END ==
PROVIDERS: Family Provider Internal Medicine; PCP Internal Medicine; Referring Provider Internal Medicine; Visit Provider Internal Medicine
DX: I48.21 Permanent atrial fibrillation (principal)
CPT/HCPCS: 36415; 80048; 84443

== ENCOUNTER → 2024-03-26 08:47 | Outpatient (CLI) | payer MEDICARE, OTHER, SELFPAY ==
[2022-10-13 13:44] VITALS: BMI 25.8
--- NOTE | 2024-03-26 08:50 | DI.ECHO.S_ITS ---
[facility] : : [address] : : [place] : : [id number] : : Phone: [phone] Echocardiogram Report + + :Name: PRETTY VILLARREAL Study Date: 03/26/2024 Height: 66.5 in: :Hospital ReadingLocation: Weight: 170 lb : : Gender: Female BSA: 1.9 m2 : :: 1935 Age: 89 yrs BP: 113/73 mmHg: :Reason For Study: ATRIAL FIBRILLATION : :Ordering Physician: Shaun LUISformed By: Emilee Padilla : :Referring: [facility] : + + Interpretation Summary 1. The left ventricular contractility is mildly compromised. Estimated ejection fraction is approximately 40 to 45% with global hypokinesis. No LVH is noted. Unable to comment on diastolic function. Abnormal global strain of - 15.8%. 2. The right ventricular contractility appears to be mildly compromised. 3. There appears to be biatrial enlargement noted. 4. Mild tricuspid regurgitation present. Estimated pulmonary systolic artery pressure is 27 mmHg. 5. Hyperechogenic linear density noted in the right atrium and right ventricle suggestive of pacemaker wires. 6. No obvious intracardiac shunts noted. 7. No obvious intracardiac masses nor thrombi appreciated. 8. A nonhemodynamically significant small pericardial effusion noted. There does appear to be hyperechogenic densities noted adherent to the right ventricular epicardium suggesting some chronicity to the pericardial effusion. Conclusion: Mildly compromised biventricular ventricular systolic function with improvement of the left ventricular systolic function when compared with previous echocardiogram. Procedure: The study quality was technically limited. The study quality was technically adequate. Comparison is made with the echocardiogram of 02/09/2024. The heart rate ranged between 60 bpm during the study. Left Ventricle: The left ventricle is normal in size and wall thickness. Left ventricular global longitudinal strain average is -15.8%. The ejection fraction is estimated to be 40-45%. Right Ventricle: There is a pacemaker lead in the right ventricle. Right ventricular systolic function is mildly reduced. Atria: There is a catheter/pacemaker lead seen in the right atrium. Tricuspid Valve: There is mild to moderate tricuspid regurgitation. Great Vessels: The IVC is of normal diameter and collapses greater than 50% with a sniff. This suggests a low right atrial pressure of 3 mm Hg. Pericardium/ Pleura There is no pleural effusion. MMode/2D Measurements & Calculations LVIDd: 5.4 cm IVC diam: 1.9 cm LVIDs: 4.4 cm FS: 18.2 % EPSS: 1.3 cm IVSd: 0.83 cm LVPWd: 0.73 cm LV méndez. diameter/BSA (cm/m^2): 2.9 LV sys. diameter/BSA (cm/m^2): 2.3 RVD1 (basal): 4.1 cm RVD2 (mid): 3.3 cm TAPSE: 1.6 cm Doppler Measurements & Calculations TR max moreno: 243.1 cm/sec TR max P.6 mmHg Reading Physician:
== END ==
LOC: ECHO 08:49
PROVIDERS: Family Provider Internal Medicine; PCP Internal Medicine; Referring Provider Internal Medicine Cardiovascular Disease; Visit Provider Internal Medicine Cardiovascular Disease
DX: I48.0 Paroxysmal atrial fibrillation (principal); I42.8 Other cardiomyopathies; I07.1 Rheumatic tricuspid insufficiency; I31.39 Other pericardial effusion (noninflammatory); I50.22 Chronic systolic (congestive) heart failure
CPT/HCPCS: 36415; 80048; 93307; 93356

== ENCOUNTER → 2024-03-26 08:51 | Outpatient (CLI) | payer MEDICARE, OTHER, SELFPAY ==
[2022-10-13 13:44] VITALS: BMI 25.8
[2024-03-26 11:05] LABS: BUN Creatinine Ratio 25.8 (6-22); Blood Urea Nitrogen 31 mg/dL (7-17); Calcium 9.3 mg/dL (8.4-10.2); Carbon Dioxide 28 mmol/L (22-32); Chloride 103 mmol/L (98-107); Estimated Glomerular Filt Rate 44 mL/min (>60); Glucose 68 mg/dL (80-110); HEMOLYSIS < 15 (0-50); Potassium 4.4 mmol/L (3.4-5.1); Sodium 135 mmol/L (137-145)
== END ==
LOC: LAB 08:52
PROVIDERS: Family Provider Internal Medicine; PCP Internal Medicine; Referring Provider Internal Medicine; Visit Provider Internal Medicine
DX: I50.22 Chronic systolic (congestive) heart failure (principal)
CPT/HCPCS: 36415; 80048

== ENCOUNTER → 2024-04-04 10:49 | Outpatient (CLI) | payer MEDICARE, OTHER, SELFPAY ==
[2022-10-13 13:44] VITALS: BMI 25.8
--- NOTE | 2024-04-04 10:51 | DI.US.S_ITS ---
PROCEDURE: [facility] VENOUS LOW EXTREM RT INDICATIONS: Pain in right lower leg TECHNIQUE: Real-time imaging, as well as color and pulse Doppler interrogation, were performed of the lower extremity deep veins from the inguinal ligament to the popliteal fossa, with documentation of the visualized calf veins. COMPARISON: [facility], , [facility] VENOUS LOW EXTREM RT, 07/03/2021, 16:04. FINDINGS: The common femoral, femoral, popliteal, and the visualized calf veins are normally compressible, and free of intraluminal thrombus. Color and pulse Doppler demonstrate normal phasic intraluminal flow. There is normal augmentation response to distal compression maneuver. IMPRESSION: No findings of lower extremity deep venous thrombosis. Dictated by: Tigre Shaikh M.D. on 04/04/2024 at 11:01 Approved by: Tigre Shaikh M.D. on 04/04/2024 at 11:02
== END ==
LOC: US 10:50
PROVIDERS: Family Provider Internal Medicine; PCP Internal Medicine; Referring Provider Physician Assistant; Visit Provider Physician Assistant
DX: I50.22 Chronic systolic (congestive) heart failure (principal); M79.661 Pain in right lower leg
CPT/HCPCS: 36415; 80048; 93971

== ENCOUNTER → 2024-04-04 10:53 | Outpatient (CLI) | payer MEDICARE, OTHER, SELFPAY ==
[2022-10-13 13:44] VITALS: BMI 25.8
[2024-04-04 13:11] LABS: BUN Creatinine Ratio 21.8 (6-22); Blood Urea Nitrogen 26 mg/dL (7-17); Calcium 9.9 mg/dL (8.4-10.2); Carbon Dioxide 24 mmol/L (22-32); Chloride 108 mmol/L (98-107); Estimated Glomerular Filt Rate 44 mL/min (>60); Glucose 84 mg/dL (80-110); HEMOLYSIS < 15 (0-50); Sodium 139 mmol/L (137-145)
== END ==
LOC: LAB 10:53
PROVIDERS: Family Provider Internal Medicine; PCP Internal Medicine; Referring Provider Internal Medicine; Visit Provider Internal Medicine
DX: I50.22 Chronic systolic (congestive) heart failure (principal)
CPT/HCPCS: 36415; 80048

== ENCOUNTER → 2024-05-05 12:25 | Outpatient (CLI) | payer MEDICARE, OTHER, SELFPAY ==
[2022-10-13 13:44] VITALS: BMI 25.8
[2024-05-05 12:41] LABS: Hematocrit 41.2 % (36-46); Hemoglobin 13.9 g/dL (12.0-16.0); Mean Corpuscular HGB Conc 33.8 % (30-36); Mean Corpuscular Volume 91.9 fL (80-100); Platelet Count 260 X10^3/uL (150-400); Red Blood Cell Count 4.49 X10^6/uL (4.0-5.2); Red Cell Distribution Width 14.9 % (11.6-14.8); White Blood Cell Count 7.8 X10^3/uL (4.5-11.0)
[2024-05-05 13:05] LABS: Blood Urea Nitrogen 33 mg/dL (7-17); Calcium 9.7 mg/dL (8.4-10.2); Carbon Dioxide 27 mmol/L (22-32); Chloride 106 mmol/L (98-107); Estimated Glomerular Filt Rate 39 mL/min (>60); Glucose 69 mg/dL (80-110); HEMOLYSIS < 15 (0-50); Potassium 4.4 mmol/L (3.4-5.1); Sodium 138 mmol/L (137-145)
== END ==
LOC: LAB 12:26
PROVIDERS: Family Provider Internal Medicine; PCP Internal Medicine; Referring Provider Internal Medicine; Visit Provider Internal Medicine
DX: I50.22 Chronic systolic (congestive) heart failure (principal)
CPT/HCPCS: 36415; 80048; 85027

== ENCOUNTER → 2024-06-11 10:00 | Outpatient (CLI) | payer MEDICARE, OTHER, SELFPAY ==
[2022-10-13 13:44] VITALS: BMI 25.8
[2024-06-11 12:27] LABS: BUN Creatinine Ratio 22.8 (6-22); Blood Urea Nitrogen 31 mg/dL (7-17); Carbon Dioxide 26 mmol/L (22-32); Chloride 101 mmol/L (98-107); Estimated Glomerular Filt Rate 38 mL/min (>60); Glucose 51 mg/dL (80-110); HEMOLYSIS < 15 (0-50); Sodium 134 mmol/L (137-145)
== END ==
PROVIDERS: Family Provider Internal Medicine; PCP Internal Medicine; Referring Provider Internal Medicine; Visit Provider Internal Medicine
DX: I50.22 Chronic systolic (congestive) heart failure (principal)
CPT/HCPCS: 36415; 80048

== ENCOUNTER → 2024-07-04 13:00 | Outpatient (CLI) | payer MEDICARE, OTHER, SELFPAY ==
[2022-10-13 13:44] VITALS: BMI 25.8
[2024-07-04 14:28] LABS: Free T3, Triiodothyronine Free 1.97 pg/mL (2.77-5.27)
[2024-07-04 14:41] LABS: Thyroid Stimulating Hormone 3.19 uIU/mL (0.47-4.68)
== END ==
PROVIDERS: Family Provider Internal Medicine; PCP Internal Medicine; Referring Provider Internal Medicine Endocrinology, Diabetes & Metabolism; Visit Provider Internal Medicine Endocrinology, Diabetes & Metabolism
DX: E03.9 Hypothyroidism, unspecified (principal)
CPT/HCPCS: 36415; 84439; 84443; 84481

== ENCOUNTER → 2024-07-31 12:41 | Outpatient (CLI) | payer MEDICARE, OTHER, SELFPAY ==
[2022-10-13 13:44] VITALS: BMI 25.8
--- NOTE | 2024-07-31 12:42 | DI.MG.S_ITS ---
BILATERAL DIGITAL SCREENING MAMMOGRAM 3D/2D WITH CAD: 07/31/2024 CLINICAL: Routine screening. Family history of breast cancer. Comparison is made to exams dated: 07/26/2023 mammogram, 03/01/2023 mammogram, 07/28/2022 mammogram, and 07/15/2022 mammogram - [facility]. The breasts are heterogeneously dense, which may obscure small masses (category c / 51-75% glandular tissue). Current study was also evaluated with a Computer Aided Detection (CAD) system. There are benign calcifications in both breasts. There also is a biopsy clip in the right breast. No significant masses, calcifications, or other findings are seen in either breast. There has been no significant interval change. IMPRESSION: BENIGN There is no mammographic evidence of malignancy. A 1 year screening mammogram is recommended. This exam was interpreted at Station ID: [id number]. NOTE: For mammograms, a report in lay terms will be sent to the patient. Approximately 15% of breast malignancies will not be visualized mammographically. In the management of a palpable breast mass, a negative mammogram must not discourage biopsy of a clinically suspicious lesion. Electronically Signed By: Valerie armendariz/poncho:07/31/2024 14:17:05 letter sent: Normal Exam ACR BI-RADS Category 2: Benign 3342F
[2024-07-31 14:37] LABS: BUN Creatinine Ratio 19.7 (6-22); Blood Urea Nitrogen 24 mg/dL (7-17); Calcium 9.6 mg/dL (8.4-10.2); Carbon Dioxide 25 mmol/L (22-32); Chloride 100 mmol/L (98-107); Cholesterol 244 mg/dL (140-199); Estimated Glomerular Filt Rate 43 mL/min (>60); Glucose 65 mg/dL (80-110); HDL Cholesterol 100 mg/dL (40-60); HEMOLYSIS < 15 (0-50); LDL Cholesterol Calculated 130 mg/dL (<100); Sodium 133 mmol/L (137-145); Triglycerides 69 mg/dL (35-150)
== END ==
LOC: MAMMO 12:42
PROVIDERS: Family Provider Internal Medicine; PCP Internal Medicine; Referring Provider Internal Medicine; Visit Provider Internal Medicine
DX: Z12.31 Encounter for screening mammogram for malignant neoplasm of breast (principal); E78.2 Mixed hyperlipidemia; Z80.3 Family history of malignant neoplasm of breast; R92.333 Mammographic heterogeneous density, bilateral breasts; I50.22 Chronic systolic (congestive) heart failure
CPT/HCPCS: 36415; 77063; 77067; 80048; 80061

== ENCOUNTER → 2024-09-11 08:42 | Outpatient (CLI) | payer MEDICARE, OTHER, SELFPAY ==
[2022-10-13 13:44] VITALS: BMI 25.8
[2024-09-11 20:18] LABS: Influenza A - CEPHEID Flu A NEGATIVE (NEGATIVE); Influenza B - CEPHEID Flu B NEGATIVE (NEGATIVE); Respiratory Syncytial Virus Negative (Negative)
[2024-09-11 20:22] LABS: COVID-19 CEPHEID 4-PLEX PCR Negative (Negative)
== END ==
PROVIDERS: Family Provider Internal Medicine; PCP Internal Medicine; Visit Provider Internal Medicine
DX: J06.9 Acute upper respiratory infection, unspecified (principal)
CPT/HCPCS: 0241U

== ENCOUNTER → 2024-09-29 10:48 | Outpatient (CLI) | payer MEDICARE, OTHER, SELFPAY ==
[2022-10-13 13:44] VITALS: BMI 25.8
[2024-09-29 11:59] LABS: Alanine Aminotransferase 22 IU/L (<35); Albumin 4.6 g/dL (3.5-5.0); Albumin Globulin Ratio 1.8 (1.0-2.8); Alkaline Phosphatase 49 U/L (38-126); Aspartate Aminotransferase 32 IU/L (14-36); BUN Creatinine Ratio 15.7 (6-22); Bilirubin Total 0.7 mg/dL (0.2-1.3); Bilirubin Unconjugated 0.4 mg/dL (0.0-1.1); Blood Urea Nitrogen 19 mg/dL (7-17); Calcium 9.6 mg/dL (8.4-10.2); Carbon Dioxide 26 mmol/L (22-32); Chloride 99 mmol/L (98-107); Estimated Glomerular Filt Rate 43 mL/min (>60); Globulin 2.5 g/dL (1.7-4.1); Glucose 65 mg/dL (80-110); HEMOLYSIS < 15 (0-50); Potassium 4.5 mmol/L (3.4-5.1); Sodium 133 mmol/L (137-145); Total Protein 7.1 g/dL (6.3-8.2)
[2024-09-29 12:15] LABS: Free T4, Direct Thyroxine 1.48 ng/dL (0.78-2.19)
[2024-09-29 12:28] LABS: Thyroid Stimulating Hormone 3.87 uIU/mL (0.47-4.68)
== END ==
PROVIDERS: Family Provider Internal Medicine; PCP Internal Medicine; Referring Provider Internal Medicine Cardiovascular Disease; Visit Provider Internal Medicine Cardiovascular Disease
DX: I48.0 Paroxysmal atrial fibrillation (principal)
CPT/HCPCS: 36415; 80053; 80076; 84439; 84443

== ENCOUNTER → 2024-11-29 14:52 | Outpatient (CLI) | payer MEDICARE, OTHER, SELFPAY ==
[2022-10-13 13:44] VITALS: BMI 25.8
[2024-11-29 17:09] LABS: Free T3, Triiodothyronine Free 1.95 pg/mL (2.77-5.27); Free T4, Direct Thyroxine 1.63 ng/dL (0.78-2.19)
[2024-11-29 17:22] LABS: Thyroid Stimulating Hormone 4.87 uIU/mL (0.47-4.68)
== END ==
PROVIDERS: Family Provider Internal Medicine; PCP Internal Medicine; Referring Provider Internal Medicine Endocrinology, Diabetes & Metabolism; Visit Provider Internal Medicine Endocrinology, Diabetes & Metabolism
DX: E03.9 Hypothyroidism, unspecified (principal)
CPT/HCPCS: 36415; 84439; 84443; 84481

== ENCOUNTER 2024-12-04 05:47 | Emergency (ER) | payer MEDICARE, OTHER, SELFPAY ==
[2022-10-13 13:44] VITALS: BMI 25.8
[2024-12-04 05:50] VITALS: PULSE 80; O2SAT 95
[2024-12-04 05:52] VITALS: BP 129/79; PULSE 80; RESP 18; TEMP 36.4; O2SAT 95; BMI 25.8
--- NOTE | 2024-12-04 05:55 | ED_ITS ---
HPI - General Adult <Raul Orellana DO - Last Filed: 12/13/24 17:56> General Chief complaint: Headache Stated complaint: L side head pain Time Seen by Provider: 12/04/24 05:47 Source: patient Mode of arrival: EMS Limitations: no limitations History of Present Illness HPI narrative: Patient was an 89-year-old female. Is on anticoagulation. Has a history of atrial fibrillation. Has a pacemaker in place. She states that she woke up this morning and felt like that she had been hit with a baseball in the left side of her head. She stated that it was not hurting but just felt like she had been hit by a baseball. Described it somewhat as a pressure on the left side of her head. She did not take anything for her symptoms. She has no changes in her baseline balance issues. She stated that in route here in the emergency department she did start to develop a left-sided headache. She was on medications for high blood pressure. She stated that she was told that potentially her blood pressure medicines or even her blood pressure could potentially cause her headache. Given all of the symptoms this morning is what prompted her to contact EMS come to the ER. Related Data Home Medications Medication Instructions Recorded Confirmed liothyronine 5 mcg tablet (Cytomel) 10 mcg PO QDAY ##0 05/27/11 11/29/24 polyethylene glycol 3350 17 17 g PO BID 02/04/21 11/29/24 gram/dose oral powder (Miralax) ascorbic acid (vitamin C) 1,000 mg 1,000 mg PO DAILY 07/01/22 11/29/24 tablet calcium carbonate 500 mg PO DAILY 07/01/22 11/29/24 cholecalciferol (vitamin D3) 25 25 mcg PO DAILY 07/01/22 11/29/24 mcg (1,000 unit) capsule magnesium oxide 400 mg PO DAILY 07/01/22 11/29/24 metoprolol succinate 25 mg 12.5 mg PO BID afib, tachycardia 07/07/23 09/11/24 tablet,extended release 24 hr albuterol sulfate 2.5 mg/3 mL 2.5 mg continuous nebulization QID 03/29/24 11/29/24 (0.083 %) solution for nebulization sacubitril 24 mg-valsartan 26 mg 1 tab PO BID 03/29/24 11/29/24 tablet (Entresto) amiodarone 200 mg tablet 200 mg PO DAILY 05/17/24 11/29/24 levothyroxine 75 mcg tablet 75 mcg PO DAILY 07/18/24 11/29/24 Previous Rx's Medication Instructions Recorded Oral Appliance #1 ea 07/28/21 fluticasone furoate 200 1 inh inhalation DAILY #90 ea 02/28/24 mcg/actuation blister powder for inhalation (Arnuity Ellipta) acyclovir 5 % topical cream 1 applic topical QID PRN Rash #5 04/13/24 grams apixaban 5 mg tablet (Eliquis) 5 mg PO BID #180 tabs 06/25/24 furosemide 40 mg tablet 40 mg PO DAILY #90 tabs 07/18/24 potassium chloride 10 mEq 10 meq PO BID PRN furosemide use 07/18/24 capsule,extended release #180 caps spironolactone 25 mg tablet 25 mg PO DAILY #90 tabs 07/18/24 linaclotide 72 mcg capsule 144 mcg (2 x 72 mcg) PO DAILY #180 07/24/24 (Linzess) caps estradiol 0.01% (0.1 mg/gram) 2 g vaginal 3XW #85 grams 08/10/24 vaginal cream rosuvastatin 10 mg tablet 10 mg PO DAILY #90 tabs 08/28/24 econazole 1 % topical cream 1 applic topical DAILY #85 grams 11/05/24 albuterol sulfate 90 mcg/actuation 2 puff inhalation Q6H PRN 11/15/24 aerosol inhaler shortness of breath or wheezing #8.5 grams benzonatate 100 mg capsule 100 mg PO BID-TID PRN cough #20 11/15/24 caps amoxicillin 875 mg-potassium 1 tab PO BID #14 tabs 11/29/24 clavulanate 125 mg tablet prednisone 10 mg tablet See Rx Instructions .Route 11/29/24 .COMPLEX #20 tabs Allergies Allergy/AdvReac Type Severity Reaction Status Date / Time ciprofloxacin [CIPROFLOXACIN] Allergy Severe Rash Verified 11/29/24 15:59 sulfamethoxazole Allergy Unknown RASH Verified 11/29/24 15:59 [From ] trimethoprim [From ] Allergy Unknown RASH Verified 11/29/24 15:59 amiodarone AdvReac Intermediate Nausea Verified 11/29/24 15:59 torsemide AdvReac Intermediate constipatio Verified 11/29/24 15:59 n metronidazole [From FLAGYL] AdvReac Unknown REALLY Verified 11/29/24 15:59 HARSH ON STOMACH Review of Systems <Raul Orellana DO - Last Filed: 12/13/24 17:56> Review of Systems ROS Unobtainable: All systems reviewed & are unremarkable except as noted in HPI and below Patient History <Raul Orellana DO - Last Filed: 12/13/24 17:56> Medical History Chronic kidney disease, stage 3b Venous (peripheral) insufficiency Systolic CHF, chronic BPPV (benign paroxysmal positional vertigo) Vision disorder Mumps Measles Herpes Chicken pox Hearing loss Diverticular disease Colon polyps Do not resuscitate Tachy-cheryl syndrome COPD (chronic obstructive pulmonary disease) Obstructive sleep apnea syndrome Chronic anticoagulation Menopausal syndrome Paroxysmal atrial fibrillation Acquired hypothyroidism Constipation by delayed colonic transit Mixed hyperlipidemia Pneumonia Surgical History Anesthesia H/O: hysterectomy (~1984) History of femoral derotational osteotomy (~1983) History of hip surgery (~2007) History of right hip replacement (~2007) History of tonsillectomy and adenoidectomy (~1949) S/P cardiac pacemaker procedure Family History Father History of heart disease Mother Hypertension Alcoholism Sister Cancer Grandmother Cancer Grandmother Cancer Social History household members: spouse and children Smoking Status: Former smoker alcohol intake: never Smoking Status: Former smoker tobacco type: cigarettes alcohol intake frequency: holidays/special occasions only Exam <Raul Orellana DO - Last Filed: 12/13/24 17:56> Initial Vital Signs Initial Vital Signs: Vital Signs Pulse Rate 80 12/04/24 05:50 Pulse Oximetry 95 12/04/24 05:50 Const General: cooperative, comfortable and No ill appearing HENMT Head: normal to inspection and normocephalic Eyes General: Yes appearance normal, both eyes and all related structures Resp Effort & Inspection: normal respiratory effort Cardio Rate: regular rate Neuro General: patient alert, patient awake and moves all extremities Cognition: normal cognition Speech: speech normal Extrem General: normal to inspection <Alyssa Nix MD - Last Filed: 12/04/24 07:49> Initial Vital Signs Initial Vital Signs: Vital Signs Pulse Rate 80 12/04/24 05:50 Pulse Oximetry 95 12/04/24 05:50 Course <Raul Orellana DO - Last Filed: 12/13/24 17:56> Orders Ordered: Discontinued Medications Acetaminophen (Acetaminophen 325 Mg Tablet) 650 mg PO NOW ONE Stop: 12/04/24 05:52 Last Admin: 12/04/24 06:38 Dose: 650 mg Documented By: MEIR Proparacaine HCl (Proparacaine 0.5% Ophth Ariana) 1 drops EYE-LEFT NOW ONE Stop: 12/04/24 06:57 Last Admin: 12/04/24 07:00 Dose: 1 drops Documented By: MEIR Vital Signs Vital signs: Vital Signs - 8 hr 12/04/24 05:50 12/04/24 05:52 12/04/24 06:00 Temperature 97.5 F L Pulse Rate 80 80 Respiratory Rate 18 Blood Pressure 129/79 127/77 Pulse Oximetry 95 95 Oxygen Delivery Method Room Air 12/04/24 06:00 12/04/24 06:30 12/04/24 07:00 Temperature Pulse Rate 80 80 80 Respiratory Rate Blood Pressure Pulse Oximetry 97 97 98 Oxygen Delivery Method <Alyssa Nix MD - Last Filed: 12/04/24 07:49> Orders Ordered: Discontinued Medications Acetaminophen (Acetaminophen 325 Mg Tablet) 650 mg PO NOW ONE Stop: 12/04/24 05:52 Last Admin: 12/04/24 06:38 Dose: 650 mg Documented By: MEIR Proparacaine HCl (Proparacaine 0.5% Ophth Ariana) 1 drops EYE-LEFT NOW ONE Stop: 12/04/24 06:57 Last Admin: 12/04/24 07:00 Dose: 1 drops Documented By: MEIR Vital Signs Vital signs: Vital Signs - 8 hr 12/04/24 05:50 12/04/24 05:52 12/04/24 06:00 Temperature 97.5 F L Pulse Rate 80 80 Respiratory Rate 18 Blood Pressure 129/79 127/77 Pulse Oximetry 95 95 Oxygen Delivery Method Room Air 12/04/24 06:00 12/04/24 06:30 12/04/24 07:00 Temperature Pulse Rate 80 80 80 Respiratory Rate Blood Pressure Pulse Oximetry 97 97 98 Oxygen Delivery Method Medical Decision Making <Raul Orellana DO - Last Filed: 12/13/24 17:56> Medical Records Medical records reviewed: Yes I reviewed the patient's medical records. Lab Data Lab results reviewed: Yes I reviewed the patient's lab results. 12/04/24 05:50 12/04/24 05:50 Labs: Lab Results 12/04/24 Range/Units 05:50 WBC 8.4 (4.5-11.0) X10^3/uL RBC 4.26 (4.0-5.2) X10^6/uL Hgb 13.4 (12.0-16.0) g/dL Hct 39.4 (36-46) % MCV 92.7 (80-100) fL MCH 31.4 (26-34) PG MCHC 33.9 (30-36) % RDW 14.2 (11.6-14.8) % Plt Count 293 (150-400) X10^3/uL Neut % (Auto) 73.9 (50-75) % Lymph % (Auto) 22.8 L (25-40) % [place] % (Auto) 2.7 L (3-14) % Eos % (Auto) 0.0 L (2-4) % Baso % (Auto) 0.6 (0-2) % Neut # (Auto) 6200 (8253-3644) /uL Lymph # (Auto) 1900 (6523-8743) /uL [place] # (Auto) 200 (0-900) /uL Eos # (Auto) 0 (0-450) /uL Baso # (Auto) 0 (0-100) /uL ESR 4 (0-20) MM/HR Sodium 128 L (137-145) mmol/L Potassium 5.1 (3.4-5.1) mmol/L Chloride 95 L (98-107) mmol/L Carbon Dioxide 26 (22-32) mmol/L BUN 26 H (7-17) mg/dL Creatinine 1.44 H (0.52-1.04) mg/dL Estimated GFR 35 L (>60) mL/min BUN/Creatinine Ratio 18.1 (6-22) Glucose 120 H (80-110) mg/dL Calcium 9.3 (8.4-10.2) mg/dL C-Reactive Protein < 0.5 (<1.0) mg/dL Imaging Data CT scan - head: Radiologist's Impression: No CT evidence of acute intracranial abnormality Cerebral volume loss, intracranial atherosclerotic disease and mild sequela chronic small vascular ischemic disease MDM Narrative Medical decision making narrative: Somewhat difficult to ascertain exactly what kind of discomfort the patient had this morning. Initially patient stated that she was not having a headache but felt like she was hit with a baseball but then upon further evaluation she did describe a left-sided headache. Head CT was unremarkable. Labs are unremarkable. She was no other focal neurologic deficits. Upon re-evaluation patient states she was now having eye discomfort and she was somewhat tender over the left temporal artery so ESR/CRP were added to her labs. I do feel that we do need to check the pressures in her left eye. Care turned over to day provider to continue with evaluation and disposition. <Alyssa Nix MD - Last Filed: 12/04/24 07:49> Lab Data Labs: Lab Results 12/04/24 Range/Units 05:50 WBC 8.4 (4.5-11.0) X10^3/uL RBC 4.26 (4.0-5.2) X10^6/uL Hgb 13.4 (12.0-16.0) g/dL Hct 39.4 (36-46) % MCV 92.7 (80-100) fL MCH 31.4 (26-34) PG MCHC 33.9 (30-36) % RDW 14.2 (11.6-14.8) % Plt Count 293 (150-400) X10^3/uL Neut % (Auto) 73.9 (50-75) % Lymph % (Auto) 22.8 L (25-40) % [place] % (Auto) 2.7 L (3-14) % Eos % (Auto) 0.0 L (2-4) % Baso % (Auto) 0.6 (0-2) % Neut # (Auto) 6200 (6367-9640) /uL Lymph # (Auto) 1900 (1372-2247) /uL [place] # (Auto) 200 (0-900) /uL Eos # (Auto) 0 (0-450) /uL Baso # (Auto) 0 (0-100) /uL ESR 4 (0-20) MM/HR Sodium 128 L (137-145) mmol/L Potassium 5.1 (3.4-5.1) mmol/L Chloride 95 L (98-107) mmol/L Carbon Dioxide 26 (22-32) mmol/L BUN 26 H (7-17) mg/dL Creatinine 1.44 H (0.52-1.04) mg/dL Estimated GFR 35 L (>60) mL/min BUN/Creatinine Ratio 18.1 (6-22) Glucose 120 H (80-110) mg/dL Calcium 9.3 (8.4-10.2) mg/dL C-Reactive Protein < 0.5 (<1.0) mg/dL MDM Narrative Medical decision making narrative: Somewhat difficult to ascertain exactly what kind of discomfort the patient had this morning. Initially patient stated that she was not having a headache but felt like she was hit with a baseball but then upon further evaluation she did describe a left-sided headache. Head CT was unremarkable. Labs are unremarkable. She was no other focal neurologic deficits. Upon re-evaluation patient states she was now having eye discomfort and she was somewhat tender over the left temporal artery so ESR/CRP were added to her labs. I do feel that we do need to check the pressures in her left eye. Care turned over to day provider to continue with evaluation and disposition. 740am Dr Nix Care is assumed, patient is evaluated, chart is reviewed patient is independently examined. Pressures in the left eye are 24 Visual acuity right eye is 20/30, left eye is 20/40, corrected with glasses 20/30 89-year-old woman who awoke with sensation in the left temporal area that she does not describe as a headache but describes as and odd feeling also not quite pain. No visual changes she has never had similar symptoms no other neurologic findings. CT scan of the head does not show any masses, mass effect, stroke or intracranial hemorrhage. Visual acuity is appropriate. Sed rate and CRP are low suggesting absence of temporal arteritis. Eye pressure does not suggest glaucoma There was no trauma, there was no skin changes or abnormalities around the area of concern. Area of concern is actually almost directly above the ear tragus in the very posterior temporal area. There were no ear abnormalities appreciated. At this time I do not have an explanation for this sensation. She did take some Tylenol but again describes as not pain so the sensation was not particularly relieved with Tylenol. Reviewed all of the life and vision threatening abnormalities that might cause such as sensation and reassured her that all are absent. Questions are answered and she is discharged home with instructions to return if symptoms worsen. Discharge Plan Departure Patient Disposition: Home Clinical Impression: Head pain Qualifiers: Headache type: unspecified Headache chronicity pattern: unspecified pattern I ntractability: not intractable Qualified Code(s): R51.9 - Headache, unspecified Activity Restrictions/Additional Instructions: Thank you for coming in I understands that the sensation that awoke him from sleep in the left temporal area is not necessarily pain. The life and vision threatening problems that I think about with this type of presentation include a tumor mass, skull abnormalities, migraine headache at the age of 89 without migraine diagnosis is essentially unheard of, infection, skin area abnormality, temporal arteritis, acute glaucoma. Workup today has shown that you have absolutely none of these. At this point, I do not have a full explanation for the sensation but I do not think that it is life-threatening, I do not believe you need additional imaging studies lab work or hospitalization at this time If you find that things are getting worse, you are having confusion, additional neurologic symptoms or new findings please return to the ER Prescriptions: No Action liothyronine [Cytomel] 5 MCG tablet 10 mcg PO QDAY Qty: 0 (DME) Oral Appliance See Rx Instructions .Route .MEDSUPPLY Qty: 1 0RF Rx Instructions: patient with AHI of 10.4 acyclovir 5 % cream 1 applic TOPICAL QID PRN (Reason: Rash) Qty: 5 5RF Rx Instructions: as needed APPLY ONE-HALF GRAM TO AFFECTED AREA FOUR TIMES A DAY NEEDED amiodarone 200 mg tablet 200 mg PO DAILY Eliquis 5 mg tablet 5 mg PO BID Qty: 180 3RF Linzess 72 mcg capsule 144 mcg PO DAILY Qty: 180 3RF estradiol 0.01 % (0.1 mg/gram) cream 2 g vaginal 3XW Qty: 85 4RF econazole 1 % cream 1 applic TOPICAL DAILY Qty: 85 1RF albuterol sulfate 90 mcg/actuation HFA aerosol inhaler 2 puff inhalation Q6H PRN (Reason: shortness of breath or wheezing) Qty: 8.5 5RF benzonatate 100 mg capsule 100 mg PO BID-TID PRN (Reason: cough) Qty: 20 2RF cholecalciferol (vitamin D3) 25 mcg (1,000 unit) capsule 25 mcg PO DAILY magnesium oxide 400 mg magnesium tablet 400 mg PO DAILY calcium carbonate 500 mg calcium (1,250 mg) tablet 500 mg PO DAILY ascorbic acid (vitamin C) 1,000 mg tablet 1,000 mg PO DAILY metoprolol succinate 25 mg tablet extended release 24 hr 12.5 mg PO BID prednisone 10 mg tablet See Rx Instructions .Route .COMPLEX Qty: 20 2RF Rx Instructions: 4 tablets daily for 2 days, then 3 tablets daily for 2 days, then 2 tablets daily for 2 days, then 1 tablet daily for 2 days then stop; amoxicillin-pot clavulanate 875-125 mg tablet 1 tab PO BID Qty: 14 0RF Arnuity Ellipta 200 mcg/actuation blister with device 1 inh inhalation DAILY Qty: 90 3RF albuterol sulfate 2.5 mg /3 mL (0.083 %) solution for nebulization 2.5 mg continuous nebulization QID Rx Instructions: 1 VIAL VIA NEBULIZER FOUR TIMES DAILY Entresto 24-26 mg tablet 1 tab PO BID spironolactone 25 mg tablet 25 mg PO DAILY Qty: 90 3RF potassium chloride 10 mEq capsule, extended release 10 meq PO BID PRN (Reason: furosemide use) Qty: 180 3RF furosemide 40 mg tablet 40 mg PO DAILY Qty: 90 3RF levothyroxine 75 mcg tablet 75 mcg PO DAILY rosuvastatin 10 mg tablet 10 mg PO DAILY Qty: 90 3RF polyethylene glycol 3350 [Miralax] 17 gram/dose Powder 17 g PO BID Referrals: Thompson Vicente MD [Primary Care Provider] - Stand Alone Forms: Patient Portal/API/Survey
--- NOTE | 2024-12-04 05:56 | DI.CT.S_ITS ---
PROCEDURE: CT HEAD/BRAIN WO CON INDICATIONS: L sided headache TECHNIQUE: Noncontrast 4.5 mm thick angled axial sections acquired from the foramen magnum to the vertex, with coronal and sagittal reformats. For radiation dose reduction, the following was used: automated exposure control, adjustment of mA and/or kV according to patient size. COMPARISON: [facility], CT, HEAD WITHOUT CONTRAST, 10/03/2017, 11:35. FINDINGS: Image quality: Diagnostic. CSF spaces: Basal cisterns are patent. No extra-axial fluid collections. The ventricles are symmetric in size and shape. Brain: No intracranial bleeds or masses. There is cerebral volume loss for age, with resultant ventricular and sulcal prominence. There are periventricular and deep white matter chronic small vessel ischemic changes. There is intracranial internal carotid artery atherosclerosis. Skull and face: Calvarium and visualized facial bones appear intact, without suspicious lesions. Sinuses: Visualized sinuses and mastoids are clear. IMPRESSION: No acute intracranial pathology. No discrepancies from preliminary reading. Dictated by: Raul Conner M.D. on 12/04/2024 at 8:15 Approved by: Raul Conner M.D. on 12/04/2024 at 8:15
[2024-12-04 06:00] VITALS: BP 127/77; PULSE 80; O2SAT 97
[2024-12-04 06:03] LABS: Add Manual Diff / Slide Review NO; Basophils Absolute Auto 0 /uL (0-100); Basophils Percent Auto 0.6 % (0-2); Eosinophils Absolute Auto 0 /uL (0-450); Hematocrit 39.4 % (36-46); Hemoglobin 13.4 g/dL (12.0-16.0); Lymphocytes Absolute Auto 1900 /uL (1100-4500); Lymphocytes Percent Auto 22.8 % (25-40); Mean Corpuscular HGB Conc 33.9 % (30-36); Mean Corpuscular Hemoglobin 31.4 PG (26-34); Mean Corpuscular Volume 92.7 fL (80-100); Monocytes Absolute Auto 200 /uL (0-900); Monocytes Percent Auto 2.7 % (3-14); Neutrophils Absolute Auto 6200 /uL (1500-7000); Neutrophils Percent Auto 73.9 % (50-75); Platelet Count 293 X10^3/uL (150-400); Red Blood Cell Count 4.26 X10^6/uL (4.0-5.2); Red Cell Distribution Width 14.2 % (11.6-14.8); White Blood Cell Count 8.4 X10^3/uL (4.5-11.0)
[2024-12-04 06:16] LABS: BUN Creatinine Ratio 18.1 (6-22); Blood Urea Nitrogen 26 mg/dL (7-17); Calcium 9.3 mg/dL (8.4-10.2); Carbon Dioxide 26 mmol/L (22-32); Chloride 95 mmol/L (98-107); Estimated Glomerular Filt Rate 35 mL/min (>60); Glucose 120 mg/dL (80-110); HEMOLYSIS < 15 (0-50); Potassium 5.1 mmol/L (3.4-5.1); Sodium 128 mmol/L (137-145)
[2024-12-04 06:30] VITALS: PULSE 80; O2SAT 97
[2024-12-04] MEDS: ACETAMINOPHEN 325 MG TABLET 650 MG PO (06:38)
[2024-12-04 07:00] VITALS: PULSE 80; O2SAT 98
[2024-12-04] MEDS: PROPARACAINE 0.5% OPHTH SOL 1 DROPS EYE-LEFT (07:00)
[2024-12-04 07:12] LABS: C-Reactive Protein Quant < 0.5 mg/dL (<1.0)
[2024-12-04 07:21] LABS: Erythrocyte Sedimentation Rate 4 MM/HR (0-20)
[2024-12-04 07:53] VITALS: BP 138/79; PULSE 80; RESP 18; O2SAT 99
== END 2024-12-04 08:03 | disposition home or self-care (01) ==
PROVIDERS: Emergency Medicine; Emergency Provider Emergency Medicine; Family Provider Internal Medicine; PCP Internal Medicine
DX: R51.9 Headache, unspecified (principal); I48.91 Unspecified atrial fibrillation; Z79.01 Long term (current) use of anticoagulants; Z95.0 Presence of cardiac pacemaker
CPT/HCPCS: 36415; 70450; 80048; 85025; 85651; 86140; 99284

== ENCOUNTER → 2025-01-19 18:40 | Outpatient (CLI) | payer MEDICARE, OTHER, SELFPAY ==
[2024-12-28 06:32] VITALS: BMI 25.8
--- NOTE | 2025-01-19 18:42 | DI.RAD.S_ITS ---
PROCEDURE: XR CHEST 2V INDICATIONS: SOB, rhonchi, wheezing, cough TECHNIQUE: 2 views of the chest were acquired. COMPARISON: [facility], CR, XR CHEST 1V, 04/02/2023, 23:26. FINDINGS: Surgical changes and devices: Biventricular pacemaker a. Atherosclerotic vascular calcification noted in the aortic arch. Lungs and pleura: Lungs are clear. No pleural effusions or pneumothorax. Mediastinum: Mediastinal contours are normal. Heart size is enlarged. Bones and chest wall: No suspicious bony abnormalities. Soft tissues appear unremarkable. IMPRESSION: Cardiomegaly without vascular congestion Approved by: Hao Vizcarra M.D. on 01/19/2025 at 18:06
== END ==
PROVIDERS: Family Provider Internal Medicine; PCP Internal Medicine; Referring Provider Physician Assistant Surgical; Visit Provider Physician Assistant Surgical
DX: R06.02 Shortness of breath (principal); I51.7 Cardiomegaly; Z95.0 Presence of cardiac pacemaker
CPT/HCPCS: 71046

== ENCOUNTER → 2025-02-06 10:38 | Outpatient (CLI) | payer MEDICARE, OTHER, SELFPAY ==
[2024-12-28 06:32] VITALS: BMI 25.8
[2025-02-06 11:41] LABS: BUN Creatinine Ratio 15.4 (6-22); Blood Urea Nitrogen 19 mg/dL (7-17); Calcium 10.1 mg/dL (8.4-10.2); Carbon Dioxide 28 mmol/L (22-32); Chloride 94 mmol/L (98-107); Estimated Glomerular Filt Rate 43 mL/min (>60); Glucose 96 mg/dL (80-110); HEMOLYSIS < 15 (0-50); Potassium 4.2 mmol/L (3.4-5.1); Sodium 130 mmol/L (137-145)
[2025-02-06 12:00] LABS: Free T3, Triiodothyronine Free 3.13 pg/mL (2.77-5.27); Free T4, Direct Thyroxine 1.47 ng/dL (0.78-2.19)
[2025-02-06 12:14] LABS: Thyroid Stimulating Hormone 4.51 uIU/mL (0.47-4.68)
== END ==
PROVIDERS: Family Provider Internal Medicine; PCP Internal Medicine; Referring Provider Internal Medicine Endocrinology, Diabetes & Metabolism; Visit Provider Internal Medicine Endocrinology, Diabetes & Metabolism
DX: E03.9 Hypothyroidism, unspecified (principal); N18.32 Chronic kidney disease, stage 3b; I50.22 Chronic systolic (congestive) heart failure
CPT/HCPCS: 36415; 80048; 84439; 84443; 84481

== ENCOUNTER 2025-02-08 11:01 | Emergency (ER) | payer MEDICARE, OTHER, SELFPAY ==
[2024-12-28 06:32] VITALS: BMI 25.8
[2025-02-08] VITALS (9 sets, daily range): BP systolic 101–119; BP diastolic 54–65; PULSE 80–82; RESP 16–26; TEMP 36.6; O2SAT 96–100; BMI 25.8
--- NOTE | 2025-02-08 11:19 | ED.ABDPAIN ---
HPI - Abdominal Pain General Chief Complaint: Abdominal Pain Stated Complaint: Stomach Pain Time Seen by Provider: 02/08/25 11:18 Source: patient Mode of arrival: Ambulatory History of Present Illness HPI narrative: 89-year-old female with history of prior hysterectomy, no other abdominopelvic surgeries, history of recurrent diverticulitis at least a half does not events, history of COPD status post antibiotics last month for bronchitis with course of prednisone all completed, now with 4 days duration nontraumatic left sided lower abdominal pain. No nausea or vomiting. No fevers or chills. No black or red stools. Last bowel movement earlier today unremarkable, without hard component or change in caliber, no mucoid stools. She does not usually suffer from constipation. No injury, trauma, new activities. No change in chronic cough since completion of antibiotics and steroids last month, denies chest pain or shortness of breath. Denies painful urination or frequency of urination. Related Data Home Medications Medication Instructions Recorded Confirmed liothyronine 5 mcg tablet (Cytomel) 10 mcg PO QDAY ##0 05/27/11 02/05/25 polyethylene glycol 3350 17 17 g PO BID 02/04/21 02/05/25 gram/dose oral powder (Miralax) ascorbic acid (vitamin C) 1,000 mg 1,000 mg PO DAILY 07/01/22 02/05/25 tablet calcium carbonate 500 mg PO DAILY 07/01/22 02/05/25 cholecalciferol (vitamin D3) 25 25 mcg PO DAILY 07/01/22 02/05/25 mcg (1,000 unit) capsule magnesium oxide 400 mg PO DAILY 07/01/22 02/05/25 metoprolol succinate 25 mg 12.5 mg PO BID afib, tachycardia 07/07/23 02/05/25 tablet,extended release 24 hr albuterol sulfate 2.5 mg/3 mL 2.5 mg continuous nebulization QID 03/29/24 02/05/25 (0.083 %) solution for nebulization sacubitril 24 mg-valsartan 26 mg 1 tab PO BID 03/29/24 02/05/25 tablet (Entresto) amiodarone 200 mg tablet 200 mg PO DAILY 05/17/24 02/05/25 levothyroxine 75 mcg tablet 75 mcg PO DAILY 07/18/24 02/05/25 Previous Rx's Medication Instructions Recorded Oral Appliance #1 ea 07/28/21 fluticasone furoate 200 1 inh inhalation DAILY #90 ea 02/28/24 mcg/actuation blister powder for inhalation (Arnuity Ellipta) acyclovir 5 % topical cream 1 applic topical QID PRN Rash #5 04/13/24 grams apixaban 5 mg tablet (Eliquis) 5 mg PO BID #180 tabs 06/25/24 furosemide 40 mg tablet 40 mg PO DAILY #90 tabs 07/18/24 potassium chloride 10 mEq 10 meq PO BID PRN furosemide use 07/18/24 capsule,extended release #180 caps spironolactone 25 mg tablet 25 mg PO DAILY #90 tabs 07/18/24 linaclotide 72 mcg capsule 144 mcg (2 x 72 mcg) PO DAILY #180 07/24/24 (Linzess) caps estradiol 0.01% (0.1 mg/gram) 2 g vaginal 3XW #85 grams 08/10/24 vaginal cream rosuvastatin 10 mg tablet 10 mg PO DAILY #90 tabs 08/28/24 econazole nitrate 1 % topical cream 1 applic topical DAILY #85 grams 11/05/24 albuterol sulfate 90 mcg/actuation 2 puff inhalation Q6H PRN 11/15/24 aerosol inhaler shortness of breath or wheezing #8.5 grams amoxicillin 875 mg tablet 875 mg PO BID dental infection 10 02/08/25 days #20 tabs Allergies Allergy/AdvReac Type Severity Reaction Status Date / Time ciprofloxacin [CIPROFLOXACIN] Allergy Severe Rash Verified 02/05/25 10:52 sulfamethoxazole Allergy Unknown RASH Verified 02/05/25 10:52 [From SEPTRA] trimethoprim [From SEPTRA] Allergy Unknown RASH Verified 02/05/25 10:52 amiodarone AdvReac Intermediate Nausea Verified 02/05/25 10:52 torsemide AdvReac Intermediate constipatio Verified 02/05/25 10:52 n metronidazole [From FLAGYL] AdvReac Unknown REALLY Verified 02/05/25 10:52 HARSH ON STOMACH Patient History Medical History Acquired hypothyroidism BPPV (benign paroxysmal positional vertigo) Chicken pox Chronic anticoagulation Chronic kidney disease, stage 3b Colon polyps Constipation by delayed colonic transit COPD (chronic obstructive pulmonary disease) Diverticular disease Do not resuscitate Hearing loss Herpes Measles Menopausal syndrome Mixed hyperlipidemia Mumps Obstructive sleep apnea syndrome Paroxysmal atrial fibrillation Pneumonia Systolic CHF, chronic Tachy-cheryl syndrome Venous (peripheral) insufficiency Vision disorder Surgical History Anesthesia H/O: hysterectomy (~1984) History of femoral derotational osteotomy (~1983) History of hip surgery (~2007) History of right hip replacement (~2007) History of tonsillectomy and adenoidectomy (~1949) S/P cardiac pacemaker procedure Family History Father History of heart disease Mother Hypertension Alcoholism Sister Cancer Grandmother Cancer Grandmother Cancer Social History household members: spouse and children Smoking Status: Former smoker alcohol intake: never Smoking Status: Former smoker tobacco type: cigarettes alcohol intake frequency: holidays/special occasions only Exam Narrative Exam Narrative: GENERAL: Well-developed patient, in mild distress. HEAD: Atraumatic. Normocephalic. EYES: Pupils equal round and reactive. Extraocular motions intact. No scleral icterus. No injection or drainage. ENT: Nose without bleeding, purulent drainage. Throat without erythema, tonsillar hypertrophy or exudate. Airway patent. NECK: Trachea midline. Non tender CARDIOVASCULAR: Regular rate and rhythm without murmurs, gallops, or rubs. RESPIRATORY: Clear to auscultation. Breath sounds equal bilaterally. No wheezes, rales, or rhonchi. GASTROINTESTINAL: Abdomen soft, left lower quadrant mild tenderness, nondistended, no guarding or rebound, bowel tones unremarkable without rushes or tinkles. No obvious ventral hernias. No skin rash changes or vesicles. EXTREMITIES: No edema or joint tenderness. BACK: Nontender without deformity or crepitance. No flank tenderness. NEURO: AOx3. Motor functions grossly nonfocal SKIN: No rash or erythema of visible areas Initial Vital Signs Initial Vital Signs: Vital Signs Temperature 98 F 02/08/25 11:05 Pulse Rate 80 02/08/25 11:05 Respiratory Rate 20 02/08/25 11:05 Blood Pressure 119/57 L 02/08/25 11:05 Pulse Oximetry 100 02/08/25 11:05 Oxygen Delivery Method Room Air 02/08/25 11:05 Course Orders Ordered: ED Orders 02/08/25 12:05 EKG-12 Lead Stat 02/08/25 12:24 CT abdomen pelvis w con Stat 02/08/25 13:11 Urine Microscopic Stat Discontinued Medications Amoxicillin/Clavulanate Potassium (Amoxicillin/Clav 875/125 Mg) 1 tab PO NOW ONE Stop: 02/08/25 13:52 Last Admin: 02/08/25 13:56 Dose: 1 tab Documented By: MAURICIO Ondansetron HCl (Ondansetron 4 Mg/2 Ml Inj) 4 mg IV NOW PRN PRN Reason: Nausea And Vomiting Ondansetron HCl (Ondansetron 4 Mg Odt) 4 mg PO NOW PRN PRN Reason: Nausea And Vomiting Vital Signs Vital signs: Vital Signs - 8 hr 02/08/25 12:30 02/08/25 12:30 02/08/25 14:38 Pulse Rate 80 80 Respiratory Rate Blood Pressure 112/65 Pulse Oximetry 99 97 Oxygen Delivery Method 02/08/25 14:38 02/08/25 14:42 Pulse Rate 82 Respiratory Rate 22 16 Blood Pressure 104/56 L 104/56 L Pulse Oximetry 98 Oxygen Delivery Method Room Air MDM - Abdominal Pain Lab Data Attestation: I reviewed the patient's lab results. Lab results narrative: White blood cell count 41771, hemoglobin 12.8, platelets 264,000. Glucose 102. BUN 16 with creatinine 1.13 normal renal function. Sodium 134 slightly low, potassium 4.2, carbon dioxide 26. Liver functions and lipase normal. 02/08/25 11:19 02/08/25 11:19 Labs: Lab Results 02/08/25 02/08/25 Range/Units 11:19 13:11 WBC 13.5 H (4.5-11.0) X10^3/uL RBC 4.08 (4.0-5.2) X10^6/uL Hgb 12.8 (12.0-16.0) g/dL Hct 37.9 (36-46) % MCV 92.8 (80-100) fL MCH 31.4 (26-34) PG MCHC 33.9 (30-36) % RDW 15.3 H (11.6-14.8) % Plt Count 264 (150-400) X10^3/uL Neut % (Auto) 74.9 (50-75) % Lymph % (Auto) 13.6 L (25-40) % [place] % (Auto) 10.8 (3-14) % Eos % (Auto) 0.0 L (2-4) % Baso % (Auto) 0.7 (0-2) % Neut # (Auto) 06296 H (7862-6554) /uL Lymph # (Auto) 1800 (8540-0753) /uL [place] # (Auto) 1500 H (0-900) /uL Eos # (Auto) 0 (0-450) /uL Baso # (Auto) 100 (0-100) /uL Sodium 134 L (137-145) mmol/L Potassium 4.2 (3.4-5.1) mmol/L Chloride 100 (98-107) mmol/L Carbon Dioxide 26 (22-32) mmol/L BUN 16 (7-17) mg/dL Creatinine 1.13 H (0.52-1.04) mg/dL Estimated GFR 47 L (>60) mL/min BUN/Creatinine Ratio 14.2 (6-22) Glucose 102 (80-110) mg/dL Calcium 9.7 (8.4-10.2) mg/dL Total Bilirubin 0.9 (0.2-1.3) mg/dL AST 35 (14-36) IU/L ALT 22 (<35) IU/L Alkaline Phosphatase 48 (38-126) U/L Total Protein 7.3 (6.3-8.2) g/dL Albumin 4.3 (3.5-5.0) g/dL Globulin 3.0 (1.7-4.1) g/dL Albumin/Globulin Ratio 1.4 (1.0-2.8) Lipase 123 (23-300) U/L Urine RBC None seen (0-5/HPF) Urine WBC None seen (0-5/HPF) Ur Squamous Epith Cells 1-5 /hpf (0-5/HPF) Urine Bacteria None seen (None) Ur Culture Indicated? Cult not indicated Vol Urine Centrifuged 10ml (spun) Point of care testing: Urine Dip Bedside Urine Glucose Negative Bedside Urine Bilirubin - Negative Bedside Urine Ketone +/- 5 Urine Specific Standard 1.015 Bedside Urine Occult Blood - Negative Bedside Urine pH 6.0 Bedside Urine Protein +/- 15 Bedside Urine Urobilinogen - Negative Bedside Urine Nitrite - Negative Bedside Urine Leukocytes - Negative Esterase ECG Data Attestation: I personally reviewed and interpreted this ECG as follows: Interpretation: Ventricular paced rhythm with rate 80. QRS 138, QTC 519. MDM Narrative Medical decision making narrative: 89-year-old female with history of COPD recent antibiotics last month, recurrent diverticulitis events, now with 4 days nontraumatic left lower quadrant pain, mild tenderness on examination, afebrile, sirs screen negative. Labs pending. White blood cell count 20841, hemoglobin normal, GFR normal. CT abdomen and pelvis with IV contrast ordered. She declines pain meds for now. Keep NPO. CT Abdomen Pelvis shows uncomplicated sigmoid colitis. See radiology report. Augmentin oral dose given, prescription for ten day course sent to pharmacy. [place] home. Return precautions discussed. Discharge Plan Departure Patient Disposition: Home Clinical Impression: Diverticulitis Instructions: DI for Diverticulitis Activity Restrictions/Additional Instructions: History of diverticulitis, prior response to Augmentin antibiotics, intolerance to ciprofloxacin/metronidazole antibiotics. Now with 4 days duration left-sided abdominal pain, some tenderness on that side. No fever on triage, unremarkable vitals. CT abdomen and pelvis did confirm sigmoid diverticulitis. It appears uncomplicated at this time, without evidence for bowel obstruction, abscess, perforation. Oral Augmentin antibiotic given in the emergency department, with prescription for 10 day course. Drink plenty of fluids. Take Tylenol as needed for discomfort. Recheck symptoms with your doctor later this week. Return earlier to this/nearest emergency department for any change worsening symptoms or any concerns prior. Prescriptions: New amoxicillin 875 mg tablet 875 mg PO BID 10 Days Qty: 20 0RF No Action liothyronine [Cytomel] 5 MCG tablet 10 mcg PO QDAY Qty: 0 (DME) Oral Appliance See Rx Instructions .Route .MEDSUPPLY Qty: 1 0RF Rx Instructions: patient with AHI of 10.4 acyclovir 5 % cream 1 applic TOPICAL QID PRN (Reason: Rash) Qty: 5 5RF Rx Instructions: as needed APPLY ONE-HALF GRAM TO AFFECTED AREA FOUR TIMES A DAY NEEDED amiodarone 200 mg tablet 200 mg PO DAILY Eliquis 5 mg tablet 5 mg PO BID Qty: 180 3RF Linzess 72 mcg capsule 144 mcg PO DAILY Qty: 180 3RF estradiol 0.01 % (0.1 mg/gram) cream 2 g vaginal 3XW Qty: 85 4RF econazole nitrate 1 % cream 1 applic TOPICAL DAILY Qty: 85 1RF albuterol sulfate 90 mcg/actuation HFA aerosol inhaler 2 puff inhalation Q6H PRN (Reason: shortness of breath or wheezing) Qty: 8.5 5RF cholecalciferol (vitamin D3) 25 mcg (1,000 unit) capsule 25 mcg PO DAILY magnesium oxide 400 mg magnesium tablet 400 mg PO DAILY calcium carbonate 500 mg calcium (1,250 mg) tablet 500 mg PO DAILY ascorbic acid (vitamin C) 1,000 mg tablet 1,000 mg PO DAILY metoprolol succinate 25 mg tablet extended release 24 hr 12.5 mg PO BID Arnuity Ellipta 200 mcg/actuation blister with device 1 inh inhalation DAILY Qty: 90 3RF albuterol sulfate 2.5 mg /3 mL (0.083 %) solution for nebulization 2.5 mg continuous nebulization QID Rx Instructions: 1 VIAL VIA NEBULIZER FOUR TIMES DAILY Entresto 24-26 mg tablet 1 tab PO BID spironolactone 25 mg tablet 25 mg PO DAILY Qty: 90 3RF potassium chloride 10 mEq capsule, extended release 10 meq PO BID PRN (Reason: furosemide use) Qty: 180 3RF furosemide 40 mg tablet 40 mg PO DAILY Qty: 90 3RF levothyroxine 75 mcg tablet 75 mcg PO DAILY rosuvastatin 10 mg tablet 10 mg PO DAILY Qty: 90 3RF polyethylene glycol 3350 [Miralax] 17 gram/dose Powder 17 g PO BID Referrals: Thompson Vicente MD [Primary Care Provider] - Stand Alone Forms: Patient Portal/API/Survey
--- NOTE | 2025-02-08 11:21 | EKG_ITS ---
[address] [address] [address], [place] [address] Test Date: 2025-02-08 Pat Name: Joceline Ace Department: Room: Gender: Female [employer] Consultant: MARIBELL : 1935 Requested By: Order Number: [id number] Reading MD: Chad Stevens MD Measurements Intervals [place] Rate: 80 P: [place]: QRS: 211 QRSD: 138 T: 42 QT: 450 QTc: 519 Interpretive Statements Ventricular-paced rhythm Electronically Signed On 02-08-2025 13:45:35 PDT by Chad Stevens MD
--- NOTE | 2025-02-08 12:11 | PC.NURSE ---
IV placed by another nurse
[2025-02-08 12:13] LABS: Add Manual Diff / Slide Review NO; Basophils Absolute Auto 100 /uL (0-100); Basophils Percent Auto 0.7 % (0-2); Eosinophils Absolute Auto 0 /uL (0-450); Hematocrit 37.9 % (36-46); Hemoglobin 12.8 g/dL (12.0-16.0); Lymphocytes Absolute Auto 1800 /uL (1100-4500); Lymphocytes Percent Auto 13.6 % (25-40); Mean Corpuscular HGB Conc 33.9 % (30-36); Mean Corpuscular Hemoglobin 31.4 PG (26-34); Mean Corpuscular Volume 92.8 fL (80-100); Monocytes Absolute Auto 1500 /uL (0-900); Monocytes Percent Auto 10.8 % (3-14); Neutrophils Absolute Auto 10100 /uL (1500-7000); Neutrophils Percent Auto 74.9 % (50-75); Platelet Count 264 X10^3/uL (150-400); Red Blood Cell Count 4.08 X10^6/uL (4.0-5.2); Red Cell Distribution Width 15.3 % (11.6-14.8); White Blood Cell Count 13.5 X10^3/uL (4.5-11.0)
[2025-02-08 12:19] LABS: Alanine Aminotransferase 22 IU/L (<35); Albumin 4.3 g/dL (3.5-5.0); Albumin Globulin Ratio 1.4 (1.0-2.8); Alkaline Phosphatase 48 U/L (38-126); Aspartate Aminotransferase 35 IU/L (14-36); BUN Creatinine Ratio 14.2 (6-22); Bilirubin Total 0.9 mg/dL (0.2-1.3); Blood Urea Nitrogen 16 mg/dL (7-17); Calcium 9.7 mg/dL (8.4-10.2); Carbon Dioxide 26 mmol/L (22-32); Chloride 100 mmol/L (98-107); Estimated Glomerular Filt Rate 47 mL/min (>60); Glucose 102 mg/dL (80-110); HEMOLYSIS < 15 (0-50); Lipase 123 U/L (23-300); Potassium 4.2 mmol/L (3.4-5.1); Sodium 134 mmol/L (137-145); Total Protein 7.3 g/dL (6.3-8.2)
--- NOTE | 2025-02-08 12:24 | DI.CT.S_ITS ---
PROCEDURE: CT ABDOMEN PELVIS W CON INDICATIONS: abd pain TECHNIQUE: After the administration of intravenous contrast, axial sections acquired from the lung bases to the pubic symphysis. Coronal and sagittal reformats were performed. For radiation dose reduction, the following was used: automated exposure control, adjustment of mA and/or kV according to patient size. COMPARISON: [facility], CT, CT ABDOMEN PELVIS W CON, 09/10/2023, 14:05. FINDINGS: Image quality: Diagnostic Lower chest: Unremarkable lung bases. Subsegmental atelectasis is seen. Cardiomegaly. Partially seen cardiac electrode leads Liver: Unremarkable Gallbladder and biliary system: Mildly distended gallbladder with gallstone. Borderline distended CBD at 7 mm. Pancreas: No ductal dilation Spleen: Nonenlarged Adrenals: Adrenal thickening bilaterally Kidneys: Suspect small cysts are present. No definite solid mass. Subcentimeter lesions are too small to characterize, usually also cysts. No hydronephrosis. Vessels and lymph nodes: The main portal vein appears patent. No abdominal aortic aneurysm. Atherosclerotic calcifications are seen. No abdominal aortic aneurysm. No pathologic lymph nodes by size criteria Bowel and peritoneum: Diffusely prominent loops of small bowel filled with fluid. Colonic diverticula are seen throughout the distal colon, with mild area of focal inflammation in the mid sigmoid (4/55). In addition, moderate long segment inflammation is seen throughout the descending colon. No drainable fluid collection, moderate edema surrounds this area however. Mostly liquid colonic contents. Body wall: Unremarkable Pelvis: Obscured by metallic artifact. Bladder is unremarkable. Uterus is absent Bones: Right hip arthroplasty. Left proximal femur hardware partially seen. There are degenerative changes. IMPRESSION: Mild uncomplicated diverticulitis in the mid sigmoid. Concomitant findings consistent with enterocolitis, with moderate edema surrounding the descending colon most focally. Following clinical treatment, consider colonoscopy correlation if clinically indicated. No high-grade obstruction. No drainable abscess or ascites. Mildly distended gallbladder with gallstone. CBD measures 7 mm, upper limit of normal. Correlate LFTs. Other findings above. Dictated by: Homero Burris M.D. on 02/08/2025 at 13:26 Approved by: Homero Burris M.D. on 02/08/2025 at 13:31
[2025-02-08] MEDS: AMOXICILLIN/CLAV 875/125 MG 1 TAB PO (13:56)
[2025-02-08 14:01] LABS: Bacteria Urine None Seen; Culture Indicated Urine Cult Not Indicated; RBC Urine None Seen (0-5/HPF); Squamous Epithelial Cell Urine 1-5 /HPF (0-5/HPF); Urine Volume 10mL (spun); WBC Urine None Seen (0-5/HPF)
== END 2025-02-08 14:46 | disposition home or self-care (01) ==
PROVIDERS: Emergency Provider Emergency Medicine; Family Provider Internal Medicine; PCP Internal Medicine
DX: K57.92 Diverticulitis of intestine, part unspecified, without perforation or abscess without bleeding (principal); Z86.79 Personal history of other diseases of the circulatory system
CPT/HCPCS: 36415; 74177; 80053; 81003; 81015; 83690; 85025; 93005; 93010; 99284; Q9967

== ENCOUNTER 2025-03-20 23:01 | Emergency (ER) | payer MEDICARE, OTHER, SELFPAY ==
[2025-03-15 07:15] VITALS: BMI 25.8
[2025-03-20 23:05] VITALS: BP 137/87; PULSE 80; RESP 16; TEMP 36.6; O2SAT 100; BMI 25.8
--- NOTE | 2025-03-20 23:10 | DI.RAD.S_ITS ---
PROCEDURE: XR CHEST 1V INDICATIONS: chest pain TECHNIQUE: One view of the chest was acquired. COMPARISON: [facility], CT, CT ABDOMEN PELVIS W CON, 02/08/2025, 12:58. [facility], CR, XR CHEST 2V, 01/19/2025, 18:44. [facility], CR, XR CHEST 1V, 04/02/2023, 23:26. FINDINGS: Surgical changes and devices: Left pacemaker with right atrial, coronary sinus, and right ventricular leads. Lungs and pleura: Lungs are clear. No pleural effusions or pneumothorax. Mediastinum: Mediastinal contours appear normal. Heart size is enlarged. Bones and chest wall: No suspicious bony lesions. Overlying soft tissues appear unremarkable. IMPRESSION: No acute cardiopulmonary abnormality is seen. Dictated by: Konstantin Lopez M.D. on 03/20/2025 at 23:48 Approved by: Konstantin Lopez M.D. on 03/20/2025 at 23:50
--- NOTE | 2025-03-20 23:10 | EKG_ITS ---
[address] [address] Test Date: 2025-03-20 Pat Name: Joceline Ace Department: [facility] Room: Gender: Female Sales And Marketing Coordinator: : 1935 Requested By: Order Number: [id number] Reading MD: Bandar Clark Measurements Intervals [place] Rate: 80 P: [place]: QRS: 234 QRSD: 108 T: 14 QT: 392 QTc: 452 Interpretive Statements Ventricular-paced rhythm Electronically Signed On 03-21-2025 8:14:25 PDT by Bandar Clark
[2025-03-20 23:19] VITALS: BP 131/58
[2025-03-20 23:21] VITALS: PULSE 80; O2SAT 98
[2025-03-20 23:29] LABS: Add Manual Diff / Slide Review NO; Basophils Absolute Auto 100 /uL (0-100); Eosinophils Absolute Auto 0 /uL (0-450); Hemoglobin 12.1 g/dL (12.0-16.0); Lymphocytes Absolute Auto 2800 /uL (1100-4500); Mean Corpuscular HGB Conc 34.4 % (30-36); Mean Corpuscular Hemoglobin 31.9 PG (26-34); Mean Corpuscular Volume 92.6 fL (80-100); Monocytes Absolute Auto 1200 /uL (0-900); Monocytes Percent Auto 10.2 % (3-14); Neutrophils Absolute Auto 7600 /uL (1500-7000); Neutrophils Percent Auto 64.8 % (50-75); Platelet Count 265 X10^3/uL (150-400); Red Blood Cell Count 3.78 X10^6/uL (4.0-5.2); Red Cell Distribution Width 15.1 % (11.6-14.8); White Blood Cell Count 11.7 X10^3/uL (4.5-11.0)
[2025-03-20 23:30] VITALS: BP 124/59; PULSE 80; O2SAT 100
--- NOTE | 2025-03-20 23:30 | DI.CT.S_ITS ---
PROCEDURE: CT ABDOMEN PELVIS W CON INDICATIONS: abd pain TECHNIQUE: After the administration of intravenous contrast, axial sections acquired from the lung bases to the pubic symphysis. Coronal and sagittal reformats were performed. For radiation dose reduction, the following was used: automated exposure control, adjustment of mA and/or kV according to patient size. COMPARISON: [facility], CT, CT ABDOMEN PELVIS W CON, 09/10/2023, 14:05. [facility], CT, CT ABDOMEN PELVIS W CON, 02/08/2025, 12:58. FINDINGS: Image quality: Diagnostic. Lower Chest: Pacemaker leads. Prominent heart size. ABDOMEN: Liver: No solid mass. Gallbladder: Gallbladder is distended. Gallstone. Biliary ducts: No biliary dilation. Pancreas: No ductal dilation. Spleen: Size is within normal limits. Adrenal Glands: No adrenal nodules. Kidneys and Ureters: No hydronephrosis. No solid mass. No complex renal cystic lesion which requires follow up. Stomach and Bowel: Stomach is decompressed. Suspect small lipoma in the stomach measuring 2.1 cm, (249). No small bowel obstruction. Diverticulosis. Inflammatory change about the sigmoid colon, (2/104), slightly worsened. Most consistent with diverticulitis. No abscess demonstrated. Normal appendix. Peritoneum: Small volume of free fluid in the pelvis. No pneumoperitoneum. Ventral Wall: No significant ventral hernia. Abdominal Nodes: No retroperitoneal or mesenteric adenopathy by size criteria. Vessels: Aorta and inferior vena cava are normal in size. PELVIS: Beam hardening artifact. Pelvic Organs: Uterus is absent. Bladder: No bladder wall thickening, accounting for underdistention. Pelvic Nodes: No enlarged lymph nodes. Miscellaneous: No inguinal hernias are seen. Bones: No aggressive osseous abnormality. Right hip arthroplasty. Left hip plate and screw fixation. Mild scoliosis. DDD. IMPRESSION: 1. Sigmoid colon diverticulitis. Slightly worsened. No abscess demonstrated. 2. Small volume of free fluid in the pelvis. 3. Suspect small lipoma in the stomach. 4. Gallstone. Dictated by: Konstantin Lopez M.D. on 03/21/2025 at 1:09 Approved by: Konstantin Lopez M.D. on 03/21/2025 at 1:20
--- NOTE | 2025-03-20 23:33 | ED.ABDPAIN ---
HPI - Abdominal Pain General Chief Complaint: Abdominal Pain Stated Complaint: Abdominal Pain Time Seen by Provider: 03/20/25 23:30 Source: patient Mode of arrival: Ambulatory History of Present Illness HPI narrative: 89-year-old female with history of atrial fibrillation awaiting ablation procedure with Dr. Allison, history of the pacemaker, with recurrent diverticulitis, had bout of diverticulitis last month January 2025 treated successfully with oral Augmentin course of antibiotic, now with 3 days duration of increased lower abdominal discomfort, saw PCP Dr. Vicente in clinic 2 days ago Tuesday and was started on oral Augmentin again, she filled the prescription in his taking the doses, however she is having increasing lower abdominal pain despite taking the antibiotics. No fevers or chills. No black or red stools. Does not feel feverish. She is having increasing pain despite the antibiotics however. She recalls having ciprofloxacin and Flagyl in the past but had significant nausea with the ciprofloxacin. Related Data Home Medications Medication Instructions Recorded Confirmed liothyronine 5 mcg tablet (Cytomel) 10 mcg PO QDAY ##0 05/27/11 03/19/25 polyethylene glycol 3350 17 17 g PO BID 02/04/21 03/19/25 gram/dose oral powder (Miralax) ascorbic acid (vitamin C) 1,000 mg 1,000 mg PO DAILY 07/01/22 03/19/25 tablet calcium carbonate 500 mg PO DAILY 07/01/22 03/19/25 cholecalciferol (vitamin D3) 25 25 mcg PO DAILY 07/01/22 03/19/25 mcg (1,000 unit) capsule magnesium oxide 400 mg PO DAILY 07/01/22 03/19/25 metoprolol succinate 25 mg 12.5 mg PO BID afib, tachycardia 07/07/23 03/19/25 tablet,extended release 24 hr albuterol sulfate 2.5 mg/3 mL 2.5 mg continuous nebulization QID 03/29/24 03/19/25 (0.083 %) solution for nebulization sacubitril 24 mg-valsartan 26 mg 1 tab PO BID 03/29/24 03/19/25 tablet (Entresto) amiodarone 200 mg tablet 200 mg PO DAILY 05/17/24 03/19/25 levothyroxine 75 mcg tablet 75 mcg PO DAILY 07/18/24 03/19/25 Previous Rx's Medication Instructions Recorded Oral Appliance #1 ea 07/28/21 acyclovir 5 % topical cream 1 applic topical QID PRN Rash #5 04/13/24 grams apixaban 5 mg tablet (Eliquis) 5 mg PO BID #180 tabs 06/25/24 furosemide 40 mg tablet 40 mg PO DAILY #90 tabs 07/18/24 potassium chloride 10 mEq 10 meq PO BID PRN furosemide use 07/18/24 capsule,extended release #180 caps spironolactone 25 mg tablet 25 mg PO DAILY #90 tabs 07/18/24 linaclotide 72 mcg capsule 144 mcg (2 x 72 mcg) PO DAILY #180 07/24/24 (Linzess) caps estradiol 0.01% (0.1 mg/gram) 2 g vaginal 3XW #85 grams 08/10/24 vaginal cream rosuvastatin 10 mg tablet 10 mg PO DAILY #90 tabs 08/28/24 albuterol sulfate 90 mcg/actuation 2 puff inhalation Q6H PRN 11/15/24 aerosol inhaler shortness of breath or wheezing #8.5 grams econazole nitrate 1 % topical cream 1 applic topical DAILY #85 grams 03/04/25 amoxicillin 875 mg tablet 875 mg PO BID 10 days #20 tabs 03/14/25 fluticasone furoate 200 1 inh inhalation DAILY #90 ea 03/14/25 mcg/actuation blister powder for inhalation (Arnuity Ellipta) amoxicillin 875 mg-potassium 1 tab PO BID #20 tabs 03/21/25 clavulanate 125 mg tablet hydrocodone 5 mg-acetaminophen 325 1 tab PO Q6H PRN pain #10 tabs 03/21/25 mg tablet Allergies Allergy/AdvReac Type Severity Reaction Status Date / Time ciprofloxacin [CIPROFLOXACIN] Allergy Severe Rash Verified 03/19/25 16:02 sulfamethoxazole Allergy Unknown RASH Verified 03/19/25 16:02 [From SEPTRA] trimethoprim [From SEPTRA] Allergy Unknown RASH Verified 03/19/25 16:02 torsemide AdvReac Intermediate constipatio Verified 03/19/25 16:02 n metronidazole [From FLAGYL] AdvReac Unknown REALLY Verified 03/19/25 16:02 HARSH ON STOMACH Patient History Medical History Acquired hypothyroidism BPPV (benign paroxysmal positional vertigo) Chicken pox Chronic anticoagulation Chronic kidney disease, stage 3b Colon polyps Constipation by delayed colonic transit COPD (chronic obstructive pulmonary disease) Diverticular disease Do not resuscitate Hearing loss Herpes Measles Menopausal syndrome Mixed hyperlipidemia Mumps Obstructive sleep apnea syndrome Paroxysmal atrial fibrillation Pneumonia Systolic CHF, chronic Tachy-cheryl syndrome Venous (peripheral) insufficiency Vision disorder Surgical History Anesthesia H/O: hysterectomy (~1984) History of femoral derotational osteotomy (~1983) History of hip surgery (~2007) History of right hip replacement (~2007) History of tonsillectomy and adenoidectomy (~1949) S/P cardiac pacemaker procedure Family History Father History of heart disease Mother Hypertension Alcoholism Sister Cancer Grandmother Cancer Grandmother Cancer Social History household members: spouse and children Smoking Status: Former smoker alcohol intake: never Smoking Status: Former smoker tobacco type: cigarettes alcohol intake frequency: holidays/special occasions only Exam Narrative Exam Narrative: GENERAL: Well-developed patient, in mild distress. HEAD: Atraumatic. Normocephalic. EYES: Pupils equal round and reactive. Extraocular motions intact. No scleral icterus. No injection or drainage. ENT: Nose without bleeding, purulent drainage. Throat without erythema, tonsillar hypertrophy or exudate. Airway patent. NECK: Trachea midline. Non tender CARDIOVASCULAR: Regular rate and rhythm without murmurs, gallops, or rubs. RESPIRATORY: Clear to auscultation. Breath sounds equal bilaterally. No wheezes, rales, or rhonchi. GASTROINTESTINAL: Tenderness to left lower medial abdomen, no guarding or rebound tenderness, nondistended. Hypoactive bowel tones without rushes or tinkles. EXTREMITIES: No edema or joint tenderness. BACK: Nontender without deformity or crepitance. No flank tenderness. NEURO: AOx3. Motor functions grossly nonfocal SKIN: No rash or erythema of visible areas Initial Vital Signs Initial Vital Signs: Vital Signs Temperature 97.9 F 03/20/25 23:05 Pulse Rate 80 03/20/25 23:05 Respiratory Rate 16 03/20/25 23:05 Blood Pressure 137/87 03/20/25 23:05 Pulse Oximetry 100 03/20/25 23:05 Oxygen Delivery Method Room Air 03/20/25 23:05 Course Orders Ordered: ED Orders 03/20/25 23:10 XR chest 1V Stat EKG-12 Lead Stat 03/20/25 23:20 Complete Blood Count AUTO DIFF Stat Comprehensive Metabolic Panel Stat Lipase Stat Magnesium Stat NT-proBNP (BNP-Adult 18+) Stat PTT Partial Thromboplastin Jose Stat Prothrombin Time INR Stat Troponin & CK Cardiac Panel Stat 03/20/25 23:30 CT abdomen pelvis w con Stat 03/20/25 23:50 Urine Microscopic Stat 03/21/25 02:10 Lactate (Lactic Acid) Stat 03/21/25 03:18 Blood Culture Stat Discontinued Medications Hydrocodone Bitart/Acetaminophen (Hydrocodone/Acet 5/325 Prepack) 1 bottle MISC DIRECTED ONE Stop: 03/21/25 02:12 Last Admin: 03/21/25 03:15 Dose: 1 bottle Documented By: MELVIN Hydromorphone HCl (Hydromorphone 0.5 Mg Inj) 0.5 mg IV NOW ONE Stop: 03/21/25 01:41 Last Admin: 03/21/25 02:03 Dose: 0.5 mg Documented By: MEIR Piperacillin Sod/Tazobactam (Sod 4.5 gm/ Sodium Chloride) 100 mls @ 200 mls/hr IV NOW ONE Stop: 03/21/25 01:40 Last Infusion: 03/21/25 03:27 Dose: Infused Documented By: Admin: 03/21/25 02:00 Dose: 200 mls/hr Documented By: MEIR Sodium Chloride (Normal Saline 0.9%) 1,000 mls @ 1,000 mls/hr IV BOLUS ONE Stop: 03/21/25 02:38 Last Infusion: 03/21/25 03:27 Dose: Infused Documented By: Admin: 03/21/25 02:02 Dose: 1,000 mls/hr Documented By: MEIR Ondansetron HCl (Ondansetron 4 Mg/2 Ml Inj) 4 mg IV NOW ONE Stop: 03/21/25 01:41 Last Admin: 03/21/25 02:03 Dose: 4 mg Documented By: MEIR Vital Signs Vital signs: Vital Signs - 8 hr 03/20/25 23:05 03/20/25 23:19 03/20/25 23:21 Temperature 97.9 F Pulse Rate 80 80 Respiratory Rate 16 Blood Pressure 137/87 131/58 L Pulse Oximetry 100 98 Oxygen Delivery Method Room Air 03/20/25 23:30 03/20/25 23:30 03/21/25 00:04 Temperature Pulse Rate 80 Respiratory Rate Blood Pressure 124/59 L 119/63 Pulse Oximetry 100 Oxygen Delivery Method 03/21/25 00:30 03/21/25 00:30 03/21/25 01:00 Temperature Pulse Rate 80 80 Respiratory Rate 24 20 Blood Pressure 132/58 L Pulse Oximetry 99 99 Oxygen Delivery Method 03/21/25 01:00 03/21/25 01:17 03/21/25 01:30 Temperature Pulse Rate 80 Respiratory Rate 8 L Blood Pressure 124/57 L 142/63 H Pulse Oximetry 99 Oxygen Delivery Method 03/21/25 01:30 03/21/25 02:00 03/21/25 02:00 Temperature Pulse Rate 80 Respiratory Rate 18 Blood Pressure 137/63 130/63 Pulse Oximetry 99 Oxygen Delivery Method 03/21/25 02:32 03/21/25 03:00 03/21/25 03:01 Temperature Pulse Rate 80 79 79 Respiratory Rate 31 H 34 H 32 H Blood Pressure Pulse Oximetry 97 Oxygen Delivery Method 03/21/25 03:01 Temperature Pulse Rate Respiratory Rate Blood Pressure 139/58 L Pulse Oximetry Oxygen Delivery Method MDM - Abdominal Pain Lab Data Attestation: I reviewed the patient's lab results. Lab results narrative: White blood cell count 69338, hemoglobin 12.1. Platelets adequate. Renal function normal. Glucose 100. Sodium 132 low. Serum CO2 21 low. Potassium 4.4 normal. Liver functions unremarkable. Lipase normal. Urinalysis negative. Troponin negative. BNP 1660 elevated but lower than previous comparison value. 03/20/25 23:20 03/20/25 23:20 Labs: Lab Results 03/20/25 03/20/25 03/21/25 Range/Units 23:20 23:50 02:10 WBC 11.7 H (4.5-11.0) X10^3/uL RBC 3.78 L (4.0-5.2) X10^6/uL Hgb 12.1 (12.0-16.0) g/dL Hct 35.0 L (36-46) % MCV 92.6 (80-100) fL MCH 31.9 (26-34) PG MCHC 34.4 (30-36) % RDW 15.1 H (11.6-14.8) % Plt Count 265 (150-400) X10^3/uL Neut % (Auto) 64.8 (50-75) % Lymph % (Auto) 24.0 L (25-40) % [place] % (Auto) 10.2 (3-14) % Eos % (Auto) 0.0 L (2-4) % Baso % (Auto) 1.0 (0-2) % Neut # (Auto) 7600 H (9608-1233) /uL Lymph # (Auto) 2800 (5900-9985) /uL [place] # (Auto) 1200 H (0-900) /uL Eos # (Auto) 0 (0-450) /uL Baso # (Auto) 100 (0-100) /uL PT 19.3 H (9.4-12.5) SECONDS INR 1.7 H (0.9-1.3) APTT 39 H (25.1-36.5) SECONDS Sodium 132 L (137-145) mmol/L Potassium 4.4 (3.4-5.1) mmol/L Chloride 101 (98-107) mmol/L Carbon Dioxide 21 L (22-32) mmol/L BUN 14 (7-17) mg/dL Creatinine 1.08 H (0.52-1.04) mg/dL Estimated GFR 49 L (>60) mL/min BUN/Creatinine Ratio 13.0 (6-22) Glucose 100 H (70-99) mg/dL Lactate 0.8 (0.7-2.1) mmol/L Calcium 9.0 (8.4-10.2) mg/dL Magnesium 1.7 (1.6-2.3) mg/dL Total Bilirubin 0.9 (0.2-1.3) mg/dL AST 23 (14-36) IU/L ALT 16 (<35) IU/L Alkaline Phosphatase 54 (38-126) U/L Total Creatine Kinase 31 (30-135) U/L Troponin I < 0.012 (0.01-0.034) ng/mL NT-Pro-B Natriuret Pep 1660 H (<450) pg/mL Total Protein 7.0 (6.3-8.2) g/dL Albumin 4.1 (3.5-5.0) g/dL Globulin 2.9 (1.7-4.1) g/dL Albumin/Globulin Ratio 1.4 (1.0-2.8) Lipase 69 (23-300) U/L Urine RBC 1-5/hpf (0-5/HPF) Urine WBC 0-1/hpf (0-5/HPF) Ur Squamous Epith Cells 5-10 /hpf H (0-5/HPF) Urine Bacteria Few (2-10) H (None) Hyaline Casts 0-1/lpf (None) Ur Culture Indicated? Cult not indicated Vol Urine Centrifuged 10ml (spun) Point of care testing: Urine Dip Bedside Urine Glucose Negative Bedside Urine Bilirubin - Negative Bedside Urine Ketone + 15 Urine Specific [place] 1.020 Bedside Urine Occult Blood - Negative Bedside Urine pH 6.0 Bedside Urine Protein - Negative Bedside Urine Urobilinogen - Negative Bedside Urine Nitrite - Negative Bedside Urine Leukocytes - Negative Esterase Imaging Data CT scan - abdomen/pelvis: Radiologist's Impression: Close Abdomen/Pelvis CT (Signed) Call,[facility] - 03/20/25 Chest X-Ray (Signed) Call,Konstantin 03/20/25 Launch?[place] [address] CT Scan Report Signed Patient: Joceline Ace MR#: [id number] : 1935 Acct:[id number] Age/Sex: 89 / F Date of Service: 03/20/25 Loc: ED Accession Number: [id number] Procedure: CT abdomen pelvis w con Ordering Provider: Rene Wellington MD PROCEDURE: CT ABDOMEN PELVIS W CON INDICATIONS: abd pain TECHNIQUE: After the administration of intravenous contrast, axial sections acquired from the lung bases to the pubic symphysis. Coronal and sagittal reformats were performed. For radiation dose reduction, the following was used: automated exposure control, adjustment of mA and/or kV according to patient size. COMPARISON: [facility], CT, CT ABDOMEN PELVIS W CON, 09/10/2023, 14:05. [facility], CT, CT ABDOMEN PELVIS W CON, 02/08/2025, 12:58. FINDINGS: Image quality: Diagnostic. Lower Chest: Pacemaker leads. Prominent heart size. ABDOMEN: Liver: No solid mass. Gallbladder: Gallbladder is distended. Gallstone. Biliary ducts: No biliary dilation. Pancreas: No ductal dilation. Spleen: Size is within normal limits. Adrenal Glands: No adrenal nodules. Kidneys and Ureters: No hydronephrosis. No solid mass. No complex renal cystic lesion which requires follow up. Stomach and Bowel: Stomach is decompressed. Suspect small lipoma in the stomach measuring 2.1 cm, (). No small bowel obstruction. Diverticulosis. Inflammatory change about the sigmoid colon, (), slightly worsened. Most consistent with diverticulitis. No abscess demonstrated. Normal appendix. Peritoneum: Small volume of free fluid in the pelvis. No pneumoperitoneum. Ventral Wall: No significant ventral hernia. Abdominal Nodes: No retroperitoneal or mesenteric adenopathy by size criteria. Vessels: Aorta and inferior vena cava are normal in size. PELVIS: Beam hardening artifact. Pelvic Organs: Uterus is absent. Bladder: No bladder wall thickening, accounting for underdistention. Pelvic Nodes: No enlarged lymph nodes. Miscellaneous: No inguinal hernias are seen. Bones: No aggressive osseous abnormality. Right hip arthroplasty. Left hip plate and screw fixation. Mild scoliosis. DDD. IMPRESSION: 1. Sigmoid colon diverticulitis. Slightly worsened. No abscess demonstrated. 2. Small volume of free fluid in the pelvis. 3. Suspect small lipoma in the stomach. 4. Gallstone. Dictated by: Konstantin Lopez M.D. on 03/21/2025 at 1:09 Approved by: Konstantin Lopez M.D. on 03/21/2025 at 1:20 ECG Data Attestation: I personally reviewed and interpreted this ECG as follows: Interpretation: Ventricular paced rhythm with rate of 80 beats per minute, QRS 108, QTC 452. MDM Narrative Medical decision making narrative: 89-year-old female now day 2-3 oral Augmentin for most recent flare of recurrent diverticulitis, had successful treatment with antibiotic course Augmentin last month with her most recent flare, can not tolerate Cipro/Flagyl antibiotic regimen from past experience due to nausea and vomiting, also has history of atrial fibrillation awaiting ablation procedure when she is infection free. Increasing abdominal pain despite taking her Augmentin, no missed doses. Afebrile, sirs screen negative. Tenderness on examination. Labs pending, anticipate abdominal advanced imaging. IV Dilaudid/Zofran, IV fluid bolus. Keep NPO. Labs show mild leukocytosis 27113, hemoglobin adequate, renal function normal. CT abdomen and pelvis ordered. CT shows diverticulitis changes more severe than previous March 2025, but no obstruction or abscess or perforation changes. See radiology report. Patient has been taking oral amoxicillin not Augmentin, IV Zosyn dose given now. We will discharge patient on broader spectrum antibiotic Augmentin 10 day course, new prescription sent to her pharmacy. History of ciprofloxacin and Flagyl allergies noted. Follow up with the PCP early next week advised. Return precautions discussed. Discharged home with family. Discharge Plan Departure Patient Disposition: Home Clinical Impression: Diverticulitis Activity Restrictions/Additional Instructions: History of diverticulitis, treated with amoxicillin for early mild case last month that seemed to respond to this therapy. Now with new lower abdominal pain, treated clinically with amoxicillin now day 2-3 of that oral regimen, increasing pain. CT scan tonight showed presence of diverticulitis, no associated bowel obstruction or perforation or abscess, uncomplicated at this time, and without signs or symptoms of gastrointestinal bleeding. History of allergies to ciprofloxacin and Flagyl antibiotics. IV Zosyn antibiotic given. We initially considered admission for further doses of IV Zosyn, however it is possible to have broadening of your oral antibiotic regimen to amoxicillin/clavulanate (Augmentin) to see how you respond to this regimen at least for now. You seemed interested in trying this approach. New course of 10 day Augmentin prescription sent to your pharmacy to use in place of your current amoxicillin only regimen. Start taking this medication. Recheck with your regular doctor early next week to assess progress. Return earlier to this/nearest emergency department for any change worsening symptoms or any concerns prior. Prescriptions: New amoxicillin-pot clavulanate 875-125 mg tablet 1 tab PO BID Qty: 20 0RF hydrocodone-acetaminophen 5-325 mg tablet 1 tab PO Q6H PRN (Reason: pain) Qty: 10 0RF No Action liothyronine [Cytomel] 5 MCG tablet 10 mcg PO QDAY Qty: 0 (DME) Oral Appliance See Rx Instructions .Route .MEDSUPPLY Qty: 1 0RF Rx Instructions: patient with AHI of 10.4 acyclovir 5 % cream 1 applic TOPICAL QID PRN (Reason: Rash) Qty: 5 5RF Rx Instructions: as needed APPLY ONE-HALF GRAM TO AFFECTED AREA FOUR TIMES A DAY NEEDED amiodarone 200 mg tablet 200 mg PO DAILY Eliquis 5 mg tablet 5 mg PO BID Qty: 180 3RF Linzess 72 mcg capsule 144 mcg PO DAILY Qty: 180 3RF estradiol 0.01 % (0.1 mg/gram) cream 2 g vaginal 3XW Qty: 85 4RF albuterol sulfate 90 mcg/actuation HFA aerosol inhaler 2 puff inhalation Q6H PRN (Reason: shortness of breath or wheezing) Qty: 8.5 5RF econazole nitrate 1 % cream 1 applic TOPICAL DAILY Qty: 85 1RF Arnuity Ellipta 200 mcg/actuation blister with device 1 inh inhalation DAILY Qty: 90 3RF amoxicillin 875 mg tablet 875 mg PO BID 10 Days Qty: 20 0RF cholecalciferol (vitamin D3) 25 mcg (1,000 unit) capsule 25 mcg PO DAILY magnesium oxide 400 mg magnesium tablet 400 mg PO DAILY calcium carbonate 500 mg calcium (1,250 mg) tablet 500 mg PO DAILY ascorbic acid (vitamin C) 1,000 mg tablet 1,000 mg PO DAILY metoprolol succinate 25 mg tablet extended release 24 hr 12.5 mg PO BID albuterol sulfate 2.5 mg /3 mL (0.083 %) solution for nebulization 2.5 mg continuous nebulization QID Rx Instructions: 1 VIAL VIA NEBULIZER FOUR TIMES DAILY Entresto 24-26 mg tablet 1 tab PO BID spironolactone 25 mg tablet 25 mg PO DAILY Qty: 90 3RF potassium chloride 10 mEq capsule, extended release 10 meq PO BID PRN (Reason: furosemide use) Qty: 180 3RF furosemide 40 mg tablet 40 mg PO DAILY Qty: 90 3RF levothyroxine 75 mcg tablet 75 mcg PO DAILY rosuvastatin 10 mg tablet 10 mg PO DAILY Qty: 90 3RF polyethylene glycol 3350 [Miralax] 17 gram/dose Powder 17 g PO BID Referrals: Thompson Vicente MD [Primary Care Provider] - Stand Alone Forms: Patient Portal/API/Survey
[2025-03-20 23:35] LABS: INR 1.7 (0.9-1.3); Prothrombin Time 19.3 SECONDS (9.4-12.5)
[2025-03-20 23:38] LABS: PTT Partial Thromboplastin Tim 39 SECONDS (25.1-36.5)
[2025-03-20 23:41] LABS: Alanine Aminotransferase 16 IU/L (<35); Albumin 4.1 g/dL (3.5-5.0); Albumin Globulin Ratio 1.4 (1.0-2.8); Alkaline Phosphatase 54 U/L (38-126); Aspartate Aminotransferase 23 IU/L (14-36); Bilirubin Total 0.9 mg/dL (0.2-1.3); Blood Urea Nitrogen 14 mg/dL (7-17); Carbon Dioxide 21 mmol/L (22-32); Chloride 101 mmol/L (98-107); Creatine Kinase 31 U/L (30-135); Estimated Glomerular Filt Rate 49 mL/min (>60); Globulin 2.9 g/dL (1.7-4.1); Glucose 100 mg/dL (70-99); HEMOLYSIS < 15 (0-50); Lipase 69 U/L (23-300); Magnesium 1.7 mg/dL (1.6-2.3); Potassium 4.4 mmol/L (3.4-5.1); Sodium 132 mmol/L (137-145)
[2025-03-20 23:52] LABS: NT-proBNP (BNP-Adult 18+) 1660 pg/mL (<450); Troponin I < 0.012 ng/mL (0.01-0.034)
[2025-03-21] VITALS (9 sets, daily range): BP systolic 119–142; BP diastolic 57–63; PULSE 79–80; RESP 8–34; O2SAT 97–99
[2025-03-21 00:14] LABS: Bacteria Urine Few (2-10); RBC Urine 1-5/HPF (0-5/HPF); Urine Volume 10mL (spun); WBC Urine 0-1/HPF (0-5/HPF)
[2025-03-21 00:15] LABS: Culture Indicated Urine Cult Not Indicated; Hyaline Casts Urine 0-1/LPF; Squamous Epithelial Cell Urine 5-10 /HPF (0-5/HPF)
[2025-03-21] MEDS: PIPERACILLIN/TAZO 4.5 GM in SODIUM CHLORIDE 0.9% 100 ML IV (02:00)
[2025-03-21] MEDS: SODIUM CHLORIDE 0.9% 1,000 ML 1000 ML IV (02:02)
[2025-03-21] MEDS: ONDANSETRON 4 MG/2 ML INJ IV (02:03)
[2025-03-21] MEDS: HYDROMORPHONE 0.5 MG INJ IV (02:03)
[2025-03-21 02:29] LABS: Lactate (Lactic Acid) 0.8 mmol/L (0.7-2.1)
[2025-03-21] MEDS: HYDROCODONE/ACET 5/325 PREPACK 1 BOTTLE MISC (03:15)
== END 2025-03-21 03:29 | disposition home or self-care (01) ==
PROVIDERS: Emergency Provider Emergency Medicine; Family Provider Internal Medicine; PCP Internal Medicine
DX: K57.92 Diverticulitis of intestine, part unspecified, without perforation or abscess without bleeding (principal)
CPT/HCPCS: 36415; 71045; 74177; 80053; 81003; 81015; 82550; 83605; 83690; 83735; 83880; 84484; 85025; 85610; 85730; 87040; 87077; 93005; 96365; 96375; 99284; J1171; J2405; J2543; Q9967

== ENCOUNTER 2025-03-21 18:32 | Emergency (ER) | payer MEDICARE, OTHER, SELFPAY ==
[2025-03-15 07:15] VITALS: BMI 25.8
[2025-03-21] VITALS (8 sets, daily range): BP systolic 101–107; BP diastolic 52–59; PULSE 57–94; RESP 16–23; TEMP 36.6; O2SAT 94–99; BMI 26.6
--- NOTE | 2025-03-21 18:32 | DI.CT.S_ITS ---
PROCEDURE: CT CERVICAL SPINE WO CON INDICATIONS: hit head, on blood thinners TECHNIQUE: Noncontrast 3 mm thick sections acquired from the skull base to the T4 level. Sagittal and coronal reformats were then constructed. For radiation dose reduction, the following was used: automated exposure control, adjustment of mA and/or kV according to patient size. COMPARISON: None. FINDINGS: Image quality: Excellent. Bones: No fractures or dislocations. Multilevel degenerative changes of the spine. Visualized superior ribs are intact. Soft tissues: Prevertebral soft tissues are normal in thickness. No paravertebral hematomas. No apical pneumothoraces. Partially visualized left chest wall pacemaker. IMPRESSION: No displaced fracture or traumatic subluxation. Dictated by: Elvin Cohn M.D. on 03/21/2025 at 18:58 Approved by: Elvin Cohn M.D. on 03/21/2025 at 18:59
--- NOTE | 2025-03-21 18:32 | DI.CT.S_ITS ---
PROCEDURE: CT HEAD/BRAIN WO CON INDICATIONS: hit head, on blood thinners TECHNIQUE: Noncontrast 4.5 mm thick angled axial sections acquired from the foramen magnum to the vertex, with coronal and sagittal reformats. For radiation dose reduction, the following was used: automated exposure control, adjustment of mA and/or kV according to patient size. COMPARISON: [facility], CT, CT HEAD/BRAIN WO CON, 12/04/2024, 5:58. FINDINGS: Image quality: Diagnostic. CSF spaces: Basal cisterns are patent. No extra-axial fluid collections. The ventricles are symmetric in size and shape. Brain: No intracranial bleeds or mass effect. There is cerebral volume loss, with resultant ventricular and sulcal prominence. There are periventricular and deep white matter chronic small vessel ischemic changes. There is intracranial internal carotid artery atherosclerosis. Skull and face: Calvarium and visualized facial bones appear intact, without suspicious lesions. Sinuses: Visualized sinuses and mastoids are clear. IMPRESSION: No acute intracranial pathology. Dictated by: Elvin Cohn M.D. on 03/21/2025 at 18:56 Approved by: Elvin Cohn M.D. on 03/21/2025 at 18:58
--- NOTE | 2025-03-21 18:38 | DI.RAD.S_ITS ---
PROCEDURE: XR HIP W PEL IF DONE LT 2V INDICATIONS: fall/ pain, on thinners TECHNIQUE: AP pelvis with lateral view(s) of the left hip(s). COMPARISON: [facility], , XR HIP W PEL IF DONE LT 2V, 12/21/2019, 14:07. FINDINGS: Bones: No fractures or dislocations. Right hip arthroplasty. Hardware appears intact without surrounding fracture or lucency. Stable appearance of left proximal femoral fixation hardware without evidence of complication. Pelvic ring appears intact. No suspicious bony lesions. Soft tissues: The visualized bowel gas pattern is normal. No suspicious soft tissue calcifications. IMPRESSION: Bilateral hip hardware without evidence of complication. No acute osseous abnormalities are seen. Dictated by: Elvin Cohn M.D. on 03/21/2025 at 19:17 Approved by: Elvin Cohn M.D. on 03/21/2025 at 19:18
--- NOTE | 2025-03-21 19:46 | ED_ITS ---
HPI - Fall General Chief Complaint: Fall Stated Complaint: fall hit head on thinners Time Seen by Provider: 03/21/25 19:32 History of Present Illness HPI Narrative: 89-year-old female history of atrial fibrillation on Xarelto AICD pacemaker seen last night for acute diverticulitis given Augmentin and hydrocodone fell earlier this morning after taking hydrocodone and a small meal hitting her head after going to the toilet against the door. Patient denies loss of consciousness but did soil her pants incontinent of urine and stool. Patient denies headache, blurred vision, nausea vomiting, neck, chest, back pain, shortness breath,dyspnea on exertion, leg or arm pain. Her tetanus is up-to-date. Other than what is stated 14 point review of system is negative Related Data Home Medications Medication Instructions Recorded Confirmed liothyronine 5 mcg tablet (Cytomel) 10 mcg PO QDAY ##0 05/27/11 03/19/25 polyethylene glycol 3350 17 17 g PO BID 02/04/21 03/19/25 gram/dose oral powder (Miralax) ascorbic acid (vitamin C) 1,000 mg 1,000 mg PO DAILY 07/01/22 03/19/25 tablet calcium carbonate 500 mg PO DAILY 07/01/22 03/19/25 cholecalciferol (vitamin D3) 25 25 mcg PO DAILY 07/01/22 03/19/25 mcg (1,000 unit) capsule magnesium oxide 400 mg PO DAILY 07/01/22 03/19/25 metoprolol succinate 25 mg 12.5 mg PO BID afib, tachycardia 07/07/23 03/19/25 tablet,extended release 24 hr albuterol sulfate 2.5 mg/3 mL 2.5 mg continuous nebulization QID 03/29/24 03/19/25 (0.083 %) solution for nebulization sacubitril 24 mg-valsartan 26 mg 1 tab PO BID 03/29/24 03/19/25 tablet (Entresto) amiodarone 200 mg tablet 200 mg PO DAILY 05/17/24 03/19/25 levothyroxine 75 mcg tablet 75 mcg PO DAILY 07/18/24 03/19/25 Previous Rx's Medication Instructions Recorded Oral Appliance #1 ea 07/28/21 acyclovir 5 % topical cream 1 applic topical QID PRN Rash #5 04/13/24 grams apixaban 5 mg tablet (Eliquis) 5 mg PO BID #180 tabs 06/25/24 furosemide 40 mg tablet 40 mg PO DAILY #90 tabs 07/18/24 potassium chloride 10 mEq 10 meq PO BID PRN furosemide use 07/18/24 capsule,extended release #180 caps spironolactone 25 mg tablet 25 mg PO DAILY #90 tabs 07/18/24 linaclotide 72 mcg capsule 144 mcg (2 x 72 mcg) PO DAILY #180 07/24/24 (Linzess) caps estradiol 0.01% (0.1 mg/gram) 2 g vaginal 3XW #85 grams 08/10/24 vaginal cream rosuvastatin 10 mg tablet 10 mg PO DAILY #90 tabs 08/28/24 albuterol sulfate 90 mcg/actuation 2 puff inhalation Q6H PRN 11/15/24 aerosol inhaler shortness of breath or wheezing #8.5 grams econazole nitrate 1 % topical cream 1 applic topical DAILY #85 grams 03/04/25 amoxicillin 875 mg tablet 875 mg PO BID 10 days #20 tabs 03/14/25 fluticasone furoate 200 1 inh inhalation DAILY #90 ea 03/14/25 mcg/actuation blister powder for inhalation (Arnuity Ellipta) amoxicillin 875 mg-potassium 1 tab PO BID #20 tabs 03/21/25 clavulanate 125 mg tablet hydrocodone 5 mg-acetaminophen 325 1 tab PO Q6H PRN pain #10 tabs 03/21/25 mg tablet Allergies Allergy/AdvReac Type Severity Reaction Status Date / Time ciprofloxacin [CIPROFLOXACIN] Allergy Severe Rash Verified 03/19/25 16:02 sulfamethoxazole Allergy Unknown RASH Verified 03/19/25 16:02 [From SEPTRA] trimethoprim [From SEPTRA] Allergy Unknown RASH Verified 03/19/25 16:02 torsemide AdvReac Intermediate constipatio Verified 03/19/25 16:02 n metronidazole [From FLAGYL] AdvReac Unknown REALLY Verified 03/19/25 16:02 HARSH ON STOMACH Review of Systems Review of Systems ROS Unobtainable: All systems reviewed & are unremarkable except as noted in HPI and below Patient History Medical History Acquired hypothyroidism BPPV (benign paroxysmal positional vertigo) Chicken pox Chronic anticoagulation Chronic kidney disease, stage 3b Colon polyps Constipation by delayed colonic transit COPD (chronic obstructive pulmonary disease) Diverticular disease Do not resuscitate Hearing loss Herpes Measles Menopausal syndrome Mixed hyperlipidemia Mumps Obstructive sleep apnea syndrome Paroxysmal atrial fibrillation Pneumonia Systolic CHF, chronic Tachy-cheryl syndrome Venous (peripheral) insufficiency Vision disorder Surgical History Anesthesia H/O: hysterectomy (~1984) History of femoral derotational osteotomy (~1983) History of hip surgery (~2007) History of right hip replacement (~2007) History of tonsillectomy and adenoidectomy (~1949) S/P cardiac pacemaker procedure Family History Father History of heart disease Mother Hypertension Alcoholism Sister Cancer Grandmother Cancer Grandmother Cancer Social History household members: spouse and children alcohol intake: never tobacco type: cigarettes alcohol intake frequency: holidays/special occasions only Exam Narrative Exam Narrative: GENERAL: [89] year old patient appears stated age. Well-developed patient, in mild distress. HEAD: Atraumatic. Normocephalic. EYES: Pupils equal round and reactive. Extraocular motions intact. No scleral icterus. No injection or drainage. ENT: Nose without bleeding, purulent drainage. Throat without erythema, tonsillar hypertrophy or exudate. Airway patent. NECK: Trachea midline. Non tender CARDIOVASCULAR: Regular rate and rhythm without murmurs, gallops, or rubs. RESPIRATORY: Clear to auscultation. Breath sounds equal bilaterally. No wheezes, rales, or rhonchi. GASTROINTESTINAL: Abdomen soft, non-tender, nondistended. EXTREMITIES: No edema or joint tenderness. BACK: Nontender without deformity or crepitance. No flank tenderness. NEURO: AOx3. GCS 15 nonfocal neuro exam SKIN: No rash or erythema of visible areas. R temp forehead abrasion 0.25x0.25cm Initial Vital Signs Initial Vital Signs: Vital Signs Temperature 97.8 F 03/21/25 18:44 Pulse Rate 82 03/21/25 18:44 Respiratory Rate 16 03/21/25 18:44 Blood Pressure 104/53 L 03/21/25 18:44 Pulse Oximetry 99 05/01/25 18:44 Oxygen Delivery Method Room Air 03/21/25 18:44 Course Orders Ordered: ED Orders 03/21/25 18:32 CT cervical spine wo con Stat CT head/brain wo con Stat 03/21/25 18:38 XR hip w pel if done LT 2V Stat Vital Signs Vital signs: Vital Signs - 8 hr 03/21/25 18:44 Temperature 97.8 F Pulse Rate 82 Respiratory Rate 16 Blood Pressure 104/53 L Pulse Oximetry 99 Oxygen Delivery Method Room Air MDM - Fall Imaging Data CT scan - head: Radiologist's Impression: [address] [address] [address] Scan Report Signed Patient: Joceline Ace MR#: [id number] : 1935 Acct:[id number] Age/Sex: 89 / F Date of Service: 03/21/25 Loc: ED Accession Number: [id number] Procedure: CT head/brain wo con Ordering Provider: Chad Raines D.O. PROCEDURE: CT HEAD/BRAIN WO CON INDICATIONS: hit head, on blood thinners TECHNIQUE: Noncontrast 4.5 mm thick angled axial sections acquired from the foramen magnum to the vertex, with coronal and sagittal reformats. For radiation dose reduction, the following was used: automated exposure control, adjustment of mA and/or kV according to patient size. COMPARISON: [facility], CT, CT HEAD/BRAIN WO CON, 12/04/2024, 5:58. FINDINGS: Image quality: Diagnostic. CSF spaces: Basal cisterns are patent. No extra-axial fluid collections. The ventricles are symmetric in size and shape. Brain: No intracranial bleeds or mass effect. There is cerebral volume loss, with resultant ventricular and sulcal prominence. There are periventricular and deep white matter chronic small vessel ischemic changes. There is intracranial internal carotid artery atherosclerosis. Skull and face: Calvarium and visualized facial bones appear intact, without suspicious lesions. Sinuses: Visualized sinuses and mastoids are clear. IMPRESSION: No acute intracranial pathology. Dictated by: Elvin Cohn M.D. on 03/21/2025 at 18:56 Approved by: Elvin Cohn M.D. on 03/21/2025 at 18:[address] [address] [address] Scan Report Signed Patient: Joceline Ace MR#: [id number] : 1935 Acct:[id number] Age/Sex: 89 / F Date of Service: 03/21/25 Loc: ED Accession Number: [id number] Procedure: CT cervical spine wo con Ordering Provider: Chad Raines D.O. PROCEDURE: CT CERVICAL SPINE WO CON INDICATIONS: hit head, on blood thinners TECHNIQUE: Noncontrast 3 mm thick sections acquired from the skull base to the T4 level. Sagittal and coronal reformats were then constructed. For radiation dose reduction, the following was used: automated exposure control, adjustment of mA and/or kV according to patient size. COMPARISON: None. FINDINGS: Image quality: Excellent. Bones: No fractures or dislocations. Multilevel degenerative changes of the spine. Visualized superior ribs are intact. Soft tissues: Prevertebral soft tissues are normal in thickness. No paravertebral hematomas. No apical pneumothoraces. Partially visualized left chest wall pacemaker. IMPRESSION: No displaced fracture or traumatic subluxation. Dictated by: Elvin Cohn M.D. on 03/21/2025 at 18:58 Approved by: Elvin Cohn M.D. on 03/21/2025 at 18:[address] [address] XRay Report Signed Patient: Joceline Ace MR#: [id number] : 1935 Acct:[id number] Age/Sex: 89 / F Date of Service: 03/21/25 Loc: ED Accession Number: [id number] Procedure: XR hip w pel if done LT 2V Ordering Provider: Chad Raines D.O. PROCEDURE: XR HIP W PEL IF DONE LT 2V INDICATIONS: fall/ pain, on thinners TECHNIQUE: AP pelvis with lateral view(s) of the left hip(s). [facility] IF DONE LT 2V, [facility]/21/2019, 14:07. FINDINGS: Bones: No fractures or dislocations. Right hip arthroplasty. Hardware appears intact without surrounding fracture or lucency. Stable appearance of left proximal femoral fixation hardware without evidence of complication. Pelvic ring appears intact. No suspicious bony lesions. Soft tissues: The visualized bowel gas pattern is normal. No suspicious soft tissue calcifications. IMPRESSION: Bilateral hip hardware without evidence of complication. No acute osseous abnormalities are seen. MDM Narrative Medical decision making narrative: Vital signs, nurse triage note, medication list, previous ER visits, and all imaging modalities reviewed. Differential diagnosis subdural hemorrhage, subarachnoid, epidural, hemorrhage ,fracture, dislocation ,pneumothorax con tusion, abrasion. Return with new or worsening symptoms. Discharge Plan Departure Patient Disposition: Home Clinical Impression: Forehead contusion Qualifiers: Encounter type: initial encounter Qualified Code(s): S00.83XA - Contusion of other part of head, initial encounter Fall Qualifiers: Encounter type: initial encounter Qualified Code(s): W19.XXXA - Unspecified fall, initial encounter Instructions: How to Prevent Falls Activity Restrictions/Additional Instructions: Return with new or worsening symptoms. Take half pill of pain medicine as needed for pain control instead a full pill. Prescriptions: No Action liothyronine [Cytomel] 5 MCG tablet 10 mcg PO QDAY Qty: 0 (DME) Oral Appliance See Rx Instructions .Route .MEDSUPPLY Qty: 1 0RF Rx Instructions: patient with AHI of 10.4 acyclovir 5 % cream 1 applic TOPICAL QID PRN (Reason: Rash) Qty: 5 5RF Rx Instructions: as needed APPLY ONE-HALF GRAM TO AFFECTED AREA FOUR TIMES A DAY NEEDED amiodarone 200 mg tablet 200 mg PO DAILY Eliquis 5 mg tablet 5 mg PO BID Qty: 180 3RF Linzess 72 mcg capsule 144 mcg PO DAILY Qty: 180 3RF estradiol 0.01 % (0.1 mg/gram) cream 2 g vaginal 3XW Qty: 85 4RF albuterol sulfate 90 mcg/actuation HFA aerosol inhaler 2 puff inhalation Q6H PRN (Reason: shortness of breath or wheezing) Qty: 8.5 5RF econazole nitrate 1 % cream 1 applic TOPICAL DAILY Qty: 85 1RF Arnuity Ellipta 200 mcg/actuation blister with device 1 inh inhalation DAILY Qty: 90 3RF amoxicillin 875 mg tablet 875 mg PO BID 10 Days Qty: 20 0RF hydrocodone-acetaminophen 5-325 mg tablet 1 tab PO Q6H PRN (Reason: pain) Qty: 10 0RF cholecalciferol (vitamin D3) 25 mcg (1,000 unit) capsule 25 mcg PO DAILY magnesium oxide 400 mg magnesium tablet 400 mg PO DAILY calcium carbonate 500 mg calcium (1,250 mg) tablet 500 mg PO DAILY ascorbic acid (vitamin C) 1,000 mg tablet 1,000 mg PO DAILY metoprolol succinate 25 mg tablet extended release 24 hr 12.5 mg PO BID albuterol sulfate 2.5 mg /3 mL (0.083 %) solution for nebulization 2.5 mg continuous nebulization QID Rx Instructions: 1 VIAL VIA NEBULIZER FOUR TIMES DAILY Entresto 24-26 mg tablet 1 tab PO BID spironolactone 25 mg tablet 25 mg PO DAILY Qty: 90 3RF potassium chloride 10 mEq capsule, extended release 10 meq PO BID PRN (Reason: furosemide use) Qty: 180 3RF furosemide 40 mg tablet 40 mg PO DAILY Qty: 90 3RF levothyroxine 75 mcg tablet 75 mcg PO DAILY rosuvastatin 10 mg tablet 10 mg PO DAILY Qty: 90 3RF polyethylene glycol 3350 [Miralax] 17 gram/dose Powder 17 g PO BID amoxicillin-pot clavulanate 875-125 mg tablet 1 tab PO BID Qty: 20 0RF Referrals: Thompson Vicente MD [Primary Care Provider] - Stand Alone Forms: Patient Portal/API/Survey
== END 2025-03-21 20:36 | disposition home or self-care (01) ==
PROVIDERS: Emergency Provider Family Medicine; Family Provider Internal Medicine; PCP Internal Medicine
DX: S00.83XA Contusion of other part of head, initial encounter (principal); W18.09XA Striking against other object with subsequent fall, initial encounter; Z79.01 Long term (current) use of anticoagulants; K57.92 Diverticulitis of intestine, part unspecified, without perforation or abscess without bleeding
CPT/HCPCS: 36415; 70450; 71045; 72125; 73502; 74177; 80053; 81003; 81015; 82550; 83605; 83690; 83735; 83880; 84484; 85025; 85610; 85730; 87040; 87077; 93005; 96365; 96375; 99281; 99284; J1171; J2405; J2543; Q9967

== ENCOUNTER → 2025-05-29 12:07 | Outpatient (CLI) | payer MEDICARE, OTHER, SELFPAY ==
[2025-03-15 07:15] VITALS: BMI 25.8
[2025-05-29 12:32] LABS: Add Manual Diff / Slide Review NO; Hematocrit 37.1 % (36-46); Hemoglobin 12.6 g/dL (12.0-16.0); Lymphocytes Absolute Auto 1800 /uL (1100-4500); Mean Corpuscular HGB Conc 34.0 % (30-36); Mean Corpuscular Hemoglobin 31.0 PG (26-34); Mean Corpuscular Volume 91.3 fL (80-100); Platelet Count 222 X10^3/uL (150-400)
[2025-05-29 12:57] LABS: Alanine Aminotransferase 20 IU/L (<35); Albumin 4.7 g/dL (3.5-5.0); Albumin Globulin Ratio 2.0 (1.0-2.8); Alkaline Phosphatase 48 U/L (38-126); Blood Urea Nitrogen 22 mg/dL (7-17); Calcium 9.5 mg/dL (8.4-10.2); Carbon Dioxide 28 mmol/L (22-32); Chloride 98 mmol/L (98-107); Cholesterol 171 mg/dL (140-199); Estimated Glomerular Filt Rate 47 mL/min (>60); Globulin 2.4 g/dL (1.7-4.1); Glucose 78 mg/dL (70-99); HDL Cholesterol 96 mg/dL (40-60); HEMOLYSIS < 15 (0-50); Potassium 4.5 mmol/L (3.4-5.1); Sodium 132 mmol/L (137-145); Total Protein 7.1 g/dL (6.3-8.2); Triglycerides 42 mg/dL (35-150)
== END ==
PROVIDERS: Family Provider Internal Medicine; PCP Internal Medicine; Referring Provider Internal Medicine; Visit Provider Internal Medicine
DX: N18.32 Chronic kidney disease, stage 3b (principal); I50.22 Chronic systolic (congestive) heart failure; E78.2 Mixed hyperlipidemia
CPT/HCPCS: 36415; 80053; 80061; 85025; 85651; 86140

== ENCOUNTER → 2025-07-02 12:37 | Outpatient (CLI) | payer MEDICARE, OTHER, SELFPAY ==
[2025-03-15 07:15] VITALS: BMI 25.8
[2025-07-02 14:03] LABS: Hematocrit 36.9 % (36-46); Hemoglobin 12.6 g/dL (12.0-16.0); Mean Corpuscular HGB Conc 34.2 % (30-36); Mean Corpuscular Hemoglobin 30.8 PG (26-34); Mean Corpuscular Volume 90.1 fL (80-100); Platelet Count 242 X10^3/uL (150-400)
[2025-07-02 14:47] LABS: Alanine Aminotransferase 22 IU/L (<35); Albumin 4.7 g/dL (3.5-5.0); Albumin Globulin Ratio 2.0 (1.0-2.8); Alkaline Phosphatase 60 U/L (38-126); Blood Urea Nitrogen 15 mg/dL (7-17); Calcium 9.4 mg/dL (8.4-10.2); Carbon Dioxide 26 mmol/L (22-32); Chloride 93 mmol/L (98-107); Estimated Glomerular Filt Rate 47 mL/min (>60); Globulin 2.3 g/dL (1.7-4.1); Glucose 84 mg/dL (70-99); HEMOLYSIS < 15 (0-50); Potassium 4.6 mmol/L (3.4-5.1); Sodium 129 mmol/L (137-145); Total Protein 7.0 g/dL (6.3-8.2)
[2025-07-02 15:23] LABS: TSH w/ Reflex to FT4 5.90 uIU/mL (0.47-4.68)
[2025-07-02 22:05] LABS: Free T4, Direct Thyroxine 1.51 ng/dL (0.78-2.19)
== END ==
PROVIDERS: Family Provider Internal Medicine; PCP Internal Medicine; Referring Provider Internal Medicine; Visit Provider Internal Medicine
DX: E03.9 Hypothyroidism, unspecified (principal); N18.32 Chronic kidney disease, stage 3b
CPT/HCPCS: 36415; 80053; 84439; 84443; 85027

== ENCOUNTER → 2025-07-30 14:12 | Outpatient (CLI) | payer MEDICARE, OTHER, SELFPAY ==
[2025-03-15 07:15] VITALS: BMI 25.8
[2025-07-30 16:05] LABS: Blood Urea Nitrogen 12 mg/dL (7-17); Calcium 9.3 mg/dL (8.4-10.2); Carbon Dioxide 23 mmol/L (22-32); Chloride 98 mmol/L (98-107); Estimated Glomerular Filt Rate 55 mL/min (>60); Glucose 104 mg/dL (70-99); HEMOLYSIS < 15 (0-50); Potassium 4.3 mmol/L (3.4-5.1); Sodium 130 mmol/L (137-145)
== END ==
PROVIDERS: PCP Internal Medicine; Referring Provider Internal Medicine; Visit Provider Internal Medicine
DX: N18.32 Chronic kidney disease, stage 3b (principal); I48.0 Paroxysmal atrial fibrillation; E03.9 Hypothyroidism, unspecified; E78.2 Mixed hyperlipidemia
CPT/HCPCS: 80048

== ENCOUNTER → 2025-08-01 12:42 | Outpatient (CLI) | payer MEDICARE, OTHER, SELFPAY ==
[2025-03-15 07:15] VITALS: BMI 25.8
--- NOTE | 2025-08-01 12:44 | DI.MG.S_ITS ---
MM screening mammo BI: 08/01/2025. BI-RADS: 2 CLINICAL: 89-year old female for bilateral screening mammogram. No Tyrer-Cuzick risk score calculation due to patient's age being over 85 years old. Current reported family history of breast cancer: maternal grandmother, paternal grandmother and sister. The patient had a prior right breast biopsy. PRIOR EXAMS 07/31/2024, 07/26/2023, 03/01/2023, 08/09/2022. MAMMOGRAPHY TECHNIQUE: 2D and 3D (tomosynthesis) digital mammographic views obtained, with additional images as needed for full coverage. Current study was also evaluated with a Computer Aided Detection (CAD) system. DENSITY C. The breasts are heterogeneously dense, which may obscure small masses. MAMMOGRAPHY FINDINGS Right: Biopsy marker present on the right. There are no suspicious masses, calcifications, or other findings in the breast. Left: No suspicious mass, asymmetry, microcalcification, or other abnormality seen. IMPRESSION: Right * No evidence of malignancy with benign findings. Left * No evidence of malignancy. RECOMMENDATIONS Bilateral * Annual screening mammography. OVERALL ASSESSMENT CATEGORY BI-RADS-2: Benign. The [employer] recommends annual screening mammography beginning at age 40 for women with average risk of breast cancer. ELECTRONICALLY SIGNED: Tessie Vang M.D. on 08/02/2025 at 11:58:24 PM PT Interpreting Station ID: [id number]
== END ==
PROVIDERS: PCP Internal Medicine; Referring Provider Internal Medicine; Visit Provider Internal Medicine
DX: Z12.31 Encounter for screening mammogram for malignant neoplasm of breast (principal); Z80.3 Family history of malignant neoplasm of breast; R92.333 Mammographic heterogeneous density, bilateral breasts
CPT/HCPCS: 77063; 77067

== ENCOUNTER → 2025-08-19 14:42 | Outpatient (CLI) | payer MEDICARE, OTHER, SELFPAY ==
[2025-03-15 07:15] VITALS: BMI 25.8
--- NOTE | 2025-08-19 14:44 | DI.CT.S_ITS ---
PROCEDURE: CT CHEST WO CON INDICATIONS: ascending aorta aneurysm TECHNIQUE: Noncontrast 5 mm thick sections acquired from the pulmonary apices to the posterior costophrenic angles. 1 mm lung window, 5 mm thick coronal and sagittal and 7 mm axial MIP reformats were then acquired. For radiation dose reduction, the following was used: automated exposure control, adjustment of mA and/or kV according to patient size. COMPARISON: [facility], CT, CT ANGIO CHEST, 07/26/2023, 10:30. [facility], CR, XR CHEST 1 VIEW, 04/21/2025, 13:22. FINDINGS: Image quality: Diagnostic. Lower Neck: No enlarged lymph nodes. Thyroid: Diminutive thyroid without dominant nodule. Axillae: No enlarged lymph nodes. Chest Wall: Subcutaneous pacemaker power pack in the upper left anterior chest wall. No suspicious chest wall mass. Bones: No suspicious bone lesions. Multilevel spondylitic changes in the thoracic spine including anterior vertebral body ankylosis in the mid thoracic region. Lungs and Pleura: Mild centrilobular emphysematous changes. Minor septal and interstitial thickening in the extreme lung bases. No acute consolidations or ground-glass opacities. 5 mm solid right upper lobe nodule, 3/74. Punctate, scattered left lower lung calcifications. No suspicious mass or new nodule. No pleural effusion or pleural calcification. Heart: The heart is mildly enlarged and multi lead pacemaker is in place. Trace pericardial thickening. No effusion. Minor coronary artery calcification. Thoracic Vessels: Mild pulmonary artery enlargement at 3.7 cm in diameter. Mild ascending aortic aneurysm at 4.0 x 4.3 cm. Mild aortic arch and descending aortic calcification. Mediastinum and Tamara: No enlarged lymph nodes. Esophagus: No wall thickening. No hiatal hernia. Upper Abdomen: Visualized upper abdomen solid organs and bowel loops appear normal. IMPRESSION: Mild enlargement in the ascending thoracic aorta, now measuring 4.0 x 4.3 cm, previously 3.9 x 3.9 cm. Mild enlargement of main pulmonary outflow tract compared to prior, now measuring 3.7 cm, previously 3.3 cm. Correlate with any pulmonary artery hypertension. Stable and benign right upper lobe lung nodule. Dictated by: Valerie Lewis M.D. on 08/19/2025 at 16:16 Approved by: Valerie Lewis M.D. on 08/19/2025 at 16:24
== END ==
LOC: CT 14:43
PROVIDERS: PCP Internal Medicine; Referring Provider Internal Medicine; Visit Provider Internal Medicine
DX: I71.21 Aneurysm of the ascending aorta, without rupture (principal); R91.1 Solitary pulmonary nodule
CPT/HCPCS: 71250

== ENCOUNTER → 2025-08-24 08:27 | Outpatient (CLI) | payer MEDICARE, OTHER, SELFPAY ==
[2025-03-15 07:15] VITALS: BMI 25.8
--- NOTE | 2025-08-24 08:29 | DI.CT.S_ITS ---
PROCEDURE: CT ABDOMEN PELVIS W CON INDICATIONS: UPPER ABD PAIN TECHNIQUE: After the administration of intravenous contrast, axial sections acquired from the lung bases to the pubic symphysis. Coronal and sagittal reformats were performed. For radiation dose reduction, the following was used: automated exposure control, adjustment of mA and/or kV according to patient size. COMPARISON: [facility], CT, CT CHEST WO CON, 08/19/2025, 14:55. [facility], CT, CT ABDOMEN PELVIS W CON, 03/20/2025, 23:53. FINDINGS: Image quality: Portions of the lower pelvis are suboptimally evaluated secondary to metallic streak artifact from hip arthroplasty. Lower Chest: Cardiomegaly. ABDOMEN: Liver: No solid mass. Gallbladder: Luminal stone. Wall thickness measures 5 mm. Biliary ducts: No biliary dilation. Pancreas: No ductal dilation. Spleen: Size is within normal limits. Adrenal Glands: No adrenal nodules. Kidneys and Ureters: No hydronephrosis. No solid mass. No complex renal cystic lesion which requires follow up. Stomach and Bowel: Normal colonic caliber, without significant wall thickening. Diverticula without inflammatory change. Peritoneum: No abnormal intraperitoneal fluid. No free air. Ventral Wall: No significant ventral hernia. Abdominal Nodes: No retroperitoneal or mesenteric adenopathy by size criteria. Vessels: Aorta and inferior vena cava are normal in size. PELVIS: Pelvic Organs: Unremarkable. Bladder: No bladder wall thickening, accounting for underdistention. Pelvic Nodes: No enlarged lymph nodes. Miscellaneous: No inguinal hernias are seen. Bones: No aggressive osseous abnormality. Right hip arthroplasty and left hip fixation. IMPRESSION: Cholelithiasis with wall thickening suggestive of cholecystitis. No definitive pericholecystic fluid. Ultrasound may be helpful for further evaluation. Diverticulosis. Dictated by: Ivon Portillo M.D. on 08/24/2025 at 17:20 Approved by: Ivon Portillo M.D. on 08/24/2025 at 17:25
== END ==
PROVIDERS: PCP Internal Medicine; Referring Provider Internal Medicine; Visit Provider Internal Medicine
DX: K80.20 Calculus of gallbladder without cholecystitis without obstruction (principal); K57.90 Diverticulosis of intestine, part unspecified, without perforation or abscess without bleeding; R10.10 Upper abdominal pain, unspecified; I51.7 Cardiomegaly; Z96.641 Presence of right artificial hip joint
CPT/HCPCS: 74177; Q9967

== ENCOUNTER → 2025-11-20 09:13 | Outpatient (CLI) | payer MEDICARE, OTHER, SELFPAY ==
[2025-03-15 07:15] VITALS: BMI 25.8
--- NOTE | 2025-11-20 09:14 | DI.CT.S_ITS ---
PROCEDURE: CT CHEST WO CON INDICATIONS: Aortic aneurysm suspected TECHNIQUE: Noncontrast 5 mm thick sections acquired from the pulmonary apices to the posterior costophrenic angles. 1 mm lung window, 5 mm thick coronal and sagittal and 7 mm axial MIP reformats were then acquired. For radiation dose reduction, the following was used: automated exposure control, adjustment of mA and/or kV according to patient size. COMPARISON: [facility], CT, CT CHEST WO CON, 08/19/2025, 14:55. FINDINGS: Image quality: Diagnostic. Lower Neck: No enlarged lymph nodes. Thyroid: No thyroid nodules which require sonographic follow up, per consensus guidelines. Axillae: No enlarged lymph nodes. Chest Wall: Cardiac pacemaking device from left-sided approach extends with dual chamber leads in normal position.. Bones: Unremarkable. Lungs and Pleura: No pneumothorax or pleural effusions. No consolidation or suspicious nodules. Heart: Heart size is normal. No pericardial effusion. Thoracic Vessels: The aorta and pulmonary arteries demonstrate stable size with minimal fusiform dilatation of the ascending aorta unchanged from 08/19/25. There is no suspicion for Sandra he aneurysmal fibrosis or inflammation, or dissection. Maximal AP dimension above the aortic root is 4.3 cm, and on coronal re-formation imaging is 3.9 cm, stable. Mediastinum and Tamara: No enlarged lymph nodes. Esophagus: No wall thickening. No hiatal hernia. Upper Abdomen: Visualized upper abdomen solid organs and bowel loops appear normal. IMPRESSION: Stable minimal ectasia of the ascending aorta without evidence of perianeurysmal fibrosis or inflammation, or aortic dissection. Dictated by: Brett Naqvi M.D. on 11/20/2025 at 16:16 Approved by: Brett Naqvi M.D. on 11/20/2025 at 16:20
== END ==
LOC: CT 09:14
PROVIDERS: PCP Internal Medicine; Referring Provider Internal Medicine; Visit Provider Internal Medicine
DX: I71.21 Aneurysm of the ascending aorta, without rupture (principal)
CPT/HCPCS: 71250